=== PATIENT | female | born 1940 | race Caucasian/White ===

== ENCOUNTER 2025-05-27 21:21 | Inpatient (IN) | payer MEDICARE, SELFPAY ==
[2025-05-27 21:24] VITALS: BP 151/69; PULSE 84; RESP 16; TEMP 36.9; O2SAT 97; BMI 29.0
--- NOTE | 2025-05-27 21:51 | CT_ITS ---
PROCEDURE: SPINE LUMBAR WITHOUT CONTRAST 05/27/2025 REASON FOR EXAM: FALL, LOW BACK PAIN TECHNIQUE: Procedure Code: CTSPL Modality: CT Procedure: SPINE LUMBAR WITHOUT CONTRAST Coronal and Sagittal reconstruction series were provided. One or more dose reduction techniques were used (e.g., Automated exposure control, adjustment of the mA and/or kV according to patient size, use of iterative reconstruction technique COMPARISON: None. RADIATION DOSE SUMMARY: CTDlvol: 26.13 mGy DLP: 772.37 mGycm FINDINGS: Vertebrae: Preserved in height and signal. Osteopenia which limits the evaluation. Alignment: Retrolisthesis L2 on L3 by 3 mm. L1-2: Disc bulge. Mild inferior bilateral foramina stenosis. Mild canal stenosis. L2-3: Disc space narrowing. Facet joints arthropathy. Severe bilateral foramina stenosis. Severe canal stenosis. L3-4: Disc bulge. Facet joint arthropathy. Mild inferior bilateral foramina stenosis. Moderate canal stenosis. L4-5: Disc bulge. Facet joint arthropathy. Moderate bilateral foramina stenosis. Severe canal stenosis. L5-S1: Disc bulge. Facet joints arthropathy. Mild bilateral foramina stenosis. No canal stenosis. Sacrum: No acute bony abnormalities. CT/Spine Lumbar without Contrast IMPRESSION: Multilevel degenerate changes of the lumbar spine predominantly for severe muna l stenosis at L4-L5 and L2-L3. Please see disc levels for further details. No acute injury to the lumbar spine. Reading Location: [id number]
[2025-05-27] MEDS: 0.9% Normal Saline (1000mL) 1,000 ML 1000 ML IV (22:06)
[2025-05-27 22:19] LABS: Hematocrit 38.5 % (37-47); Hemoglobin 13.0 g/dL (12.0-15.0); Immature Granulocytes Count 0.050 X10^3/uL (0.0-0.0); Mean Corp Hgb Conc 33.8 g/dL (32-36); Mean Corpuscular Volume 89.1 fL (81-99); Mean Platelet Vol. 10.5 fl (6.2-12.0); NRBC Flagged by Analyzer 0 % (0-5); POSITIVE DIFFERENTIAL YES; Platelet Count 153 K/mm3 (150-450); RBC Distribution Width CV 12.9 % (11.6-14.6); RBC Distribution Width SD 42.5 fl (35.1-43.9); Red Blood Count 4.32 M/mm3 (4.2-5.4); White Blood Count 10.9 K/mm3 (4.4-11.0)
[2025-05-27 22:27] LABS: Differential Indicated SCAN CRITERIA MET
[2025-05-27 22:57] LABS: Anion Gap 15 (5-15); BUN 28 mg/dL (4-19); BUN/Creat Ratio 37.2 RATIO (10-20); Calcium,Total 9.4 mg/dL (7.6-11.0); Carbon Dioxide 22.4 mmol/L (21.0-32.0); Chloride 98 mmol/L (98-108); Estimated Creatinine Clearance 52.31 ml/min (50-250); Glucose 103 mg/dL (70-99); Potassium 3.4 mmol/L (3.3-5.1)
[2025-05-27 23:17] VITALS: BP 134/62; PULSE 80; RESP 18; O2SAT 95
[2025-05-27 23:32] LABS: Differential Comment SCANNED
[2025-05-27 23:50] LABS: Color, Urine Yellow (Yellow); Glucose, Dipstick Normal (Normal); Ketone-Dipstick 50 mg/dl (Negative); Leukocyte Esterase-Dipstick 500 /ul (Negative); Nitrite-Dipstick Negative (Negative); Occult Blood-Urine 25 /ul (Negative); Protein-Dipstick 30 mg/dl (Negative); Specific Gravity, Urine 1.020 (1.002-1.030)
[2025-05-27 23:54] LABS: Urine Bilirubin Dipstick 1 mg/dL (Negative)
--- NOTE | 2025-05-28 00:28 | EDS_ITS ---
HPI History of Present Illness Chief Complaint: Fall Narrative Narrative: This is an 84-year-old female who presents to the emergency department with intractable low back pain and weakness. The patient states on Friday she had a fall at home onto her left side. This was 3 days ago. She was seen by [facility] emergency department in [place] and had imaging of the back and left wrist. This showed no acute fractures. She was placed in a wrist splint. Patient states that earlier today she went to physical therapy for her low back pain and did get some improvement. However when she went home she had recurrence of the low back pain and was unable to stand or ambulate from a chair. She states she feels very dehydrated she was unable to stand or ambulate. She has no family in the area currently as they are out of town for the until next Friday, in 4 days. She ultimately had to call EMS to transfer her here to the ED. 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 Stroke Allergy/AdvReac Type Severity Reaction Status Date / Time Sulfa (Sulfonamide Allergy Mild Other Verified 05/27/25 21:27 Antibiotics) Family History no significant family his Surgical History Hx of cholecystectomy Hx of hysterectomy Social History Smoking Status: Former smoker ROS ROS ED Constitutional Constitutional ED: Denies chills or fever(s) Eyes Eyes: Denies blurry vision ENT ENT ED: Denies sore throat Cardiovascular Cardiovascular: Denies chest pain or palpitations Respiratory/Chest Respiratory/Chest: Denies cough or dyspnea Gastrointestinal Gastrointestinal: Denies abdominal pain, nausea or vomiting Genitourinary Genitourinary ED: Denies dysuria Musculoskeletal Musculoskeletal: Reports arthralgias and back pain; Denies myalgias Integumentary Reports Abrasions Neurologic Neurologic: Denies headache(s) Hematologic/Lymphatic Hematologic/Lymphatic: Denies easy bleeding EXAM Physical Exam Const Vital Signs: 05/27/25 21:24 05/27/25 21:24 05/27/25 21:31 Temperature 98.4 F Temperature Source Oral Pulse Rate 84 Respiratory Rate 16 Respiratory Effort Normal Normal Respiratory Depth Normal Respiratory Pattern Normal Normal Blood Pressure 151/69 H Blood Pressure Mean 96 Pulse Ox 97 Oxygen Delivery Method Room Air Room Air 05/27/25 23:17 Temperature Temperature Source Pulse Rate 80 Respiratory Rate 18 Respiratory Effort Respiratory Depth Respiratory Pattern Blood Pressure 134/62 H Blood Pressure Mean 86 Pulse Ox 95 Oxygen Delivery Method Room Air Positive well nourished, well developed and oriented x3 General Appearance ED: active, cooperative and well developed Orientation / Consciousness: awake and oriented to person Exam Limitations: no limitations HEENT Reports normocephalic, head/scalp atraumatic, moist mucous membranes, nasal mucous membranes and turbinates normal and oropharynx normal HEENT Narrative: Bruising over the nasal bridge normocephalic, normal to inspection and atraumatic Face and Sinus: normal facial exam Nose: external nose normal and nares normal Mouth ED: Yes oral and palatal mucosa normal, Yes lips normal and Yes tongue normal Mouth: oral and palatal mucosa normal, lips normal and tongue normal Throat: posterior oropharynx normal Eyes PERRL, EOMs intact bilaterally and conjunctivae normal General Eye ED: Yes normal appearance of both eyes Visual Acuity: acuity normal Eyelid: eyelids normal Conjunctiva: conjunctiva normal Sclera: sclera normal Cornea: cornea normal Pupil: PERRL and accommodation reflex normal EOM: EOM abnormal Neck full ROM Lymph Lymphatic: no lymphadenopathy noted Chest Wall inspection of chest normal Chest: abnormal inspection of the chest Resp normal respiratory effort and normal air movement Effort and Inspection: able to speak in complete sentences and symmetric chest movement Auscultation: clear to auscultation bilaterally Cardio regular rate and regular rhythm Rate: regular rate Peripheral Pulses: pulses 2+ throughout GI normal to inspection, nondistended, normoactive bowel sounds Rectal Exam: deferred Back/Spine normal ROM Back/Spine Narrative: Tenderness to palpation over the mid and paraspinal lumbosacral region of the left side of the back Cervical Spine: cervical ROM normal Extremity normal to inspection, full ROM and normal capillary refill Extremity Narrative: Tenderness and swelling to the left wrist with the splint in place Neuro oriented x3, CN's II-XII intact bilaterally, moves all extremities and no focal motor deficits Sensorium / Orientation: awake and alert Motor Exam: strength 5/5 throughout Psych mental status grossly normal Appearance: grossly normal and appropriate Speech: normal speech Skin no rashes or lesions noted MDM MDM MDM Narrative Medical decision making narrative: Patient presents to the emergency department for intractable low back pain after a fall 3 days ago. She is having difficulty ambulating, even with assistance and is having generalized weakness from this. Patient was given IV fluids, morphine and Zofran in the emergency department. She did get some pain relief from this. I did do a CT of the lumbar spine which shows no occult or compression fractures. The patient does have multilevel degenerative disc disease of the lumbar spine predominantly with severe canal stenosis at L4-L5 as well as L2 and L3. There is no acute injury to the lumbar spine. I suspect that patient likely has urinary tract infection as well she has some blood and leukocytes in the urine. Awaiting final microscopic evaluation of the UA. I will start the patient on IV Rocephin. She did appear to be mildly dehydrated she did have some ketones in the urine. With the patient's ambulatory dysfunction, intractable pain, likely UTI and difficulty completing her ADLs at home, I will admit the patient to the hospitalist for continued management and possible physical therapy evaluation to is for her deficits and therapy needs at this time. Patient is comfortable with this plan if she does not feel safe going home at this point. I spoke with Dr. Booth for admission. Impressions: Intractable low back pain, generalized weakness and ambulatory dysfunction, dehydration, UTI Lab Data Labs: Laboratory Results - last 24 hr 05/27/25 05/27/25 22:07 23:38 WBC 10.9 RBC 4.32 Hgb 13.0 Hct 38.5 MCV 89.1 MCH 30.1 MCHC 33.8 RDW Std Deviation 42.5 RDW Coeff of Ethan 12.9 Plt Count 153 MPV 10.5 Immature Gran % (Auto) 0.500 Neut % (Auto) 71.6 H Lymph % (Auto) 7.8 L [place] % (Auto) 19.7 H Eos % (Auto) 0.2 Baso % (Auto) 0.2 Absolute Neuts (auto) 7.8 H Absolute Lymphs (auto) 0.85 Nucleated RBC % 0 Differential Comment SCANNED Sodium 135 Potassium 3.4 Chloride 98 Carbon Dioxide 22.4 Anion Gap 15 BUN 28 H Creatinine 0.74 Estim Creat Clear Calc 52.31 Est GFR (MDRD) Non-Af 81 BUN/Creatinine Ratio 37.2 H Glucose 103 H Calcium 9.4 Urine Color Yellow Urine Clarity Sl. Cloudy Urine pH 5.0 Ur Specific Maybell 1.020 Urine Protein 30 H Urine Glucose (UA) Normal Urine Ketones 50 H Urine Occult Blood 25 H Urine Nitrite Negative Urine Bilirubin 1 H Urine Urobilinogen 1 H Ur Leukocyte Esterase 500 H Radiography Diagnostic Testing: Clinical Impression(s) from Imaging Studies Lumbar Spine CT 05/27/25 21:51 IMPRESSION: Multilevel degenerate changes of the lumbar spine predominantly for severe canal stenosis at L4-L5 and L2-L3. Please see disc levels for further details. No acute injury to the lumbar spine. Reading Location: [facility] Discharge Plan Triage Chief Complaint: Fall Other Complaint: Weakness ED Provider: Palma Mayberry Dx/Rx/DC Orders Primary Care Provider: Herbie Marquez Referrals: Herbie Marquez MD [Primary Care Provider, Medical] Print Language: Serbian
[2025-05-28 00:40] VITALS: BP 144/68; PULSE 82; PULSE 83; RESP 14; RESP 16; TEMP 36.9; O2SAT 97
[2025-05-28 00:40] LABS: Mucous, Urine 2+ /hpf (<or=2+); Squamous Epithelial Cells - UA 5-10 SEEN /hpf (5-10)
--- OUTSIDE RECORDS SUMMARY | 2025-05-28 01:46 | XMS RPT_ITS | CCD ---
Author Organization [facility] Care Team Providers Care Mac Artist Name Role Phone Jose Armando Marquez Primary Care Provider [phone] JOSE ARMANDO MARQUEZ Primary Care Unavailable LINA CHAVEZ Attending Unavailable Jose Armando Marquez MD Primary Care Provider JOSE ARMANDO MARQUEZ Primary Care Unavailable BHANU MAYS Referring Unava otmmyable KAREN RINALDI Attending Unavailable JOSE ARMANDO MARQUEZ Primary Care Unavailable JESSA SMITH Attending Unavailable JOSE ARMANDO MARQUEZ Primary Care Unavailable BHANU MAYS Attending Unava ilable JOSE ARMANDO MARQUEZ Primary Care Unavailable NAIMA STILL Attending Unavailable JESSA SMITH Attending Unavailable JOSE ARMANDO MARQUEZ Primary Care Unavailable JOSE ARMANDO MARQUEZ Primary Care Unavailable KAREN RINALDI Attending Unavailable JOSE ARMANDO MARQUEZ Primary Care Unavailable JOSE ARMANDO MARQUEZ Primary Care Unavailable KAREN RINALDI Attending Unavailable Jose Armando Marquez MD Primary Care Provider Jose Armando Marquez MD Primary Care Provider JOSE ARMANDO MARQUEZ Primary Care Unavailable MARTY BAH Attending Unavailable JOSE ARMANDO MARQUEZ Referring Unavailable JOSE ARMANDO MARQUEZ Primary Care Unavailable JOSE ARMANDO MARQUEZ Primary Care Unavailable DAKSHA ELLIS Attending Unavailable SELF Referring Unavailable JOSE ARMANDO MARQUEZ Primary Care Unavailable DAKSHA ELLIS Attending Unavailable SELF Referring Unavailable JOSE ARMANDO MARQUEZ Primary Care Unavailable DAKSHA ELLIS Referring Unavailable JOSE ARMANDO MARQUEZ Primary Care Unavailable JOSE ARMANDO MARQUEZ Referring Unavailable JOSE ARMANDO MARQUEZ Primary Care Unavailable JOSE ARMANDO MARQUEZ Primary Care Unavailable JOSE ARMANDO MARQUEZ Primary Care Unavailable JOSE ARMANDO MARQUEZ Primary Care Unavailable JOSE ARMANDO MARQUEZ Attending Unavailable JOSE ARMANDO MARQUEZ Primary Care Unavailable JOSE ARMANDO MARQUEZ Attending Unavailable JOSE ARMANDO MARQUEZ Referring Unavailable JOSE ARMANDO MARQUEZ Primary Care Unavailable JOSE ARMANDO MARQUEZ Referring Unavailable JOSE ARMANDO MARQUEZ Primary Care Unavailable JOSE ARMANDO MARQUEZ Referring Unavailable JOSE ARMANDO MARQUEZ Primary Care Unavailable JOSE ARMANDO MARQUEZ Primary Care Unavailable JOSE ARMANDO MARQUEZ Primary Care Unavailable JOSE ARMANDO MARQUEZ Primary Care Unavailable JOSE ARMANDO MARQUEZ Referring Unavailable JOSE ARMANDO MARQUEZ Primary Care Unavailable JOSE ARMANDO MARQUEZ Attending Unavailable JOSE ARMANDO MARQUEZ Primary Care Unavailable JOSE ARMANDO MARQUEZ Primary Care Unavailable JOSE ARMANDO MARQUEZ Referring Unavailable JOSE ARMANDO MARQUEZ Primary Care Unavailable JOSE ARMANDO MARQUEZ Primary Care Unavailable JOSE ARMANDO MARQUEZ Referring Unavailable JOSE ARMANDO MARQUEZ Primary Care Unavailable Allergies Allergy Classification Reported Allergen(s) Allergy Type Date of Onset Reaction(s) Facility Cephalosporins (antibiotic) (1 source) Cephalexin Drug Allergy 12-12-19 24 Rash [facility] Corticosteroids (3 sources) predniSONE Drug Allergy 12-04-19 16 Itching [facility] Doxycycline (3 sources) Doxycycline Drug Allergy 08-27-19 23 Rash [facility] Lincosamides (antibiotic) (3 sources) Clindamycin Drug Allergy 12-04-19 16 Itching [facility] Loratadine (3 sources) Loratadine Drug Allergy 10-05-19 22 Swelling [facility] Work Phone: Macrolides (antibiotic) (3 sources) Clarithromycin Drug Allergy 05-17-20 21 Rash [facility] Proton Pump Inhibitors (3 sources) Omeprazole Drug Allergy 02-17-20 20 Hives [facility] Quinolones (antibiotic) (3 sources) Ciprofloxacin Drug Allergy 12-04-19 16 Itching [facility] Sulfamethoxazole / Trimethoprim (3 sources) Sulfamethoxazole / Trimethoprim Drug Allergy 12-04-19 16 Itching [facility] Sulfonamides (antibiotic) (3 sources) Sulfonamides (Antibiotic) Drug Allergy 09-15-19 18 [facility] (20 sources) Ciprofloxacin; Translations: [CIPROFLOXACIN] Drug Allergy 12-04-19 16 Itching [place], [place] (20 sources) Clindamycin; Translations: [CLINDAMYCIN] Drug Allergy 12-04-19 16 Itching [place], [place] (20 sources) predniSONE; Translations: [PREDNISONE] Drug Allergy 12-04-19 16 Itching [place] (20 sources) Sulfamethoxazole / Trimethoprim; Translations: [SULFAMETHOXAZOLE-T RIMETHOPRIM] Drug Allergy 12-04-19 16 Itching [place], [place] (5 sources) Sulfonamides (Antibiotic) Propensity to adverse reactions to drug 09-15-19 18 [facility] [place] [place] ([facility] Omeprazole; Translations: [OMEPRAZOLE] Drug Allergy 02-17-20 [facility] (20 sources) Loratadine; Translations: [LORATADINE] Drug Allergy 10-05-19 22 [facility] Work Phone: (20 sources) Doxycycline; Translations: [DOXYCYCLINE] Drug Allergy 08-27-19 23 [facility] (8 sources) Amoxicillin; Translations: [AMOXICILLIN] Drug Allergy 10-18-19 [facility] (20 sources) Clarithromycin; Translations: [CLARITHROMYCIN] Drug Allergy 05-17-20 [facility] (20 sources) Sulfonamides (Antibiotic); Translations: [SULFA (SULFONAMIDE ANTIBIOTICS)] Drug Intolerance 09-15-[facility] Fragrances; Translations: [FRAGRANCES] Allergy to substance 02-01-20 [facility] (20 sources) Cephalexin; Translations: [CEPHALEXIN] Drug Allergy 12-12-19 [facility] (1 source) Clarithromycin Allergy to substance 05-17-20 [facility] (1 source) levoFLOXacin Drug Allergy 05-17-20 [facility] (1 source) Loratadine Allergy to substance 10-05-19 [facility] (1 source) Prednisone Allergy to substance 12-04-19 16 Itching [facility] Medications Current Medications Medication Drug Class(es) Dates Sig (Normalized) Sig (Original) Acetaminophen (20 sources) acetaminophen (T YLENOL EXTRA STRENGTH ORAL) Take by mouth. Active acetaminophen (T YLENOL EXTRA STRENGTH ORAL) Take by mouth. 0 Active Acetaminophen (T YLENOL) 325 MG CAPS Take by mouth 0 Active Comment on above: Take by mouth. acetaminophen 325 mg / HYDROcodone bitartrate 5 mg oral tablet (9 sources) Opioid Agonist Start: 02-26-20 End: 11-07-19 22 take 1 tablet by mouth every twelve hours as needed HYDROcodone-acetamin ophen (NORCO) 5-325 mg per tablet Indications: Tenosynovitis of wrist Take 1 tablet by mouth every 12 hours as needed (for severe opain). 4 tablet 0 02/25/2021 11/06/2021 Discontinued (Course of therapy completed) Comment on above: Take 1 tablet by scott th every 12 hours as needed (for severe opain). amLODIPine 10 mg oral tablet (20 sources) Dihydropyridine Calcium Channel Marcellus Start: 07-28-19 End: 10-20-19 25 amLODIPine (NORVASC) 10 mg tablet TAKE ONE TABLET EVERY DAY 90 tablet 3 10/19/2024 Active Start: 10-11-2021 End: 10-28-2022 take 1 tablet by mouth once daily amLODIPine (Norvasc) 10 MG tablet Take 10 mg by mouth daily. 0 07/23/2022 Active Start: 05-17-2021 End: 11-06-2021 amLODIPine (NORVASC) 5 mg ta blet TAKE ONE TABLET EVERY DAY 90 tablet 3 05/17/2021 11/06/2021 Discontinued (Course of therapy completed) Start: 08-20-2017 amLODIPine (NO RVASC) 5 mg tablet TAKE ONE TABLET EVERY DAY 90 tablet 3 08/16/2019 Active Comment on above: TAKE ONE TABLET EVER Y DAY Take 1 tablet by scott th once daily. TAKE ONE TABLET BY M OUTH ONCE DAILY amoxicillin 250 mg oral capsule (10 sources) Penicillin-class Antibacterial Start: 4 End: 4 take 1 capsule by mouth twice daily amoxicillin (AMOXIL) 250 mg capsule Take 1 capsule by mouth two times a day for 10 days. 20 capsule 04/07/2024 04/17/2024 Active Start: 03-18-2024 End: 03-28-2024 take 1 capsule by mouth twice daily amoxicillin (AMOXIL) 250 mg capsule Take 1 capsule by mouth two times a day for 10 days. 20 capsule 03/18/2024 03/28/2024 Active Start: 09-19-2023 End: 09-26-2023 take 1 tablet by mouth twice daily amoxicillin (AMOXIL) 875 mg tablet Indications: Acute non-recurrent pansinusitis , Left ear pain Take 1 tablet by mouth two times a day for 7 days. 14 tablet 0 09/19/2023 09/26/2023 Active Start: 02-19-2023 End: 03-10-2023 Amoxicillin 500 mg tablet On e half tablet tid 15 tablet 0 02/19/2023 03/10/2023 Discontinued Start: 01-14-2023 End: 01-14-2023 amoxicillin 250 mg oral liqu id (AMOXIL) Start: 06-28-2020 End: 07-08-2020 take 1 tablet by mouth twice daily Amoxicillin 500 mg tablet Take 1 tablet by mouth twice daily for 10 days. 20 tablet 0 06/28/2020 07/08/2020 Active Start: 04-07-2020 End: 04-17-2020 take 1 tablet by mouth twice daily Amoxicillin 500 mg tablet Take 1 tablet by mouth twice daily for 10 days. 20 tablet 0 04/07/2020 04/17/2020 Active Comment on above: Take 1 tablet by scott [facility] twice daily for 10 days. One half tablet tid Take 1 tablet by scott th two times a day for 7 days. apixaban 5 mg oral tablet (20 sources) Factor Xa Inhibitor Start: 08-15-2021 End: 08-09-2024 take 1 tablet by mouth every twelve hours ELIQUIS 5 mg tab(s) TAKE ONE TABLET BY MOUTH TWICE DAILY 60 tablet 11 08/09/2024 Active Start: 04-07-2020 End: 06-12-2020 ELIQUIS 5 mg tab(s) TAKE ONE TABLET TWICE DAILY 60 tablet 2 06/12/2020 Active Start: 01-06-2020 take 1 tablet by scott th twice daily apixaban (ELIQUIS) 5 mg tab(s) Take 1 tablet by mouth twice daily. 60 tablet 2 01/06/2020 Active Start: 11-26-2018 take 2 tablets by mo [facility] twice daily, then take 1 tablet by mouth twice daily apixaban (ELIQUIS STARTER PACK) 5 MG TABS tablet Take 10 mg (2 tablets) orally twice daily for 7 days, then take 5 mg (1 tablet) orally twice daily thereafter. 74 tablet 0 11/26/2018 Active Comment on above: Take 1 tablet by scott twice daily. TAKE ONE TABLET BY M OUTH TWICE DAILY TAKE ONE TABLET TWIC E DAILY azelastine hydrochloride 0.137 mg/actuat metered dose nasal spray (11 sources) Histamine-1 Receptor Antagonist Start: 10-23-19 take 1 spray(s) nasal route twice daily azelastine 0.1% nasal spray Use 1 spray in each nostril two times a day. 30 mL 2 10/22/2024 Active azithromycin 250 mg oral tablet (8 sources) Macrolide Antimicrobial Start: 10-05-19 End: 11-07-19 take 2 tablets by mouth once daily, then take 1 tablet by mouth once daily azithromycin (ZITHROMAX Z-DARRYL) 250 mg tablet Indications: Chronic pansinusitis Two (2) tablets by mouth the first day and then one (1) tablet by mouth daily for 4 days. 6 tablet 0 10/04/2021 11/06/2021 Discontinued (Course of therapy completed) Comment on above: Two (2) tablets by m outh the first day and then one (1) tablet by mouth daily for 4 days. benzonatate 100 mg oral capsule (2 sources) Non-narcotic Antitussive Start: 11-03-19 End: 12-03-19 take 1 capsule by mouth every eight hours as needed benzonatate (TESSALON PERLES) 100 mg capsule Take 1 capsule by mouth three times daily as needed for cough. 30 capsule 1 11/02/2021 11/06/2021 Discontinued (Course of therapy completed) Comment on above: Take 1 capsule by mo [facility] three times daily as needed for cough. bisacodyl 10 mg rectal suppository (7 sources) Stimulant Laxative Start: 10-05-19 End: 11-04-19 bisacodyl (DULCOLAX) 10 mg supp Indications: Constipation, unspecified constipation type 1 Suppository by RECTAL route once daily as needed for constipation. 30 Suppository 0 10/04/2021 11/03/2021 Active Comment on above: 1 Suppository by REC GASTON route once daily as needed for constipation. cephalexin 500 mg oral capsule (5 sources) Cephalosporin Antibacterial Start: 11-27-19 End: 12-02-19 take 1 capsule by mouth twice daily cephALEXin (KEFLEX) 500 mg capsule Take 1 capsule by mouth two times a day for 5 days. 10 capsule 0 11/27/2023 12/02/2023 Active Start: 08-19-2023 End: 08-24-2023 take 1 capsule by mouth twice daily cephALEXin (KEFLEX) 500 mg capsule Take 1 capsule by mouth two times a day for 5 days. 10 capsule 0 08/19/2023 08/24/2023 Active Start: 11-19-2021 End: 11-26-2021 take 1 capsule by mouth twice daily cephALEXin (KEFLEX) 500 mg capsule Take 1 capsule by mouth twice daily for 7 days. 14 capsule 0 11/19/2021 11/26/2021 Comment on above: Take 1 capsule by mo uth twice daily for 7 days. Take 1 capsule by mo uth two times a day for 5 days. cholecalciferol 0.025 mg ora l capsule (6 sources) Vitamin D cholecalciferol (Vitamin D-3) 25 MCG (1000 UT) capsule Take 2,000 Units by mouth. 0 Active Cholecalciferol (VITAMIN D3) 1000 units CAPS Take 2,000 Units by mouth 0 Active CHOLECALCIFEROL, VITAMIN D3, ORAL (20 sources) take 2000 [IU] by mouth once daily CHOLECALCIFEROL, VITAMIN D3, ORAL Take 2,000 Units by mouth once daily. Active take 2000 [IU] by mouth once neris ly CHOLECALCIFEROL, VITAMIN D3, ORAL Take 2,000 Units by mouth once daily. 0 Active Comment on above: Take 2,000 Units by mouth once daily. doxycycline monohydrate 100 mg oral capsule (7 sources) Tetracycline-cla ss Drug Start: 08-23-2022 End: 08-30-2022 take 1 capsule by mouth twice daily doxycycline monohydrate (MONODOX) 100 mg capsule Take 1 capsule by mouth twice daily for 7 days. 14 capsule 0 08/23/2022 08/30/2022 Active Start: 10-29-2021 End: 2021 take 1 capsule by mouth twice daily doxycycline monohydrate (MONODOX) 100 mg capsule Take 1 capsule by mouth twice daily for 7 days. 14 capsule 0 10/29/2021 2021 Active Comment on above: Take 1 capsule by mo uth twice daily for 7 days. famotidine 40 mg oral tablet (20 sources) Histamine-2 Receptor Antagonist Start: 10-13-2023 End: 10-05-2024 take 1 tablet by mouth once daily famotidine (PEPCID) 40 mg tablet TAKE ONE TABLET BY MOUTH EVERY DAY 90 tablet 3 10/05/2024 Active Start: 01-22-2023 End: 09-19-2023 take 1 tablet by mouth once daily famotidine (PEPCID) 40 mg tablet Take 1 tablet by mouth once daily. 90 tablet 3 01/22/2023 09/19/2023 Discontinued Start: 08-09-2021 End: 08-14-2022 take 1 tablet by mouth once daily famotidine (Pepcid) 20 MG tablet Take 20 mg by mouth daily. 0 08/14/2022 Active Start: 02-16-2020 End: 08-14-2020 take 1 tablet by mouth once daily famotidine (PEPCID) 20 mg tablet Take 1 tablet by mouth once daily. 30 tablet 5 02/16/2020 08/14/2020 Active Comment on above: Take 1 tablet by scott th once daily. TAKE ONE TABLET BY M OUTH ONCE DAILY TAKE ONE TABLET EVER Y DAY fluticasone propionate 0.05 mg/actuat metered dose nasal spray (20 sources) Corticosteroid Start: End: take 2 spray(s) nasal route twice daily fluticasone (FLONASE) 50 mcg/actuation nasal spray Use 2 Sprays in each nostril twice daily. 16 g 3 11/10/2024 Active Start: 08-21-2022 fluticasone (F lonase) 50 MCG/ACT nasal spray 2 sprays in the morning and 2 sprays in the evening. 0 08/21/2022 Active Start: 06-04-2021 End: 02-14-2023 take 2 spray(s) nasal route twice daily fluticasone (FLONASE) 50 mcg/actuation nasal spray Use 2 Sprays in each nostril twice daily. 16 mL 3 08/21/2022 02/14/2023 Discontinued Start: 06-08-2019 End: 03-17-2020 take 2 spray(s) nasal route twice daily fluticasone (FLONASE) 50 mcg/actuation nasal spray Use 2 Sprays in each nostril twice daily. 16 g 3 03/17/2020 Active Start: 08-26-2017 take 2 spray(s) nasa l route once daily fluticasone (FLONASE) 50 MCG/ACT nasal spray USE two SPRAYS in each nostril EVERY DAY 0 08/26/2017 Active Comment on above: Use 2 Sprays in each nostril twice daily. folic acid 1 mg oral tablet (20 sources) Start: 05-26-2023 End: 02-23-2024 folic acid 1 mg tablet take one tablet every day 90 tablet 3 02/23/2024 Active Start: 02-19-2022 folic acid (Fo lvite) 1 MG tablet Every 24 hours. 0 02/19/2022 Active Start: 02-26-2021 End: 02-19-2022 folic acid 1 mg tablet TAKE ONE TABLET EVERY DAY 90 tablet 3 02/19/2022 Active Start: 03-05-2019 End: 03-01-2020 folic acid 1 mg tablet TAKE ONE TABLET EVERY DAY 90 tablet 3 06/04/2019 03/01/2020 Discontinued Comment on above: TAKE ONE TABLET EVER Y DAY TAKE ONE TABLET BY M OUTH ONCE DAILY glycerin 2000 mg rectal suppository (20 sources) Non-Standardized Chemical Allergen Start: 2 glycerin ADULT suppository 1 Suppository by RECTAL route as needed. 30 Suppository 2 02/19/2022 Active Comment on above: 1 Suppository by REC GASTON route as needed. 12 hr guaiFENesin 600 mg extended release oral tablet (20 sources) Start: 5 End: 5 take 1 tablet by mouth twice daily guaiFENesin (MUCINEX) 600 mg 12 hr tablet Take 1 tablet by mouth two times a day. 40 tablet 1 10/22/2024 Active Start: 06-01-2019 End: 02-17-2024 take 1 tablet by mouth twice daily guaiFENesin (MUCINEX) 600 mg 12 hr tablet Take 1 tablet by mouth twice daily. 40 tablet 2 06/01/2019 02/17/2024 Discontinued (Course of therapy completed) Comment on above: [facility] hydroCHLOROthiazide 12.5 mg oral capsule (9 sources) Thiazide Diuretic Start : 10-04 End: 11-06 take 1 capsule by mouth once daily hydroCHLOROthiazide (Microzide) 12.5 MG capsule Take 12.5 mg by mouth daily. 0 10/04/2021 Active Comment on above: Take 1 capsule by [facility] once daily. hydroxychloroquine sulfate 200 mg oral tablet (20 sources) Antimalarial, Antirheumatic Agent Start : 05-13 take 1 tablet by mouth once daily hydroxychloroquine (PLAQUENIL) 200 mg tablet Indications: Sjogren's disease (HCC) Take 1 tablet by mouth once daily. 30 tablet 5 05/13/2016 Active hydroxychloroqui ne (Plaquenil) 200 MG tablet Every 24 hours. 0 Active Comment on above: Take 1 tablet [facility] once daily. levothyroxine sodium 0.05 mg oral tablet (20 sources) l-Thyroxine Start: 07-11-2021 End: 11-03-2024 levothyroxine (SYNTHROID) 50 mcg tablet TAKE ONE TABLET EVERY DAY 90 tablet 3 11/03/2024 Active Start: 08-16-2019 End: 06-14-2020 levothyroxine (SYNTHROID) 50 mcg tablet TAKE ONE TABLET EVERY DAY 90 tablet 3 06/14/2020 Active Comment on above: TAKE ONE TABLET EVER Y DAY Take 1 tablet [facility] once daily. lidocaine 0.04 mg/mg medicated patch (2 sources) Antiarrhythmic, Amide Local Anesthetic Start: 023 End: 023 apply 1 dose transdermal route once daily, then apply 1 dose transdermal route every twelve hours lidocaine (SALONPAS) 4 % patch Apply 1 Patch as directed once daily for 5 days. Remove patch after 12 hours 5 Patch 0 12/25/2022 12/30/2022 Active Comment on above: Apply 1 Patch as dir ected once daily for 5 days. Remove patch after 12 hours nitrofurantoin, macrocrystals 25 mg / nitrofurantoin, monohydrate 75 mg oral capsule (12 sources) Nitrofuran Antibacterial Start: End: take 1 capsule by mouth twice daily nitrofurantoin monohydrate and macrocrystal (MACROBID) 100 mg capsule Take 1 capsule by mouth two times a day for 7 days. 14 capsule 03/03/2025 03/10/2025 Active Start: 08-23-2024 End: 08-30-2024 take 1 capsule by mouth twice daily nitrofurantoin monohydrate and macrocrystal (MACROBID) 100 mg capsule Take 1 capsule by mouth two times a day for 7 days. 14 capsule 08/23/2024 08/30/2024 Start: 02-17-2024 End: 02-24-2024 take 1 capsule by mouth twice daily nitrofurantoin monohydrate and macrocrystal (MACROBID) 100 mg capsule Take 1 capsule by mouth two times a day for 7 days. 14 capsule 02/17/2024 02/24/2024 Active Start: 12-05-2022 End: 12-12-2022 take 1 capsule by mouth twice daily nitrofurantoin monohydrate and macrocrystal (MACROBID) 100 mg capsule Take 1 capsule by mouth twice daily for 7 days. 14 capsule 0 12/05/2022 12/12/2022 Active Start: 07-17-2022 End: 07-24-2022 take 1 capsule by mouth twice daily nitrofurantoin monohydrate and macrocrystal (MACROBID) 100 mg capsule Take 1 capsule by mouth twice daily for 7 days. 14 capsule 0 07/17/2022 07/24/2022 Active Start: 05-30-2022 End: 06-06-2022 take 1 capsule by mouth twice daily nitrofurantoin monohydrate and macrocrystal (MACROBID) 100 mg capsule Take 1 capsule by mouth twice daily for 7 days. 14 capsule 0 05/30/2022 06/06/2022 Active Comment on above: Take 1 capsule by [facility] twice daily for 7 days. raNITIdine 150 mg oral tablet (5 sources) Histamine-2 Receptor Antagonist take 1 tablet by mouth twice daily ranitidine (RANITIDINE 150 MAX STRENGTH) 150 MG tablet Take 150 mg by mouth 2 times daily 0 Active terconazole 8 mg/ml vaginal cream (20 sources) Azole Antifungal Start: terconazole vaginal cream (TERAZOL) 0.8 % vaginal cream Use 1 Applicator vaginally daily at bedtime. 20 g 1 08/27/2024 Active Start: 12-09-2023 End: 08-17-2024 terconazole vaginal cream (T ERAZOL) 0.8 % vaginal cream Use 1 Applicator vaginally daily at bedtime. 20 g 12/09/2023 08/17/2024 Discontinued (Course of therapy completed) Start: 04-30-2021 End: 11-06-2021 terconazole vaginal cream (T ERAZOL) 0.8 % vaginal cream Use 1 Applicator vaginally daily at bedtime. 20 g 1 04/30/2021 11/06/2021 Discontinued (Course of therapy completed) Comment on above: Use 1 Applicator vag inally daily at bedtime. triamcinolone acetonide 1 mg/ml topical cream (20 sources) Corticosteroid Start: 04-29-2023 End: 07-28-2024 triamcinolone acetonide (KENALOG) 0.1 % cream Apply to affected areas twice a day for two weeks with flares 80 g 2 07/28/2024 Active Comment on above: Apply to affected ar eas twice a day for two weeks with flares vitamin b12 1 mg/ml injectable solution (20 sources) Vitamin B12 Start: 06-10-2024 End: 05-12-2025 cyanocobalamin 1,000 mcg injection Start: 06-10-2024 End: 05-12-2025 1,000 mcg, INTRAMUSCULAR, EV KATHIA 4 WEEKS, 12 doses, First dose on [facility] 06/10/24 at 0700, Last dose on [facility] 04/14/25 at 0700 Start: 06-11-2023 End: 05-12-2024 1,000 mcg, INTRAMUSCULAR, EV KATHIA 4 WEEKS, 12 doses, First dose on Fri06/11/23 at 1030, Last dose on Fri04/14/24 at 1030 Start: 06-11-2023 End: 05-12-2024 cyanocobalamin 1,000 mcg inj ection Start: 05-09-2022 End: 04-10-2023 cyanocobalamin 1,000 mcg inj ection Start: 04-26-2021 End: 03-28-2022 cyanocobalamin 1,000 mcg inj ection Start: 04-20-2020 End: 03-22-2021 cyanocobalamin 1,000 mcg inj ection Start: 04-14-2019 End: 04-10-2023 cyanocobalamin (Vitamin B-12 ) 1000 MCG/ML injection Inject 1,000 mcg into the shoulder, thigh, or buttocks every 28 (twenty-eight) days. 0 04/14/2019 04/10/2023 Active Start: 04-14-2019 End: 03-15-2020 cyanocobalamin 1,000 mcg inj ection Completed/Discontinued Medications Medication Drug Class(es) Dates Sig (Normalized) Sig (Original) amoxicillin 500 mg / clavulanate 125 mg oral tablet (5 sources) Penicillin-class Antibacterial Start: 06-28-2024 End: 07-05-2024 take 1 tablet by mouth every twelve hours amoxicillin-clav ulanate potassium (AUGMENTIN) 500-125 mg per tablet Indications: Bronchitis Take 1 tablet by mouth every 12 hours for 7 days. 14 tablet 06/28/2024 07/05/2024 Start: 10-01-2021 End: 10-11-2021 take 1 tablet by mouth every twelve hours amoxicillin-clavulanic acid (AUGMENTIN) 875-125 mg per tablet Take 1 tablet by mouth every 12 hours for 10 days. 20 tablet 0 10/01/2021 10/04/2021 Discontinued (Side Effects) Comment on above: [facility] 12 hours for 10 days. betamethasone 3 mg/ml / betamethasone acetate 3 mg/ml injectable suspension (2 sources) Corticosteroid Start: 06-28-2024 End: 06-28-2024 betamethasone acetate-betamethasone sodium phosphate 6 mg injection (CELESTONE) Start: 06-28-2024 End: 06-28-2024 inject 1 dose by intramuscular injection once 6 mg, INTRAMUSCULAR, ONCE, 1 dose, On 06/28/24 at 1200, Protect From Light. ferrous sulfate 325 mg oral tablet (20 sources) Start: 12-18-2020 End: 02-15-2025 take 1 tablet by mouth once daily in the morning FEROSUL 325 mg (65 mg iron) tablet Take 1 tablet by mouth every morning. 90 tablet 3 01/03/2025 02/15/2025 Discontinued (Course of therapy completed) Start: 05-16-2017 ferrous sulfat e (FEROSUL) 325 (65 Fe) MG tablet TAKE ONE TABLET EVERY MORNING 0 05/16/2017 Active Comment on above: TAKE ONE TABLET EVER Y MORNING [facility] hydrocortisone 25 mg/ml topical cream (20 sources) Corticosteroid Start: 04-29-2023 End: 10-21-2023 hydrocortisone 2.5 % cream Apply twice daily to affected areas on face for 2 weeks 80 g 3 04/29/2023 10/21/2023 Discontinued (Course of therapy completed) Start: 11-26-2022 End: 10-21-2023 hydrocortisone (ANUSOL-HC) 2 .5 % rectal cream by RECTAL route twice daily. 28 g 1 11/26/2022 10/21/2023 Discontinued (Course of therapy completed) Comment on above: by RECTAL route twic e daily. Apply twice daily to affected areas on face for 2 weeks Ibuprofen (20 sources) Nonsteroidal Anti-inflammatory Drug ibuprofen (ADVIL LIQUI-GEL ORAL) Take by mouth. 0 Active Comment on above: Take by mouth. NITROFURANTOIN MONOHYD/M-CRYST ORAL (14 sources) End: 08-19-2023 NITROFURANTOIN MONOHYD/M-CRYST ORAL Take by mouth. 0 08/19/2023 Discontinued (Course of therapy completed) NITROFURANTOIN M ONOHYD/M-CRYST ORAL Take by mouth. 0 Active Comment on above: Take by mouth. omeprazole 20 mg delayed release oral capsule (3 sources) Proton Pump Inhibitor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 acute distress, well-hydrated, well nourished. Head: Normocephalic, no masses, lesions, tenderness or abnormalities Eyes: Anicteric sclera. Pupils are equally round and reactive to light. Extraocular movements are intact. Ears: External ears normal, canals clear, TM's normal Nose/Sinuses: Nares (more content not included)... Normal [facility] ALT [Catalytic activity/Vol] on 02-08-2025 ALT With P-5'-P [Catalytic activity/Vol] 13 U/L Normal 7-38 [facility] Comment on above: Order Comment: Specerica osborn Type: BLOOD SPECIMENOrdering Facility: [facility] Address: [address] [place] [address] Performed By: #### 2 4321-2, 1742-6, 84533-4, 3016-3 ####[facility] LABORATORYCLIA [id number] [place] [address] [place] Basic metabolic 2000 panelon 02-08-2025 Anion gap [Moles/Vol] 10 mmol/L Normal 8-15 [facility] Comment on above: Order Comment: Erick osborn Type: BLOOD SPECIMENOrdering Facility: [facility] Address: [address] [place] [address] Performed By: #### 2 4321-2, 1742-6, 58982-7, 3016-3 ####[facility] LABORATORYCLIA [id number] [place] [address] [place] Calcium [Mass/Vol] 9.5 mg/dL Normal 8.5-10.2 [facility] Comment on above: Order Comment: Yanelyi irena Type: BLOOD SPECIMENOrdering Facility: [facility] Address: [address] [place] [address] Performed By: #### 2 4321-2, 1742-6, 84817-3, 3016-3 ####[facility] LABORATORYCLIA [id number] [place] [address] [place] Chloride [Moles/Vol] 104 mmol/L Normal 98-107 [facility] Comment on above: Order Comment: Speci men Type: BLOOD SPECIMENOrdering Facility: [facility] Address: [address] [place] [address] Performed By: #### 2 4321-2, 1742-6, 34247-1, 3016-3 ####[facility] LABORATORYCLIA [id number] [place] [id number] [place] STATES OF [facility] CO2 [Moles/Vol] 25 mmol/L Normal 22-30 [facility] Comment on above: Order Comment: Speci men Type: BLOOD SPECIMENOrdering Facility: [facility] Address: [address] [place] [address] Performed By: #### 2 4321-2, 1742-6, 10685-2, 3016-3 ####[facility] [id number] [address] STATES OF [facility] Creatinine [Mass/Vol] 0.70 mg/dL Normal 0.58-0.96 [facility] Comment on above: Order Comment: Speci men Type: BLOOD SPECIMENOrdering Facility: [facility] Address: [address] [place] [address] Performed By: #### 2 4321-2, 1742-6, 18839-5, 3016-3 ####[facility]PITALCLIA [id number] [place] [address] [place] eGFRcr SerPlBld CKD-EPI 2020 86 mL/min/1.73m??? Normal >=60 [facility] Comment on above: Order Comment: Speci men Type: BLOOD SPECIMENOrdering Facility: [facility] Address: [address] [place] [address] Result Comment: Brooklynn mated Glomerular Filtration Rate (eGFR) is calculated using the 2020 CKD-EPI creatinine equation. This equation utilizes serum creatinine, sex, and age as parameters. The creatinine assay has traceable calibration to isotope dilution-mass spectrometry. Refer to KDIGO guidelines for clinical interpretation. In patients with unstable renal function, e.g. those with acute kidney injury, the eGFR may not accurately reflect actual GFR. Performed By: #### 2 4321-2, 1742-6, 57855-1, 3015-3 ####[facility] LABORATORYCLIA [id number] [place] [address] [place] Glucose [Mass/Vol] 81 mg/dL Normal 74-99 [facility] Comment on above: Order Comment: Speci men Type: BLOOD SPECIMENOrdering Facility: [facility] Address: [address] [place] [address] Result Comment: The [place] Diabetes Association (ADA) provides guidance for cutoff values for fasting glucose and random glucose. The ADA defines fasting as no caloric intake for at least 8 hours. Fasting plasma glucose results between 100 to 125 mg/dL indicate increased risk for diabetes (prediabetes). Fasting plasma glucose results greater than or equal to 126 mg/dL meet the criteria for diagnosis of diabetes. In the absence of unequivocal hyperglycemia, results should be confirmed by repeat testing. In a patient with classic symptoms of hyperglycemia or hyperglycemic crisis, random plasma glucose results greater than or equal to 200 mg/dL meet the criteria for diagnosis of diabetes. Reference: Standards of Medical Care in Diabetes 2016, [place] [employer] Association. Diabetes Care. 2016.39(Suppl 1). Performed By: #### 2 4321-2, 1742-6, 72099-2, 3 ####[facility] LABORATORYCLIA [id number] [place] [id number] [place] Potassium [Moles/Vol] 3.6 mmol/L Low 3.7-5.1 [facility] Comment on above: Order Comment: Erick osborn Type: BLOOD SPECIMENOrdering Facility: [facility] Address: [address] [place] [address] Performed By: #### 2 4321-2, 174-6, 42540-8, 3015-3 ####[facility] LABORATORYCLIA [id number] [place] [address] [place] Sodium [Moles/Vol] 139 mmol/L Normal 136-144 [facility] Comment on above: Order Comment: Speci men Type: BLOOD SPECIMENOrdering Facility: [facility] Address: [address] [place] [address] Performed By: #### 2 4321-2, 1742-6, 32906-0, 3016-3 ####[facility] LABORATORYCLIA [id number] [address] STATES OF [facility] Urea nitrogen [Mass/Vol] 18 mg/dL Normal 7-21 [facility] Comment on above: Order Comment: Speci men Type: BLOOD SPECIMENOrdering Facility: [facility] Address: [address] [place] [address] Performed By: #### 2 4321-2, 1742-6, 01711-5, 3016-3 ####[facility] LABORATORYCLIA [id number] [address] STATES OF [facility] CBC W Auto Differential pane l (Bld)on 02-08-2025 Basophils (Bld) [#/Vol] 0.03 10*3/uL Normal <0.11 [facility] Comment on above: Order Comment: Speci men Type: BLOOD SPECIMENOrdering Facility: [facility] Address: [address] [place] [address] Performed By: #### 5 7021-8 ####[facility] LABORATORYCLIA [id number] [address] [place] Basophils/100 WBC (Bld) 0.5 % Normal [facility] Comment on above: Order Comment: Speci men Type: BLOOD SPECIMENOrdering Facility: [facility] Address: [address] [place] [address] Performed By: #### 5 7021-8 ####[facility] LABORATORYCLIA [id number] [address] Differential cell count method Nom (Bld) Auto Normal [facility] Comment on above: Order Comment: Speci men Type: BLOOD SPECIMENOrdering Facility: [facility] Address: [address] [place] [address] Performed By: #### 5 7021-8 ####[facility]ORATORYCLIA [id number] [address] [place] Eosinophils (Bld) [#/Vol] 0.08 10*3/uL Normal <0.46 [facility] Comment on above: Order Comment: Speci men Type: BLOOD SPECIMENOrdering Facility: [facility] Address: [address] [place] [address] Performed By: #### 5 7021-8 ####[facility] LABORATORYCLIA [id number] [address] [place] Eosinophils/100 WBC (Bld) 1.5 % Normal [facility] Comment on above: Order Comment: Speci men Type: BLOOD SPECIMENOrdering Facility: [facility] Address: [address] [place] [address] Performed By: #### 5 7021-8 ####[facility] LABORATORYCLIA [id number] [address] Erythrocyte distribution width (RBC) [Ratio] 13.2 % Normal 11.5-15.0 [facility] Comment on above: Order Comment: Speci men Type: BLOOD SPECIMENOrdering Facility: [facility] Address: [address] [place] [address] Performed By: #### 5 7021-8 ####[facility] LABORATORYCLIA [id number] [address] [place] Hematocrit (Bld) [Volume fraction] 44.1 % Normal 36.0-46.0 [facility] Comment on above: Order Comment: Speci men Type: BLOOD SPECIMENOrdering Facility: [facility] Address: [address] [place] [address] Performed By: #### 5 7021-8 ####[facility] LABORATORYCLIA [id number] [address] [place] Hemoglobin (Bld) [Mass/Vol] 13.9 g/dL Normal 11.5-15.5 [facility] Comment on above: Order Comment: Speci men Type: BLOOD SPECIMENOrdering Facility: [facility] Address: [address] [place] [address] Performed By: #### 5 7021-8 ####[facility]ORATORYCLIA [id number] [address] [place] Immature granulocytes (Bld) [#/Vol] 10*3/uL Normal <0.10 [facility] Comment on above: Order Comment: Speci men Type: BLOOD SPECIMENOrdering Facility: [facility] Address: [address] [place] [address] Performed By: #### 5 7021-8 ####[facility] LABORATORYCLIA [id number] [address] Immature granulocytes/100 WBC (Bld) 0.4 % Normal [facility] Comment on above: Order Comment: Speci men Type: BLOOD SPECIMENOrdering Facility: [facility] Address: [address] [place] [address] Performed By: #### 5 7021-8 ####[facility] LABORATORYCLIA [id number] [address] [facility] Lymphocytes (Bld) [#/Vol] 1.36 10*3/uL Normal 1.00-4.00 [facility] Comment on above: Order Comment: Speci men Type: BLOOD SPECIMENOrdering Facility: [facility] Address: [address] [place] [address] Performed By: #### 5 7021-8 ####[facility] LABORATORYCLIA [id number] [address] Lymphocytes/100 WBC (Bld) 24.9 % Normal [facility] Comment on above: Order Comment: Speci men Type: BLOOD SPECIMENOrdering Facility: [facility] Address: [address] [place] [address] Performed By: #### 5 7021-8 ####[facility]ORATORYCLIA [id number] [place] [address] [place] MCH (RBC) [Entitic mass] 29.3 pg Normal 26.0-34.0 [facility] Comment on above: Order Comment: Speci men Type: BLOOD SPECIMENOrdering Facility: [facility] Address: [address] [place] [address] Performed By: #### 5 7021-8 ####[facility] LABORATORYCLIA [id number] [address] MCHC (RBC) [Mass/Vol] 31.5 g/dL Normal 30.5-36.0 [facility] Comment on above: Order Comment: Speci men Type: BLOOD SPECIMENOrdering Facility: [facility] Address: [address] [place] [address] Performed By: #### 5 7021-8 ####[facility] LABORATORYCLIA [id number] [address] [facility] MCV (RBC) [Entitic vol] 93.0 fL Normal 80.0-100.0 [facility] Comment on above: Order Comment: Speci men Type: BLOOD SPECIMENOrdering Facility: [facility] Address: [address] [place] [address] Performed By: #### 5 7021-8 ####[facility] LABORATORYCLIA [id number] [address] [place] Monocytes (Bld) [#/Vol] 0.86 10*3/uL Normal <0.87 [facility] Comment on above: Order Comment: Speci men Type: BLOOD SPECIMENOrdering Facility: [facility] Address: [address] [place] [address] Performed By: #### 5 7021-8 ####[facility] LABORATORYCLIA [id number] [address] Monocytes/100 WBC (Bld) 15.8 % Normal [facility] Comment on above: Order Comment: Speci men Type: BLOOD SPECIMENOrdering Facility: [facility] Address: [address] [place] [address] Performed By: #### 5 7021-8 ####[facility]ORATORYCLIA [id number] [address] [place] Neutrophils (Bld) [#/Vol] 3.11 10*3/uL Normal 1.45-7.50 [facility] Comment on above: Order Comment: Speci men Type: BLOOD SPECIMENOrdering Facility: [facility] Address: [address] [place] [address] Performed By: #### 5 7021-8 ####[facility] LABORATORYCLIA [id number] [address] [facility] Neutrophils/100 WBC (Bld) 56.9 % Normal [facility] Comment on above: Order Comment: Speci men Type: BLOOD SPECIMENOrdering Facility: [facility] Address: [address] [place] [address] Performed By: #### 5 7021-8 ####[facility] LABORATORYCLIA [id number] [address] [place] Nucleated RBC (Bld) [#/Vol] 10*3/uL Normal <0.01 [facility] Comment on above: Order Comment: Speci men Type: BLOOD SPECIMENOrdering Facility: [facility] Address: [address] [place] [address] Performed By: #### 5 7021-8 ####[facility] LABORATORYCLIA [id number] [address] [place] Nucleated RBC/100 WBC (Bld) [Ratio] 0.0 /100 WBC Normal [facility] Comment on above: Order Comment: Speci men Type: BLOOD SPECIMENOrdering Facility: [facility] Address: [address] [place] [address] Performed By: #### 5 7021-8 ####[facility] LABORATORYCLIA [id number] [address] [place] Platelet mean volume (Bld) [Entitic vol] 12.2 fL Normal 9.0-12.7 [facility] Comment on above: Order Comment: Speci men Type: BLOOD SPECIMENOrdering Facility: [facility] Address: [address] [place] [address] Performed By: #### 5 7021-8 ####[facility] LABORATORYCLIA [id number] [place] [address] [place] Platelets (Bld) [#/Vol] 161 10*3/uL Normal 150-400 [facility] Comment on above: Order Comment: Speci men Type: BLOOD SPECIMENOrdering Facility: [facility] Address: [address] [place] [address] Performed By: #### 5 7021-8 ####[facility] LABORATORYCLIA [id number] [place] [id number] [place] RBC (Bld) [#/Vol] 4.74 10*6/uL Normal 3.90-5.20 [facility] Comment on above: Order Comment: Speci men Type: BLOOD SPECIMENOrdering Facility: [facility] Address: [address] [place] [address] Performed By: #### 5 7021-8 ####[facility] LABORATORYCLIA [id number] [place] [address] [place] WBC (Bld) [#/Vol] 5.46 10*3/uL Normal 3.70-11.00 [facility] Comment on above: Order Comment: Speci men Type: BLOOD SPECIMENOrdering Facility: [facility] Address: [address] [place] [address] Performed By: #### 5 7021-8 ####[facility] LABORATORYCLIA [id number] [place] [id number] [place] Lipid 1996 panelon 5 Cholesterol [Mass/Vol] 182 mg/dL Normal <200 [facility] Comment on above: Order Comment: Speci men Type: BLOOD SPECIMENOrdering Facility: [facility] Address: [address] [place] [address] Result Comment: <200 mg/dL, Desirable 200-239 mg/dL, Borderline high >239 mg/dL, High Performed By: #### 2 4321-2, 1742-6, 12499-5, 3016-3 ####[facility] LABORATORYCLIA [id number] [place] [address] [place] Cholesterol in HDL [Mass/Vol] 53 mg/dL Normal >39 [facility] Comment on above: Order Comment: Speci men Type: BLOOD SPECIMENOrdering Facility: [facility] Address: [address] [place] [address] Result Comment: 40-5 9 mg/dL, Acceptable >59 mg/dL, High: Negative risk factor for coronary heart disease <40 mg/dL, Low: Positive risk factor for coronary heart disease Performed By: #### 2 4321-2, 1742-6, 07749-7, 6-3 ####[facility] LABORATORYCLIA [id number] [place] [address] [facility] Cholesterol in LDL [Mass/Vol] 115 mg/dL High <100 [facility] Comment on above: Order Comment: Yanelyi men Type: BLOOD SPECIMENOrdering Facility: [facility] Address: [address] [place] [address] Result Comment: <100 mg/dL, Optimal 100-129 mg/dL, Near optimal/above optimal 130-159 mg/dL, Borderline high 160-189 mg/dL, High >189 mg/dL, Very high Secondary prevention optimal LDL Cholesterol levels are recommended to be <70 mg/dL LDL cholesterol is calculated using the Serrano-NIH equation. Performed By: #### 2 4321-2, 174-6, 45053-0, 3015-3 ####[facility] LABORATORYCLIA [id number] [address] OF [facility] Cholesterol in LDL/Cholesterol in HDL [Mass ratio] 2.17 {ratio} Normal <2.54 [facility] Comment on above: Order Comment: Speci men Type: BLOOD SPECIMENOrdering Facility: [facility] Address: [address] [place] [address] Result Comment: Lynnette veras: 1. National Cholesterol Education Program ATP III Guideline At-A-Glance Quick Desk Reference: National Heart, Lung, and Blood Vestal. National Institutes of Health. 2001: NIH Publication No. 01-3305. 2. An International Atherosclerosis Society position paper: global recommendations for the management of dyslipidemia: executive summary, Atherosclerosis. 2014: 232(2):410-413. Performed By: #### 2 4321-2, 1742-6, 93957-7, 6-3 ####[facility] LABORATORYCLIA [id number] [place], [place] [id number] [place] [address] OF [facility] Cholesterol in VLDL [Mass/Vol] 12 mg/dL Normal <30 [facility] Comment on above: Order Comment: Speci men Type: BLOOD SPECIMENOrdering Facility: [facility] Address: [address] [place] [address] Performed By: #### 2 4321-2, 1741-6, 82827-7, 3015-3 ####[facility] LABORATORYCLIA [id number] [place], [place] [id number] [place] [address] OF [facility] Cholesterol non HDL [Mass/Vol] 129 mg/dL Normal <130 [facility] Comment on above: Order Comment: Speci men Type: BLOOD SPECIMENOrdering Facility: [facility] Address: [address] [place] [address] Result Comment: <130 mg/dL, Optimal 130-159 mg/dL, Near optimal/above optimal 160-189 mg/dL, Borderline high 190-219 mg/dL, High >219 mg/dL, Very high Secondary prevention optimal non HDL Cholesterol levels are recommended to be <100 mg/dL Performed By: #### 2 4321-2, 1741-6, 44720-6, 3015-3 ####[facility] LABORATORYCLIA [id number] [place], [place] [id number] [place] [address] Cholesterol.total/Ch olesterol in HDL [Mass ratio] 3.43 {ratio} Normal <5.10 [facility] Comment on above: Order Comment: Speci men Type: BLOOD SPECIMENOrdering Facility: [facility] Address: [address] [place] [address] Performed By: #### 2 4321-2, 1741-6, 42430-6, 3015-3 ####[facility]ORATORYCLIA [id number] [place] [address] [place] FASTING TIME 12 hrs Normal [facility] Comment on above: Order Comment: Speci men Type: BLOOD SPECIMENOrdering Facility: [facility] Address: [address] [place] [address] Performed By: #### 2 4321-2, 1742-6, 86515-9, 3016-3 ####[facility] LABORATORYCLIA [id number] [place], [place] [id number] [place] [address] STATES OF [facility] Triglyceride [Mass/Vol] 73 mg/dL Normal <150 [facility] Comment on above: Order Comment: Speci men Type: BLOOD SPECIMENOrdering Facility: [facility] Address: [address] [place] [address] Result Comment: <150 mg/dL, Normal 150-199 mg/dL, Borderline high 200-499 mg/dL, High >499 mg/dL, Very high Performed By: #### 2 4321-2, 1742-6, 37437-5, 6-3 ####[facility] LABORATORYCLIA [id number] [place] [address] [place] TSH SerPl-aCncon 02-08-2025 TSH Qn 2.900 m[IU]/L Normal 0.270-4.200 [facility] Comment on above: Order Comment: Speci men Type: BLOOD SPECIMENOrdering Facility: [facility] Address: [address] [place] [address] Performed By: #### 2 4321-2, 1742-6, 17882-1, 6-3 ####[facility] LABORATORYCLIA [id number] [place] [address] [place] Urinalysis complete panel (U )on 02-08-2025 Bacteria LM.HPF (Urine sed) [#/Area] Many Abnormal None Seen [facility] Comment on above: Order Comment: Speci men Type: URINE SPECIMENOrdering Facility: [facility] Address: [address] [place] [address] Performed By: #### 2 4356-8 ####[facility] LABORATORYCLIA [id number] [place] [address] [place] Bilirubin Ql (U) Negative Normal Negative [facility] Comment on above: Order Comment: Speci men Type: URINE SPECIMENOrdering Facility: [facility] Address: [address] [place] [address] Performed By: #### 2 4356-8 ####[facility] LABORATORYCLIA [id number] [address] OF [place] Clarity (Unsp spec) Clear Normal Clear [facility] Comment on above: Order Comment: Speci men Type: URINE SPECIMENOrdering Facility: [facility] Address: [address] [place] [address] Performed By: #### 2 4356-8 ####[facility] LABORATORYCLIA [id number] [address] STATES OF [place] Color (U) Yellow Normal yellow [facility] Comment on above: Order Comment: Speci men Type: URINE SPECIMENOrdering Facility: [facility] Address: [address] [place] [address] Performed By: #### 2 4356-8 ####[facility] LABORATORYCLIA [id number] [address] STATES OF [place] Epithelial cells LM.HPF (Urine sed) [#/Area] Few Normal [facility] Comment on above: Order Comment: Speci men Type: URINE SPECIMENOrdering Facility: [facility] Address: [address] [place] [address] Result Comment: Few Performed By: #### 2 4356-8 ####[facility] LABORATORYCLIA [id number] [address] STATES OF [place] Glucose Test strip (U) [Mass/Vol] Negative Normal Trace, Negative [facility] Comment on above: Order Comment: Speci men Type: URINE SPECIMENOrdering Facility: [facility] Address: [address] [place] [address] Performed By: #### 2 4356-8 ####[facility] LABORATORYCLIA [id number] [address] STATES OF [place] Hemoglobin Ql (U) Negative Normal Negative, Trace [facility] Comment on above: Order Comment: Speci men Type: URINE SPECIMENOrdering Facility: [facility] Address: [address] [place] [address] Performed By: #### 2 4356-8 ####[facility] LABORATORYCLIA [id number] [place] [address] [place] Hyaline casts (Urine sed) [#/Area] 1-3 /LPF Abnormal 0 /LPF [facility] Comment on above: Order Comment: Speci men Type: URINE SPECIMENOrdering Facility: [facility] Address: [address] [place] [address] Performed By: #### 2 4356-8 ####[facility] LABORATORYCLIA [id number] [place] [address] [place] Ketones Ql (U) Negative Normal Negative, Trace [facility] Comment on above: Order Comment: Speci men Type: URINE SPECIMENOrdering Facility: [facility] Address: [address] [place] [address] Performed By: #### 2 4356-8 ####[facility] LABORATORYCLIA [id number] [address] STATES OF [place] Leukocyte esterase Test strip Ql (U) 500 Jayleen/uL Abnormal Negative, 25 Jayleen/uL [facility] Comment on above: Order Comment: Speci men Type: URINE SPECIMENOrdering Facility: [facility] Address: [address] [place] [address] Performed By: #### 2 4356-8 ####[facility] LABORATORYCLIA [id number] [address] STATES OF [place] Nitrite Ql (U) Negative Normal Negative [facility] Comment on above: Order Comment: Speci men Type: URINE SPECIMENOrdering Facility: [facility] Address: [address] [place] [address] Performed By: #### 2 4356-8 ####[facility] LABORATORYCLIA [id number] [address] [place] pH (U) 6.0 [pH] Normal 5.0-8.0 [facility] Comment on above: Order Comment: Speci men Type: URINE SPECIMENOrdering Facility: [facility] Address: [address] [place] [address] Performed By: #### 2 4356-8 ####[facility] LABORATORYCLIA [id number] [address] Protein (U) [Mass/Vol] Trace Normal Trace, Negative [facility] Comment on above: Order Comment: Speci men Type: URINE SPECIMENOrdering Facility: [facility] Address: [address] [place] [address] Performed By: #### 2 4356-8 ####[facility] LABORATORYCLIA [id number] [address] RBC LM.HPF (Urine sed) [#/Area] 3-5 /HPF Abnormal 0-3 /HPF [facility] Comment on above: Order Comment: Speci men Type: URINE SPECIMENOrdering Facility: [facility] Address: [address] [place] [address] Performed By: #### 2 4356-8 ####[facility] LABORATORYCLIA [id number] [address] Specific gravity (U) [Rel density] 1.023 Normal 1.005-1.030 [facility] Comment on above: Order Comment: Speci men Type: URINE SPECIMENOrdering Facility: [facility] Address: [address] [place] [address] Performed By: #### 2 4356-8 ####[facility] LABORATORYCLIA [id number] [address] Urobilinogen Ql (U) Normal Normal Normal [facility] Comment on above: Order Comment: Speci men Type: URINE SPECIMENOrdering Facility: [facility] Address: [address] [place] [address] Performed By: #### 2 4356-8 ####[facility] LABORATORYCLIA [id number] [address] [place] WBC LM.HPF (Urine sed) [#/Area] /[HPF] Abnormal 0-5 /HPF [facility] Comment on above: Order Comment: Speci men Type: URINE SPECIMENOrdering Facility: [facility] Address: [facility] [place] [id number] Performed By: #### 2 4356-8 ####[facility] LABORATORYCLIA [id number] [place] [address] [place] CNNURSEon 02-01-2025 CNNURSE Nurse Visit (AGSAM) NIRMALA BENNETT ([id number]) 1940 F Date Time Provider Department 02/01/25 11:00 AM NURSE [facility] During your visit today, we recorded the following information about you: Gustabo Yap MA 02/01/2025 11:15 AM Signed Patient has been identified by name and date of : Yes Nirmala is here for an injection of Vitamin B12 Dose: 1000 mcg Route: Intramuscular Given without incident. Site: left deltoid Community Resource Officer: [employer], [employer]. Lot #: [id number] [facility] #: [id number] Expiration Date: 07/26 Dr. marquez present in clinic at time of injection. The date due for the next injection is . Gustabo Yap MA Allergies As of Date: 02/01/2025 Noted Allergy Reaction CLARITIN (LORATADINE) 10/04/2021 7 - Swelling Comments: Patient tolerated fexofenadine challenge 12/17/2022. DOXYCYCLINE 08/27/2022 2 - Rash FRAGRANCES 01/31/2023 2 - Rash Comments: Positive patch test KEFLEX (CEPHALEXIN) 12/12/2023 2 - Rash PRILOSEC (OMEPRAZOLE) 02/17/2020 4 - Hives BACTRIM (SULFAMETHOXAZOLE-TRIME TH*12/04/2015 9 - Itching CIPROFLOXACIN 12/04/2015 9 - Itching CLARITHROMYCIN 05/17/2021 2 - Rash Comments: Other reaction(s): Other (See Comments), swells Swelling CLINDAMYCIN 12/04/2015 9 - Itching PREDNISONE 12/04/2015 9 - Itching SULFA (SULFONAMIDE ANTIBIOTICS) 09/14/2017 9 - Itching Date Reviewed: 11/29/2024 Reviewed by: Jose Armando Marquez MD - Fully Assessed Reason for Visit: B12 Injection [982] Primary Visit Diagnosis:B12 deficiency [E53.8] Prescriptions as of 02/01/2025 - FEROSUL 325 mg (65 mg iron) tablet Take 1 tablet by mouth every morning. - predniSONE (DELTASONE) 20 mg tablet Take 1 tablet by mouth once daily. - fluticasone (FLONASE) 50 mcg/actuation nasal spray Use 2 Sprays in each nostril twice daily. - levothyroxine (SYNTHROID) 50 mcg tablet TAKE ONE TABLET EVERY DAY - guaiFENesin (MUCINEX) 600 mg 12 hr tablet Take 1 tablet by mouth two times a day. - azelastine 0.1% nasal spray Use 1 spray in each nostril two times a day. - amLODIPine (NORVASC) 10 mg tablet TAKE ONE TABLET EVERY DAY - famotidine (PEPCID) 40 mg tablet TAKE ONE TABLET BY MOUTH EVERY DAY - terconazole vaginal cream (TERAZOL) 0.8 % vaginal cream Use 1 Applicator vaginally daily at bedtime. - ELIQUIS 5 mg tab(s) TAKE ONE TABLET BY MOUTH TWICE DAILY - triamcinolone acetonide (KENALOG) 0.1 %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 Respiration Blood pressure 98.4 degrees 79/minute 16/minute 151/74 Weight 77.1 kg Karen Rinaldi MD 11/14/2022 12:47 PM Signed [facility] ALLERGY AND IMMUNOLOGY CONSULT Patient Name: Nirmala Bennett PRIMARY CARE PHYSICIAN: Jose Armando Marquez MD REASON FOR CONSULT: Drug allergy REQUESTING PHYSICIAN: Bhanu Mays MD dermatology My final recommendations will be communicated to the requesting health care provider by way of the shared medical record for internal providers or letter via the [employer] for external providers. CHIEF COMPLAINT: Adverse reaction to medications HISTORY OF PRESENT ILLNESS: Nirmala Bennett is a 82 year old female with a history of sulfa allergy, contact dermatitis, allergic rhinitis, who presents with concern for drug allergy: History of adverse drug reaction: Nirmala Bennett reports history of adverse reaction to amoxicillin, claritin, doxycycline, prilosec, bactrim, cipro clinda, and prednisone Whenever the patient takes antibiotics, she has a generalized skin reaction. She also experiences swelling of the face whenever she uses an antihistamine. Amoxicillin: pruritus in arm and face, doesn't remember last use Claritin: pruritus and bottom lip swelling, did not try other antihistamines, has had reactions with benadryl before too Doxycyline: blisters throughout all limbs and trunk, bright red skin peeling at the feet Bactrim: pruritus and bottom lip swelling, Cipro: pruritus and bottom lip swelling, Clinda: pruritus and bottom lip swelling, Prednisone: Unclear but remember she had pruritus, did not try other steroids She cannot recall the exact dates of most of her exposures, as they are historical. Further details re: doxycycline: Age at time of reaction: 81yo, 07/2021 Description of reaction: feeling spacey Blistering/sloughing: Yes, blisters throughout the all limbs and trunk, bright red skin peeling at the feet Treatment required: No Emergency treatment: No Hx of allergic rhinitis, No history of asthma, atopic dermatitis. No antihistamine use as far as she can remember. She denies being told she has chronic urticaria. Amoxcillin [amoxicillin] Not Specified Allergy Rash Claritin [loratadine] Not Specified Side Effect/intolerance Swelling Doxycycline Not Specified Side Effect/intolerance Rash Prilosec [omeprazole] Not Specified Allergy Hives Bactrim [sulfamethoxazole-trime thoprim] Low Allergy Itching Ciprofloxacin Low Allergy Itching Clindamycin Low Allergy Itching Prednisone Seeing derm for dermatitis, ?contact allergy to formaldehyde. Undergoing patch testing. Exposed at work. Environmental history: Pets: none Mite Proof Covers: Yes Bedrm Carpet [id number]: Yes A/C: Central Humidifier: No Hobbies: n/a Work: chemicals from clothes or pursuing : No Hx of rhinitis: Yes Hx of asthma: No Hx of eczema: No Hx of drug allergy: Yes Hx of food allergies: No Hx of systemic rxn to stinging insects: No Hx of recurrent infections: No PAST MEDICAL HISTORY Diagnosis Date Allergic rhinitis CVA (cerebral vascular accident) ([facility]) Right 1996 DVT (deep venous thrombosis) ([facility]) 3 clots in left leg; was on coumadin for years Hypertension Hypothyroidism Lupus ([facility]) Rheumatoid arthritis(714.0) Sjogren's disease (HCC) TIA (transient ischemic attack) Vitamin D deficiency ACTIVE PROBLEM LIST Chronic Urticaria Allergic Rhinitis Adverse Reaction to Sulfa Antibiotic Hypertension Hypothyroidism Cva (Cerebral Vascular Accident) (Hcc) Sjogren's Disease (Hcc) Chronic Pansinusitis Breast Cancer Screening Acute Deep Vein Thrombosis (Dvt) of Proximal Vein of Left Lower Extremity (Hcc) Acute Gastritis Without Hemorrhage Localized Edema Pre-Op Evaluation PAST SURGICAL HISTORY Procedure Laterality Date CATARACT EXTRACTION HX Right 12/02/2016 COLECTOMY TOTAL, POUCH PAST SURGICAL HISTORY OF Cosmetic surgery RHINOPLASTY TOE SURGERY HX Right 08/16/15 3,4, and 5 Hammertoe correction glb TONSILLECTOMY HX TOTAL ABDOMINAL HYSTERECT W/WO RMVL TUBE OVARY FAMILY HISTORY Problem Relation Age of Onset Ischemic Heart Disease Father Hypertension Father Hypertension Mother Cancer Mother Social History Tobacco Use Smoking status: Former Types: Cigarettes Quit date: 06/11/2002 Years since quittin.4 Smokeless tobacco: Never Vaping Use Vaping Use: Never used Substance Use Topics Alcohol use: Yes Alcohol/week: 5.0 standard drinks Types: 2 Glasses of Wine (5oz) per week Drug use: No ALLERGIES: (more content not included)... Normal [facility] CNOVon 11-11-2022 CNOV Office Visit (DERMMN ) NIRMALA BENNETT ([id number]) 1940 F Date Time Provider Department 11/11/22 2:00 PM JESSA SMITH DERMARABELLA During your visit today, we recorded the following information about you: Jessa Smith MD 11/19/2022 9:16 PM Addendum Department of Dermatology Contact Dermatitis and Patch Testing 11/11/[address] Mays for an opinion regarding patch testing. My final recommendations will be communicated back to the requesting physician by way of shared medical record or letter via [place] mail The patient consented top participate in this shared medical appointment. Assessment/Plan Problem List Items Addressed This Visit None Visit Diagnoses Contact dermatitis, unspecified contact dermatitis type, unspecified trigger - Primary Discussion: For the past 5 years, the patient has been experiencing a rash on her arms and hands. Patient works in the [employer] department at [employer] and is exposed to formaldehyde in the clothes and packaging. She has only experienced a rash to her arms and hands. Whenever the patient takes antibiotics, she has a generalized skin reaction. She also experiences swelling of the face whenever she uses an antihistamine. Plan: Patch testing with SST (Standard Series Tray), Fabric Finish Tray, and Textile Tray Patient Instructions Patient Instructions We are looking forward to assisting you with patch testing. During your visit, we discussed many important aspects of the patch testing. The potential benefits of patch testing, including the identification of possible contributing factors to the your dermatologic complaints. This may help us to provide you with information about how to avoid certain causes of your skin condition and recommend safe products for you. The potential moderate, but rare, risks of testing, which include: severe inflammation at the patch test sites pigmentary changes at the patch test sites (most often temporary) the possibility that a strong test reaction could flare your underlying skin condition a very rare, strong reaction will make it difficult or impossible to accurately interpret your response (occasionally, further testing may be required in these situations at a later date) the extremely rare possibility (estimated at 1 in 5,000) that testing may actually sensitize you (induce an allergy) to a substance to which you are tested. the extremely rare risk of anaphylaxis (a severe immediate allergic reaction -- we minimize your risk of this complication by limiting the patch testing only to certain types of rashes and by a careful history prior to testing) We spoke about the possibility that testing may be negative (no positive reactions) or non-relevant (the reactions that occur are not related to your underlying skin problem). We discussed that this may still be very valuable information to the provider who referred you to us for testing. You should avoid oral (by mouth) or injectable steroids and other immune suppressants until the final reading is completed, unless previously discussed with the patch test team. Topical steroids can continue to be used on other parts of the body, but the back or other areas discussed at the time of the visit should be avoided. Antihistamines by mouth may be continued, as they are acceptable for use during patch testing. You must avoid all sources of ultraviolet exposure to the back (or other test sites) starting today and lasting until at least 14 days after the patch testing is complete. (Shirt/blouse must cover the back when outdoors and testing must be scheduled to avoid conflicts with any vacations where sun exposure is expected.) Additionally, it is our belief that long-term ultraviolet exposure that causes a deep/persistent saenz, whether artificial or natural, significantly increases the risks of falsely negative results. Depending upon your insurance, [facility] may submit a prior authorization request on your behalf to your insurance company. You may also choose to contact your insurance company to understand any deductibles or [id number] expenses that may apply to your particular situation. In general, once the patch testing process is complete, you will follow-up with your referring provider for ongoing care. Information about your patch testing results will be forwarded to the individual who referred you to us. As a teaching hospital, you will be cared for by a team which includes nurses, dermatology residents, other [id number], and other healthcare trainees. Please refer to the separate handout provided by our patch testing staff for additional information about the process. For questions or concerns regarding your patch testing, call [phone] (the direct line to our patch testing office) OR You may als (more content not included)... Normal [facility] CNOVon 10-17-2022 CNOV Office Visit (DERMMN ) NIRMALA BENNETT ([id number]) 1940 F Date Time Provider Department 10/17/22 1:40 PM BHANU MAYS DERMMN During your visit today, we recorded the following information about you: Bhanu Mays MD 11/11/2022 2:18 PM Signed NEW PATIENT CHIEF COMPLAINT: Rash HISTORY OF PRESENT ILLNESS: Nirmala Bennett is a 81 year old female here for evaluation of rash. Consulted by Jose Armando Marquez MD Pt states she has an allergic reaction when she takes any antibiotic. Generalized itching, redness, splotchy. Patient states she gets spacey. No elevations or bumps on the skin when she is getting these reactions. Most recently took doxycycline 100mg capsules for a sinus infection in July. Interested in patch testing, patient states she works at [employer] and is contact with multiple fabrics, wonders if the reaction could be related to that. Patient diagnosed with lupus 40+ years ago, patient states got a second opinion and was diagnosed with Sjogrens instead of lupus and is still currently taking Plaquenil 200mg daily. Patient states she has never had any rashes related to lupus, but also has never had a biopsy to confirm Sjogrens, denies dry mouth, dry eyes, etc. 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 Past Medical History PAST MEDICAL HISTORY Diagnosis Date Allergic rhinitis CVA (cerebral vascular accident) ([facility]) Right 1996 DVT (deep venous thrombosis) ([facility]) 3 clots in left leg; was on coumadin for years Hypertension Hypothyroidism Lupus ([facility]) Rheumatoid arthritis(714.0) Sjogren's disease ([facility]) TIA (transient ischemic attack) Vitamin D deficiency REVIEW OF SYSTEMS: Skin as per HPI Medications Current Outpatient Medications Medication Sig ELIQUIS 5 mg tab(s) TAKE ONE TABLET TWICE DAILY fluticasone (FLONASE) 50 mcg/actuation nasal spray Use 2 Sprays in each nostril twice daily. famotidine (PEPCID) 20 mg tablet TAKE ONE TABLET EVERY DAY levothyroxine (SYNTHROID) 50 mcg tablet TAKE ONE TABLET EVERY DAY folic acid 1 mg tablet TAKE ONE TABLET EVERY DAY glycerin ADULT suppository 1 Suppository by RECTAL route as needed. FEROSUL 325 mg (65 mg iron) tablet TAKE ONE TABLET EVERY MORNING amLODIPine (NORVASC) 10 mg tablet Take 1 tablet by mouth once daily. guaiFENesin (MUCINEX) 600 mg 12 hr tablet Take 1 tablet by mouth twice daily. ibuprofen (ADVIL LIQUI-GEL ORAL) Take by mouth. hydroxychloroquine (PLAQUENIL) 200 mg tablet Take 1 tablet by mouth once daily. CHOLECALCIFEROL, VITAMIN D3, ORAL Take 2,000 Units by mouth once daily. Current Facility-Administered Medications Medication Dose Route Frequency cyanocobalamin 1,000 mcg injection 1,000 mcg INTRAMUSCULAR q 4 WEEKS PHYSICAL EXAM: General: awake, alert, no acute distress Neuropsych: appropriate mood and affect Skin: Skin exam was performed today including the following: head and face. Pertinent findings include: -Pt has no rash available for exam today ASSESSMENT AND PLAN: Rash and nonspecific skin eruption -patient states she gets a rash when she takes antibiotics; nothing on exam today -also states she gets a rash with formaldehyde exposure --will refer to patch testing -discussed importance of avoidance of antibiotics to which you had a past reaction to and those of similar class/related medications -will also refer to allergy/immunology for further antibiotic evaluation/assessment and inquire if there is any testing that can be done to determine what antibiotics can be used for future. -If you get a rash in the future let us know so we can try to determine what type of medication reaction it is. -warning signs to watch out for - watch for blistering/peeling of skin, pain and sores in mouth/eyes/genital areas, painful skin, facial swelling, lymph node swelling, fevers, generalized rash, lip/tongue swelling, difficulty swallowing/breathing- instructed to go to ED if these occur -will forward to PCP upon completion of note Return to Dermatology clinic PRN or sooner, if something concerning arises. Sanaz Delaney MD, MS Department of Dermatology, PGY2 Attestation: I agree with the Chief Complaint, ROS, and Past Histories indepe (more content not included)... Normal [facility] Office Visiton 08-25-2022 Follow-up visit [id number] Gildardo Bennett 1940 F Date Provider Department Center 08/25/2022 [id number] CHAVEZ [facility] None Family History Problem Relation Age of Onset Cancer Mother Coronary artery disease Father Family Status - Relation Status Age at Mother Father Maternal Grandfather Maternal Grandmother Paternal Grandmother Paternal Grandfather Level of Service:80166 NM OFFICE/OUTPATIENT [facility] 30-44 MINUTES Reason for Visit and Comments: Allergic Reaction [109559] - Patient states she is having an allergic reaction to Doxycyline, states she started medication on Friday for sinus infection. Red spots all over body and upper lip swelling. [facility] Progress Noteon 08-25-2022 Progress Note Urgent Care [facility] Patient: Nirmala Bennett : 1940 Date of Evaluation: 08/25/2022 Urgent Care Provider: Lina Chavez APRN - [place] Chief Complaint Chief Complaint Patient presents with Allergic Reaction Patient states she is having an allergic reaction to Doxycyline, states she started medication on Friday for sinus infection. Red spots all over body and upper lip swelling. CURYUNG Nirmala Bennett is a 81 y.o. female who presents to the urgent care with c/o rash all over her body, especially the right lower extremity, along with slight upper lip swelling x2 days after starting doxycycline on Friday. This is a new problem. Pertinent positive include allergic reaction, rash Pertinent negatives include fever chills nausea vomiting or diarrhea. Patient also denies any change in lotions soaps detergents or medications. PMH: Allergic rhinitis, DVTs, hypertension Allergies: Cipro, clarithromycin, clindamycin, levofloxacin, loratadine, omeprazole, prednisone, sulfa ROS: Review of Systems Constitutional: Negative for chills and fever. HENT: Negative for congestion, ear pain and sore throat. Eyes: Negative for pain, discharge and redness. Respiratory: Negative for cough, chest tightness and shortness of breath. Cardiovascular: Negative for chest pain and palpitations. Gastrointestinal: Negative for abdominal pain, constipation, diarrhea, nausea and vomiting. Endocrine: Negative for cold intolerance and heat intolerance. Genitourinary: Negative for dysuria, flank pain, frequency and urgency. Musculoskeletal: Negative for arthralgias, back pain and myalgias. Skin: Positive for rash. Negative for wound. Allergic/Immunologic: Negative for environmental allergies and food allergies. Neurological: Negative for dizziness and headaches. Hematological: Negative for adenopathy. Psychiatric/Behavioral: Negative for agitation, behavioral problems and confusion. Past History Past Medical History: Diagnosis Date Allergic rhinitis Cerebral artery occlusion with cerebral infarction (CMS/HCC) DVT, lower extremity (CMS/HCC) Hypertension Hypothyroidism Lupus (CMS/HCC) Sjogren's disease (CMS/HCC) Stroke (cerebrum) (CMS/HCC) Past Surgical History: Procedure Laterality Date COLON SURGERY megacolon TOE SURGERY Left 09/2002 TOTAL ABDOMINAL HYSTERECTOMY Social History Socioeconomic History Marital status: Single Tobacco Use Smoking status: Former Types: Cigarettes Start date: 02/15/1999 Smokeless tobacco: Never Substance and Sexual Activity Alcohol use: Yes Alcohol/week: 2.0 standard drinks Drug use: Never Medications/Allergies Previous Medications AMLODIPINE (NORVASC) 10 MG TABLET Take 10 mg by mouth daily. CHOLECALCIFEROL (VITAMIN D-3) 25 MCG (1000 UT) CAPSULE Take 2,000 Units by mouth. CYANOCOBALAMIN (VITAMIN B-12) 1000 MCG/ML INJECTION Inject 1,000 mcg into the shoulder, thigh, or buttocks every 28 (twenty-eight) days. DOXYCYCLINE (MONODOX) 100 MG CAPSULE TAKE ONE CAPSULE TWICE DAILY FOR 7 DAYS ELIQUIS 5 MG TABLET Take 5 mg by mouth 2 times daily. FAMOTIDINE (PEPCID) 20 MG TABLET Take 20 mg by mouth daily. FEROSUL 325 (65 FE) MG TABLET Take 1 tablet by mouth every morning. FLUTICASONE (FLONASE) 50 MCG/ACT NASAL SPRAY 2 sprays in the morning and 2 sprays in the evening. FOLIC ACID (FOLVITE) 1 MG TABLET Every 24 hours. HYDROCHLOROTHIAZIDE (MICROZIDE) 12.5 MG CAPSULE Take 12.5 mg by mouth daily. HYDROXYCHLOROQUINE (PLAQUENIL) 200 MG TABLET Every 24 hours. LEVOTHYROXINE (SYNTHROID, LEVOXYL) 50 MCG TABLET Take 1 tablet by mouth daily. Allergies Allergen Reactions Ciprofloxacin Itching Clarithromycin Other reaction(s): Other (See Comments), swells Swelling Clindamycin Itching Levofloxacin Swelling Other reaction(s): swells Loratadine Swelling Omeprazole Hives Other reaction(s): Other (See Comments), rash Prednisone Itching Sulfa Antibiotics Itching Sulfamethoxazole-Trimet hoprim Itching Other reaction(s): swells Physical Exam Vitals: 08/25/22 1141 BP: (!) 142/76 Pulse: 73 Resp: 18 Temp: 36 ?C (96.8 ?F) SpO2: 99% Physical Exam Vitals and nursing note reviewed. Constitutional: Appearance: Normal appearance. HENT: Head: Normocephalic. Right Ear: Tympanic membrane and external ear normal. There is no impacted cerumen. Left Ear: Tympanic membrane and external ear normal. There is no impacted cerumen. Nose: Nose normal. No congestion or rhinorrhea. Mouth/Throat: Mouth: Mucous membranes are moist. Pharynx: No oropharyngeal exudate or posterior oropharyngeal erythema. Eyes: General: Right eye: No discharge. Left eye: No discharge. Pupils: Pupils are equal, round, and reactive to light. Cardiovascular: Rate and Rhythm: Normal rate and regular rhythm. Pulses: Normal pulses. Heart sounds: Normal heart sounds. Pulmonary: Effort: Pulmonary effort is normal. [place] (more content not included)... Normal [facility] Carotid Duplex Ultrasound Completeon 11-09-2019 Carotid Duplex Ultrasound Complete Patient Name: NIRMALA BENNETT Ultrasound Exam Date/Time 11/09/2019 11:05:09 EDT Exam Carotid Duplex Ultrasound Complete Ordering Physician MD MARQUEZ STEVEN M. Accession Number [id number] CPT4 Codes 33630 () Reason For Exam VISUAL CHANGES Report BILATERAL CAROTID ULTRASOUND: EXAM DATE AND TIME: 11/09/2019 11:05 AM EDT INDICATION: 79 years Female with visual changes COMPARISON: None TECHNIQUE: Color-flow and spectral Doppler sonography of the extracranial arterial circulation was performed. FINDINGS: RIGHT: Plaque: Mild atherosclerotic plaque Distal CCA peak systolic: 71 cm/sec Distal CCA end diastolic: 14 cm/sec ECA systolic: 85 cm/sec ICA peak systolic: 78 cm/sec ICA end diastolic: 25 cm/sec ICA/CCA ratio: 1.1 Estimated ICA stenosis: less than 50% Vertebral: Antegrade with a velocity of 52 cm/sec. LEFT: Plaque: Mild atherosclerotic plaque Distal CCA peak systolic: 62 cm/sec Distal CCA end diastolic: 12 cm/sec ECA systolic: 66 cm/sec ICA peak systolic: 86 cm/sec ICA end diastolic: 26 cm/sec ICA/CCA ratio: 1.4 Estimated ICA stenosis: less than 50% Vertebral: Antegrade with a velocity of 47 cm/sec. IMPRESSION: No hemodynamically significant internal carotid stenosis (less than 50% stenosis) on the left and right. Reference: Measurement of carotid stenosis is a ratio based on conventional angiographic data from the NASCET trials with the smallest caliber of the internal carotid as the numerator and normal post-stenotic internal carotid caliber as denominator. The velocity criteria are extrapolated from diameter data as defined by the Society of Radiologists in Ultrasound Consensus Conference Radiology 2003; 229;340-346. <50%: ICA PS <125 cm/sec, ICA ED <40 cm/sec, ICA/CCA ratio <2.0 50-69%: ICA PS 125-230 cm/sec , ICA ED 40-100 cm/sec, ICA/CCA ratio 2-4 >70%: ICA PS >230 cm/sec, ICA ED >100 cm/sec, ICA/CCA ratio >4 Report Dictated on Final Dictating Physician: MD PARIKH NICHOLAS Signed Date and Time: 11/09/2019 2:07 pm Signed by: MD PARIKH NICHOLAS Transcribed Date and Time: 11/09/2019 2:08 Normal [facility] VL DUP CAROTID BILATERALon 0 11-09-2019 Patient Name: NIRMALA BENNETT ---Ultrasound--- Exam Date/Time 11/09/2019 11:05:09 EDT Exam VL Carotid Duplex Ultrasound Complete Ordering Physician MD MARQUEZ STEVEN M. Accession Number [id number] CPT4 Codes 81650 () Reason For Exam VISUAL CHANGES Report BILATERAL CAROTID ULTRASOUND: EXAM DATE AND TIME: 11/09/2019 11:05 AM EDT INDICATION: 79 years Female with visual changes COMPARISON: None TECHNIQUE: Color-flow and spectral Doppler sonography of the extracranial arterial circulation was performed. FINDINGS: RIGHT: Plaque: Mild atherosclerotic plaque Distal CCA peak systolic: 71 cm/sec Distal CCA end diastolic: 14 cm/sec ECA systolic: 85 cm/sec ICA peak systolic: 78 cm/sec ICA end diastolic: 25 cm/sec ICA/CCA ratio: 1.1 Estimated ICA stenosis: less than 50% Vertebral: Antegrade with a velocity of 52 cm/sec. LEFT: Plaque: Mild atherosclerotic plaque Distal CCA peak systolic: 62 cm/sec Distal CCA end diastolic: 12 cm/sec ECA systolic: 66 cm/sec ICA peak systolic: 86 cm/sec ICA end diastolic: 26 cm/sec ICA/CCA ratio: 1.4 Estimated ICA stenosis: less than 50% Vertebral: Antegrade with a velocity of 47 cm/sec. IMPRESSION: No hemodynamically significant internal carotid stenosis (less than 50% stenosis) on the left and right. Reference: Measurement of carotid stenosis is a ratio based on conventional angiographic data from the NASCET trials with the smallest caliber of the internal carotid as the numerator and normal post-stenotic internal carotid caliber as denominator. The velocity criteria are extrapolated from diameter data as defined by the Society of Radiologists in Ultrasound Consensus Conference Radiology 2003; 229;340-346. <50%: ICA PS <125 cm/sec, ICA ED <40 cm/sec, ICA/CCA ratio <2.0 50-69%: ICA PS 125-230 cm/sec , ICA ED 40-100 cm/sec, ICA/CCA ratio 2-4 >70%: ICA PS >230 cm/sec, ICA ED >100 cm/sec, ICA/CCA ratio >4 Report Dictated on --- Final --- Dictating Physician: MD PARIKH NICHOLAS Signed Date and Time: 11/09/2019 2:07 pm Signed by: MD PARIKH NICHOLAS Transcribed Date and Time: 11/09/2019 2:08 [place], [place], [facility] Incoming Cardiology Results From [facility] - 11/09/2019 2:08 PM EDT Patient Name: NIRMALA BENNETT ---Ultrasound--- Exam Date/Time 11/09/2019 11:05:09 EDT Exam VL Carotid Duplex Ultrasound Complete Ordering Physician MD MARQUEZ STEVEN M. Accession Number [id number] CPT4 Codes 23890 () Reason For Exam VISUAL CHANGES Report BILATERAL CAROTID ULTRASOUND: EXAM DATE AND TIME: 11/09/2019 11:05 AM EDT INDICATION: 79 years Female with visual changes COMPARISON: None TECHNIQUE: Color-flow and spectral Doppler sonography of the extracranial arterial circulation was performed. FINDINGS: RIGHT: Plaque: Mild atherosclerotic plaque Distal CCA peak systolic: 71 cm/sec Distal CCA end diastolic: 14 cm/sec ECA systolic: 85 cm/sec ICA peak systolic: 78 cm/sec ICA end diastolic: 25 cm/sec ICA/CCA ratio: 1.1 Estimated ICA stenosis: less than 50% Vertebral: Antegrade with a velocity of 52 cm/sec. LEFT: Plaque: Mild atherosclerotic plaque Distal CCA peak systolic: 62 cm/sec Distal CCA end diastolic: 12 cm/sec ECA systolic: 66 cm/sec ICA peak systolic: 86 cm/sec ICA end diastolic: 26 cm/sec ICA/CCA ratio: 1.4 Estimated ICA stenosis: less than 50% Vertebral: Antegrade with a velocity of 47 cm/sec. IMPRESSION: No hemodynamically significant internal carotid stenosis (less than 50% stenosis) on the left and right. Reference: Measurement of carotid stenosis is a ratio based on conventional angiographic data from the NASCET trials with the smallest caliber of the internal carotid as the numerator and normal post-stenotic internal carotid caliber as denominator. The velocity criteria are extrapolated from diameter data as defined by the Society of Radiologists in Ultrasound Consensus Conference Radiology 2003; 229;340-346. <50%: ICA PS <125 cm/sec, ICA ED <40 cm/sec, ICA/CCA ratio <2.0 50-69%: ICA PS 125-230 cm/sec , ICA ED 40-100 cm/sec, ICA/CCA ratio 2-4 >70%: ICA PS >230 cm/sec, ICA ED >100 cm/sec, ICA/CCA ratio >4 Report Dictated on --- Final --- Dictating Physician: MD PARIKH NICHOLAS Signed Date and Time: 11/09/2019 2:07 pm Signed by: MD PARIKH NICHOLAS Transcribed Date and Time: 11/09/2019 2:08 [facility] [place], [place] RESPIDon 07-25-2019 Adenovirus Not Detected Normal Not Detected [facility] ([place]) Comment on above: Order Comment: Order added by [email or web address] Performed By: #### C BC, ADMONTY, MAURICE #### [place] [address] #### MG, FLORA, CMP, GFR #### [address] [address] Bordetella Parapertussis Not Detected Normal Not Detected [facility] ([place]) Comment on above: Order Comment: Order added by [email or web address] Performed By: #### C BC, ADIFF, ANEU #### [address] [address] #### MG, TROP, CMP, GFR #### [address] [address] Bordetella Pertussis Not Detected Normal Not Detected [facility] ([place]) Comment on above: Order Comment: Order added by [email or web address] Performed By: #### C BC, ADIFF, ANEU #### [address] [address] #### MG, TROP, CMP, GFR #### [place] [id number] Chlamydophila pneumoniae Not Detected Normal Not Detected [facility] ([place]) Comment on above: Order Comment: Order added by [email or web address] Performed By: #### C BC, ADIFF, ANEU #### [address] [address] #### MG, TROP, CMP, GFR #### [address] [address] Coronavirus 229E Not Detected Normal Not Detected [facility] ([place]) Comment on above: Order Comment: Order added by [email or web address] Performed By: #### C BC, ADIFF, ANEU #### [address] [address] #### MG, TROP, CMP, GFR #### [place] [id number] Coronavirus HKU1 Not Detected Normal Not Detected [facility] ([place]) Comment on above: Order Comment: Order added by [email or web address] Performed By: #### C BC, ADIFF, ANEU #### [address] [address] #### MG, TROP, CMP, GFR #### [place] [address] Coronavirus NL63 Not Detected Normal Not Detected [facility] ([place]) Comment on above: Order Comment: Order added by [email or web address] Performed By: #### C BC, ADIFF, ANEU #### [address] [address] #### MG, TROP, CMP, GFR #### [place] [address] Coronavirus OC43 Not Detected Normal Not Detected [facility] ([place]) Comment on above: Order Comment: Order added by [email or web address] Performed By: #### C BC, ADIFF, ANEU #### [place] [address] #### MG, TROP, CMP, GFR #### [place] [address] Human Metapneumovirus Not Detected Normal Not Detected [facility] ([place]) Comment on above: Order Comment: Order added by [email or web address] Performed By: #### C BC, ADIFF, ANEU #### [address] [address] #### MG, TROP, CMP, GFR #### [place] [address] Influenza A Not Detected Normal Not Detected [facility] ([place]) Comment on above: Order Comment: Order added by [email or web address] Performed By: #### C BC, ADIFF, ANEU #### [place] [address] #### MG, TROP, CMP, GFR #### [place] [id number] Influenza B Not Detected Normal Not Detected [facility] ([place]) Comment on above: Order Comment: Order added by [email or web address] Performed By: #### C BC, ADIFF, ANEU #### [address] [address] #### MG, TROP, CMP, GFR #### [address] [address] Mycoplasma pneumoniae Not Detected Normal Not Detected [facility] ([place]) Comment on above: Order Comment: Order added by [email or web address] Performed By: #### C BC, ADIFF, ANEU #### [address] [address] #### MG, TROP, CMP, GFR #### [address] [address] Parainfluenza 1 Not Detected Normal Not Detected [facility] ([place]) Comment on above: Order Comment: Order added by [email or web address] Performed By: #### C BC, ADIFF, ANEU #### [place] [address] #### MG, TROP, CMP, GFR #### [place] [address] Parainfluenza 2 Not Detected Normal Not Detected [facility] ([place]) Comment on above: Order Comment: Order added by [email or web address] Performed By: #### C BC, ADIFF, ANEU #### [address] [address] #### MG, TROP, CMP, GFR #### [place] [address] Parainfluenza 3 Not Detected Normal Not Detected [facility] ([place]) Comment on above: Order Comment: Order added by [email or web address] Performed By: #### C BC, ADIFF, ANEU #### [address] [address] #### MG, TROP, CMP, GFR #### [place] [id number] Parainfluenza 4 Not Detected Normal Not Detected [facility] ([place]) Comment on above: Order Comment: Order added by [email or web address] Performed By: #### C BC, ADIFF, ANEU #### [place] [address] #### MG, TROP, CMP, GFR #### [address] [address] Respiratory Syncytial Virus Not Detected Normal Not Detected [facility] ([place]) Comment on above: Order Comment: Order added by [email or web address] Performed By: #### C BC, ADIFF, ANEU #### [place] [address] #### MG, TROP, CMP, GFR #### [place] [address] Rhinovirus/Enterovir us Not Detected Normal Not Detected [facility] ([place]) Comment on above: Order Comment: Order added by [email or web address] Performed By: #### C BC, ADIFF, ANEU #### [place] [address] #### MG, TROP, CMP, GFR #### [place] [address] .Auto Diffon 07-24-2019 Ammonia (P) [Mass/Vol] 1.10 10 3/mcL High 0.15-1.00 [facility] ([place]) Comment on above: Performed By: #### C BC, ADIFF, ANEU #### [place] [address] #### MG, TROP, CMP, GFR #### [place] [address] Basophils (Bld) [#/Vol] 0.00 10 3/mcL Normal 0.00-0.19 [facility] ([place]) Comment on above: Performed By: #### C BC, ADIFF, ANEU #### [place] [address] #### MG, TROP, CMP, GFR #### [place] [address] Basophils/100 WBC (Bld) 0.5 % Normal 0.0-2.5 [facility] ([place]) Comment on above: Performed By: #### C BC, ADIFF, ANEU #### [address] [address] #### MG, TROP, CMP, GFR #### [address] [address] Eosinophils (Bld) [#/Vol] 0.00 10 3/mcL Normal 0.00-0.40 [facility] ([place]) Comment on above: Performed By: #### C BC, ADIFF, ANEU #### [address] [address] #### MG, TROP, CMP, GFR #### [address] [address] Eosinophils/100 WBC (Bld) 0.6 % Normal 0.0-7.0 [facility] ([place]) Comment on above: Performed By: #### C BC, ADIFF, ANEU #### [address] [address] #### MG, TROP, CMP, GFR #### [address] [address] Lymphocytes (Bld) [#/Vol] 1.00 10 3/mcL Normal 0.77-3.85 [facility] ([place]) Comment on above: Performed By: #### C JACKIE ADIFF, ANEU #### [place] [address] #### MG, TROP, CMP, GFR #### [address] [address] Lymphocytes/100 WBC (Bld) 11.6 % Normal 10.0-50.0 [facility] ([place]) Comment on above: Performed By: #### C BC, ADIFF, ANEU #### [address] [address] #### MG, TROP, CMP, GFR #### [address] [address] Monocytes/100 WBC (Bld) 12.6 % Normal 1.7-13.0 [facility] ([place] Comment on above: Performed By: #### C BC, ADIFF, ANEU #### [address] [address] #### MG, TROP, CMP, GFR #### [address] [address] Neutrophils/100 WBC (Bld) 74.7 % Normal 37.0-80.0 [facility] ([place] Comment on above: Performed By: #### C BC, ADIFF, ANEU #### [address] [address] #### MG, TROP, CMP, GFR #### [address] [address] .GFRon 07-24-2019 GFR 111 ml/min/1.73sqm Normal [facility] ([place]) Comment on above: Result Comment: GFR Population mean for , Non- Americans Ages 20-29 = 116 mL/min/1.73 sq.m. Ages 30-39 = 107 mL/min/1.73 sq.m. Ages 40-49 = 99 mL/min/1.73 sq.m. Ages 50-59 = 93 mL/min/1.73 sq.m. Ages 60-69 = 85 mL/min/1.73 sq.m. Ages 70+ = 75 mL/min/1.73 sq.m. Chronic Kidney Disease: Less than 60 mL/min/1.73 square meters End Stage Renal Disease: Less than 15 mL/min/1.73 square meters Performed By: #### C BC, ADIFF, ANEU #### [address] [address] #### MG, TROP, CMP, GFR #### [address] [address] GFR Non- 92 ml/min/1.73sqm Normal [facility] ([place]) Comment on above: Result Comment: GFR Population mean for , Non- Americans Ages 20-29 = 116 mL/min/1.73 sq.m. Ages 30-39 = 107 mL/min/1.73 sq.m. Ages 40-49 = 99 mL/min/1.73 sq.m. Ages 50-59 = 93 mL/min/1.73 sq.m. Ages 60-69 = 85 mL/min/1.73 sq.m. Ages 70+ = 75 mL/min/1.73 sq.m. Chronic Kidney Disease: Less than 60 mL/min/1.73 square meters End Stage Renal Disease: Less than 15 mL/min/1.73 square meters Performed By: #### C BCNAIFIFF, ANEU #### [place] [address] #### MG, TROP, CMP, GFR #### [address] [address] .NEUABSon 07-24-2019 Neutrophils (Bld) [#/Vol] 6.40 10 3/mcL High 2.85-6.16 [facility] ([place] Comment on above: Performed By: #### C ELLEN MEJIA, ANEU #### [place] [address] #### MG, TROP, CMP, GFR #### [address] [address] .Urinalysis Microscopic (AO) on 07-24-2019 RBC (U) [#/Vol] 0-5 None Seen [facility] ([place]) Comment on above: Performed By: #### U A, UAMICAO #### [address] [address] UA Bacteria Trace [facility] [place] Comment on above: Performed By: #### U A, UAMICAO #### [facility] [address] [place] [address] UA Squam Epithelial 0-5 None Seen [facility] ([place]) Comment on above: Performed By: #### U A, UAMICAO #### [facility] [address] [place] [address] UA WBC None Seen Normal None Seen [facility] ([place] Comment on above: Performed By: #### U A, UAMICAO #### [address] [address] CBCon 07-24-2019 Erythrocyte distribution width (RBC) [Ratio] 13.9 % Normal 11.5-14.5 [facility] ([place] Comment on above: Performed By: #### C BC, ADIFF, ANEU #### [address] [address] #### MG, TROP, CMP, GFR #### [place] [address] Hematocrit (Bld) [Volume fraction] 43.5 % Normal 37.0-47.0 [facility] ([place]) Comment on above: Performed By: #### C BC, ADIFF, ANEU #### [place] [address] #### MG, TROP, CMP, GFR #### [place] [address] Hemoglobin (Bld) [Mass/Vol] 14.4 G/dL Normal 12.0-16.0 [facility] ([place]) Comment on above: Performed By: #### C BC, ADIFF, ANEU #### [place] [address] #### MG, TROP, CMP, GFR #### [place] [address] MCH (RBC) [Entitic mass] 29.9 pg Normal 27.0-31.2 [facility] ([place] Comment on above: Performed By: #### C BC, ADIFF, ANEU #### [place] [address] #### MG, TROP, CMP, GFR #### [place] [address] MCHC (RBC) [Mass/Vol] 33.2 G/dL Normal 33.0-37.0 [facility] ([place] Comment on above: Performed By: #### C BC, ADIFF, ANEU #### [place] [address] #### MG, TROP, CMP, GFR #### [address] [address] MCV (RBC) [Entitic vol] 90.2 fL Normal 80.0-94.0 [facility] ([place] Comment on above: Performed By: #### C BC, ADIFF, ANEU #### [address] [address] #### MG, TROP, CMP, GFR #### [address] [address] Platelet mean volume (Bld) [Entitic vol] 8.6 fL Normal 7.4-10.4 [facility] ([place]) Comment on above: Performed By: #### C BC, ADIFF, ANEU #### [address] [address] #### MG, TROP, CMP, GFR #### [address] [address] Platelets (Bld) [#/Vol] 164 10 3/mcL Normal 130-400 [facility] ([place]) Comment on above: Performed By: #### C BC, ADIFF, ANEU #### [address] [address] #### MG, TROP, CMP, GFR #### [address] [address] RBC (Bld) [#/Vol] 4.82 10 6/mcL Normal 4.20-5.40 [facility] ([place]) Comment on above: Performed By: #### C BC, ADIFF, ANEU #### [place] [address] #### MG, TROP, CMP, GFR #### [address] [address] WBC (Bld) [#/Vol] 8.50 10 3/mcL Normal 4.60-10.80 [facility] ([place]) Comment on above: Performed By: #### C BC, ADIFF, ANEU #### [place] [address] #### MG, TROP, CMP, GFR #### [address] [address] CMPon 07-24-2019 Albumin [Mass/Vol] 3.9 G/dL Normal 3.4-4.8 [facility] ([place]) Comment on above: Performed By: #### C BC, ADIFF, ANEU #### [address] [address] #### MG, TROP, CMP, GFR #### [place] [address] Albumin/Globulin [Mass ratio] 1.1 {ratio} Normal 1.1-2.5 [facility] ([place] Comment on above: Performed By: #### C BC, ADIFF, ANEU #### [place] [address] #### MG, TROP, CMP, GFR #### [place] [address] ALP [Catalytic activity/Vol] 107 U/L Normal 40-135 [facility] ([place] Comment on above: Performed By: #### C BC, ADIFF, ANEU #### [address] [address] #### MG, TROP, CMP, GFR #### [place] [address] ALT [Catalytic activity/Vol] 26 U/L Normal 10-35 [facility] ([place] Comment on above: Performed By: #### C BC, ADIFF, ANEU #### [place] [address] #### MG, TROP, CMP, GFR #### [address] [address] AST [Catalytic activity/Vol] 27 U/L Normal 10-40 [facility] ([place] Comment on above: Performed By: #### C BC, ADIFF, ANEU #### [address] [address] #### MG, TROP, CMP, GFR #### [place] [phone] Bili Total 0.3 mg/dL Normal 0.2-1.0 [facility] ([place] Comment on above: Performed By: #### C BC, ADIFF, ANEU #### [address] [address] #### MG, TROP, CMP, GFR #### [address] [address] Calcium [Mass/Vol] 9.2 mg/dL Normal 8.4-10.2 [facility] ([place]) Comment on above: Performed By: #### C BC, ADIFF, ANEU #### [place] [address] #### MG, TROP, CMP, GFR #### [address] [address] Chloride [Moles/Vol] 102 mmol/L Normal 98-107 [facility] ([place]) Comment on above: Performed By: #### C BC, ADIFF, ANEU #### [place] [address] #### MG, TROP, CMP, GFR #### [address] [address] CO2 [Moles/Vol] 28 mmol/L Normal 23-31 [facility] ([place]) Comment on above: Performed By: #### C BC, ADIFF, ANEU #### [place] [address] #### MG, TROP, CMP, GFR #### [address] [address] Creatinine [Mass/Vol] 0.63 mg/dL Normal 0.55-1.02 [facility] ([place] Comment on above: Performed By: #### C BC, ADIFF, ANEU #### [place] [address] #### MG, TROP, CMP, GFR #### [address] [address] Electrolyte Balance 9.0 mEq/L Normal [facility] ([place]) Comment on above: Performed By: #### C BC, ADIFF, ANEU #### [address] [address] #### MG, TROP, CMP, GFR #### [address] [address] Globulin (S) [Mass/Vol] 3.4 G/dL Normal [facility] ([place]) Comment on above: Performed By: #### C BC, ADIFF, ANEU #### [address] [address] #### MG, TROP, CMP, GFR #### [address] [address] Glucose [Mass/Vol] 108 mg/dL Normal 83-110 [facility] ([place]) Comment on above: Performed By: #### C BC, ADIFF, ANEU #### [place] [address] #### MG, TROP, CMP, GFR #### [address] [address] Potassium [Moles/Vol] 3.6 mmol/L Normal 3.5-5.1 [facility] ([place] Comment on above: Performed By: #### C BC, ADIFF, ANEU #### [address] [address] #### MG, TROP, CMP, GFR #### [address] [address] Protein [Mass/Vol] 7.3 G/dL Normal 6.4-8.2 [facility] ([place]) Comment on above: Performed By: #### C BC, ADIFF, ANEU #### [address] [address] #### MG, TROP, CMP, GFR #### [address] [address] Sodium [Moles/Vol] 139 mmol/L Normal 136-145 [facility] ([place]) Comment on above: Performed By: #### C BC, ADIFF, ANEU #### [address] [address] #### MG, TROP, CMP, GFR #### [address] [address] Urea nitrogen [Mass/Vol] 15 mg/dL Normal 7-18 [facility] ([place] Comment on above: Performed By: #### C BC, ADIFF, ANEU #### [address] [address] #### MG, TROP, CMP, GFR #### [address] [address] Urea nitrogen/Creatinine [Mass ratio] 24 ratio Normal 7-27 [facility] ([place]) Comment on above: Performed By: #### C BC, ADIFF, ANEU #### [address] [address] #### MG, TROP, CMP, GFR #### [address] [address] MGon 07-24-2019 Magnesium [Mass/Vol] 1.7 mg/dL Low 1.8-2.4 [facility] ([place]) Comment on above: Performed By: #### C BC, ADIFF, ANEU #### [address] [address] #### MG, TROP, CMP, GFR #### [address] [address] RFLUon 07-24-2019 RFLU . MICRO - Microbiology PROCEDURE: Rapid Flu A+B Screen w Confirm if Ind [*1] SOURCE: Nasopharyngeal BODY SITE: Nasopharynx COLLECTED DATE/TIME: 07/24/2019 13:38 EST RECEIVED DATE/TIME: 07/24/2019 13:45 EST START DATE/TIME: 07/24/2019 13:45 EST FREE TEXT SOURCE: FINAL REPORTS Final Report [] Verified Date/Time/Personnel: 07/24/2019 14:10 EST Specimen is negative for the presence of influenza A antigen. . Specimen is negative for the presence of influenza B antigen. . Inadequate specimen collection, improper sample handling and/or low levels of viral shedding may yield a false-negative result. . The optimal specimen type for the Rapid Flu test is a nasopharyngeal wash/aspirate or nasopharyngeal swab. All negative rapid tests for Flu A and Flu B will be confirmed with a Respiratory Id Panel by PCR. . Assay method employs immunofluorescence technology. Performing Locations *1: This test was performed at: [address], [id number] [place] [address] ([place]) Comment on above: Performed By: #### R FLU #### [place] [address] TROPon 07-24-2019 Troponin I.cardiac [Mass/Vol] ng/mL Normal 0.000-0.040 [facility] ([place]) Comment on above: Result Comment: Trop onin I reference range: 0.00-0.040 ng/mL Negative and non-diagnostic. >0.040 ng/mL Consistent with cardiac damage, increased clinical risk and possibility of myocardial infarction. Serial measurements, a rise & fall in test results, clinical history, appropriate symptoms and/or ECG changes may help assess possibility of AR. *Other non-acute coronary syndrome conditions such as CHF, myocarditis, pulmonary emboli, sepsis and cardiac surgery could result in myocardial damage and increased troponin levels. Performed By: #### C BC, ADIFF, ANEU #### [place] [address] #### MG, TROP, CMP, GFR #### [place] [address] UAon 07-24-2019 Color (U) Yellow Normal [facility] ([place]) Comment on above: Performed By: #### U A, UAMICAO #### [place] [phone] Glucose (U) [Mass/Vol] Negative Normal Negative [facility] ([place]) Comment on above: Performed By: #### U A, UAMICAO #### [address] [address] Ketones Ql (U) Negative Normal Negative [facility] ([place]) Comment on above: Performed By: #### U A, UAMICAO #### [place] [phone] UA Appear Clear Normal Clear [facility] ([place]) Comment on above: Performed By: #### U A, UAMICAO #### [place] [address] UA Blood Trace Negative [facility] ([place] Comment on above: Performed By: #### U A, UAMICAO #### [place] [address] UA Leuk Est Negative Normal Negative [facility] [place] Comment on above: Performed By: #### U A, UAMICAO #### [place] [address] UA Nitrite Negative Normal Negative [facility] ([place] Comment on above: Performed By: #### U A, UAMICAO #### [place] [address] UA pH 6.5 Normal 5.0 - 8.0 [facility] ([place] Comment on above: Performed By: #### U A, UAMICAO #### [place] [address] UA Protein 30 mg/dL Normal Negative [facility] ([place] Comment on above: Performed By: #### U A, UAMICAO #### [place] [address] UA Spec Grav 1.025 Normal 1.015-1.025 [facility] ([place]) Comment on above: Performed By: #### U A, UAMICAO #### [place] [address] UA Specimen Type Clean Catch Normal [facility] ([place]) Comment on above: Performed By: #### U A, UAMICAO #### [place] [address] UA Urobilinogen 0.2 E.U./dL Normal 0.2-1.0 [facility] ([place] Comment on above: Performed By: #### U A, UAMICAO #### [place] [address] Urobilinogen Qn (U) Negative Normal Negative [facility] ([place]) Comment on above: Performed By: #### U TREY Hoffman #### [place] [address] XR CHEST 2 VIEWSon 0 XR CHEST 2 VIEWS ORIGINAL XR CHEST 2 VIEWS CLINICAL STATEMENT: SOB/Cough/Fever. Patient reports cough and recent flu exposure. COMPARISON: None. FINDINGS: The cardiomediastinal contours are normal. The aorta is tortuous. There is a subtle opacity projecting over the posterior costophrenic angle on lateral views. No pleural effusion, or pneumothorax is identified.No visualized fractures. Widening of the ribs on the LEFT is related to patient positioning. There are prominent degenerative changes of the thoracic spine. Mild wedge deformity in the midthoracic spine is technically age indeterminate. IMPRESSION: Subtle opacity projecting over the spine in the costophrenic angle may represent atelectasis or pneumonia. Short-term follow-up recommended. Mild wedge deformity in the midthoracic spine is likely chronic but cannot be accurately aged the absence of prior imaging. I have personally reviewed the images of this examination and agree with the resident's findings and interpretation. Interpreted By: Genaro Al MD Preliminary Report By: Alfred Erwin DO Electronically Signed By: Genaro Al MD Dictated Date: 07/24/2019 3:44:41 PM Prelim Date: 07/24/2019 3:49:09 PM Sign Date: 07/24/2019 4:51:24 PM Ordering Provider:Santos Caballero [facility] ([place]) HEATH ANDI DIGITAL SCREEN GLYNN JUSPrabha 04-07-2019 Patient Name: NIRMALA BENNETT ---Mammography--- Exam Date/Time 04/07/2019 10:57:08 EDT Exam MG Breast Tomosynthesis BI Scr Ordering Physician MD ALMA, JOSE ARMANDO Hernandez. Accession Number [id number] CPT4 Codes 76931 (MG Breast Tomosynthesis Scr Bl), 05719 (MG MAMMO 2D SCREENING) Reason For Exam screen Report PATIENT HISTORY: Patient is postmenopausal and is nulliparous. Family history of unknown cancer at age 76 in mother, breast cancer in maternal cousin. Took hormonal contraceptives beginning at age 23. Took estrogen beginning at age 31. Patient has never smoked. Patient's BMI is 26.8. TIME SINCE LAST MAMMOGRAM: Last mammogram was performed 4 years and 4 months ago. REASON FOR EXAM: screening, asymptomatic. PROCEDURE: MG BREAST TOMOSYNTHESIS BL SCR: APRIL 07, 2019 - 2D/3D Procedure 3D Bilateral CC and MLO view(s) were taken. 2D Bilateral CC and MLO view(s) were taken. Prior study comparison: December 07, 2014, bilateral MG breast tomosynthesis bl scr performed at [facility]. May 15, 2010, bilateral mammogram performed at [facility]. TISSUE DENSITY: There are scattered fibroglandular densities. . FINDINGS: No suspicious masses, architectural distortions or suspiciously clustered microcalcifications are identified. There is no evidence of skin thickening or nipple retraction. There are no significant changes when compared with prior studies. Markings on images: BB's = Nipples; skin lesions Open [place] = Palpable Line = Scar 2D digital mammography and tomosynthesis imaging were performed and reviewed with CAD. ASSESSMENT: Category 1 Negative No mammographic evidence of malignancy. RECOMMENDATION: Routine screening mammogram of both breasts in 1 year. . Report Dictated on Cancer Risk Assessment: This risk assessment is based on patient provided information collected in a risk survey taken at the time of this examination. Lifetime breast cancer risk: 2.4% - If greater than or equal to 20%, consider annual mammogram and annual screening Breast MRI or follow up in high risk clinic. Is the patient at elevated risk based on the HBOC criteria? No (Hereditary Breast and Ovarian Cancer) - If yes, consider genetic counseling and testing with high risk follow up. HNPCC mutation risk (Rasmussen Syndrome): 1% - if greater than or equal to 5%, consider genetic counseling, testing and screening colonoscopy. --- Final --- Signed Date and Time: 04/07/2019 12:49 pm Signed by: MD LINETTE, [facility] [place], [facility], [facility] Incoming Radiology Results From [facility] - 04/07/2019 1:13 PM EDT Patient Name: NIRMALA BENNETT ---Mammography--- Exam Date/Time 04/07/2019 10:57:08 EDT Exam MG Breast Tomosynthesis BI Scr Ordering Physician MD ALMA, JOSE ARMANDO Villareal Accession Number [id number] CPT4 Codes 39898 (MG Breast Tomosynthesis Scr Bl), 25737 (MG MAMMO 2D SCREENING) Reason For Exam screen Report PATIENT HISTORY: Patient is postmenopausal and is nulliparous. Family history of unknown cancer at age 76 in mother, breast cancer in maternal cousin. Took hormonal contraceptives beginning at age 23. Took estrogen beginning at age 31. Patient has never smoked. Patient's BMI is 26.8. TIME SINCE LAST MAMMOGRAM: Last mammogram was performed 4 years and 4 months ago. REASON FOR EXAM: screening, asymptomatic. PROCEDURE: MG BREAST TOMOSYNTHESIS BL SCR: APRIL 07, 2019 - 2D/3D Procedure 3D Bilateral CC and MLO view(s) were taken. 2D Bilateral CC and MLO view(s) were taken. Prior study comparison: December 07, 2014, bilateral MG breast tomosynthesis bl scr performed at [facility]. May 15, 2010, bilateral mammogram performed at [facility]. TISSUE DENSITY: There are scattered fibroglandular densities. . FINDINGS: No suspicious masses, architectural distortions or suspiciously clustered microcalcifications are identified. There is no evidence of skin thickening or nipple retraction. There are no significant changes when compared with prior studies. Markings on images: BB's = Nipples; skin lesions Open [place] = Palpable Line = Scar 2D digital mammography and tomosynthesis imaging were performed and reviewed with CAD. ASSESSMENT: Category 1 Negative No mammographic evidence of malignancy. RECOMMENDATION: Routine screening mammogram of both breasts in 1 year. . Report Dictated on Cancer Risk Assessment: This risk assessment is based on patient provided information collected in a risk survey taken at the time of this examination. Lifetime breast cancer risk: 2.4% - If greater than or equal to 20%, consider annual mammogram and annual screening Breast MRI or follow up in high risk clinic. Is the patient at elevated risk based on the HBOC criteria? No (Hereditary Breast and Ovarian Cancer) - If yes, consider genetic counseling and testing with high risk follow up. HNPCC mutation risk (Rasmussen Syndrome): 1% - if greater than or equal to 5%, consider genetic counseling, testing and screening colonoscopy. --- Final --- Signed Date and Time: 04/07/2019 12:49 pm Signed by: MD LINETTE, [place], [place] MG Breast Tomosynthesis Scr Blon 04-07-2019 MG Breast Tomosynthesis Scr Bl Patient Name: NIRMALA BENNETT Mammography Exam Date/Time 04/07/2019 10:57:08 EDT Exam MG Breast Tomosynthesis BI Scr Ordering Physician MD ALMA, JOSE ARMANDO Hernandez. Accession Number [id number] CPT4 Codes 76984 (MG Breast Tomosynthesis Scr Bl), 57285 (MG MAMMO 2D SCREENING) Reason For Exam screen Report PATIENT HISTORY: Patient is postmenopausal and is nulliparous. Family history of unknown cancer at age 76 in mother, breast cancer in maternal cousin. Took hormonal contraceptives beginning at age 23. Took estrogen beginning at age 31. Patient has never smoked. Patient's BMI is 26.8. TIME SINCE LAST MAMMOGRAM: Last mammogram was performed 4 years and 4 months ago. REASON FOR EXAM: screening, asymptomatic. PROCEDURE: MG BREAST TOMOSYNTHESIS BL SCR: APRIL 07, 2019 - 2D/3D Procedure 3D Bilateral CC and MLO view(s) were taken. 2D Bilateral CC and MLO view(s) were taken. Prior study comparison: December 07, 2014, bilateral MG breast tomosynthesis bl scr performed at [facility]. May 15, 2010, bilateral mammogram performed at [facility]. TISSUE DENSITY: There are scattered fibroglandular densities. . FINDINGS: No suspicious masses, architectural distortions or suspiciously clustered microcalcifications are identified. There is no evidence of skin thickening or nipple retraction. There are no significant changes when compared with prior studies. Markings on images: BB's = Nipples; skin lesions Open agua caliente = Palpable Line = Scar 2D digital mammography and tomosynthesis imaging were performed and reviewed with CAD. ASSESSMENT: Category 1 Negative No mammographic evidence of malignancy. RECOMMENDATION: Routine screening mammogram of both breasts in 1 year. . Report Dictated on Cancer Risk Assessment: This risk assessment is based on patient provided information collected in a risk survey taken at the time of this examination. Lifetime breast cancer risk: 2.4% - If greater than or equal to 20%, consider annual mammogram and annual screening Breast MRI or follow up in high risk clinic. Is the patient at elevated risk based on the HBOC criteria? No (Hereditary Breast and Ovarian Cancer) - If yes, consider genetic counseling and testing with high risk follow up. HNPCC mutation risk (Rasmussen Syndrome): 1% - if greater than or equal to 5%, consider genetic counseling, testing and screening colonoscopy. Final Signed Date and Time: 04/07/2019 12:49 pm Signed by: MD LINETTE, ROMINA Hoffman Normal [facility] BECKIE Panelon 03-03-2019 MARRIAGE AND FAMILY COUNSELOR (U1) Ab 1 AU/mL Normal 0-40 [facility] Comment on above: Result Comment: INTE RPRETIVE INFORMATION: Jin/MARRIAGE AND FAMILY COUNSELOR (BECKIE) Antibody, IgG 29 AU/mL or Less ............. Negative 30 - 40 AU/mL ................ Equivocal 41 AU/mL or Greater .......... Positive Jin/MARRIAGE AND FAMILY COUNSELOR antibodies are frequently seen in patients with mixed connective tissue disease (MCTD) and are also associated with other systemic autoimmune rheumatic diseases (SARDs) such as systemic lupus erythematosus (SLE), systemic sclerosis, and myositis. Antibodies targeting the Jin/MARRIAGE AND FAMILY COUNSELOR antigenic complex also recognize Jin antigens, therefore, the Jin antibody response must be considered when interpreting these results. Performed by [facility], [address] [place] [address] [id number] [email or web address], Dominic Mason MD - Lab. Director Performed By: #### BIB CAMPBELL #### [facility] [employer] [address] [address] #### DEMI #### The performing lab is in the report. Jin Ab 0 AU/mL Normal 0-40 [facility] Comment on above: Result Comment: INTE RPRETIVE INFORMATION: Jin (BECKIE) Antibody, IgG 29 AU/mL or Less ............. Negative 30 - 40 AU/mL ................ Equivocal 41 AU/mL or Greater .......... Positive Jin antibody is highly specific (greater than 90 percent) for systemic lupus erythematosus (SLE) but only occurs in 30-35 percent of SLE cases. The presence of antibodies to Jin has variable associations with SLE clinical manifestations. Performed By: #### D SUSU, BIB #### [address] [address] [place] [address] #### ENASO #### The performing lab is in the report. SSA Ab 10 AU/mL Normal 0-40 [facility] Comment on above: Result Comment: INTE RPRETIVE INFORMATION: SSA-52 (Ro52) (BECKIE) Antibody, IgG 29 AU/mL or Less ............. Negative 30 - 40 AU/mL ................ Equivocal 41 AU/mL or Greater .......... Positive SSA-52 (Ro52) and/or SSA-60 (Ro60) antibodies are associated with a diagnosis of Sjogren syndrome, systemic lupus erythematosus (SLE), and systemic sclerosis. SSA-52 antibody overlaps significantly with the major SSc-related antibodies. SSA-52 (Ro52) antibody occurs frequently in patients with inflammatory myopathies, often in the presence of interstitial lung disease. Performed By: #### D SUSU, BIB #### [address] [address] [place] [address] #### ENASO #### The performing lab is in the report. SSA-60 Ab, IgG 54 AU/mL High 0-40 [facility] Comment on above: Result Comment: REFE RENCE INTERVAL: SSA-60 (Ro60) (BECKIE) Antibody, IgG 29 AU/mL or Less ............. Negative 30 - 40 AU/mL ................ Equivocal 41 AU/mL or Greater .......... Positive Performed By: #### D SUSU, BIB #### [address] [address] [place] [address] #### ENASO #### The performing lab is in the report. SSB Ab 16 AU/mL Normal 0-40 [facility] Comment on above: Result Comment: INTE RPRETIVE INFORMATION: SSB (La) (BECKIE) Ab, IgG 29 AU/mL or Less ............. Negative 30 - 40 AU/mL ................ Equivocal 41 AU/mL or Greater .......... Positive SSB (La) antibody is seen in 50-60% of Sjogren syndrome cases and is specific if it is the only BECKIE antibody present. 15-25% of patients with systemic lupus erythematosus (SLE) and 5-10% of patients with progressive systemic sclerosis (PSS) also have this antibody. Performed By: #### Annabel CRISTOBAL BIB #### [address] [address] [address] #### ENASO #### The performing lab is in the report. Anti-DNA Antibodyon 02-27-20 Anti-DNA Antibody < 1 : 10 Normal <1:10 [facility] Comment on above: Performed By: #### Annabel CRISTOBAL BIB #### [address] [address] [place] [address] #### ENASO #### The performing lab is in the report. Anti-Nuclear Antibodyon 01-30 BIB Pattern Speckled Normal [facility] Comment on above: Performed By: #### Annabel NA BIB #### [address] [address] [place] [address] #### ENASO #### The performing lab is in the report. BIB Titer 1 : 80 Abnormal <1:40 [facility] Comment on above: Performed By: #### Annabel NA BIB #### [address] [address] [place] [address] #### ENASO #### The performing lab is in the report. Hemogram/Diffon 12-19-2018 Abs. Baso 0.03 thou/cmm Normal 0.00-0.08 [facility] Comment on above: Performed By: #### N CBCD #### [facility] [address] [place], [place] [address] Abs. Gratiot 1.11 thou/cmm High 0.19-0.80 [facility] Comment on above: Performed By: #### N CBCD #### [facility] [address] [place], [place] [address] Abs. Neut (ANC) 6.37 thou/cmm Normal 1.35-7.21 [facility] Comment on above: Performed By: #### N CBCD #### [place] [address] Basophils/100 WBC (Bld) 0.3 % Normal [facility] Comment on above: Performed By: #### N CBCD #### [place] [address] Eosinophils (Bld) [#/Vol] 0.14 thou/cmm Normal 0.00-0.36 [facility] Comment on above: Performed By: #### N CBCD #### [place] [address] Eosinophils/100 WBC (Bld) 1.6 % Normal [facility] Comment on above: Performed By: #### N CBCD #### [place] [address] Erythrocyte distribution width (RBC) [Ratio] 13.0 % Normal 11.8-14.5 [facility] Comment on above: Performed By: #### N CBCD #### [place] [address] Hematocrit (Bld) [Volume fraction] 36.6 % Normal 34.7-43.3 [facility] Comment on above: Performed By: #### N CBCD #### [address] [address] Hemoglobin (Bld) [Mass/Vol] 12.1 g/dL Normal 11.7-14.7 [facility] Comment on above: Performed By: #### N CBCD #### [address] [place], [place] [address] Lymphocytes (Bld) [#/Vol] 1.27 thou/cmm Normal 0.68-2.93 [facility] Comment on above: Performed By: #### N CBCD #### [facility] [address] [place] [address] Lymphocytes/100 WBC (Bld) 14.3 % Normal [facility] Comment on above: Performed By: #### N CBCD #### [facility] [address] [place] [address] MCH (RBC) [Entitic mass] 29.4 pg Normal 27.4-32.8 [facility] Comment on above: Performed By: #### N CBCD #### [facility] [address] [place] [address] MCHC (RBC) [Mass/Vol] 33.1 % Normal 31.9-35.6 [facility] Comment on above: Performed By: #### N CBCD #### [facility] [address] [place] [address] MCV (RBC) [Entitic vol] 88.8 fL Normal 82.1-97.4 [facility] Comment on above: Performed By: #### N CBCD #### [place] [address] Monocytes/100 WBC (Bld) 12.5 % Normal [facility] Comment on above: Performed By: #### N CBCD #### [facility] [address] [place] [address] Platelet mean volume (Bld) [Entitic vol] 9.9 fL Normal 8.8-12.1 [facility] Comment on above: Performed By: #### N CBCD #### [facility] [address] [place] [address] Platelets (Bld) [#/Vol] 205 thou/cmm Normal 150-370 [facility] Comment on above: Performed By: #### N CBCD #### [place] [address] RBC (Bld) [#/Vol] 4.12 mil/cmm Normal 3.79-4.93 [facility] Comment on above: Performed By: #### N CBCD #### [facility] [address] [place], [place] [address] Seg Neutrophil 71.3 % Normal [facility] Comment on above: Performed By: #### N CBCD #### [facility] [address] [place], [place] [address] WBC (Bld) [#/Vol] 8.9 thou/cmm Normal 4.4-9.7 [facility] Comment on above: Performed By: #### N CBCD #### [facility] [address] [place], [place] [address] Protimeon 12-19-2018 INR Coag (PPP) [Relative time] 1.00 {INR} Normal 0.90-1.30 [facility] Comment on above: Result Comment: Dinorah min K Antagonist (VKA) Therapeutic Range: INR 2 to 3 (Target INR of 2.5) Note: For patients treated with VKA drugs, such as warfarin, the [place] [employer] 2012 Guideline recommends a therapeutic INR range of 2 to 3 (target INR of 2.5). This recommendation includes high-risk patients with antiphospholipid syndrome with previous arterial or venous thromboembolism, current-generation mechanical or bioprosthetic aortic heart valve replacement. VKA Therapeutic Range for some Mechanical Valve Replacement: INR 2.5 to 3.5 (Target INR of 3) Note: Patients with mechanical aortic valve replacement and additional risk factors for thromboembolic events (atrial fibrillation, previous thromboembolism, LV dysfunction, hypercoagulable conditions) or an older generation mechanical AVR (i.e., ball in-Cage) or any mechanical MVR should have a INR therapeutic range of 2.5 to 3.5 target INR of 3). Samuel GH, et al. Chest 2012; 141:7S-47S Dory RA et al. JAC 2017; 70: 252-289 Performed By: #### M PT #### [facility] [address] [place], [place] [address] PT Coag (PPP) [Time] 10.4 s Normal 9.7-13.0 [facility] Comment on above: Performed By: #### M PT #### [facility] [address] [place] [address] VL Venous Duplex US Lower Ex t Lefton 12-04-2018 VL Venous Duplex US Lower Ext Left Patient Name: NIRMALA BENNETT Ultrasound Exam Date/Time 12/04/2018 08:14:59 EDT Exam VL Venous Duplex US Lower Ext Left Ordering Physician [id number] -BELLA CAZARES Accession Number [id number] CPT4 Codes 46797 () Reason For Exam Acute deep vein thrombosis (DVT) of proximal vein of left lower extremity Report [facility] ------ --- Left Lower Extremity Venous Duplex Report Patient Name: Nirmala Bennett : 1940 Study Date: 12/04/2018 Mari (78yrs) Age: 78 Account: [id number] Gender: F Loc: BP: Ordering: Bella Cazares Technologist: Ordering Physician: Bella Cazares Wood Handler: Meg Viveros Celia Interpreting Physician: Juani Quiñonez ------ --- Location: [address] ------ --- INDICATIONS: Acute deep vein thrombosis (DVT) of proximal vein of left lower extremity ------ --- CONCLUSIONS 1. Positive for acute DVT 2. Positive for age indeterminate below knee DVT 3. Positive for chronic DVT 4. 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 Chronic in common femoral, femoral, gastrocnemius; acute in popliteal; age indeterminate in soleal ------ --- STUDY DATA: Left lower extremity venous duplex evaluation. Birthdate: Patient birthdate: 1940. Age: Patient is 78 yr old. Sex: Gender: female. Ethnicity: Ethnicity: white. Doppler flow study including spectral analysis, color and ferreira scale imaging. Patient status: Outpatient. Procedure: A vascular evaluation was performed. The images were obtained using a [employer] E9 vascular ultrasound machine. ------ --- VENOUS FLOW AND IMAGING: + +--------- ---+ + +---- ------ --+ !Location !Overall !Thrombosis !Flow properties !Comments ! + +--------- ---+ + +---- ------ --+ !Left common !Patent !Chronic !Normal phasicity; !Follow up ! !femoral ! ! !spontaneous; !from ! ! ! ! !partially !11/26/2017. ! ! ! ! !compressible ! ! + +--------- ---+ + +---- ------ --+ !Left !Patent !Chronic !Partially ! --! !saphenofemor! ! !compressible ! ! !al junction ! ! ! ! ! + +--------- ---+ + +---- ------ --+ !Left !Patent ! !Nor mal phasicity; ! --! !profunda ! ! !spontaneous ! ! !femoral ! ! ! ! ! + +--------- ---+ + +---- ------ --+ !L femoral !Partially !Chronic !Noncompressible !Bifid system! !proximal !occluded ! ! !one of two ! ! ! ! ! !occluded ! + +--------- ---+ + +---- ------ --+ !L femoral !Patent !Chronic !Spontaneous; ! --! !mid ! ! !partially ! ! ! ! ! !compressible ! ! + +--------- ---+ + +---- ------ --+ !L femoral !Patent !Chronic !Noncompressible ! --! !distal ! ! ! ! ! + +--------- ---+ + +---- ------ --+ !Left ! !Acute over chronic!Partially ! --! !popliteal ! ! !compressible ! ! + +--------- ---+ + +---- ------ --+ !Left !Patent !Chronic !Partially ! --! !gastrocnemiu! ! !compressible ! ! !s ! ! ! ! ! + +--------- ---+ + +---- ------ --+ !Left !Patent ! !Com pressible ! --! !posterior ! ! ! ! ! !tibial ! ! ! ! ! + +--------- ---+ + +---- ------ --+ !Left !Patent ! !Com pressible ! --! !peroneal ! ! ! ! ! + +--------- ---+ + +---- ------ --+ !Left soleal ! ![place] !Noncompressible ! --! + +--------- ---+ + +---- ------ --+ !Left greater!Patent ! !Com pressible ! --! !saphenous ! ! ! ! ! + +--------- ---+ + +---- ------ --+ !Left lesser !Patent !Chronic !Partially ! --! !saphenous ! ! !compressible ! ! + +--------- ---+ + +---- ------ --+ !Right common!Patent ! !Nor mal phasicity; ! --! !femoral ! ! !spontaneous; ! ! ! ! ! !normal ! ! ! ! ! !augmentation; ! ! ! ! ! !compressible ! ! + +--------- ---+ + +---- ------ --+ Electronically signed by: Juani Quiñonez [id number] Final Dictated: 12/04/2018 12:11 pm Dictating Physician: JUANI QUIÑONEZ Signed Date and Time: 12/04/2018 12:10 pm Signed by: JUANI QUIÑONEZ [facility] Basic Metabolic Panelon 05-3 Anion gap [Moles/Vol] 15 [employer] [facility] Comment on above: Performed By: #### H JAG, BMP3 #### [facility] [address], [place] Calcium [Mass/Vol] 9.8 mg/dL Normal 8.4-10.4 [facility] Comment on above: Performed By: #### H KENG, BMP3 #### [facility] [address], [place] CO2 [Moles/Vol] 26 mmol/L Normal 22-30 [facility] Comment on above: Performed By: #### H JAG BMP3 #### [facility] [address], [place] Creatinine [Mass/Vol] 0.72 mg/dL Normal 0.52-1.25 [facility] Comment on above: Performed By: #### H JAG, BMP3 #### [facility] [address], [place] GFR/1.73 sq M predicted among blacks MDRD (S/P/Bld) [Vol rate/Area] mL/min/{1.73_m2} Normal >60 [facility] Comment on above: Performed By: #### H JAG BMP3 #### [facility] [address], [place] GFR/1.73 sq M predicted among non-blacks MDRD (S/P/Bld) [Vol rate/Area] mL/min/{1.73_m2} Normal >60 [facility] Comment on above: Result Comment: Sour ce- MDRD equation with creatinine calibration to IDMS(NKDEP) eGFR not recommended for drug dose adjustment Performed By: #### H JAG, BMP3 #### [facility] [address], [place] Glucose [Mass/Vol] 92 mg/dL Normal 70-100 [facility] Comment on above: Performed By: #### H JAG, BMP3 #### [facility] [address], [place] Urea nitrogen [Mass/Vol] 19 mg/dL Normal 7-20 [facility] Comment on above: Performed By: #### H EMOG, BMP3 #### [facility] [address], [place] Chloride [Moles/Vol] 102 mmol/L Normal 98-107 [facility] Comment on above: Performed By: #### H EMOG, BMP3 #### [facility] [address], [place] Potassium [Moles/Vol] 3.8 mmol/L Normal 3.5-5.1 [facility] Comment on above: Performed By: #### H EMOG, BMP3 #### [facility] [address], [place] Sodium [Moles/Vol] 143 mmol/L Normal 135-145 [facility] Comment on above: Performed By: #### H EMOG, BMP3 #### [address] [address] [address], [place] Hemogramon 11-26-2018 Erythrocyte distribution width (RBC) [Ratio] 13.5 % Normal 11.5-14.5 [facility] Comment on above: Performed By: #### H EMOPiotr, BMP3 #### [facility] [address], [place] Hematocrit (Bld) [Volume fraction] 40.4 % Normal 35.0-47.0 [facility] Comment on above: Performed By: #### H EMOG, BMP3 #### [facility] [address], [place] Hemoglobin (Bld) [Mass/Vol] 13.7 g/dL Normal 11.7-16.0 [facility] Comment on above: Performed By: #### H EMOG, BMP3 #### [facility] [address], [place] MCH (RBC) [Entitic mass] 29.8 pg Normal 26.0-34.0 [facility] Comment on above: Performed By: #### H EMOG, BMP3 #### [facility] [address], [place] MCHC (RBC) [Mass/Vol] 33.9 % Normal 32.0-36.0 [facility] Comment on above: Performed By: #### H JAG BMP3 #### [facility] [address], [place] MCV (RBC) [Entitic vol] 87.9 fL Normal 79.0-98.0 [facility] Comment on above: Performed By: #### H JAG BMP3 #### [facility] [address], [place] Platelet mean volume (Bld) [Entitic vol] 8.8 fL Normal 7.4-10.4 [facility] Comment on above: Performed By: #### H JAG BMP3 #### [place] [address] [address] [place], [place] Platelets (Bld) [#/Vol] 198 10*3/uL Normal 140-440 [facility] Comment on above: Performed By: #### H JAG BMP3 #### [place] [address] [address] [place], [place] RBC (Bld) [#/Vol] 4.59 10*6/uL Normal 3.80-5.20 [facility] Comment on above: Performed By: #### H JAG BMP3 #### [place] [address] [address] [place], [place] WBC (Bld) [#/Vol] 6.0 10*3/uL Normal 3.6-10.7 [facility] Comment on above: Performed By: #### H JAG BMP3 #### [address] [place] [address] [address] [place], [place] VL Venous Duplex US Lower Ex t Lefton 11-26-2018 VL Venous Duplex US Lower Ext Left Patient Name: NIRMALA BENNETT Ultrasound Exam Date/Time 11/26/2018 15:18:31 EDT Exam VL Venous Duplex US Lower Ext Left Ordering Physician IVANA DE LEÓN JAMES A Accession Number [id number] CPT4 Codes 67929 () Reason For Exam pain and swelling left leg Report [facility] ------ --- Left Lower Extremity Venous Duplex Report Patient Name: Nirmala Bennett : 1940 Study Date: 11/26/2018 M (78yrs) Age: 78 Account: [id number] Gender: F Loc: BP: Ordering: Bhupinder De León Technologist: Ordering Physician: Bhupinder De León Wood Handler: Ferdinand Morgan RVT, [facility] Interpreting Physician: Juani Quiñonez ------ --- Location: [place] [address] [address] [place] ------ --- INDICATIONS: Swelling of limb. ------ --- CRITICAL FINDINGS instructed to take patient to ER. Technical findings were reported to Rossy by jaylen , on 11/26/2018 , at 03:25 PM. Correct read-back was verified. ------ --- CONCLUSIONS 1. Positive for acute DVT 2. Positive for age indeterminate DVT 3. Positive for chronic DVT ------ --- IMPRESSIONS: - Findings show deep vein thrombosis of the left leg in the veins noted below: acute in popliteal, gastrocnemius, posterior tibial, peroneal, soleal veins; age indeterminate in femoral; chronic in common femoral, popliteal - These findings are negative for superficial vein thrombosis in the left lower extremity. ------ --- STUDY DATA: Left lower extremity venous duplex evaluation. Birthdate: Patient birthdate: 1940. Age: Patient is 78 yr old. Sex: Gender: female. Ethnicity: Ethnicity: white. Doppler flow study including spectral analysis, color and ferreira scale imaging. Patient status: Outpatient. Procedure: A vascular evaluation was performed. The images were obtained using a [employer] E9 vascular ultrasound machine. ------ --- VENOUS FLOW AND IMAGING: + +--------- ---+ + +---- ------ --+ !Location !Overall !Thrombosis !Flow properties !Comments ! + +--------- ---+ + +---- ------ --+ !Left common !Mural !Chronic !Normal phasicity; ! --! !femoral ! ! !spontaneous; ! ! ! ! ! !normal ! ! ! ! ! !augmentation; ! ! ! ! ! !compressible ! ! + +--------- ---+ + +---- ------ --+ !Left !Patent ! !Com pressible ! --! !saphenofemor! ! ! ! ! !al junction ! ! ! ! ! + +--------- ---+ + +---- ------ --+ !Left !Patent ! !Nor mal phasicity; ! --! !profunda ! ! !spontaneous; ! ! !femoral ! ! !normal ! ! ! ! ! !augmentation ! ! + +--------- ---+ + +---- ------ --+ !L femoral !Partially !Indeterminate !Partially !bifed system! !proximal !occluded ! !compressible !one of two ! ! ! ! ! !occluded. ! + +--------- ---+ + +---- ------ --+ !L femoral !Partially !Indeterminate !Normal phasicity; !bifed. ! !mid !occluded ! !spontaneous; ! ! ! ! ! !normal ! ! ! ! ! !augmentation; ! ! ! ! ! !partially ! ! ! ! ! !compressible ! ! + +--------- ---+ + +---- ------ --+ !L femoral !Partially !Indeterminate !Partially !bifed. ! !distal !occluded ! !compressible ! ! + +--------- ---+ + +---- ------ --+ !Left !Partially !Acute over chronic!Normal phasicity; ! --! !popliteal !occluded ! !spontaneous; ! ! ! ! ! !normal ! ! ! ! ! !augmentation; ! ! ! ! ! !partially ! ! ! ! ! !compressible ! ! + +--------- ---+ + +---- ------ --+ !Left !Totally !Acute !Noncompressible ! --! !gastrocnemiu!occluded ! ! ! ! !s ! ! ! ! ! + +--------- ---+ + +---- ------ --+ !Left !Totally !Acute !Noncompressible ! --! !posterior !occluded ! ! ! ! !tibial ! ! ! ! ! + +--------- ---+ + +---- ------ --+ !Left !Totally !Acute !Noncompressible ! --! !peroneal !occluded ! ! ! ! + +--------- ---+ + +---- ------ --+ !Left soleal !Totally !Acute !Noncompressible ! --! ! !occluded ! ! ! ! + +--------- ---+ + +---- ------ --+ !Left greater!Patent ! !Com pressible ! --! !saphenous ! ! ! ! ! + +--------- ---+ + +---- ------ --+ !Left lesser !Patent ! !Com pressible ! --! !saphenous ! ! ! ! ! + +--------- ---+ + +---- ------ --+ !Right common!Patent ! !Nor mal phasicity; ! --! !femoral ! ! !spontaneous; ! ! ! ! ! !normal ! ! ! ! ! !augmentation; ! ! ! ! ! !compressible ! ! + +--------- ---+ + +---- ------ --+ Electronically signed by: Juani Quiñonez [id number] Final Dictated: 11/26/2018 4:18 pm Dictating Physician: JUANI QUIÑONEZ Signed Date and Time: 11/26/2018 4:18 pm Signed by: JUANI QUIÑONEZ [facility] Vital Signs Date Time Vital Sign Value Performing Clinician Faci lity 02-15-2025 10:51-0400 Body height 160 cm Jose Armando Marquez MD Work Phone: [facility] 02-15-2025 10:51-0400 Body mass index (BMI) [Ratio] 28.27 kg/m2 Jose Armando Marquez MD Work Phone: [facility] 02-15-2025 10:51-0400 Body weight 72.39 kg Jose Armando Marquez MD Work Phone: [facility] 02-15-2025 10:51-0400 Diastolic blood pressure 71 mm[Hg] Jose Armando Marquez MD Work Phone: [facility] 02-15-2025 10:51-0400 Heart rate 75 /min Jose Armando Marquez MD Work Phone: [facility] 02-15-2025 10:51-0400 Respiratory rate 12 /min Jose Armando Marquez MD Work Phone: [facility] 02-15-2025 10:51-0400 SaO2% (BldA) [Mass fraction] 97 % Jose Armando Marquez MD Work Phone: [facility] 02-15-2025 10:51-0400 Systolic blood pressure 125 mm[Hg] Jose Armando Marquez MD Work Phone: [facility] 11-29-2024 13:32-0400 Body height 160 cm Jose Armando Marquez MD Work Phone: [facility] 11-29-2024 13:32-0400 Body mass index (BMI) [Ratio] 29.8 kg/m2 Jose Armando Marquez MD Work Phone: [facility] 11-29-2024 13:32-0400 Body weight 76.3 kg Jose Armando Marquez MD Work Phone: [facility] 11-29-2024 13:32-0400 Diastolic blood pressure 71 mm[Hg] Jose Armando Marquez MD Work Phone: [facility] 11-29-2024 13:32-0400 Heart rate 73 /min Jose Armando Marquez MD Work Phone: [facility] 11-29-2024 13:32-0400 Respiratory rate 12 /min Jose Armando Marquez MD Work Phone: [facility] 11-29-2024 13:32-0400 SaO2% (BldA) [Mass fraction] 96 % Jose Armando Marquez MD Work Phone: [facility] 11-29-2024 13:32-0400 Systolic blood pressure 148 mm[Hg] JoseA rmando Marquez MD Work Phone: [facility] 08-17-2024 10:47-0500 Body height 160 cm Jose Armando Marquez MD Work Phone: [facility] 08-17-2024 10:47-0500 Body mass index (BMI) [Ratio] 29.9 kg/m2 Jose Armando Marquez MD Work Phone: [facility] 08-17-2024 10:47-0500 Body weight 76.57 kg Jose Armando Marquez MD Work Phone: [facility] 08-17-2024 10:47-0500 Diastolic blood pressure 81 mm[Hg] Jose Armando Marquez MD Work Phone: [facility] 08-17-2024 10:47-0500 Heart rate 80 /min Jose Armando Marquez MD Work Phone: [facility] 08-17-2024 10:47-0500 Respiratory rate 12 /min Jose Armando Marquez MD Work Phone: [facility] 08-17-2024 10:47-0500 SaO2% (BldA) [Mass fraction] 96 % Jose Armando Marquez MD Work Phone: [facility] 08-17-2024 10:47-0500 Systolic blood pressure 144 mm[Hg] Jose Armando Marquez MD Work Phone: [facility] 07-05-2024 13:13-0500 Body height 160 cm Daksha Rudert PA-C Work Phone: [facility] 07-05-2024 13:13-0500 Body mass index (BMI) [Ratio] 29.05 kg/m2 Daksha Rudert PA-C Work Phone: [facility] 07-05-2024 13:13-0500 Body weight 74.39 kg Daksha Rudert PA-C Work Phone: [facility] 07-05-2024 13:13-0500 Diastolic blood pressure 66 mm[Hg] Daksha Rudert PA-C Work Phone: [facility] 07-05-2024 13:13-0500 Heart rate 69 /min Daksha Rudert PA-C Work Phone: [facility] 07-05-2024 13:13-0500 Respiratory rate 12 /min Daksha Rudert PA-C Work Phone: [facility] 07-05-2024 13:13-0500 SaO2% (BldA) [Mass fraction] 96 % Daksha Rudert PA-C Work Phone: [facility] 07-05-2024 13:13-0500 Systolic blood pressure 115 mm[Hg] Daksha Rudert PA-C Work Phone: [facility] 06-28-2024 11:06-0500 Body height 160 cm Daksha Rudert PA-C Work Phone: [facility] 06-28-2024 11:06-0500 Body mass index (BMI) [Ratio] 29.19 kg/m2 Daksha Rudert PA-C Work Phone: [facility] 06-28-2024 11:06-0500 Body weight 74.75 kg Daksha Rudert PA-C Work Phone: [facility] 06-28-2024 11:06-0500 Diastolic blood pressure 64 mm[Hg] Daksha Rudert PA-C Work Phone: [facility] 06-28-2024 11:06-0500 Heart rate 77 /min Daksha Rudert PA-C Work Phone: [facility] 06-28-2024 11:06-0500 Respiratory rate 12 /min Daksha Rudert PA-C Work Phone: [facility] 06-28-2024 11:06-0500 SaO2% (BldA) [Mass fraction] 97 % Daksha Rudert PA-C Work Phone: [facility] 06-28-2024 11:06-0500 Systolic blood pressure 122 mm[Hg] Daksha Rudert PA-C Work Phone: [facility] 02-17-2024 10:43-0400 Body height 160 cm Jose Armando Marquez MD Work Phone: [facility] 02-17-2024 10:43-0400 Body mass index (BMI) [Ratio] 30.08 kg/m2 Jose Armando Marquez MD Work Phone: [facility] 02-17-2024 10:43-0400 Body weight 77.02 kg Jose Armando Marquez MD Work Phone: [facility] 02-17-2024 10:43-0400 Diastolic blood pressure 71 mm[Hg] Jose Armando Marquez MD Work Phone: [facility] 02-17-2024 10:43-0400 Heart rate 60 /min Jose Armando Marquez MD Work Phone: [facility] 02-17-2024 10:43-0400 Respiratory rate 12 /min Jose Armando Marquez MD Work Phone: [facility] 02-17-2024 10:43-0400 SaO2% (BldA) [Mass fraction] 98 % Jose Armando Marquez MD Work Phone: [facility] 02-17-2024 10:43-0400 Systolic blood pressure 136 mm[Hg] Jose Armando Marquez MD Work Phone: [facility] 10-28-2023 11:00-0400 Body height 160 cm Crystal Lin PA-C Work Phone: [facility] 10-28-2023 11:00-0400 Body mass index (BMI) [Ratio] 30.47 kg/m2 Crystal Lin PA-C Work Phone: [facility] 10-28-2023 11:00-0400 Body weight 78.02 kg Crystal Lin PA-C Work Phone: [facility] 10-28-2023 11:00-0400 Diastolic blood pressure 82 mm[Hg] Crystal Lin PA-C Work Phone: [facility] 10-28-2023 11:00-0400 Heart rate 65 /min Crystal Lin PA-C Work Phone: [facility] 10-28-2023 11:00-0400 Systolic blood pressure 171 mm[Hg] Crystal Lin PA-C Work Phone: [facility] 10-21-2023 13:41-0400 Body height 160 cm Jose Armando Marquez MD Work Phone: [facility] 10-21-2023 13:41-0400 Body mass index (BMI) [Ratio] 30.54 kg/m2 Jose Armando Marquez MD Work Phone: [facility] 10-21-2023 13:41-0400 Body weight 78.2 kg Jose Armando Marquez MD Work Phone: [facility] 10-21-2023 13:41-0400 Diastolic blood pressure 74 mm[Hg] Jose Armando Marquez MD Work Phone: [facility] 10-21-2023 13:41-0400 Heart rate 72 /min Jose Armando Marquez MD Work Phone: [facility] 10-21-2023 13:41-0400 Respiratory rate 12 /min Jose Armando Marquez MD Work Phone: [facility] 10-21-2023 13:41-0400 SaO2% (BldA) [Mass fraction] 94 % Jose Armando Marquez MD Work Phone: [facility] 10-21-2023 13:41-0400 Systolic blood pressure 136 mm[Hg] Jose Armando Marquez MD Work Phone: [facility] 09-19-2023 14:29-0400 Body height 160 cm Bella Foradis CAREER PROFESSIONAL.UN[employer]ORMER Work Phone: [facility] 09-19-2023 14:29-0400 Body temperature 98.1 [degF] Bella Foradis CAREER PROFESSIONAL.UNIFORMER Work Phone: [facility] 09-19-2023 14:29-0400 Body weight 77.56 kg Bella Foradis CAREER PROFESSIONAL.UNIFORMER Work Phone: [facility] 09-19-2023 14:29-0400 Diastolic blood pressure 74 mm[Hg] Bella Foradis CAREER PROFESSIONAL.UNIFORMER Work Phone: [facility] 09-19-2023 14:29-0400 Heart rate 84 /min Bella Foradis CAREER PROFESSIONAL.UNIFORMER Work Phone: [facility] 09-19-2023 14:29-0400 Respiratory rate 16 /min Bella Foradis CAREER PROFESSIONAL.UNIFORMER Work Phone: [facility] 09-19-2023 14:29-0400 SaO2% (BldA) [Mass fraction] 95 % Bella Foradis CAREER PROFESSIONAL.UNIFORMER Work Phone: [facility] 09-19-2023 14:29-0400 Systolic blood pressure 136 mm[Hg] Bella Foradis CAREER PROFESSIONAL.UNIFORMER Work Phone: [facility] 08-19-2023 11:04-0500 Body height 160 cm Jose Armando Marquez MD Work Phone: [facility] 08-19-2023 11:04-0500 Body weight 78.65 kg Jose Armando Marquez MD Work Phone: [facility] 08-19-2023 11:04-0500 Diastolic blood pressure 76 mm[Hg] Jose Armando Marquez MD Work Phone: [facility] 08-19-2023 11:04-0500 Heart rate 64 /min Jose Armando Marquez MD Work Phone: [facility] 08-19-2023 11:04-0500 Respiratory rate 12 /min Jose Armando Marquez MD Work Phone: [facility] 08-19-2023 11:04-0500 SaO2% (BldA) [Mass fraction] 97 % Jose Armando Marquez MD Work Phone: [facility] 08-19-2023 11:04-0500 Systolic blood pressure 150 mm[Hg] Jose Armando Marquez MD Work Phone: [facility] 03-10-2023 14:39-0400 Body height 160 cm Daksha Rudert PA-C Work Phone: [facility] 03-10-2023 14:39-0400 Body temperature 97.7 [degF] Daksha Rudert PA-C Work Phone: [facility] 03-10-2023 14:39-0400 Body weight 74.39 kg Daksha Rudert PA-C Work Phone: [facility] 03-10-2023 14:39-0400 Diastolic blood pressure 69 mm[Hg] Daksha Rudert PA-C Work Phone: [facility] 03-10-2023 14:39-0400 Heart rate 86 /min Daksha Rudert PA-C Work Phone: [facility] 03-10-2023 14:39-0400 Respiratory rate 16 /min Daksha Rudert PA-C Work Phone: [facility] 03-10-2023 14:39-0400 SaO2% (BldA) [Mass fraction] 98 % Daksha Rudert PA-C Work Phone: [facility] 03-10-2023 14:39-0400 Systolic blood pressure 124 mm[Hg] Daksha Ellis PA-C Work Phone: [facility] 01-14-2023 14:23-0400 Body height 160 cm Karen Rinaldi MD Work Phone: [facility] 01-14-2023 14:23-0400 Body temperature 97.3 [degF] Karen Rinaldi MD Work Phone: [facility] 01-14-2023 14:23-0400 Body weight 76.2 kg Karen Rinaldi MD Work Phone: [facility] 01-14-2023 14:23-0400 Diastolic blood pressure 69 mm[Hg] Karen Rinaldi MD Work Phone: [facility] 01-14-2023 14:23-0400 Heart rate 78 /min Karen Rinaldi MD Work Phone: [facility] 01-14-2023 14:23-0400 Respiratory rate 16 /min Karen Rinaldi MD Work Phone: [facility] 01-14-2023 14:23-0400 SaO2% (BldA) [Mass fraction] 96 % Karen Rinaldi MD Work Phone: [facility] 01-14-2023 14:23-0400 Systolic blood pressure 143 mm[Hg] Karen Rinaldi MD Work Phone: [facility] 12-30-2022 10:42-0400 Body height 160 cm Jose Armando Marquez MD Work Phone: [facility] 12-30-2022 10:42-0400 Body weight 77.02 kg Jose Armando Marquez MD Work Phone: [facility] 12-30-2022 10:42-0400 Diastolic blood pressure 79 mm[Hg] Jose Armando Marquez MD Work Phone: [facility] 12-30-2022 10:42-0400 Heart rate 79 /min Jose Armando Marquez MD Work Phone: [facility] 12-30-2022 10:42-0400 Respiratory rate 12 /min Jose Armando Marquez MD Work Phone: [facility] 12-30-2022 10:42-0400 Systolic blood pressure 136 mm[Hg] Jose Armando Marquez MD Work Phone: [facility] 08-27-2022 14:00-0500 Body height 161.3 cm Daksha Rudert PA-C Work Phone: [facility] 08-27-2022 14:00-0500 Body weight 77.84 kg Daksha Rudert PA-C Work Phone: [facility] 08-27-2022 14:00-0500 Diastolic blood pressure 64 mm[Hg] Daksha Rudert PA-C Work Phone: [facility] 08-27-2022 14:00-0500 Heart rate 79 /min Daksha Rudert PA-C Work Phone: [facility] 08-27-2022 14:00-0500 Respiratory rate 12 /min Daksha Rudert PA-C Work Phone: [facility] 08-27-2022 14:00-0500 SaO2% (BldA) [Mass fraction] 97 % Daksha Rudert PA-C Work Phone: [facility] 08-27-2022 14:00-0500 Systolic blood pressure 118 mm[Hg] Daksha Rudert PA-C Work Phone: [facility] 08-25-2022 11:41-0500 Body mass index (BMI) [Ratio] 28.77 kg/m2 Lina Chavez APRN - UNIFORMER Work Phone: [facility] [employer] 08-25-2022 11:41-0500 Body temperature 96.8 [degF] Lina Chavez APRN - UNIFORMER Work Phone: [facility] 08-25-2022 11:41-0500 Body weight 74.84 kg Lina Chavez CAREER PROFESSIONAL - UNIFORMER Work Phone: [facility] 08-25-2022 11:41-0500 Diastolic blood pressure 76 mm[Hg] Lina Chavez CAREER PROFESSIONAL - UNIFORMER Work Phone: [facility] 08-25-2022 11:41-0500 Heart rate 73 /min Lina Chavez CAREER PROFESSIONAL - UNIFORMER Work Phone: [facility] 08-25-2022 11:41-0500 Respiratory rate 18 /min Lina Chavez CAREER PROFESSIONAL - UNIFORMER Work Phone: [facility] 08-25-2022 11:41-0500 SaO2% (BldA) [Mass fraction] 99 % Lina Chavez CAREER PROFESSIONAL - UNIFORMER Work Phone: [facility] 08-25-2022 11:41-0500 Systolic blood pressure 142 mm[Hg] Lina Chavez CAREER PROFESSIONAL - UNIFORMER Work Phone: [facility] 07-17-2022 11:34-0500 Body height 161.3 cm Jose Armando Marquez MD Work Phone: [facility] 07-17-2022 11:34-0500 Body weight 77.66 kg Jose Armando Marquez MD Work Phone: [facility] 07-17-2022 11:34-0500 Diastolic blood pressure 87 mm[Hg] Jose Armando Marquez MD Work Phone: [facility] 07-17-2022 11:34-0500 Heart rate 73 /min Jose Armando Marquez MD Work Phone: [facility] 07-17-2022 11:34-0500 Respiratory rate 12 /min Jose Armando Marquez MD Work Phone: [facility] 07-17-2022 11:34-0500 SaO2% (BldA) [Mass fraction] 97 % Jose Armando Marquez MD Work Phone: [facility] 07-17-2022 11:34-0500 Systolic blood pressure 148 mm[Hg] Jose Armando Marquez MD Work Phone: [facility] 01-09-2022 11:55-0400 Body height 161.3 cm Jose Armando Marquez MD Work Phone: [facility] 01-09-2022 11:55-0400 Body weight 78.29 kg Jose Armando Marquez MD Work Phone: [facility] 01-09-2022 11:55-0400 Diastolic blood pressure 82 mm[Hg] Jose Armando Marquez MD Work Phone: [facility] 01-09-2022 11:55-0400 Heart rate 71 /min Jose Armando Marquez MD Work Phone: [facility] 01-09-2022 11:55-0400 Respiratory rate 12 /min Jose Armando Marquez MD Work Phone: [facility] 01-09-2022 11:55-0400 SaO2% (BldA) [Mass fraction] 100 % Jose Armando Marquez MD Work Phone: [facility] 01-09-2022 11:55-0400 Systolic blood pressure 149 mm[Hg] Jose Armando Marquez MD Work Phone: [facility] 11-06-2021 08:56-0400 Body height 161.3 cm Jose Armando Marquez MD Work Phone: [facility] 11-06-2021 08:56-0400 Body temperature 97.81 [degF] Jose Armando Marquez MD Work Phone: [facility] 11-06-2021 08:56-0400 Body weight 75.66 kg Jose Armando Marquez MD Work Phone: [facility] 11-06-2021 08:56-0400 Diastolic blood pressure 80 mm[Hg] Jose Armando Marquez MD Work Phone: [facility] 11-06-2021 08:56-0400 Heart rate 72 /min Jose Armando Marquez MD Work Phone: [facility] 11-06-2021 08:56-0400 Respiratory rate 12 /min Jose Armando Marquez MD Work Phone: [facility] 11-06-2021 08:56-0400 SaO2% (BldA) [Mass fraction] 98 % Jose Armando Marquez MD Work Phone: [facility] 11-06-2021 08:56-0400 Systolic blood pressure 157 mm[Hg] Jose Armando Marquez MD Work Phone: [facility] 10-11-2021 10:42-0400 Diastolic blood pressure 90 mm[Hg] Nurse [employer] Work Phone: [facility] 10-11-2021 10:42-0400 Systolic blood pressure 154 mm[Hg] Nurse [employer] Work Phone: [facility] 10-04-2021 08:01-0400 Body height 161.3 cm Shoshana Jara MD Work Phone: [facility] 10-04-2021 08:01-0400 Body weight 77.2 kg Shoshana Jara MD Work Phone: [facility] 10-04-2021 08:01-0400 Diastolic blood pressure 92 mm[Hg] Shoshana Jara MD Work Phone: [facility] 10-04-2021 08:01-0400 Heart rate 75 /min Shoshana Jara MD Work Phone: [facility] 10-04-2021 08:01-0400 SaO2% (BldA) [Mass fraction] 97 % Shoshana Jara MD Work Phone: [facility] 10-04-2021 08:01-0400 Systolic blood pressure 172 mm[Hg] Shoshana Jara MD Work Phone: [facility] 05-31-2020 13:22-0500 Body Temperature 97.5 [degF] Jose Armando Alma [facility] 05-31-2020 13:22-0500 Body weight 71.76 kg Jose Armando Robynyohannesalberto [facility] 05-31-2020 13:22-0500 BP Diastolic 86 mm[Hg] Jose Armando Alma [facility] 05-31-2020 13:22-0500 BP Systolic 130 mm[Hg] Jose Armando Marquez [facility] 05-31-2020 13:22-0500 Height 160 cm Jose Armando Alma [facility] 05-31-2020 13:22-0500 Pulse (Heart Rate) 71 /min Jose Armando Marquez [facility] 05-31-2020 13:22-0500 Pulse Oximetry 98 % Jose Armando Marquez [facility] 05-31-2020 13:22-0500 Respiratory Rate 12 /min Jose Armando Marquez [facility] 02-17-2020 10:49-0400 Body Temperature 98.01 [degF] Jose Armando Marquez [facility] 02-17-2020 10:49-0400 Body weight 76.11 kg Jose Armando Marquez [facility] 02-17-2020 10:49-0400 BP Diastolic 84 mm[Hg] Jose Armando Marquez [facility] 02-17-2020 10:49-0400 BP Systolic 130 mm[Hg] Jose Armando Marquez [facility] 02-17-2020 10:49-0400 Height 152.4 cm Jose Armando Marquez [facility] 02-17-2020 10:49-0400 Pulse (Heart Rate) 80 /min [facility] 02-17-2020 10:49-0400 Pulse Oximetry 97 % Jose Armando Marquez [facility] 02-17-2020 10:49-0400 Respiratory Rate 16 /min [facility] En[facility] Encounter Date Encounter Type Care Provider Facility Start: 05-11-2025 End: 05-11-2025 ambulatory JOSE ARMANDO MARQUEZ Facility:[facility] Start: 05-04-2025 End: 05-04-2025 ambulatory MARTY BAH Facility:[facility] Start: 04-11-2025 End: 04-11-2025 ambulatory JOSE ARMANDO MARQUEZ Facility:[facility] Start: 03-17-2025 End: 03-17-2025 ambulatory JOSE ARMANDO MARQUEZ Facility:[facility] Start: 03-03-2025 End: 03-03-2025 Follow-up encounter Jose Armando Marquez MD Work Phone: [facility] Start: 03-02-2025 End: 03-02-2025 ambulatory JOSE ARMANDO MARQUEZ Facility:[facility] Start: 03-02-2025 End: 03-02-2025 Nursing evaluation of patient and report Nurse Intm Ag [employer] Work Phone: [facility] Comment on above: B12 deficiency (Prim colleen Dx) Start: 02-15-2025 End: 02-15-2025 Patient encounter procedure Jose Armando Marquez MD Work Phone: [facility] Comment on above: Acute cystitis witho ut hematuria (Primary Dx); Borderline hypercholesterolemia; Primary hypertension; Other iron deficiency anemia Start: 02-15-2025 End: 02-15-2025 ambulatory JOSE ARMANDO RUSH ALMA Facility:[facility] Start: 02-08-2025 End: 02-08-2025 ambulatory JOSE ARMANDO RUSH DorisYORDY Facility:[facility] Start: 02-01-2025 End: 02-01-2025 ambulatory JOSE ARMANDO RUSH ROBYNBRET Facility:[facility] Start: 01-26-2025 End: 01-27-2025 Telephone encounter Jose Armando Marquez MD Work Phone: [facility] Comment on above: Patient Question Start: 01-03-2025 End: 01-03-2025 Refill Jose Armando Marquez MD Work Phone: [facility] Comment on above: Refill Request Start: 12-29-2024 End: 12-29-2024 Nursing evaluation of patient and report Nurse Intm Ag [employer] Work Phone: [facility] Comment on above: B12 deficiency (Prim colleen Dx) Start: 12-29-2024 End: 12-29-2024 ambulatory JOSE ARMANDO MARQUEZ Facility:[facility] Start: 12-02-2024 End: 12-02-2024 Telephone encounter Jose Armando Marquez MD Work Phone: [facility] Comment on above: Patient Question (Pr ednisone, can she decrease amount or stop taking?) Start: 11-29-2024 End: 11-29-2024 Patient encounter procedure Jose Armando Marquez MD Work Phone: [facility] Comment on above: Subacute cough (Prim colleen Dx) Start: 11-29-2024 End: 11-29-2024 ambulatory JOSE ARMANDO MARQUEZ Facility:[facility] Start: 11-24-2024 End: 11-24-2024 Nursing evaluation of patient and report Nurse Intm Ag [employer] Work Phone: [facility] Comment on above: B12 deficiency (Prim colleen Dx) Start: 11-24-2024 End: 11-25-2024 ambulatory JOSE ARMANDO MARQUEZ Facility:[facility] Start: 11-10-2024 End: 11-10-2024 Refill Jose Armando Marquez MD Work Phone: [facility] Comment on above: Refill Request Start: 11-03-2024 End: 11-03-2024 Refill Jose Armando Marquez MD Work Phone: [facility] Comment on above: Refill Request Start: 10-20-2024 End: 10-20-2024 Nursing evaluation of patient and report Nurse Intm Ag [employer] Work Phone: [facility] Comment on above: B12 deficiency (Prim colleen Dx) Start: 10-20-2024 End: 10-20-2024 ambulatory JOSE ARMANDO MARQUEZ Facility:[facility] Start: 10-19-2024 End: 10-19-2024 Refill Jose Armando Marquez MD Work Phone: [facility] Comment on above: Refill Request Start: 10-05-2024 End: 10-05-2024 Refill Jose Armando Marquez MD Work Phone: [facility] Comment on above: Refill Request Start: 09-08-2024 End: 09-08-2024 Nursing evaluation of patient and report Nurse Intm W [facility] Work Phone: [facility] Comment on above: B12 deficiency (Prim colleen Dx) Start: 09-08-2024 End: 09-08-2024 ambulatory JOSE ARMANDO MARQUEZ Facility:[facility] Start: 08-30-2024 End: 08-30-2024 Telephone encounter Jose Armando Marquez MD Work Phone: [facility] Comment on above: Viral Syndrome Start: 08-27-2024 End: 08-27-2024 Telephone encounter Jose Armando Marquez MD Work Phone: [facility] Comment on above: Patient Question Start: 08-23-2024 End: 10-14-2024 Telephone encounter Jose Armando Marquez MD Work Phone: [facility] Start: 08-20-2024 End: 08-20-2024 ambulatory JOSE ARMANDO MARQUEZ Facility:[facility] Start: 08-17-2024 End: 08-17-2024 Patient encounter procedure Jose Armando Marquez MD Work Phone: [facility] Comment on above: Acute cystitis witho ut hematuria (Primary Dx); Acute right-sided low back pain with sciatica, sciatica laterality unspecified; Preventative health care; Borderline hypercholesterolemia; Fatigue, unspecified type Start: 08-17-2024 End: 08-17-2024 Patient encounter status Jose Armando Marquez MD Work Phone: [facility] Start: 08-17-2024 End: 08-17-2024 ambulatory JOSE ARMANDO MARQUEZ Facility:[facility] Start: 08-17-2024 Encounter for genera l adult medical examination without abnormal findings JOSE ARMANDO MARQUEZ [facility] Start: 08-10-2024 End: 08-10-2024 ambulatory JOSE ARMANDO MARQUEZ Facility:[facility] Start: 08-09-2024 End: 08-09-2024 Refill Jose Armando Marquez MD Work Phone: [facility] Comment on above: Refill Request Start: 07-28-2024 End: 07-29-2024 Refill Jose Armando Marquez MD Work Phone: [facility] Comment on above: Refill Request Start: 07-28-2024 End: 07-28-2024 Refill Jose Armando Marquez MD Work Phone: [facility] Comment on above: Refill Request B12 deficiency (Prim colleen Dx) Start: 07-05-2024 End: 07-05-2024 Patient encounter procedure Daksha PRICEC Work Phone: [facility] Comment on above: Bronchitis (Primary Dx) Start: 07-05-2024 End: 07-05-2024 ambulatory DAKSHA ELLIS Facility:[facility] Start: 06-28-2024 ambulatory DAKSHA ELLIS [facility] [facility] Start: 06-28-2024 End: 06-28-2024 Subsequent hospital visit by physician Xr [facility] Comment on above: Bronchitis [J40] Start: 06-28-2024 End: 06-28-2024 Patient encounter procedure Daksha Ellis PA-C Work Phone: [facility] Comment on above: Bronchitis (Primary Dx); Chest heaviness; Shortness of breath on exertion Start: 06-28-2024 End: 06-28-2024 ambulatory DAKSHA ELLIS Facility:[facility] Start: 06-09-2024 End: 06-09-2024 Nursing evaluation of patient and report Nurse Intmari Gayle W [facility] Work Phone: [facility] Comment on above: B12 deficiency (Prim colleen Dx) Start: 06-09-2024 End: 06-09-2024 ambulatory JOSE ARMANDO MARQUEZ Facility:[facility] Start: 06-03-2024 End: 06-18-2024 Telephone encounter Jose Armando Marquez MD Work Phone: [facility] Start: 06-02-2024 End: 06-02-2024 ambulatory JOSE ARMANDO MARQUEZ Facility:[facility] Start: 06-01-2024 End: 06-01-2024 Telephone encounter Jose Armando Marquez MD Work Phone: [facility] Comment on above: Results Start: 05-12-2024 End: 05-12-2024 Nursing evaluation of patient and report Nurse Rosie Gayle W [employer] Work Phone: [facility] Comment on above: B12 deficiency (Prim colleen Dx) Start: 05-05-2024 End: 05-05-2024 Subsequent hospital visit by physician Ct [facility] Comment on above: Tinnitus, left ear [ H93.12] Start: 04-07-2024 End: 04-07-2024 Refill Jose Armando Marquez MD Work Phone: [facility] Start: 03-18-2024 End: 03-18-2024 Telephone encounter Jose Armando Marquez MD Work Phone: [facility] Comment on above: Patient Update Start: 03-18-2024 End: 03-18-2024 Nursing evaluation of patient and report Nurse Rosie Valadez [employer] Work Phone: [facility] Comment on above: B12 deficiency (Prim colleen Dx) Start: 02-23-2024 End: 02-23-2024 Refill Jose Armando Marquez MD Work Phone: [facility] Comment on above: Refill Request Start: 02-19-2024 End: 02-20-2024 Telephone encounter Jose Armando Marquez MD Work Phone: [facility] Comment on above: Patient Question Start: 02-18-2024 End: 02-18-2024 Telephone encounter Jose Armando Marquez MD Work Phone: [facility] Comment on above: Consult (ENT) Start: 02-17-2024 End: 02-17-2024 Patient encounter procedure Jose Armando Marquez MD Work Phone: [facility] Comment on above: Noise-induced hearin g loss, unspecified laterality (Primary Dx); Screening for depression; Encounter for screening examination for other mental health and behavioral disorders; Urinary tract infection without hematuria, site unspecified Start: 01-07-2024 End: 01-07-2024 Nursing evaluation of patient and report Nurse Intm Ag W [employer] Work Phone: [facility] Comment on above: B12 deficiency (Prim colleen Dx) Start: 12-12-2023 Telephone encounter Jose Armando Marquez MD Work Phone: [facility] Comment on above: Allergic Reaction Start: 12-09-2023 Telephone encounter Jose Armando Marquez MD Work Phone: [facility] Comment on above: Patient Question Start: 12-08-2023 End: 12-08-2023 Patient encounter procedure Hearing Aid Otol Ag [place] Work Phone: [facility] (ENT) Comment on above: Asymmetrical sensori neural hearing loss (Primary Dx) Start: 11-27-2023 Telephone encounter Jose Armando Marquez MD Work Phone: [facility] Comment on above: Uti - Re-occurring Start: 11-19-2023 End: 11-19-2023 Nursing evaluation of patient and report Nurse Intm Ag W [employer] Work Phone: [facility] Comment on above: B12 deficiency (Prim colleen Dx) Start: 11-18-2023 Refill Jose Armando kay MD Work Phone: [facility] Comment on above: Refill Request Start: 11-10-2023 Refill Jose Armando kay MD Work Phone: [facility] Comment on above: Refill Request Start: 10-28-2023 End: 10-28-2023 Patient encounter procedure Mandi Riley BETH Work Phone: [facility] [place] [facility], [facility] (ENT) Comment on above: Tinnitus, bilateral (Primary Dx); Sensorineural hearing loss (SNHL) of both ears Start: 10-21-2023 End: 10-21-2023 Patient encounter procedure Jose Armando Marquez MD Work Phone: [facility] Comment on above: Fatigue, unspecified type (Primary Dx); Acute deep vein thrombosis (DVT) of proximal vein of left lower extremity (HCC); Platelets decreased (HCC) Start: 10-13-2023 Refill Jose Armando kay MD Work Phone: [facility] Comment on above: Refill Request Start: 10-08-2023 Patient encounter procedure Ccf Prov ider [facility] Department Start: 10-07-2023 Telephone encounter Jose Armando Marquez MD Work Phone: [facility] Comment on above: Consult (Ent (faxed) ) Start: 10-02-2023 Telephone encounter Jose Armando Marquez MD Work Phone: [facility] Comment on above: Referral Request (EN T) Start: 09-22-2023 Telephone encounter Bella reyes APRN.[employer] Work Phone: [facility] Comment on above: Results Start: 09-19-2023 End: 09-19-2023 Subsequent hospital visit by physician [place] 1 [facility] Comment on above: History of DVT (deep vein thrombosis) [Z86.718] Start: 09-19-2023 End: 09-19-2023 Patient encounter procedure Bella Cazares APRN.[employer] Work Phone: [facility] Comment on above: History of DVT (deep vein thrombosis) (Primary Dx); Patient noncompliant with anticoagulant medication; Acute non-recurrent pansinusitis; Left ear pain Start: 09-17-2023 End: 09-17-2023 Nursing evaluation of patient and report Nurse Rosie Valadez [employer] Work Phone: [facility] Comment on above: B12 deficiency (Prim colleen Dx) Start: 09-17-2023 Telephone encounter Jose Armando Marquez MD Work Phone: [facility] Comment on above: Orders Start: 09-15-2023 Refill Jose Armando kay MD Work Phone: [facility] Comment on above: Refill Request Start: 08-20-2023 Telephone encounter Jose Armando Marquez MD Work Phone: [facility] Comment on above: Consult ( Th erapy ) Start: 08-19-2023 End: 08-19-2023 Patient encounter procedure Jose Armando Marquez MD Work Phone: [facility] Comment on above: Acute right-sided lo w back pain with sciatica, sciatica laterality unspecified (Primary Dx); Shoulder pain, unspecified chronicity, unspecified laterality; Acute cystitis without hematuria; Preventative health care; Fatigue, unspecified type; Borderline hypercholesterolemia; Primary hypertension; Acute deep vein thrombosis (DVT) of proximal vein of left lower extremity (HCC); Platelets decreased (HCC) Start: 08-19-2023 End: 08-19-2023 Patient encounter status Jose Armando Marquez MD Work Phone: [facility] Work Phone: Start: 07-31-2023 End: 07-31-2023 Nursing evaluation of patient and report Nurse Rosie Valadez [employer] Work Phone: [facility] Comment on above: B12 deficiency (Prim colleen Dx) Start: 05-27-2023 Refill Jose Armando kay MD Work Phone: [facility] Comment on above: Refill Request Start: 04-29-2023 End: 04-30-2023 ambulatory JOSE ARMANDO MARQUEZ Facility:[facility] Start: 04-29-2023 End: 04-29-2023 Patient encounter procedure Naima Still MD Work Phone: Dermatology Comment on above: Dermatitis (Primary Dx) Start: 03-10-2023 End: 03-10-2023 Patient encounter procedure Daksha Ellis PA-C Work Phone: [facility] Comment on above: Acute non-recurrent sinusitis, unspecified location (Primary Dx) Start: 02-19-2023 Telephone encounter Jose Armando Marquez MD Work Phone: [facility] Comment on above: Patient Update Start: 02-19-2023 End: 02-19-2023 Nursing evaluation of patient and report Nurse Intm Ag [employer] Work Phone: [facility] Comment on above: B12 deficiency (Prim colleen Dx) Start: 02-14-2023 Refill Bella puente CAREER PROFESSIONAL.[employer] Work Phone: [facility] Comment on above: Refill Request Start: 01-31-2023 End: 02-01-2023 ambulatory JESSA SMITH Facility:[facility] Start: 01-31-2023 End: 01-31-2023 Patient encounter procedure Jessa Smith MD Work Phone: Dermatology Comment on above: 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) Start: 01-27-2023 End: 01-28-2023 ambulatory JOSE ARMANDO MARQUEZ Facility:[facility] Start: 01-27-2023 End: 01-27-2023 Patient encounter procedure Nurse Patch Test Work Phone: Dermatology Comment on above: Contact dermatitis a nd other eczema, due to unspecified cause (Primary Dx) Start: 01-22-2023 Telephone encounter Jose Armando Marquez MD Work Phone: [facility] Comment on above: Consult (Physical Th erapy) Start: 01-14-2023 End: 01-14-2023 ambulatory KAREN RINALDI Facility:[facility] Start: 01-14-2023 End: 01-14-2023 Patient encounter procedure Karen Rinaldi MD Work Phone: Allergy Comment on above: Adverse effect of pe nicillin, subsequent encounter (Primary Dx) Start: 12-30-2022 End: 12-30-2022 Patient encounter procedure Jose Armando Marquez MD Work Phone: [facility] Comment on above: Hypokalemia (Primary Dx); Acute deep vein thrombosis (DVT) of proximal vein of left lower extremity (HCC); Platelets decreased (HCC) Start: 12-27-2022 Patient Outreach Gustabo Yap MA [facility] Comment on above: Transition Of Care ( [facility] 12/25/22-12/26/22 Fecal Impaction) Start: 12-17-2022 End: 12-17-2022 ambulatory JOSE ARMANDO MARQUEZ Facility:[facility] Start: 12-05-2022 Telephone encounter Jose Armando Marquez MD Work Phone: [facility] Comment on above: Patient Update Consult (General James melissa ) Start: 11-26-2022 Telephone encounter Jose Armando Marquez MD Work Phone: [facility] Comment on above: Patient Question Start: 11-12-2022 End: 11-13-2022 ambulatory JOSE ARMANDO MARQUEZ Facility:[facility] Start: 11-11-2022 End: 11-12-2022 ambulatory JOSE ARMANDO MARQUEZ Facility:[facility] Start: 10-28-2022 Refill Jose Armando kay MD Work Phone: [facility] Comment on above: Refill Request Start: 10-17-2022 End: 10-17-2022 ambulatory JOSE ARMANDO MARQUEZ Facility:[facility] Start: 10-17-2022 End: 10-17-2022 Patient encounter procedure Bhanu Mays MD Work Phone: Dermatology Comment on above: Rash and nonspecific skin eruption (Primary Dx) Start: 09-11-2022 End: 09-11-2022 Nursing evaluation of patient and report Nurse Rosie Pete Work Phone: [facility] Comment on above: B12 deficiency (Prim colleen Dx) Start: 08-28-2022 Refill Jose Armando kay MD Work Phone: [facility] Comment on above: Refill Request Start: 08-27-2022 End: 08-27-2022 Patient encounter procedure Daksha Ellis PA-C Work Phone: [facility] Comment on above: Drug-induced skin ra sh (Primary Dx); Itching; Angioedema, subsequent encounter Start: 08-27-2022 Telephone encounter Jose Armando Marquez MD Work Phone: [facility] Comment on above: Appointment (Allergi c Reaction) Start: 08-25-2022 End: 08-25-2022 ambulatory [facility] Start: 08-25-2022 End: 08-25-2022 Office outpatient new 30 minutes Lina Luna CNP Work Phone: [facility] Comment on above: Allergic reaction, i nitial encounter (Primary Dx); Rash Start: 08-23-2022 Telephone encounter Jose Armando Marquez MD Work Phone: [facility] Comment on above: Patient Update Start: 08-21-2022 Refill Jose Armando kay MD Work Phone: [facility] Comment on above: Refill Request Start: 08-14-2022 Refill Jose Armando kay MD Work Phone: [facility] Comment on above: Refill Request Start: 08-08-2022 Telephone encounter Jose Armando Marquez MD Work Phone: [facility] Comment on above: Orders Start: 08-06-2022 Telephone encounter Jose Armando Marquez MD Work Phone: [facility] Comment on above: Orders Start: 07-30-2022 Telephone encounter Jose Armando Marquez MD Work Phone: [facility] Comment on above: Patient Update (Naus ea, vomiting, diarrhea ) Start: 07-17-2022 End: 07-17-2022 Patient encounter procedure Jose Armando Marquez MD Work Phone: [facility] Comment on above: Preventative health care (Primary Dx); Fatigue, unspecified type; Hypothyroidism, unspecified type; Borderline hypercholesterolemia; Primary hypertension; Acute cystitis without hematuria; Sjoegren syndrome (HCC) Start: 07-17-2022 End: 07-17-2022 Patient encounter status Jose Armando Marquez MD Work Phone: [facility] Start: 07-03-2022 End: 07-03-2022 Nursing evaluation of patient and report Nurse Intm Ag W [employer] Work Phone: [facility] Comment on above: B12 deficiency (Prim colleen Dx) Start: 05-30-2022 Telephone encounter Jose Armando Marquez MD Work Phone: [facility] Comment on above: UTI Start: 05-22-2022 Telephone encounter Jose Armando Marquez MD Work Phone: [facility] Comment on above: Orders (PT for back ) Start: 05-15-2022 Telephone encounter Jose Armando Marquez MD Work Phone: [facility] Comment on above: Consult (Physical Th erapy) Start: 05-15-2022 End: 05-15-2022 Nursing evaluation of patient and report Nurse Intm Ag W [employer] Work Phone: [facility] Comment on above: Need for influenza v accination (Primary Dx) Start: 05-10-2022 Telephone encounter Jose Armando Marquez MD Work Phone: [facility] Comment on above: Orders (Physical The rapy) Start: 05-08-2022 End: 05-08-2022 Nursing evaluation of patient and report Nurse Intm Ag W [employer] Work Phone: [facility] Comment on above: B12 deficiency (Prim colleen Dx) Start: 04-17-2022 Refill Jose Armando kay MD Work Phone: [facility] Comment on above: Refill Request Start: 03-29-2022 Refill Jose Armando kay MD Work Phone: [facility] Comment on above: Refill Request Start: 02-27-2022 End: 02-27-2022 Nursing evaluation of patient and report Nurse Intm Ag W [employer] Work Phone: [facility] Comment on above: B12 deficiency (Prim colleen Dx) Start: 02-19-2022 Refill Jose Armando kay MD Work Phone: [facility] Comment on above: Refill Request Start: 02-19-2022 Telephone encounter Jose Armando Marquez MD Work Phone: [facility] Comment on above: Constipation Start: 01-09-2022 End: 01-09-2022 Patient encounter procedure Jose Armando Marquez MD Work Phone: [facility] Comment on above: Hypercholesterolemia (Primary Dx); Primary hypertension Start: 01-04-2022 Refill Jose Armando kay MD Work Phone: [facility] Comment on above: Refill Request Start: 12-19-2021 End: 12-19-2021 Nursing evaluation of patient and report Nurse Intm Ag [employer] Work Phone: [facility] Comment on above: B12 deficiency (Prim colleen Dx) Start: 11-22-2021 Telephone encounter Jose Armando Marquez MD Work Phone: [facility] Comment on above: Patient Update Start: 11-19-2021 Telephone encounter Jose Armando Marquez MD Work Phone: [facility] Comment on above: Results Start: 11-06-2021 Telephone encounter Jose Armando Marquez MD Work Phone: [facility] Comment on above: Referral Information (DERMATOLOGY) Start: 11-06-2021 End: 11-06-2021 Patient encounter procedure Jose Armando Marquez MD Work Phone: [facility] Comment on above: Allergic reaction, s ubsequent encounter (Primary Dx); Pre-op evaluation Start: 11-06-2021 End: 11-06-2021 Preprocedural examination done Jose Armando Marquez MD Work Phone: [facility] Start: 11-01-2021 Telephone encounter Jose Armando Marquez MD Work Phone: [facility] Comment on above: Allergic Reaction Start: 10-29-2021 Telephone encounter Jose Armando Marquez MD Work Phone: [facility] Comment on above: Covid Follow Up Start: 10-24-2021 End: 10-24-2021 Nursing evaluation of patient and report Nurse Intm Ag W [employer] Work Phone: [facility] Comment on above: B12 deficiency (Prim colleen Dx) Start: 10-17-2021 Refill Jose Armando kay MD Work Phone: [facility] Comment on above: Refill Request Start: 10-11-2021 Telephone encounter Jose Armando Marquez MD Work Phone: [facility] Comment on above: Hypertension Monitor ing (Nurse Visit Blood Pressure Check) Start: 10-11-2021 End: 10-11-2021 Nursing evaluation of patient and report Nurse Intm Ag W [employer] Work Phone: [facility] Comment on above: Primary hypertension (Primary Dx) Start: 10-04-2021 End: 10-04-2021 Patient encounter procedure Shoshana Jara MD Work Phone: [facility] Comment on above: Bilateral leg edema (Primary Dx); Primary hypertension; Chronic pansinusitis; Chest tightness; Acute deep vein thrombosis (DVT) of proximal vein of left lower extremity (HCC); Constipation, unspecified constipation type Start: 10-01-2021 Telephone encounter Jose Armando Marquez MD Work Phone: [facility] Comment on above: Patient Question Start: 08-02-2020 End: 08-02-2020 Nursing evaluation of patient and report Nurse Intm [employer] Work Phone: [facility] Comment on above: Vitamin B 12 deficie ncy (Primary Dx) Start: 06-28-2020 End: 06-28-2020 Nursing evaluation of patient and report Nurse Intm [employer] Work Phone: [facility] Comment on above: Vitamin B 12 deficie ncy (Primary Dx) Start: 06-28-2020 End: 06-28-2020 Telephone encounter Jose Armando Marquez Work Phone: [facility] Comment on above: Medication Request Start: 06-14-2020 End: 06-14-2020 Refill Jose Armando Marquez Work Phone: [facility] Comment on above: Refill Request Start: 06-12-2020 End: 06-12-2020 Refill Jose Armando Marquez Work Phone: [facility] Comment on above: Refill Request Start: 05-31-2020 End: 05-31-2020 Patient encounter procedure Jose Armando Marquez Work Phone: [facility] Comment on above: Essential hypertensi on (Primary Dx); Acquired hypothyroidism; Borderline hypercholesterolemia; Fatigue, unspecified type Start: 05-24-2020 End: 05-24-2020 Subsequent hospital visit by physician Jose Armando Marquez [facility] Phone[facility] Start: 05-23-2020 End: 05-23-2020 Nursing evaluation of patient and report Nurse Intm Ag [employer] Work Phone: [facility] Comment on above: Vitamin B 12 deficie ncy (Primary Dx) Refill Request Start: 04-26-2020 End: 04-26-2020 Subsequent hospital visit by physician Jose Armando Marquez Work [facility] Start: 04-20-2020 End: 04-20-2020 Nursing evaluation of patient and report Nurse Intm Ag W [employer] Work Phone: [facility] Comment on above: Need for vaccination (Primary Dx); B12 deficiency Start: 04-07-2020 End: 04-07-2020 Telephone encounter Jose Armando Marquez Work Phone: [facility] Comment on above: Medication Request Start: 03-29-2020 End: 03-29-2020 Subsequent hospital visit by physician Jose Armando Marquez [facility] Start: 03-17-2020 End: 03-17-2020 Refill Jose Armando Marquez Work Phone: [facility] Comment on above: Refill Request Start: 03-01-2020 End: 03-01-2020 Refill Jose Armando Marquez Work Phone: [facility] Comment on above: Refill Request Start: 02-29-2020 End: 02-29-2020 Telephone encounter Jose Armando Marquez Work Phone: [facility] Comment on above: Medication Request Start: 02-17-2020 End: 02-17-2020 Patient encounter procedure Jose Armando Marquez Work Phone: [facility] Comment on above: Localized edema Start: 02-16-2020 End: 02-16-2020 Telephone encounter Jose Armando Marquez Work Phone: [facility] Comment on above: Medication Problem Start: 02-11-2020 End: 02-11-2020 Documentation procedure External Provider [facility] Start: 02-11-2020 Patient encounter procedure External Provider External-NonC Start: 11-09-2019 End: 11-09-2019 Subsequent hospital visit by physician Jose Armando Marquez Work Phone: [facility] Comment on above: Arrived Start: 04-07-2019 End: 04-07-2019 Subsequent hospital visit by physician Jose Armando Marquez Work Phone: [facility] Comment on above: Arrived Procedures Date Procedure Procedure Detail Performing Clinician Start: 06-28-2024 Radiologic exam ches t 2 views Daksha Ellis PA-C Work Phone: Start: 02-17-2024 Adult depression scr eening assessment Jose Armando Marquez MD Work Phone: Start: 10-28-2023 HEARING TEST/AUDIOGRAM Mandi Lin PA-C Work Phone: Start: 09-19-2023 Dup-scan xtr veins unilateral/limited study Bella Cazares APRN.[employer] Work Phone: Start: 05-15-2022 INFLUENZA SEASONAL QUADRIVALENT HIGH DOSE AGE 65+ Jose Armando Marquez MD Work Phone: Start: 07-11-2021 Adult depression scr eening assessment Jose Armando Marquez MD Work Phone: Start: 04-20-2020 INFLUENZA SEASONAL QUADRIVALENT HIGH DOSE AGE 65+ Jose Armando Marquez Work Phone: Start: 11-09-2019 Duplex scan extracra nial art compl bi study Jose Armando Marquez Work Phone: Start: 04-07-2019 Screening digital br east tomosynthesis bi Jose Armando Marquez Work Phone: Start: 01-09-2010 Thyrotropin [Units/v olume] in Serum or Plasma Lina Chavez APRN - [employer] Work Phone: Plan of Treatment Date Care Activity Detail Author Start: 03-25-2028 DTaP/Tdap/Td vaccine (2 - Td) DTaP/Tdap/Td vaccine (2 - Td) [facility] [place] Start: 03-25-2028 DTaP/Tdap/Td Vaccines (2 - Td or Tdap) DTaP/Tdap/Td Vaccines (2 - Td or Tdap) [facility] Start: 03-25-2028 Urine microalbumin profile [facility] Start: 02-09-2028 Diabetes Screening Diabetes Screening [facility] Start: 02-08-2027 Diabetes Screening Diabetes Screening [facility] Start: 08-13-2026 Diabetes Screening Diabetes Screening [facility] Start: 01-16-2026 DIABETES SCREEN DIABETES SCREEN [facility] Start: 01-16-2026 Diabetes Screening Diabetes Screening [facility] Start: 12-30-2025 DIABETES SCREEN DIABETES SCREEN [facility] Start: 12-26-2025 DIABETES SCREEN DIABETES SCREEN [facility] Start: 08-18-2025 End: 11-17-2025 Alanine aminotransferase [Enzymatic activity/volume] in Serum or Plasma ALANINE AMINOTRANSFERASE / SGPT Lab Routine Borderline hypercholesterolemia Expected: 08/18/2025, Expires: 11/17/2025 [facility] Comment on above: Expected: 08/18/2025, Expires: Start: 08-18-2025 End: 11-17-2025 CBC W Auto Differential panel - Blood COMPLETE BLOOD COUNT AND DIFFERENTIAL Lab Routine Other iron deficiency anemia Expected: 08/18/2025, Expires: 11/17/2025 [facility] Comment on above: Expected: 08/18/2025, Expires: Start: 08-18-2025 End: 11-17-2025 Lipid 1996 panel - Serum or Plasma LIPID PANEL, FASTING Lab Routine Borderline hypercholesterolemia Expected: 08/18/2025, Expires: 11/17/2025 [facility] Comment on above: Expected: 08/18/2025, Expires: Start: 08-17-2025 Covid-19 Vaccine () Covid-19 Vaccine () [facility] Comment on above: Postponed from 02/29/2024 (Declined at t his time) Start: 08-16-2025 End: 08-16-2025 Patient encounter procedure 08/16/2025 3:40 PM EST Office Visit [facility] [address] [place] [address] Jose Armando Marquez MD [address] [address] 6 month follow up [facility] Comment on above: 6 month follow up Start: 07-15-2025 DIABETES SCREEN DIABETES SCREEN [facility] Start: 03-17-2025 End: 06-16-2025 Urinalysis complete panel - Urine URINALYSIS (WITH MICROSCOPIC) WITH CULTURE IF INDICATED Lab Routine Acute cystitis without hematuria Expected: 03/17/2025, Expires: 06/16/2025 [facility] Work Phone: Comment on above: Expected: 03/17/2025, Expires: Start: 02-28-2025 Influenza vaccination [facility] Start: 02-16-2025 Anxiety Screening Anxiety Screening [facility] Start: 02-16-2025 Depression Screening Depression Screening [facility] Start: 02-15-2025 End: 05-17-2025 Basic metabolic 2000 panel - Serum or Plasma BASIC METABOLIC PANEL Lab Routine Primary hypertension Expected: 02/15/2025, Expires: 05/17/2025 [facility] Comment on above: Expected: 02/15/2025, Expires: 5 Start: 02-15-2025 End: 05-17-2025 Urinalysis complete panel - Urine URINALYSIS (WITH MICROSCOPIC) WITH CULTURE IF INDICATED Lab Routine Acute cystitis without hematuria Expected: 02/15/2025, Expires: 05/17/2025 [facility] Work Phone: Comment on above: Expected: 02/15/2025, Expires: 5 Start: 02-15-2025 End: 02-15-2025 Patient encounter procedure 02/15/2025 11:00 AM EDT Office Visit [facility] [address] [place] [address] Jose Armando Marquez MD [address] [address] 6 month follow up [facility] Comment on above: 6 month follow up Start: 02-14-2025 End: 05-16-2025 Alanine aminotransferase [Enzymatic activity/volume] in Serum or Plasma ALANINE AMINOTRANSFERASE / SGPT Lab Routine Preventative health care Borderline hypercholesterolemia Expected: 02/14/2025, Expires: 05/16/2025 [facility] Comment on above: Expected: 02/14/2025, Expires: Start: 02-14-2025 End: 05-16-2025 Basic metabolic 2000 panel - Serum or Plasma BASIC METABOLIC PANEL Lab Routine Preventative health care Fatigue, unspecified type Expected: 02/14/2025, Expires: 05/16/2025 [facility] Comment on above: Expected: 02/14/2025, Expires: Start: 02-14-2025 End: 05-16-2025 CBC W Auto Differential panel - Blood COMPLETE BLOOD COUNT AND DIFFERENTIAL Lab Routine Preventative health care Fatigue, unspecified type Expected: 02/14/2025, Expires: 05/16/2025 [facility] Comment on above: Expected: 02/14/2025, Expires: Start: 02-14-2025 End: 05-16-2025 Lipid 1996 panel - Serum or Plasma LIPID PANEL BASIC Lab Routine Preventative health care Borderline hypercholesterolemia Expected: 02/14/2025, Expires: 05/16/2025 [facility] Comment on above: Expected: 02/14/2025, Expires: Start: 02-14-2025 End: 05-16-2025 Thyrotropin [Units/volume] in Serum or Plasma THYROID STIMULATING HORMONE Lab Routine Preventative health care Fatigue, unspecified type Expected: 02/14/2025, Expires: 05/16/2025 [facility] Comment on above: Expected: 02/14/2025, Expires: Start: 02-14-2025 End: 05-16-2025 Urinalysis complete panel - Urine URINALYSIS, WITH MICROSCOPIC Lab Routine Preventative health care Fatigue, unspecified type Expected: 02/14/2025, Expires: 05/16/2025 [facility] Comment on above: Expected: 02/14/2025, Expires: Start: 02-01-2025 End: 02-01-2025 Nursing evaluation of patient and report 02/01/2025 11:00 AM EDT Nurse Visit [address] [address] B-12 [facility] Comment on above: B-12 Start: 01-03-2025 DIABETES SCREEN DIABETES SCREEN [facility] Start: 12-27-2024 Influenza vaccination Influenza Vaccine (#1) [facility] Comment on above: Postponed from 02/29/2024 (Declined at t his time) Start: 10-21-2024 LIPID SCREEN LIPID SCREEN [facility] Start: 10-20-2024 Annual PCP Team Chronic Disease Visit Annual PCP Team Chronic Disease Visit [facility] Start: 09-18-2024 Annual PCP Team Chronic Disease Visit Annual PCP Team Chronic Disease Visit [facility] Start: 09-01-2024 End: 09-01-2024 Nursing evaluation of patient and report 09/01/2024 1:40 PM EST Nurse Visit [address] [address] B- [facility] Comment on above: Start: 08-19-2024 Annual PCP Team Chronic Disease Visit Annual PCP Team Chronic Disease Visit [facility] Start: 08-17-2024 End: 11-16-2024 Urinalysis complete panel - Urine URINALYSIS, WITH MICROSCOPIC Lab Routine Acute cystitis without hematuria Expected: 08/17/2024, Expires: 11/16/2024 [facility] Work Phone: Comment on above: Expected: 08/17/2024, Expires: Start: 08-17-2024 End: 08-17-2024 Patient encounter procedure 08/17/2024 11:00 AM EST Office Visit [address] [place] [address] Jose Armando Marquez MD [address] [address] 6 Month Follow-up [facility] Comment on above: 6 Month Follow-up Start: 07-04-2024 End: 10-03-2024 CBC W Auto Differential panel - Blood COMPLETE BLOOD COUNT AND DIFFERENTIAL Lab Routine Other iron deficiency anemia Expected: 07/04/2024, Expires: 10/03/2024 [facility] Work Phone: Comment on above: Expected: 07/04/2024, Expires: Start: 06-30-2024 Advance Directive Discussion Advance Directive Discussion [facility] Start: 06-30-2024 Medicare Advantage Annual Wellness Visit Medicare Advantage Annual Wellness Visit [facility] Start: 06-01-2024 End: 08-31-2024 CBC W Auto Differential panel - Blood COMPLETE BLOOD COUNT AND DIFFERENTIAL Lab Routine Other iron deficiency anemia Expected: 06/01/2024, Expires: 08/31/2024 [facility] Work Phone: Comment on above: Expected: 06/01/2024, Expires: Start: 06-01-2024 End: 08-31-2024 Cobalamin (Vitamin B12) [Mass/volume] in Serum or Plasma VITAMIN B12 Lab Routine Other iron deficiency anemia Expected: 06/01/2024, Expires: 08/31/2024 [facility] Comment on above: Expected: 06/01/2024, Expires: Start: 06-01-2024 End: 08-31-2024 Ferritin [Mass/volume] in Serum or Plasma FERRITIN Lab Routine Other iron deficiency anemia Expected: 06/01/2024, Expires: 08/31/2024 [facility] Comment on above: Expected: 06/01/2024, Expires: Start: 06-01-2024 End: 08-31-2024 Iron and Iron binding capacity panel - Serum or Plasma IRON AND TIBC Lab Routine Other iron deficiency anemia Expected: 06/01/2024, Expires: 08/31/2024 [facility] Comment on above: Expected: 06/01/2024, Expires: Start: 04-28-2024 End: 04-28-2024 Patient encounter procedure 04/28/2024 1:00 PM EDT Office Visit [facility] (ENT) [address] [place] [id number] Mandi Lin PA-C [address] [place] [address] 6 mn f/u for ears/ audio 1st [facility] (ENT) Comment on above: 6 mn f/u for ears/ audio 1st Start: 03-10-2024 Annual PCP Team Chronic Disease Visit Annual PCP Team Chronic Disease Visit [facility] Start: 03-10-2024 BP Controlled (<130/80) BP Controlled (<130/80) [facility] in[facility] Start: 03-02-2024 End: 06-01-2024 Urinalysis complete panel - Urine URINALYSIS WITH MICROSCOPIC, REFLEX CULTURE Lab Routine Urinary tract infection without hematuria, site unspecified Expected: 03/02/2024, Expires: 06/01/2024 [facility] Work Phone: Comment on above: Expected: 03/02/2024, Expires: Start: 02-29-2024 Covid-19 Vaccine ( season) Covid-19 Vaccine ( season) [facility] Start: 02-29-2024 Covid-19 Vaccine ( season) Covid-19 Vaccine ( season) [facility] Start: 02-29-2024 Influenza vaccination [facility] Start: 02-26-2024 DIABETES SCREEN DIABETES SCREEN [facility] Start: 02-17-2024 End: 05-18-2024 Alanine aminotransferase [Enzymatic activity/volume] in Serum or Plasma ALT/SGPT Lab Routine Preventative health care Borderline hypercholesterolemia Expected: 02/17/2024, Expires: 05/18/2024 [facility] Work Phone: Comment on above: Expected: 02/17/2024, Expires: Start: 02-17-2024 End: 05-18-2024 Basic metabolic 2000 panel - Serum or Plasma BASIC METABOLIC PNL Lab Routine Preventative health care Primary hypertension Expected: 02/17/2024, Expires: 05/18/2024 [facility] Work Phone: Comment on above: Expected: 02/17/2024, Expires: Start: 02-17-2024 End: 05-18-2024 CBC W Auto Differential panel - Blood CBC + DIFF Lab Routine Preventative health care Fatigue, unspecified type Expected: 02/17/2024, Expires: 05/18/2024 [facility] Work Phone: Comment on above: Expected: 02/17/2024, Expires: Start: 02-17-2024 End: 05-18-2024 Lipid 1996 panel - Serum or Plasma LIPID PANEL BASIC Lab Routine Preventative health care Borderline hypercholesterolemia Expected: 02/17/2024, Expires: 05/18/2024 [facility] Work Phone: Comment on above: Expected: 02/17/2024, Expires: Start: 02-17-2024 End: 05-18-2024 Thyrotropin [Units/volume] in Serum or Plasma TSH BLD Lab Routine Preventative health care Fatigue, unspecified type Expected: 02/17/2024, Expires: 05/18/2024 [facility] Work Phone: Comment on above: Expected: 02/17/2024, Expires: Start: 02-17-2024 End: 05-18-2024 Urinalysis complete panel - Urine URINALYSIS, WITH MICROSCOPIC Lab Routine Acute cystitis without hematuria Preventative health care Expected: 02/17/2024, Expires: 05/18/2024 [facility] Work Phone: Comment on above: Expected: 02/17/2024, Expires: Start: 02-17-2024 End: 02-17-2024 Patient encounter procedure 02/17/2024 11:00 AM EDT Office Visit [address] [address] [place] [address] [place] [id number] 6 Month Follow Up [facility] Comment on above: 6 Month Follow Up Start: 01-23-2024 ANNUAL PCP TEAM CHRONIC DISEASE VISIT ANNUAL PCP TEAM CHRONIC DISEASE VISIT [facility] Start: 12-31-2023 ANNUAL PCP TEAM CHRONIC DISEASE VISIT ANNUAL PCP TEAM CHRONIC DISEASE VISIT [facility] Start: 12-08-2023 End: 12-08-2023 Patient encounter procedure 12/08/2023 3:00 PM EDT Office Visit [facility] (ENT) [address] [place] [id number] hearing aid eval [facility] (ENT) Comment on above: hearing aid eval Start: 11-19-2023 End: 11-19-2023 Nursing evaluation of patient and report 11/19/2023 10:20 AM EDT Nurse Visit [address] [address] Smo B-12 [facility] Comment on above: Smo B-12 Start: 10-28-2023 End: 10-28-2023 Patient encounter procedure 10/28/2023 10:30 AM EDT Office Visit [facility] (ENT) [address] [place] [phone] Mandi Lin PA-C [address] [place] [address] Ear pain/ringing/hearing loss in left ear [facility] (ENT) Comment on above: Ear pain/ringing/hearing loss in left ea r Start: 10-21-2023 End: 01-20-2024 CBC W Auto Differential panel - Blood COMPLETE BLOOD COUNT AND DIFFERENTIAL Lab Routine Fatigue, unspecified type Expected: 10/21/2023, Expires: 01/20/2024 [facility] Comment on above: Expected: 10/21/2023, Expires: Start: 10-21-2023 End: 01-20-2024 Thyrotropin [Units/volume] in Serum or Plasma THYROID STIMULATING HORMONE Lab Routine Fatigue, unspecified type Expected: 10/21/2023, Expires: 01/20/2024 [facility] Comment on above: Expected: 10/21/2023, Expires: Start: 10-21-2023 End: 01-20-2024 Urinalysis complete panel - Urine URINALYSIS WITH MICROSCOPIC, REFLEX CULTURE Lab Routine Fatigue, unspecified type Expected: 10/21/2023, Expires: 01/20/2024 [facility] Work Phone: Comment on above: Expected: 10/21/2023, Expires: Start: 08-27-2023 ANNUAL PCP TEAM CHRONIC DISEASE VISIT ANNUAL PCP TEAM CHRONIC DISEASE VISIT [facility] Start: 08-27-2023 BP CONTROLLED (<130/80) BP CONTROLLED (<130/80) [facility] Start: 07-17-2023 ANNUAL PCP TEAM CHRONIC DISEASE VISIT ANNUAL PCP TEAM CHRONIC DISEASE VISIT [facility] Start: 06-30-2023 Advance Directive Discussion Advance Directive Discussion [facility] Start: 06-30-2023 Behavioral Health Screening Behavioral Health Screening [facility] Start: 06-30-2023 Depression Assessment Depression Assessment [facility] Start: 02-28-2023 Covid-19 Vaccine () Covid-19 Vaccine () [facility] Start: 02-28-2023 Covid-19 Vaccine () Covid-19 Vaccine () [facility] Start: 02-28-2023 Influenza vaccination [facility] Start: 01-14-2023 End: 03-16-2023 Alanine aminotransferase [Enzymatic activity/volume] in Serum or Plasma ALT/SGPT Lab Routine Preventative health care Borderline hypercholesterolemia Expected: 01/14/2023, Expires: 03/16/2023 [facility] Work Phone: Comment on above: Expected: 01/14/2023, Expires: Start: 01-14-2023 End: 03-16-2023 Basic metabolic 2000 panel - Serum or Plasma BASIC METABOLIC PNL Lab Routine Preventative health care Primary hypertension Expected: 01/14/2023, Expires: 03/16/2023 [facility] Work Phone: Comment on above: Expected: 01/14/2023, Expires: 3 Start: 01-14-2023 End: 03-16-2023 CBC W Auto Differential panel - Blood CBC + DIFF Lab Routine Preventative health care Fatigue, unspecified type Expected: 01/14/2023, Expires: 03/16/2023 [facility] Work Phone: Comment on above: Expected: 01/14/2023, Expires: Start: 01-14-2023 End: 03-16-2023 Lipid 1996 panel - Serum or Plasma LIPID PANEL BASIC Lab Routine Borderline hypercholesterolemia Expected: 01/14/2023, Expires: 03/16/2023 [facility] Work Phone: Comment on above: Expected: 01/14/2023, Expires: 3 Start: 01-14-2023 End: 03-16-2023 Thyrotropin [Units/volume] in Serum or Plasma TSH BLD Lab Routine Preventative health care Hypothyroidism, unspecified type Expected: 01/14/2023, Expires: 03/16/2023 [facility] Work Phone: Comment on above: Expected: 01/14/2023, Expires: 3 Start: 01-14-2023 End: 03-16-2023 Urinalysis complete panel - Urine URINALYSIS, WITH MICROSCOPIC Lab Routine Preventative health care Fatigue, unspecified type Expected: 01/14/2023, Expires: 03/16/2023 [facility] Work Phone: Comment on above: Expected: 01/14/2023, Expires: 3 Start: 01-09-2023 ANNUAL PCP TEAM CHRONIC DISEASE VISIT ANNUAL PCP TEAM CHRONIC DISEASE VISIT [facility] Start: 11-06-2022 ANNUAL PCP TEAM CHRONIC DISEASE VISIT ANNUAL PCP TEAM CHRONIC DISEASE VISIT [facility] Start: 10-04-2022 ANNUAL PCP TEAM CHRONIC DISEASE VISIT ANNUAL PCP TEAM CHRONIC DISEASE VISIT [facility] Start: 08-08-2022 End: 10-08-2022 Bacteria identified in Urine by Culture [facility] Work Phone: Comment on above: Expected: 08/08/2022, Expires: 3 Start: 08-08-2022 End: 10-08-2022 Urinalysis complete panel - Urine [facility] Work Phone: Comment on above: Expected: 08/08/2022, Expires: 3 Start: 08-06-2022 End: 10-06-2022 Bacteria identified in Urine by Culture URINE CULTURE Microbiology Routine Urinary tract infection without hematuria, site unspecified Expected: 08/06/2022, Expires: 10/06/2022 [facility] Work Phone: Comment on above: Expected: 08/06/2022, Expires: 3 Start: 07-31-2022 End: 09-30-2022 Urinalysis complete panel - Urine URINALYSIS WITH MICROSCOPIC, REFLEX CULTURE Lab Routine Acute cystitis without hematuria Expected: 07/31/2022, Expires: 09/30/2022 [facility] Work Phone: Comment on above: Expected: 07/31/2022, Expires: 3 Start: 07-12-2022 End: 09-11-2022 Alanine aminotransferase [Enzymatic activity/volume] in Serum or Plasma ALT/SGPT Lab Routine Hypercholesterolemia Expected: 07/12/2022, Expires: 09/11/2022 [facility] Work Phone: Comment on above: Expected: 07/12/2022, Expires: 3 Start: 07-12-2022 End: 09-11-2022 Basic metabolic 2000 panel - Serum or Plasma BASIC METABOLIC PNL Lab Routine Primary hypertension Expected: 07/12/2022, Expires: 09/11/2022 [facility] Work Phone: Comment on above: Expected: 07/12/2022, Expires: 3 Start: 07-12-2022 End: 09-11-2022 Lipid 1996 panel - Serum or Plasma LIPID PANEL BASIC Lab Routine Hypercholesterolemia Expected: 07/12/2022, Expires: 09/11/2022 [facility] Work Phone: Comment on above: Expected: 07/12/2022, Expires: 3 Start: 07-11-2022 Adult depression screening assessment DEPRESSION SCREENING [facility] Start: 07-11-2022 ANNUAL PCP TEAM CHRONIC DISEASE VISIT ANNUAL PCP TEAM CHRONIC DISEASE VISIT [facility] Start: 07-11-2022 BP CONTROLLED (<130/80) BP CONTROLLED (<130/80) [facility] Start: 06-30-2022 ADVANCE DIRECTIVE DISCUSSION ADVANCE DIRECTIVE DISCUSSION [facility] Start: 06-30-2022 DEPRESSION ASSESSMENT DEPRESSION ASSESSMENT [facility] Start: 04-07-2022 DIABETES SCREEN DIABETES SCREEN [facility] Start: 02-28-2022 Influenza vaccination INFLUENZA (#1) [facility] Start: 10-16-2021 COVID-19 VACCINE (4 - Booster) COVID-19 VACCINE (4 - Booster) [facility] Start: 10-10-2021 COVID-19 VACCINE (4 - Booster) COVID-19 VACCINE (4 - Booster) [facility] Start: 09-12-2021 COVID-19 Vaccine (5 - Booster for Moderna series) COVID-19 Vaccine (5 - Booster for Moderna series) [facility] Start: 09-12-2021 COVID-19 VACCINE (6 - Booster for Moderna series) COVID-19 VACCINE (6 - Booster for Moderna series) [facility] Start: 09-12-2021 COVID-19 VACCINE (6 - Moderna series) COVID-19 VACCINE (6 - Moderna series) [facility] Start: 06-30-2021 ADVANCE DIRECTIVE DISCUSSION ADVANCE DIRECTIVE DISCUSSION [facility] Start: 06-30-2021 DEPRESSION ASSESSMENT DEPRESSION ASSESSMENT [facility] Start: 05-31-2021 ANNUAL PCP TEAM CHRONIC DISEASE VISIT ANNUAL PCP TEAM CHRONIC DISEASE VISIT [facility] Start: 02-16-2021 ANNUAL PCP TEAM CHRONIC DISEASE VISIT ANNUAL PCP TEAM CHRONIC DISEASE VISIT [facility] Start: 12-08-2020 ANNUAL PCP TEAM CHRONIC DISEASE VISIT ANNUAL PCP TEAM CHRONIC DISEASE VISIT [facility] Start: 12-08-2020 BP CONTROLLED (<130/80) BP CONTROLLED (<130/80) [facility] in Start: 08-04-2020 Pneumococcal Vaccine: 50+ (2 of 2 - PCV) Pneumococcal Vaccine: 50+ (2 of 2 - PCV) [facility] Start: 08-04-2020 Pneumococcal Vaccine: 65+ (2 - PCV) Pneumococcal Vaccine: 65+ (2 - PCV) [facility] Start: 08-04-2020 Pneumococcal Vaccine: 65+ (2 of 2 - PCV) Pneumococcal Vaccine: 65+ (2 of 2 - PCV) [facility] Start: 08-04-2020 Pneumococcal Vaccine: 65+ Years (2 - PCV) Pneumococcal Vaccine: 65+ Years (2 - PCV) [facility] Start: 08-04-2020 PNEUMOCOCCAL: 65+ (2 - PCV) PNEUMOCOCCAL: 65+ (2 - PCV) [facility] Start: 08-04-2020 PNEUMOCOCCAL: 65+ (3 - PCV) PNEUMOCOCCAL: 65+ (3 - PCV) [facility] Start: 07-12-2020 End: 07-12-2020 Office Visit 07/12/2020 Office Visit [facility] Start: 07-07-2020 BP CONTROLLED (<130/80) BP CONTROLLED (<130/80) [facility] in Start: 02-29-2020 Influenza vaccination [facility] Start: 05-10-2019 End: 05-10-2019 Office Visit 05/10/2019 Office Visit Internal Medicine Tyler Grimes MD [address] [place] [address] [address] [place] [address] [phone] [facility] Start: 02-28-2019 Influenza vaccination Flu vaccine (#1) [facility] [place] Start: 12-20-2018 Annual Wellness Visit (AWV) Annual Wellness Visit (AWV) [place], [place] Start: 10-01-2018 Pneumococcal 65+ years Vaccine (2 of 2 - PCV13) Pneumococcal 65+ years Vaccine (2 of 2 - PCV13) [place] Start: 10-01-2018 PNEUMOCOCCAL: 65+ (2 - PCV) PNEUMOCOCCAL: 65+ (2 - PCV) [facility] Start: 2017 RSV Vaccine (1 - 1-dose 75+ series) RSV Vaccine (1 - 1-dose 75+ series) [facility] Start: 01-09-2011 Thyroid stimulating hormone measurement TSH Level [facility] Start: 11-06-2007 ADVANCE DIRECTIVE DISCUSSION ADVANCE DIRECTIVE DISCUSSION [facility] Start: 11-06-2007 DEXA (modify frequency per FRAX score) DEXA (modify frequency per FRAX score) [place], [place] Start: 2002 RSV Vaccine (1 - 1-dose 60+ series) RSV Vaccine (1 - 1-dose 60+ series) [facility] Start: 1997 Screening for osteoporosis DEXA (modify frequency per FRAX score) [place], [place] Start: 1992 COLORECTAL CANCER SCREENING,SEE MODIFIER COLORECTAL CANCER SCREENING,SEE MODIFIER [facility] Start: 1992 Screening for malignant neoplasm of colon [facility] Start: 1992 Tuberculosis screening COLORECTAL CANCER SCREENING,SEE MODIFIER [facility] Start: 1960 Diabetes mellitus screening Diabetes Screening [facility] Start: 1960 HEPATITIS C SCREENING HEPATITIS C SCREENING [facility] Start: 1960 Hepatitis C screening Hepatitis C Screening [facility] Start: 1948 PNEUMOCOCCAL: 65+ (1 - PCV) PNEUMOCOCCAL: 65+ (1 - PCV) [facility] Start: 1942 Hepatitis B Vaccines (1 of 3 - 3-dose series) Hepatitis B Vaccines (1 of 3 - 3-dose series) [facility] Start: 1942 Lipid panel Lipid Panel [facility] Start: 1942 Statin Therapy Statin Therapy [place], [place] Start: 1942 TSH Qn TSH testing [place], [place] Start: 1942 TSH testing TSH testing [place], [place] End: 05-31-2021 ALT [Catalytic activity/Vol] ALT/SGPT Lab Routine Borderline hypercholesterolemia 1 Occurrences starting 05/31/2020 until 05/31/2021 [facility] Comment on above: 1 Occurrences starting 05/31/2020 until 05/31/2021 End: 05-31-2021 Basic metabolic 2000 panel BASIC METABOLIC PNL Lab Routine Essential hypertension 1 Occurrences starting 05/31/2020 until 05/31/2021 [facility] Comment on above: 1 Occurrences starting 05/31/2020 until 05/31/2021 End: 05-31-2021 CBC W Auto Differential panel - Blood CBC + DIFF Lab Routine Fatigue, unspecified type 1 Occurrences starting 05/31/2020 until 05/31/2021 [facility] Comment on above: 1 Occurrences starting 05/31/2020 until 05/31/2021 ECG B/O W INTERP (ME D OFFICE) ECG B/O W INTERP (MED OFFICE) ECG Routine Chest tightness Ordered: 10/04/2021 [facility] Work Phone: Comment on above: Ordered: 10/04/2021 Ingestion challenge test initial 120 minutes INGESTION CHALLENGE TEST Procedures Routine Adverse effect of penicillin, subsequent encounter Ordered: 01/14/2023 [facility] Work Phone: Comment on above: Ordered: 01/14/2023 End: 05-31-2021 LIPID PANEL BASIC LIPID PANEL BASIC Lab Routine Borderline hypercholesterolemia 1 Occurrences starting 05/31/2020 until 05/31/2021 [facility] Comment on above: 1 Occurrences starting 05/31/2020 until 05/31/2021 End: 05-31-2021 TSH Qn TSH BLD Lab Routine Acquired hypothyroidism 1 Occurrences starting 05/31/2020 until 05/31/2021 [facility] Comment on above: 1 Occurrences starting 05/31/2020 until 05/31/2021 [facility] c Immunizations Immunization Date Immunization Notes Care Provider C[facility] 05-15-2022 influenza, high-dose , quadrivalent vaccine (FLUZONE HIGH DOSE QUADRIVALENT) Jose Armando Marquez MD Work Phone: [facility] 05-15-2022 influenza virus vacc ine, unspecified formulation Daksha Ellis PA-C Work Phone: [facility] 07-18-2021 COVID-19 vaccine, ag e 12+ yr (PFIZER-BIONTSimphatic - [facility]) Jose Armando Marquez MD Work Phone: [facility] 04-30-2021 influenza, high dose seasonal, preservative-free Jose Armando Marquez MD Work Phone: [facility] 04-25-2021 influenza, high-dose , quadrivalent vaccine (FLUZONE HIGH DOSE QUADRIVALENT) Jose Armando Marquez MD Work Phone: [facility] 04-11-2021 COVID-19 original vaccine, full dose, monovalent (MODERNA) Jose Armando Marquez MD Work Phone: [facility] 08-23-2020 COVID-19 original vaccine, full dose, monovalent (MODERNA) Bella Cazares APRN.CNP Work Phone: [facility] 08-22-2020 COVID-19 vaccine, fu ll dose (MODERNA) Jose Armando Marquez MD Work Phone: [facility] 07-13-2020 COVID-19 original vaccine, full dose, monovalent (MODERNA) Jose Armando Marquez MD Work Phone: [facility] 04-26-2020 influenza, high dose seasonal, preservative-free Jose Armando Marquez MD Work Phone: [facility] 04-20-2020 influenza, high-dose , quadrivalent vaccine (FLUZONE HIGH DOSE QUADRIVALENT) [facility] 08-11-2019 influenza, high dose seasonal, preservative-free Jose Armando Marquez MD Work Phone: [facility] 08-04-2019 pneumococcal polysaccharide vaccine, 23 valent Jose Armando Marquez MD Work Phone: [facility] 04-14-2019 influenza, high dose seasonal, preservative-free Jose Armando Marquez [facility] 04-28-2018 influenza, high dose seasonal, preservative-free Jose Armando Marquez [facility] 03-25-2018 tetanus toxoid, redu ever diphtheria toxoid, and acellular pertussis vaccine, adsorbed Jose Armandodamion Marquez [facility] 03-12-2018 influenza, high dose seasonal, preservative-free Jose Armando Marquez MD Work Phone: [facility] 02-03-2018 zoster vaccine recombinant [facility] 11-28-2017 zoster vaccine recombinant [facility] 10-01-2017 pneumococcal polysaccharide vaccine, 23 valent Jose Armandodamion Marquez [facility] 07-10-2016 influenza, high dose seasonal, preservative-free [facility] 05-13-2013 Influenza Vaccine, unspecified formulation [facility] [place] 05-13-2013 influenza virus vacc ine, unspecified formulation [facility] 05-13-2013 influenza, seasonal, injectable External Provider [facility] Payers Date Payer Category Payer Medicare [employer] [facility] xxxxxxxxxxx 2017-Present [phone] [address] [place] [address] xxxxxxxxxxx [id number] 2011 Medicare [id number] 2011 Medicare [id number] 2011 Medicare (Managed Care) [place] [id number] 2011 Medicare [id number] Social History Date Type Detail Facility Start: 04-28-2019 End: 06-28-2024 Tobacco smoking status NHIS Former smoker [facility] Start: 04-28-2019 End: 02-15-2025 Alcohol intake Current drinker of alcohol (finding) [place], [place] Start: 11-26-2018 End: 02-15-2019 History SDOH Alcohol Frequency 1 [place], [place] Start: 02-15-2019 History SDOH Alcohol Binge 4 [place], [place] Start: 1940 Sex Assigned At Not on file [place], [place] Start: 02-15-1999 End: 06-11-2002 History of tobacco use Current smoker [facility] Start: 12-09-2019 End: 06-28-2024 Tobacco use and exposure Never used [facility] Start: 12-09-2019 End: 06-05-2020 Alcohol intake [facility] Work Phone: Start: 09-01-2021 End: 08-25-2022 Exposure to SARS-CoV-2 (event) Not sure [facility] Start: 02-15-2019 End: 06-05-2020 Alcohol intake Yes [facility] Work Phone: Start: 02-15-1999 End: 06-11-2002 History of tobacco use Cigarette Smoker [facility] Start: 05-31-2012 Adult Depression Screening Assessment 0 [facility] Work Phone: Start: 09-19-2023 Alcohol Comment Social wine [facility] Clinical Notes 04-05-2022 to 05-11-2025 Telephone Encounter - Jose Armando Marquez MD - 03/03/2025 1:59 PM EDTTelephone Encounter - Jose Armando Marquez MD - 03/03/2025 1:59 PM EDTOJose Armando son MD - 02/15/2025 11:18 AM EDT Note Date & Type Note Facility 05-11-2025 Note HNO ID: [id number] Author: YAMILA CALDERON MA Service: ? Author Type: Senior Quality Assurance Engineer Type: Progress Notes Filed: 05/11/2025 13:18 Note Text: Patient has been identified by name and date of : Yes Nirmala is here for an injection of Vitamin B12 Dose: 1 ml Route: Intramuscular Given without incident. Site: left deltoid Community Resource Officer: [employer] Lot #: [id number] [facility] #: [id number] Expiration Date: 11/27/2026 Bella Cazares APRN, CNP present in clinic at time of injection. The date due for the next injection is . Yamila Calderon MA [facility] 03-03-2025 Telephone encounter Note Left phone message, has UTI. Sensitivities pending. Called in macrobid. Repeat UA in 2 weeks. [facility] 03-03-2025 Miscellaneous Notes Left phone message, has UTI. Sensitivities pending. Called in macrobid. Repeat UA in 2 weeks. documented in this encounter [facility] 02-15-2025 Note HNO ID: [id number] Author: JOSE ARMANDO MARQUEZ MD Service: ? Author Type: Physician Type: Progress Notes Filed: 02/15/2025 11:21 Note Text: HPI: Nirmala Bennett is a 84 year old female who presents with complaint of F/U 6 Month (Review labs ). Pt doing well. No complaints. On diet with good weight loss. PT center has helped back. Reviewed labs, no urinary complaints, suspect contamination. Will repeat with culture. Stop iron. Check again in 6 months. REVIEW OF SYSTEMS PAIN ASSESSMENT: Negative for pain, history of chronic pain, or current treatment for a chronic pain condition. GENERAL: No weight loss, malaise or fevers HEENT: Negative for frequent or significant headaches, No changes in hearing or vision, no nose bleeds or other nasal problems NECK: Negative for lumps, goiter, pain and significant neck swelling RESPIRATORY: Negative for cough, hemoptysis, wheezing or shortness of breath CARDIOVASCULAR: Negative for chest pain, leg swelling or palpitations GI: No nausea, vomiting, or diarrhea : No history of dysuria, frequency or incontinence ROUTE SPECIALIST: Negative for abnormal vaginal bleeding, abnormal vaginal discharge MUSCULOSKELETAL: Negative for joint pain or swelling, back pain or muscle pain SKIN: Negative for lesions, rash, and itching PSYCH: Negative for sleep disturbance, mood disorder and recent psychosocial stressors HEMATOLOGY/LYMPHOLOGY: Negative for prolonged bleeding, bruising easily or swollen nodes ENDOCRINE: Negative for cold or heat intolerance, polyuria, polydipsia and goiter NEURO: No history of headaches, syncope, paralysis, seizures or tremors ALLERGIES Allergen Reactions Claritin [Loratadin* Swelling Patient tolerated fexofenadine challenge 12/17/2022. Doxycycline Rash Fragrances Rash Positive patch test Keflex [Cephalexin] Rash Prilosec [Omeprazol* Hives Bactrim [Sulfametho* Itching Ciprofloxacin Itching Clarithromycin Rash Other reaction(s): Other (See Comments), swells Swelling Clindamycin Itching Prednisone Itching Sulfa (Sulfonamide * Itching Current Outpatient Medications Medication Sig fluticasone (FLONASE) 50 mcg/actuation nasal spray Use 2 Sprays in each nostril twice daily. levothyroxine (SYNTHROID) 50 mcg tablet TAKE ONE TABLET EVERY DAY guaiFENesin (MUCINEX) 600 mg 12 hr tablet Take 1 tablet by mouth two times a day. azelastine 0.1% nasal spray Use 1 spray in each nostril two times a day. amLODIPine (NORVASC) 10 mg tablet TAKE ONE TABLET EVERY DAY famotidine (PEPCID) 40 mg tablet TAKE ONE TABLET BY MOUTH EVERY DAY terconazole vaginal cream (TERAZOL) 0.8 % vaginal cream Use 1 Applicator vaginally daily at bedtime. ELIQUIS 5 mg tab(s) TAKE ONE TABLET BY MOUTH TWICE DAILY triamcinolone acetonide (KENALOG) 0.1 % cream Apply to affected areas twice a day for two weeks with flares folic acid 1 mg tablet take one tablet every day acetaminophen (TYLENOL EXTRA STRENGTH ORAL) Take by mouth. glycerin ADULT suppository 1 Suppository by RECTAL route as needed. hydroxychloroquine (PLAQUENIL) 200 mg tablet Take 1 tablet by mouth once daily. CHOLECALCIFEROL, VITAMIN D3, ORAL Take 2,000 Units by mouth once daily. Current Facility-Administered Medications Medication Dose Route Frequency cyanocobalamin 1,000 mcg injection 1,000 mcg INTRAMUSCULAR q 4 WEEKS PAST MEDICAL HISTORY Diagnosis Date Allergic rhinitis CVA (cerebral vascular accident) ([facility]) Right 1996 DVT (deep venous thrombosis) ([facility]) 3 clots in left leg; was on coumadin for years Hypertension Hypothyroidism Lupus Rheumatoid arthritis(714.0) Sjogren's disease ([facility]) TIA (transient ischemic attack) Vitamin D deficiency PAST SURGICAL HISTORY Procedure Laterality Date CATARACT EXTRACTION HX Right 12/02/2016 COLECTOMY TOTAL, POUCH PAST SURGICAL HISTORY OF Cosmetic surgery RHINOPLASTY TOE SURGERY HX Right 08/16/15 3,4, and 5 Hammertoe correction glb TONSILLECTOMY HX TOTAL ABDOMINAL HYSTERECT W/WO RMVL TUBE OVARY FAMILY HISTORY Problem Relation Age of Onset Hypertension Mother Cancer Mother Ischemic Heart Disease Father Hypertension Father SOCIAL HISTORY[1] PHYSICAL EXAMINATION: BP 125/71 Pulse 75 Resp 12 Ht 5' 3 (1.60m) Wt 159 lb 9.6 oz (72.4kg) SpO2 97% BMI 28.28 kg/(m2). General appearance: Well appearing, alert, in no acute distress, well-hydrated, well nourished. Head: Normocephalic, no masses, lesions, tenderness or abnormalities Eyes: Anicteric sclera. Pupils are equally round and reactive to light. Extraocular movements are intact. Ears: External ears normal, canals clear, TM's normal Nose/Sinuses: Nares normal, septum midline, mucosa normal, no drainage or sinus tenderness Oropharynx: Lips, mucosa, and tongue normal, teeth and gums normal, oropharynx normal Neck: Supple, no adenopathy; thyroid symmetric, normal size, no bruits Lungs: Lungs clear to auscultation. No wheezing, rhonchi, rales H (more content not included)... [facility] 02-15-2025 History of Present illness Narrative HPI: Nirmala Bennett is a 84 year old female who presents with complaint of F/U 6 Month (Review labs ). Pt doing well. No complaints. On diet with good weight loss. PT center has helped back. Reviewed labs, no urinary complaints, suspect contamination. Will repeat with culture. Stop iron. Check again in 6 months. REVIEW OF SYSTEMS PAIN ASSESSMENT: Negative for pain, history of chronic pain, or current treatment for a chronic pain condition. GENERAL: No weight loss, malaise or fevers HEENT: Negative for frequent or significant headaches, No changes in hearing or vision, no nose bleeds or other nasal problems NECK: Negative for lumps, goiter, pain and significant neck swelling RESPIRATORY: Negative for cough, hemoptysis, wheezing or shortness of breath CARDIOVASCULAR: Negative for chest pain, leg swelling or palpitations GI: No nausea, vomiting, or diarrhea : No history of dysuria, frequency or incontinence ROUTE SPECIALIST: Negative for abnormal vaginal bleeding, abnormal vaginal discharge MUSCULOSKELETAL: Negative for joint pain or swelling, back pain or muscle pain SKIN: Negative for lesions, rash, and itching PSYCH: Negative for sleep disturbance, mood disorder and recent psychosocial stressors HEMATOLOGY/LYMPHOLOGY: Negative for prolonged bleeding, bruising easily or swollen nodes ENDOCRINE: Negative for cold or heat intolerance, polyuria, polydipsia and goiter NEURO: No history of headaches, syncope, paralysis, seizures or tremors ALLERGIES Allergen Reactions Claritin [Loratadin* Swelling Patient tolerated fexofenadine challenge 12/17/2022. Doxycycline Rash Fragrances Rash Positive patch test Keflex [Cephalexin] Rash Prilosec [Omeprazol* Hives Bactrim [Sulfametho* Itching Ciprofloxacin Itching Clarithromycin Rash Other reaction(s): Other (See Comments), swells Swelling Clindamycin Itching Prednisone Itching Sulfa (Sulfonamide * Itching Current Outpatient Medications Medication Sig fluticasone (FLONASE) 50 mcg/actuation nasal spray Use 2 Sprays in each nostril twice daily. levothyroxine (SYNTHROID) 50 mcg tablet TAKE ONE TABLET EVERY DAY guaiFENesin (MUCINEX) 600 mg 12 hr tablet Take 1 tablet by mouth two times a day. azelastine 0.1% nasal spray Use 1 spray in each nostril two times a day. amLODIPine (NORVASC) 10 mg tablet TAKE ONE TABLET EVERY DAY famotidine (PEPCID) 40 mg tablet TAKE ONE TABLET BY MOUTH EVERY DAY terconazole vaginal cream (TERAZOL) 0.8 % vaginal cream Use 1 Applicator vaginally daily at bedtime. ELIQUIS 5 mg tab(s) TAKE ONE TABLET BY MOUTH TWICE DAILY triamcinolone acetonide (KENALOG) 0.1 % cream Apply to affected areas twice a day for two weeks with flares folic acid 1 mg tablet take one tablet every day acetaminophen (TYLENOL EXTRA STRENGTH ORAL) Take by mouth. glycerin ADULT suppository 1 Suppository by RECTAL route as needed. hydroxychloroquine (PLAQUENIL) 200 mg tablet Take 1 tablet by mouth once daily. CHOLECALCIFEROL, VITAMIN D3, ORAL Take 2,000 Units by mouth once daily. 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; was on coumadin for years Hypertension Hypothyroidism Lupus Rheumatoid arthritis(714.0) Sjogren's disease ([facility]) TIA (transient ischemic attack) Vitamin D deficiency PAST SURGICAL HISTORY Procedure Laterality Date CATARACT EXTRACTION HX Right 12/02/2016 COLECTOMY TOTAL, POUCH PAST SURGICAL HISTORY OF Cosmetic surgery RHINOPLASTY TOE SURGERY HX Right 08/16/15 3,4, and 5 Hammertoe correction glb TONSILLECTOMY HX TOTAL ABDOMINAL HYSTERECT W/WO RMVL TUBE OVARY FAMILY HISTORY Problem Relation Age of Onset Hypertension Mother Cancer Mother Ischemic Heart Disease Father Hypertension Father SOCIAL HISTORY[1] PHYSICAL EXAMINATION: BP 125/71 Pulse 75 Resp 12 Ht 5' 3 (1.60m) Wt 159 lb 9.6 oz (72.4kg) SpO2 97% BMI 28.28 kg/(m^2). General appearance: Well appearing, alert, in no acute distress, well-hydrated, well nourished. Head: Normocephalic, no masses, lesions, tenderness or abnormalities Eyes: Anicteric sclera. Pupils are equally round and reactive to light. Extraocular movements are intact. Ears: External ears normal, canals clear, TM's normal Nose/Sinuses: Nares normal, septum midline, mucosa normal, no drainage or sinus tenderness Oropharynx: Lips, mucosa, and tongue normal, teeth and gums normal, oropharynx normal Neck: Supple, no adenopathy; thyroid symmetric, normal size, no bruits Lungs: Lungs clear to auscultation. No wheezing, rhonchi, rales Heart: RRR without murmur, gallop, or rubs. No ectopy Abdomen: Normal abdominal exam, Abdomen soft, non-tender. Bowel sounds normal. No masses, organomegaly Extremities: No deformities, edema, skin discoloration, clubbing or cyanosis. Good capillary refill. Skin: Skin color, texture, turgor normal, no suspicious rashes or lesions Back: Normal exam Neuro: Gait normal. Reflexes normal and symmetric. Sensation grossly intact. ASSESSMENT/PLAN: 1. Acute cystitis without hematuria - ICD9: 595.0, ICD10: N30.00 (primary diagnosis) - URINALYSIS (WITH MICROSCOPIC) WITH CULTURE IF INDICATED 2. Borderline hypercholesterolemia - ICD9: 272.0, ICD10: E78.00 - ALANINE AMINOTRANSFERASE / SGPT - LIPID PANEL, FASTING 3. Primary hypertension - ICD9: 401.9, ICD10: I10 - Controlled - Recommend home blood pressure monitoring, to bring results to next visit - Encouraged sodium restriction, DASH or Mediterranean diet - Recommend regular aerobic exercise - BASIC METABOLIC PANEL 4. Other iron deficiency anemia - ICD9: 280.8, ICD10: D50.8 - COMPLETE BLOOD COUNT AND DIFFERENTIAL Jose Armando Marquez MD [1] Social History Tobacco Use Smoking status: Former Current packs/day: 0.00 Types: Cigarettes Quit date: 06/11/2002 Years since quittin.6 Smokeless tobacco: Never Vaping Use Vaping status: Never Used Substance Use Topics Alcohol use: Yes Alcohol/week: 2.0 standard drinks of alcohol Types: 2 Glasses of Wine (5oz) per week Comment: Social wine Drug use: No documented in this encounter [facility] 02-01-2025 Note HNO ID: [id number] Author: GUSTABO YAP MA Service: ? Author Type: Senior Quality Assurance Engineer Type: Progress Notes Filed: 02/01/2025 11:15 Note Text: Patient has been identified by name and date of : Yes Nirmala is here for an injection of Vitamin B12 Dose: 1000 mcg Route: Intramuscular Given without incident. Site: left deltoid Community Resource Officer: [employer]. Lot #: [id number] [facility] #: [id number] Expiration Date: 07/26 Dr. marquez present in clinic at time of injection. The date due for the next injection is . Gustabo Yap MA [facility] 01-27-2025 Telephone encounter Note Discussed with pt [facility] 01-27-2025 Miscellaneous Notes Discussed with pt Is ok. Pt with an upset stomach wanting to know if it is safe to take [place] documented in this encounter [facility] 01-26-2025 Telephone encounter Note Is ok. [facility] 01-26-2025 Telephone encounter Note Pt with an upset stomach wanting to know if it is safe to take [place] [facility] 01-03-2025 Telephone encounter Note Last ov 11/29/2024 [facility] 01-03-2025 Miscellaneous Notes Last ov 11/29/2024 documented in this encounter [facility] 12-29-2024 Note HNO ID: [id number] Author: TAN HAIR LPN Service: ? Author Type: LICENSED NURSE Type: Progress Notes Filed: 12/29/2024 11:12 Note Text: Patient has been identified by name and date of : Yes Nirmala is here for an injection of Vitamin B12 Dose: 1 Route: Intramuscular Given without incident. Site: left deltoid Community Resource Officer: [employer]. Lot #: [id number] [facility] #: [id number] Expiration Date: 07/29/26 Meggan Hector HARRISON present in clinic at time of injection. The date due for the next injection is 30 days . Tan Hair LPN [facility] 12-29-2024 History of Present illness Narrative Patient has been identified by name and date of : Yes Nirmala is here for an injection of Vitamin B12 Dose: 1 Route: Intramuscular Given without incident. Site: left deltoid Community Resource Officer: [employer]. Lot #: [id number] [facility] #: [id number] Expiration Date: 07/29/26 Meggan Hector HARRISON present in clinic at time of injection. The date due for the next injection is 30 days . Tan Hair LPN documented in this encounter [facility] 12-02-2024 Telephone encounter Note Spoke with pt. Okay to stop Prednisone. Pt. In agreement and thankful for the call. Laura Malone LPN [facility] 12-02-2024 Miscellaneous Notes Spoke with pt. Okay to stop Prednisone. Pt. In agreement and thankful for the call. Laura Malone LPN Ok to stop Received an inbound call from pt. Stating that she is to return to work 12/04/24. States she started Prednisone on 11/29/24 and it makes things seem Surreal. Pt asking if she can cut pill in half or stop taking all together. Pt. States she is feeling better. Please advise. Laura Malone LPN documented in this encounter [facility] 12-02-2024 Telephone encounter Note Ok to stop [facility] 12-02-2024 Telephone encounter Note Received an inbound call from pt. Stating that she is to return to work 12/04/24. States she started Prednisone on 11/29/24 and it makes things seem Surreal. Pt asking if she can cut pill in half or stop taking all together. Pt. States she is feeling better. Please advise. Laura Malone LPN [facility] 11-29-2024 Note HNO ID: [id number] Author: JOSE ARMANDO MARQUEZ MD Service: ? Author Type: Physician Type: Progress Notes Filed: 11/29/2024 13:58 Note Text: HPI: Nirmala Bennett is a 84 year old female who presents with complaint of Multiple Concerns (Left leg swelling, dormant dvt/Pressure in chest, comes and goes/Both upper arms ache/Sinus pressure, drainage, no sense of taste ). Pt with some intermittent swelling of left leg. No pain. Ok today. Suspect secondary to chronic clot. Is on eliquis. Elevation/support stockings. Also some post nasal drainage. Prednisone/astelin. Keep regular appointment. REVIEW OF SYSTEMS PAIN ASSESSMENT: Negative for pain, history of chronic pain, or current treatment for a chronic pain condition. GENERAL: No weight loss, malaise or fevers HEENT: Negative for frequent or significant headaches, No changes in hearing or vision, no nose bleeds or other nasal problems NECK: Negative for lumps, goiter, pain and significant neck swelling RESPIRATORY: Negative for cough, hemoptysis, wheezing or shortness of breath CARDIOVASCULAR: Negative for chest pain, leg swelling or palpitations GI: No nausea, vomiting, or diarrhea : No history of dysuria, frequency or incontinence ROUTE SPECIALIST: Negative for abnormal vaginal bleeding, abnormal vaginal discharge MUSCULOSKELETAL: Negative for joint pain or swelling, back pain or muscle pain SKIN: Negative for lesions, rash, and itching PSYCH: Negative for sleep disturbance, mood disorder and recent psychosocial stressors HEMATOLOGY/LYMPHOLOGY: Negative for prolonged bleeding, bruising easily or swollen nodes ENDOCRINE: Negative for cold or heat intolerance, polyuria, polydipsia and goiter NEURO: No history of headaches, syncope, paralysis, seizures or tremors ALLERGIES Allergen Reactions Claritin [Loratadin* Swelling Patient tolerated fexofenadine challenge 12/17/2022. Doxycycline Rash Fragrances Rash Positive patch test Keflex [Cephalexin] Rash Prilosec [Omeprazol* Hives Bactrim [Sulfametho* Itching Ciprofloxacin Itching Clarithromycin Rash Other reaction(s): Other (See Comments), swells Swelling Clindamycin Itching Prednisone Itching Sulfa (Sulfonamide * Itching Current Outpatient Medications Medication Sig fluticasone (FLONASE) 50 mcg/actuation nasal spray Use 2 Sprays in each nostril twice daily. levothyroxine (SYNTHROID) 50 mcg tablet TAKE ONE TABLET EVERY DAY guaiFENesin (MUCINEX) 600 mg 12 hr tablet Take 1 tablet by mouth two times a day. azelastine 0.1% nasal spray Use 1 spray in each nostril two times a day. amLODIPine (NORVASC) 10 mg tablet TAKE ONE TABLET EVERY DAY famotidine (PEPCID) 40 mg tablet TAKE ONE TABLET BY MOUTH EVERY DAY terconazole vaginal cream (TERAZOL) 0.8 % vaginal cream Use 1 Applicator vaginally daily at bedtime. ELIQUIS 5 mg tab(s) TAKE ONE TABLET BY MOUTH TWICE DAILY triamcinolone acetonide (KENALOG) 0.1 % cream Apply to affected areas twice a day for two weeks with flares folic acid 1 mg tablet take one tablet every day ferrous sulfate (FEROSUL) 325 mg (65 mg iron) tablet Take 1 tablet by mouth every morning. acetaminophen (TYLENOL EXTRA STRENGTH ORAL) Take by mouth. glycerin ADULT suppository 1 Suppository by RECTAL route as needed. hydroxychloroquine (PLAQUENIL) 200 mg tablet Take 1 tablet by mouth once daily. CHOLECALCIFEROL, VITAMIN D3, ORAL Take 2,000 Units by mouth once daily. predniSONE (DELTASONE) 20 mg tablet Take 1 tablet by mouth once daily. Current Facility-Administered Medications Medication Dose Route Frequency cyanocobalamin 1,000 mcg injection 1,000 mcg INTRAMUSCULAR q 4 WEEKS PAST MEDICAL HISTORY Diagnosis Date Allergic rhinitis CVA (cerebral vascular accident) ([facility]) Right 1996 DVT (deep venous thrombosis) ([facility]) 3 clots in left leg; was on coumadin for years Hypertension Hypothyroidism Lupus Rheumatoid arthritis(714.0) Sjogren's disease ([facility]) TIA (transient ischemic attack) Vitamin D deficiency PAST SURGICAL HISTORY Procedure Laterality Date CATARACT EXTRACTION HX Right 12/02/2016 COLECTOMY TOTAL, POUCH PAST SURGICAL HISTORY OF Cosmetic surgery RHINOPLASTY TOE SURGERY HX Right 08/16/15 3,4, and 5 Hammertoe correction glb TONSILLECTOMY HX TOTAL ABDOMINAL HYSTERECT W/WO RMVL TUBE OVARY FAMILY HISTORY Problem Relation Age of Onset Hypertension Mother Cancer Mother Ischemic Heart Disease Father Hypertension Father Social History Tobacco Use Smoking status: Former Current packs/day: 0.00 Types: Cigarettes Quit date: 06/11/2002 Years since quittin.4 Smokeless tobacco: Never Vaping Use Vaping status: Never Used Substance Use Topics Alcohol use: Yes Alcohol/week: 2.0 standard drinks of alcohol Types: 2 Glasses of Wine (5oz) per week Comment: Social wine Drug use: No PHYSICAL EXAMINATION: BP 148/71 Pulse 73 Resp 12 Ht 5' 3 (1.60m) Wt 168 lb 3.2 oz (76.3kg) SpO2 96% BMI (more content not included)... [facility] 11-29-2024 History of Present illness Narrative HPI: Nirmala Bennett is a 84 year old female who presents with complaint of Multiple Concerns (Left leg swelling, dormant dvt/Pressure in chest, comes and goes/Both upper arms ache/Sinus pressure, drainage, no sense of taste ). Pt with some intermittent swelling of left leg. No pain. Ok today. Suspect secondary to chronic clot. Is on eliquis. Elevation/support stockings. Also some post nasal drainage. Prednisone/astelin. Keep regular appointment. REVIEW OF SYSTEMS PAIN ASSESSMENT: Negative for pain, history of chronic pain, or current treatment for a chronic pain condition. GENERAL: No weight loss, malaise or fevers HEENT: Negative for frequent or significant headaches, No changes in hearing or vision, no nose bleeds or other nasal problems NECK: Negative for lumps, goiter, pain and significant neck swelling RESPIRATORY: Negative for cough, hemoptysis, wheezing or shortness of breath CARDIOVASCULAR: Negative for chest pain, leg swelling or palpitations GI: No nausea, vomiting, or diarrhea : No history of dysuria, frequency or incontinence ROUTE SPECIALIST: Negative for abnormal vaginal bleeding, abnormal vaginal discharge MUSCULOSKELETAL: Negative for joint pain or swelling, back pain or muscle pain SKIN: Negative for lesions, rash, and itching PSYCH: Negative for sleep disturbance, mood disorder and recent psychosocial stressors HEMATOLOGY/LYMPHOLOGY: Negative for prolonged bleeding, bruising easily or swollen nodes ENDOCRINE: Negative for cold or heat intolerance, polyuria, polydipsia and goiter NEURO: No history of headaches, syncope, paralysis, seizures or tremors ALLERGIES Allergen Reactions Claritin [Loratadin* Swelling Patient tolerated fexofenadine challenge 12/17/2022. Doxycycline Rash Fragrances Rash Positive patch test Keflex [Cephalexin] Rash Prilosec [Omeprazol* Hives Bactrim [Sulfametho* Itching Ciprofloxacin Itching Clarithromycin Rash Other reaction(s): Other (See Comments), swells Swelling Clindamycin Itching Prednisone Itching Sulfa (Sulfonamide * Itching Current Outpatient Medications Medication Sig fluticasone (FLONASE) 50 mcg/actuation nasal spray Use 2 Sprays in each nostril twice daily. levothyroxine (SYNTHROID) 50 mcg tablet TAKE ONE TABLET EVERY DAY guaiFENesin (MUCINEX) 600 mg 12 hr tablet Take 1 tablet by mouth two times a day. azelastine 0.1% nasal spray Use 1 spray in each nostril two times a day. amLODIPine (NORVASC) 10 mg tablet TAKE ONE TABLET EVERY DAY famotidine (PEPCID) 40 mg tablet TAKE ONE TABLET BY MOUTH EVERY DAY terconazole vaginal cream (TERAZOL) 0.8 % vaginal cream Use 1 Applicator vaginally daily at bedtime. ELIQUIS 5 mg tab(s) TAKE ONE TABLET BY MOUTH TWICE DAILY triamcinolone acetonide (KENALOG) 0.1 % cream Apply to affected areas twice a day for two weeks with flares folic acid 1 mg tablet take one tablet every day ferrous sulfate (FEROSUL) 325 mg (65 mg iron) tablet Take 1 tablet by mouth every morning. acetaminophen (TYLENOL EXTRA STRENGTH ORAL) Take by mouth. glycerin ADULT suppository 1 Suppository by RECTAL route as needed. hydroxychloroquine (PLAQUENIL) 200 mg tablet Take 1 tablet by mouth once daily. CHOLECALCIFEROL, VITAMIN D3, ORAL Take 2,000 Units by mouth once daily. predniSONE (DELTASONE) 20 mg tablet Take 1 tablet by mouth once daily. Current Facility-Administered Medications Medication Dose Route Frequency cyanocobalamin 1,000 mcg injection 1,000 mcg INTRAMUSCULAR q 4 WEEKS PAST MEDICAL HISTORY Diagnosis Date Allergic rhinitis CVA (cerebral vascular accident) ([facility]) Right 1996 DVT (deep venous thrombosis) ([facility]) 3 clots in left leg; was on coumadin for years Hypertension Hypothyroidism Lupus Rheumatoid arthritis(714.0) Sjogren's disease ([facility]) TIA (transient ischemic attack) Vitamin D deficiency PAST SURGICAL HISTORY Procedure Laterality Date CATARACT EXTRACTION HX Right 12/02/2016 COLECTOMY TOTAL, POUCH PAST SURGICAL HISTORY OF Cosmetic surgery RHINOPLASTY TOE SURGERY HX Right 08/16/15 3,4, and 5 Hammertoe correction glb TONSILLECTOMY HX TOTAL ABDOMINAL HYSTERECT W/WO RMVL TUBE OVARY FAMILY HISTORY Problem Relation Age of Onset Hypertension Mother Cancer Mother Ischemic Heart Disease Father Hypertension Father Social History Tobacco Use Smoking status: Former Current packs/day: 0.00 Types: Cigarettes Quit date: 06/11/2002 Years since quittin.4 Smokeless tobacco: Never Vaping Use Vaping status: Never Used Substance Use Topics Alcohol use: Yes Alcohol/week: 2.0 standard drinks of alcohol Types: 2 Glasses of Wine (5oz) per week Comment: Social wine Drug use: No PHYSICAL EXAMINATION: BP 148/71 Pulse 73 Resp 12 Ht 5' 3 (1.60m) Wt 168 lb 3.2 oz (76.3kg) SpO2 96% BMI 29.80 kg/(m^2). General appearance: Well appearing, alert, in no acute distress, well-hydrated, well nourished. Head: Normocephalic, no masses, lesions, tenderness or abnormalities Eyes: Anicteric sclera. Pupils are equally round and reactive to light. Extraocular movements are intact. Ears: External ears normal, canals clear, TM's normal Nose/Sinuses: Nares normal, septum midline, mucosa normal, no drainage or sinus tenderness Oropharynx: Lips, mucosa, and tongue normal, teeth and gums normal, oropharynx normal Neck: Supple, no adenopathy; thyroid symmetric, normal size, no bruits Lungs: Lungs clear to auscultation. No wheezing, rhonchi, rales Heart: RRR without murmur, gallop, or rubs. No ectopy Abdomen: Normal abdominal exam, Abdomen soft, non-tender. Bowel sounds normal. No masses, organomegaly Extremities: No deformities, edema, skin discoloration, clubbing or cyanosis. Good capillary refill. Skin: Skin color, texture, turgor normal, no suspicious rashes or lesions Back: Normal exam Neuro: Gait normal. Reflexes normal and symmetric. Sensation grossly intact. ASSESSMENT/PLAN: 1. Subacute cough - ICD9: 786.2, ICD10: R05.2 Jose Armando Marquez MD documented in this encounter [facility] 11-24-2024 Note HNO ID: [id number] Author: LAURA MALONE LPN Service: ? Author Type: LICENSED NURSE Type: Progress Notes Filed: 11/24/2024 12:08 Note Text: The patient is here for an injection of Cyanocoblamin (B12). Dose: 1 ml (1000 mcg) Route: IM Site: left deltoid Community Resource Officer: [employer] Lot #: [id number] Expiration Date: 03/2026 Laura Malone LPN [facility] 11-24-2024 History of Present illness Narrative The patient is here for an injection of Cyanocoblamin (B12). Dose: 1 ml (1000 mcg) Route: IM Site: left deltoid Community Resource Officer: [employer] Lot #: [id number] Expiration Date: 03/2026 Laura Malone LPN documented in this encounter [facility] 11-10-2024 Telephone encounter Note Last ov 08/17/2024 [facility] 11-10-2024 Miscellaneous Notes Last ov 08/17/2024 documented in this encounter [facility] 11-03-2024 Telephone encounter Note Last ov 08/17/2024 [facility] 11-03-2024 Miscellaneous Notes Last ov 08/17/2024 documented in this encounter [facility] 10-20-2024 Note HNO ID: [id number] Author: GUSTABO YAP MA Service: ? Author Type: Senior Quality Assurance Engineer Type: Progress Notes Filed: 10/20/2024 13:22 Note Text: Patient has been identified by name and date of : Yes Nirmala is here for an injection of Vitamin B12 Dose: 1000 mcg Route: Intramuscular Given without incident. Site: left deltoid Community Resource Officer: [employer] Lot #: [id number] [facility] #: [phone] Expiration Date: 04/24 Dr. marquez present in clinic at time of injection. The date due for the next injection is 1 month . Gustabo Yap MA [facility] 10-20-2024 History of Present illness Narrative Patient has been identified by name and date of : Yes Nirmala is here for an injection of Vitamin B12 Dose: 1000 mcg Route: Intramuscular Given without incident. Site: left deltoid Community Resource Officer: [employer]. Lot #: [id number] [facility] #: [phone] Expiration Date: 04/24 Dr. marquez present in clinic at time of injection. The date due for the next injection is 1 month . Gustabo Yap MA documented in this encounter [facility] 10-05-2024 Telephone encounter Note Last ov 08/17/2024 [facility] 10-05-2024 Miscellaneous Notes Last ov 08/17/2024 documented in this encounter [facility] 09-08-2024 Note HNO ID: [id number] Author: GUSTABO YAP MA Service: ? Author Type: Senior Quality Assurance Engineer Type: Progress Notes Filed: 09/08/2024 13:05 Note Text: Patient has been identified by name and date of : Yes Nirmala is here for an injection of Vitamin B12 Dose: 1000 mcg Route: Intramuscular Given without incident. Site: left deltoid Community Resource Officer: [employer] Lot #: [id number] [facility] #: [phone] Expiration Date: 07/25 Dr. marquez present in clinic at time of injection. The date due for the next injection is 1 month. Gustabo Yap MA [facility] 09-08-2024 History of Present illness Narrative Patient has been identified by name and date of : Yes Nirmala is here for an injection of Vitamin B12 Dose: 1000 mcg Route: Intramuscular Given without incident. Site: left deltoid Community Resource Officer: [employer] Lot #: [id number] [facility] #: [id number] Expiration Date: 07/25 Dr. marquez present in clinic at time of injection. The date due for the next injection is 1 month. Gustabo Yap MA documented in this encounter [facility] 08-30-2024 Telephone encounter Note Trial mucinex/prednisone. [facility] 08-30-2024 Miscellaneous Notes Trial mucinex/prednisone. Pt started feeling sick yesterday at work Progressed overnight to cough, congestion, drainage, body aches, lost voice. Asking for treatment documented in this encounter [facility] 08-30-2024 Telephone encounter Note Pt started feeling sick yesterday at work Progressed overnight to cough, congestion, drainage, body aches, lost voice. Asking for treatment [facility] 08-27-2024 Telephone encounter Note Left message for pt [facility] 08-27-2024 Miscellaneous Notes Left message for pt Called in terazol Pt with suspected yeast infection from antibiotic use Itching and burning Asking for relief documented in this encounter [facility] 08-27-2024 Telephone encounter Note Called in terazol [facility] 08-27-2024 Telephone encounter Note Pt with suspected yeast infection from antibiotic use Itching and burning Asking for relief [facility] 08-23-2024 Telephone encounter Note Left phone message, possible UTI. Called in macrobid. [facility] 08-23-2024 Miscellaneous Notes Left phone message, possible UTI. Called in macrobid. documented in this encounter [facility] 08-17-2024 Note HNO ID: [id number] Author: JOSE ARMANDO MARQUEZ MD Service: ? Author Type: Physician Type: Progress Notes Filed: 08/17/2024 11:28 Note Text: HPI: Nirmala Bennett is a 83 year old female who presents with complaint of F/U 6 Month (Review labs). Pt doing well. Requests PT for lower back. Will check UA as is having some symptoms. Otherwise check again in 6 months. Is still working 40 hours at [employer] REVIEW OF SYSTEMS PAIN ASSESSMENT: Negative for pain, history of chronic pain, or current treatment for a chronic pain condition. GENERAL: No weight loss, malaise or fevers HEENT: Negative for frequent or significant headaches, No changes in hearing or vision, no nose bleeds or other nasal problems NECK: Negative for lumps, goiter, pain and significant neck swelling RESPIRATORY: Negative for cough, hemoptysis, wheezing or shortness of breath CARDIOVASCULAR: Negative for chest pain, leg swelling or palpitations GI: No nausea, vomiting, or diarrhea : No history of dysuria, frequency or incontinence ROUTE SPECIALIST: Negative for abnormal vaginal bleeding, abnormal vaginal discharge MUSCULOSKELETAL: see hpi SKIN: Negative for lesions, rash, and itching PSYCH: Negative for sleep disturbance, mood disorder and recent psychosocial stressors HEMATOLOGY/LYMPHOLOGY: Negative for prolonged bleeding, bruising easily or swollen nodes ENDOCRINE: Negative for cold or heat intolerance, polyuria, polydipsia and goiter NEURO: No history of headaches, syncope, paralysis, seizures or tremors ALLERGIES Allergen Reactions Claritin [Loratadin* Swelling Patient tolerated fexofenadine challenge 12/17/2022. Doxycycline Rash Fragrances Rash Positive patch test Keflex [Cephalexin] Rash Prilosec [Omeprazol* Hives Bactrim [Sulfametho* Itching Ciprofloxacin Itching Clarithromycin Rash Other reaction(s): Other (See Comments), swells Swelling Clindamycin Itching Prednisone Itching Sulfa (Sulfonamide * Itching Current Outpatient Medications Medication Sig ELIQUIS 5 mg tab(s) TAKE ONE TABLET BY MOUTH TWICE DAILY fluticasone (FLONASE) 50 mcg/actuation nasal spray Use 2 Sprays in each nostril twice daily. triamcinolone acetonide (KENALOG) 0.1 % cream Apply to affected areas twice a day for two weeks with flares folic acid 1 mg tablet take one tablet every day levothyroxine (SYNTHROID) 50 mcg tablet take one tablet every day ferrous sulfate (FEROSUL) 325 mg (65 mg iron) tablet Take 1 tablet by mouth every morning. famotidine (PEPCID) 40 mg tablet Take 1 tablet by mouth once daily. amLODIPine (NORVASC) 10 mg tablet take one tablet every day acetaminophen (TYLENOL EXTRA STRENGTH ORAL) Take by mouth. glycerin ADULT suppository 1 Suppository by RECTAL route as needed. hydroxychloroquine (PLAQUENIL) 200 mg tablet Take 1 tablet by mouth once daily. CHOLECALCIFEROL, VITAMIN D3, ORAL Take 2,000 Units by mouth once daily. 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; was on coumadin for years Hypertension Hypothyroidism Lupus Rheumatoid arthritis(714.0) Sjogren's disease ([facility]) TIA (transient ischemic attack) Vitamin D deficiency PAST SURGICAL HISTORY Procedure Laterality Date CATARACT EXTRACTION HX Right 12/02/2016 COLECTOMY TOTAL, POUCH PAST SURGICAL HISTORY OF Cosmetic surgery RHINOPLASTY TOE SURGERY HX Right 08/16/15 3,4, and 5 Hammertoe correction glb TONSILLECTOMY HX TOTAL ABDOMINAL HYSTERECT W/WO RMVL TUBE OVARY FAMILY HISTORY Problem Relation Age of Onset Hypertension Mother Cancer Mother Ischemic Heart Disease Father Hypertension Father Social History Tobacco Use Smoking status: Former Current packs/day: 0.00 Types: Cigarettes Quit date: 06/11/2002 Years since quittin.2 Smokeless tobacco: Never Vaping Use Vaping status: Never Used Substance Use Topics Alcohol use: Yes Alcohol/week: 2.0 standard drinks of alcohol Types: 2 Glasses of Wine (5oz) per week Comment: Social wine Drug use: No PHYSICAL EXAMINATION: BP 144/81 Pulse 80 Resp 12 Ht 5' 3 (1.60m) Wt 168 lb 12.8 oz (76.6kg) SpO2 96% BMI 29.91 kg/(m2). General appearance: Well appearing, alert, in no acute distress, well-hydrated, well nourished. Head: Normocephalic, no masses, lesions, tenderness or abnormalities Eyes: Anicteric sclera. Pupils are equally round and reactive to light. Extraocular movements are intact. Ears: External ears normal, canals clear, TM's normal Nose/Sinuses: Nares normal, septum midline, mucosa normal, no drainage or sinus tenderness Oropharynx: Lips, mucosa, and tongue normal, teeth and gums normal, oropharynx normal Neck: Supple, no adenopathy; thyroid symmetric, (more content not included)... [facility] 08-17-2024 History of Present illness Narrative HPI: Nirmala Bennett is a 83 year old female who presents with complaint of F/U 6 Month (Review labs). Pt doing well. Requests PT for lower back. Will check UA as is having some symptoms. Otherwise check again in 6 months. Is still working 40 hours at [employer]. REVIEW OF SYSTEMS PAIN ASSESSMENT: Negative for pain, history of chronic pain, or current treatment for a chronic pain condition. GENERAL: No weight loss, malaise or fevers HEENT: Negative for frequent or significant headaches, No changes in hearing or vision, no nose bleeds or other nasal problems NECK: Negative for lumps, goiter, pain and significant neck swelling RESPIRATORY: Negative for cough, hemoptysis, wheezing or shortness of breath CARDIOVASCULAR: Negative for chest pain, leg swelling or palpitations GI: No nausea, vomiting, or diarrhea : No history of dysuria, frequency or incontinence ROUTE SPECIALIST: Negative for abnormal vaginal bleeding, abnormal vaginal discharge MUSCULOSKELETAL: see hpi SKIN: Negative for lesions, rash, and itching PSYCH: Negative for sleep disturbance, mood disorder and recent psychosocial stressors HEMATOLOGY/LYMPHOLOGY: Negative for prolonged bleeding, bruising easily or swollen nodes ENDOCRINE: Negative for cold or heat intolerance, polyuria, polydipsia and goiter NEURO: No history of headaches, syncope, paralysis, seizures or tremors ALLERGIES Allergen Reactions Claritin [Loratadin* Swelling Patient tolerated fexofenadine challenge 12/17/2022. Doxycycline Rash Fragrances Rash Positive patch test Keflex [Cephalexin] Rash Prilosec [Omeprazol* Hives Bactrim [Sulfametho* Itching Ciprofloxacin Itching Clarithromycin Rash Other reaction(s): Other (See Comments), swells Swelling Clindamycin Itching Prednisone Itching Sulfa (Sulfonamide * Itching Current Outpatient Medications Medication Sig ELIQUIS 5 mg tab(s) TAKE ONE TABLET BY MOUTH TWICE DAILY fluticasone (FLONASE) 50 mcg/actuation nasal spray Use 2 Sprays in each nostril twice daily. triamcinolone acetonide (KENALOG) 0.1 % cream Apply to affected areas twice a day for two weeks with flares folic acid 1 mg tablet take one tablet every day levothyroxine (SYNTHROID) 50 mcg tablet take one tablet every day ferrous sulfate (FEROSUL) 325 mg (65 mg iron) tablet Take 1 tablet by mouth every morning. famotidine (PEPCID) 40 mg tablet Take 1 tablet by mouth once daily. amLODIPine (NORVASC) 10 mg tablet take one tablet every day acetaminophen (TYLENOL EXTRA STRENGTH ORAL) Take by mouth. glycerin ADULT suppository 1 Suppository by RECTAL route as needed. hydroxychloroquine (PLAQUENIL) 200 mg tablet Take 1 tablet by mouth once daily. CHOLECALCIFEROL, VITAMIN D3, ORAL Take 2,000 Units by mouth once daily. Current Facility-Administered Medications Medication Dose Route Frequency cyanocobalamin 1,000 mcg injection 1,000 mcg INTRAMUSCULAR q 4 WEEKS PAST MEDICAL HISTORY Diagnosis Date Allergic rhinitis CVA (cerebral vascular accident) ([facility]) Right 1996 DVT (deep venous thrombosis) ([facility]) 3 clots in left leg; was on coumadin for years Hypertension Hypothyroidism Lupus Rheumatoid arthritis(714.0) Sjogren's disease ([facility]) TIA (transient ischemic attack) Vitamin D deficiency PAST SURGICAL HISTORY Procedure Laterality Date CATARACT EXTRACTION HX Right 12/02/2016 COLECTOMY TOTAL, POUCH PAST SURGICAL HISTORY OF Cosmetic surgery RHINOPLASTY TOE SURGERY HX Right 08/16/15 3,4, and 5 Hammertoe correction glb TONSILLECTOMY HX TOTAL ABDOMINAL HYSTERECT W/WO RMVL TUBE OVARY FAMILY HISTORY Problem Relation Age of Onset Hypertension Mother Cancer Mother Ischemic Heart Disease Father Hypertension Father Social History Tobacco Use Smoking status: Former Current packs/day: 0.00 Types: Cigarettes Quit date: 06/11/2002 Years since quittin.2 Smokeless tobacco: Never Vaping Use Vaping status: Never Used Substance Use Topics Alcohol use: Yes Alcohol/week: 2.0 standard drinks of alcohol Types: 2 Glasses of Wine (5oz) per week Comment: Social wine Drug use: No PHYSICAL EXAMINATION: BP 144/81 Pulse 80 Resp 12 Ht 5' 3 (1.60m) Wt 168 lb 12.8 oz (76.6kg) SpO2 96% BMI 29.91 kg/(m^2). General appearance: Well appearing, alert, in no acute distress, well-hydrated, well nourished. Head: Normocephalic, no masses, lesions, tenderness or abnormalities Eyes: Anicteric sclera. Pupils are equally round and reactive to light. Extraocular movements are intact. Ears: External ears normal, canals clear, TM's normal Nose/Sinuses: Nares normal, septum midline, mucosa normal, no drainage or sinus tenderness Oropharynx: Lips, mucosa, and tongue normal, teeth and gums normal, oropharynx normal Neck: Supple, no adenopathy; thyroid symmetric, normal size, no bruits Lungs: Lungs clear to auscultation. No wheezing, rhonchi, rales Heart: RRR without murmur, gallop, or rubs. No ectopy Abdomen: Normal abdominal exam, Abdomen soft, non-tender. Bowel sounds normal. No masses, organomegaly Extremities: No deformities, edema, skin discoloration, clubbing or cyanosis. Good capillary refill. Skin: Skin color, texture, turgor normal, no suspicious rashes or lesions Back: Normal exam Neuro: Gait normal. Reflexes normal and symmetric. Sensation grossly intact. ASSESSMENT/PLAN: 1. Acute cystitis without hematuria - ICD9: 595.0, ICD10: N30.00 (primary diagnosis) - URINALYSIS, WITH MICROSCOPIC 2. Acute right-sided low back pain with sciatica, sciatica laterality unspecified - ICD9: 724.2, 724.3, ICD10: M54.40 Chronic low back pain - Follow up in with me or sooner if symptoms persist or worsen - CONSULT TO PHYSICAL THERAPY 3. Preventative health care - ICD9: V70.0, ICD10: Z00.00 - Counseled on healthy diet and regular exercise - ALANINE AMINOTRANSFERASE / SGPT - BASIC METABOLIC PANEL - COMPLETE BLOOD COUNT AND DIFFERENTIAL - LIPID PANEL BASIC - THYROID STIMULATING HORMONE - URINALYSIS, WITH MICROSCOPIC 4. Borderline hypercholesterolemia - ICD9: 272.0, ICD10: E78.00 - ALANINE AMINOTRANSFERASE / SGPT - LIPID PANEL BASIC 5. Fatigue, unspecified type - ICD9: 780.79, ICD10: R53.83 - BASIC METABOLIC PANEL - COMPLETE BLOOD COUNT AND DIFFERENTIAL - THYROID STIMULATING HORMONE - URINALYSIS, WITH MICROSCOPIC Jose Armando Marquez MD documented in this encounter [facility] 08-09-2024 Telephone encounter Note Last ov 07/05/2024 [facility] 08-09-2024 Miscellaneous Notes Last ov 07/05/2024 documented in this encounter [facility] 07-29-2024 Telephone encounter Note Last ov 07/05/2024 with Daksha [facility] 07-29-2024 Miscellaneous Notes Last ov 07/05/2024 with Daksha documented in this encounter [facility] 07-28-2024 Telephone encounter Note Patient came in to the clinic requesting the following refill Refill(s) Requested: Requested Prescriptions Pending Prescriptions Disp Refills triamcinolone acetonide (KENALOG) 0.1 % cream 80 g 2 Sig: Apply to affected areas twice a day for two weeks with flares ALLERGIES Allergen Reactions Claritin [Loratadin* Swelling Patient tolerated fexofenadine challenge 12/17/2022. Doxycycline Rash Fragrances Rash Positive patch test Keflex [Cephalexin] Rash Prilosec [Omeprazol* Hives Bactrim [Sulfametho* Itching Ciprofloxacin Itching Clarithromycin Rash Other reaction(s): Other (See Comments), swells Swelling Clindamycin Itching Prednisone Itching Sulfa (Sulfonamide * Itching (home) [phone] (cell) Last Office Visit Date: 07/05/2024 Last [facility] [place] [facility] Visit: Visit date not found Future Appointment: 07/28/2024 The patients preferred pharmacy has been captured for this encounter? yes Request is for script(s) to be escript to pharmacy. Gustabo Yap MA [facility] 07-28-2024 Miscellaneous Notes Patient came in to the clinic requesting the following refill Refill(s) Requested: Requested Prescriptions Pending Prescriptions Disp Refills triamcinolone acetonide (KENALOG) 0.1 % cream 80 g 2 Sig: Apply to affected areas twice a day for two weeks with flares ALLERGIES Allergen Reactions Claritin [Loratadin* Swelling Patient tolerated fexofenadine challenge 12/17/2022. Doxycycline Rash Fragrances Rash Positive patch test Keflex [Cephalexin] Rash Prilosec [Omeprazol* Hives Bactrim [Sulfametho* Itching Ciprofloxacin Itching Clarithromycin Rash Other reaction(s): Other (See Comments), swells Swelling Clindamycin Itching Prednisone Itching Sulfa (Sulfonamide * Itching (home) [phone] (cell) Last Office Visit Date: 07/05/2024 Last [facility] [place] [facility] Visit: Visit date not found Future Appointment: 07/28/2024 The patients preferred pharmacy has been captured for this encounter? yes Request is for script(s) to be escript to pharmacy. Gustabo Yap MA documented in this encounter [facility] 07-05-2024 Note HNO ID: [id number] Author: DAKSHA ELLIS PA-C Service: ? Author Type: Physician Truck Technician Type: Progress Notes Filed: 07/26/2024 13:40 Note Text: [facility] [address] [place] [address] Date of Evaluation: 07/05/2024 Patient Name: Nirmala Bennett : 1940 Chief Complaint: No chief complaint on file. Subjective HPI Ms. Bennett is a 83 year old female who presents for follow-up on bronchitis. She was seen last week and was given steroid shot and also Augmentin. CXR was negative. Still coughing some. Mucinex made chest heavy so stopped taking it. No SOB or fever. Review of Systems Constitutional: Negative for chills, fatigue and fever. Respiratory: Positive for cough. Negative for shortness of breath and wheezing. Cardiovascular: Negative for chest pain and palpitations. Gastrointestinal: Negative for diarrhea, nausea and vomiting. Musculoskeletal: Negative for back pain and myalgias. Skin: Negative for rash. Neurological: Negative for dizziness, weakness and headaches. Psychiatric/Behavioral: Negative for sleep disturbance. PAST MEDICAL HISTORY Diagnosis Date Allergic rhinitis CVA (cerebral vascular accident) (HCC) Right 1996 DVT (deep venous thrombosis) ([facility]) 3 clots in left leg; was on coumadin for years Hypertension Hypothyroidism Lupus Rheumatoid arthritis(714.0) Sjogren's disease (HCC) TIA (transient ischemic attack) Vitamin D deficiency PAST SURGICAL HISTORY Procedure Laterality Date CATARACT EXTRACTION HX Right 12/02/2016 COLECTOMY TOTAL, POUCH PAST SURGICAL HISTORY OF Cosmetic surgery RHINOPLASTY TOE SURGERY HX Right 08/16/15 3,4, and 5 Hammertoe correction glb TONSILLECTOMY HX TOTAL ABDOMINAL HYSTERECT W/WO RMVL TUBE OVARY FAMILY HISTORY Problem Relation Age of Onset Hypertension Mother Cancer Mother Ischemic Heart Disease Father Hypertension Father Social History Tobacco Use Smoking status: Former Current packs/day: 0.00 Types: Cigarettes Quit date: 06/11/2002 Years since quittin.0 Smokeless tobacco: Never Vaping Use Vaping status: Never Used Substance Use Topics Alcohol use: Yes Alcohol/week: 2.0 standard drinks of alcohol Types: 2 Glasses of Wine (5oz) per week Comment: Social wine Drug use: No Current Outpatient Medications Medication Sig amoxicillin-clavulanate potassium (AUGMENTIN) 500-125 mg per tablet Take 1 tablet by mouth every 12 hours for 7 days. fluticasone (FLONASE) 50 mcg/actuation nasal spray Use 2 Sprays in each nostril twice daily. folic acid 1 mg tablet take one tablet every day terconazole vaginal cream (TERAZOL) 0.8 % vaginal cream Use 1 Applicator vaginally daily at bedtime. levothyroxine (SYNTHROID) 50 mcg tablet take one tablet every day ferrous sulfate (FEROSUL) 325 mg (65 mg iron) tablet Take 1 tablet by mouth every morning. famotidine (PEPCID) 40 mg tablet Take 1 tablet by mouth once daily. ELIQUIS 5 mg tab(s) take one tablet twice daily amLODIPine (NORVASC) 10 mg tablet take one tablet every day triamcinolone acetonide (KENALOG) 0.1 % cream Apply to affected areas twice a day for two weeks with flares acetaminophen (TYLENOL EXTRA STRENGTH ORAL) Take by mouth. glycerin ADULT suppository 1 Suppository by RECTAL route as needed. hydroxychloroquine (PLAQUENIL) 200 mg tablet Take 1 tablet by mouth once daily. CHOLECALCIFEROL, VITAMIN D3, ORAL Take 2,000 Units by mouth once daily. Current Facility-Administered Medications Medication Dose Route Frequency cyanocobalamin 1,000 mcg injection 1,000 mcg INTRAMUSCULAR q 4 WEEKS I have confirmed and edited as necessary the chief complaint, medications, past medical, family and social histories obtained by others. Objective There were no vitals taken for this visit. Physical Exam Vitals and nursing note reviewed. Constitutional: General: She is not in acute distress. Appearance: She is well-developed. HENT: Head: Normocephalic and atraumatic. Right Ear: Tympanic membrane and external ear normal. Left Ear: Tympanic membrane and external ear normal. Nose: Nose normal. No mucosal edema or rhinorrhea. Right Sinus: No maxillary sinus tenderness or frontal sinus tenderness. Left Sinus: No maxillary sinus tenderness or frontal sinus tenderness. Mouth/Throat: Pharynx: No oropharyngeal exudate. Eyes: Conjunctiva/sclera: Conjunctivae normal. Pupils: Pupils are equal, round, and reactive to light. Cardiovascular: Rate and Rhythm: Normal rate and regular rhythm. Heart sounds: Normal heart sounds. Pulmonary: Effort: Pulmonary effort is normal. Breath sounds: Normal breath sounds. No wheezing, rhonchi or rales. Abdominal: General: There is no distension. Palpations: Abdomen is soft. Tenderness: There is no abdominal tenderness. Musculoskeletal: Cervical back: Normal range o (more content not included)... [facility] 07-05-2024 History of Present illness Narrative Images from the original note were not included. [facility] [address] [place] [address] Date of Evaluation: 07/05/2024 Patient Name: Nirmala Bennett : 1940 Chief Complaint: No chief complaint on file. Subjective HPI Ms. Bennett is a 83 year old female who presents for follow-up on bronchitis. She was seen last week and was given steroid shot and also Augmentin. CXR was negative. Still coughing some. Mucinex made chest heavy so stopped taking it. No SOB or fever. Review of Systems Constitutional: Negative for chills, fatigue and fever. Respiratory: Positive for cough. Negative for shortness of breath and wheezing. Cardiovascular: Negative for chest pain and palpitations. Gastrointestinal: Negative for diarrhea, nausea and vomiting. Musculoskeletal: Negative for back pain and myalgias. Skin: Negative for rash. Neurological: Negative for dizziness, weakness and headaches. Psychiatric/Behavioral: Negative for sleep disturbance. PAST MEDICAL HISTORY Diagnosis Date Allergic rhinitis CVA (cerebral vascular accident) ([facility]) Right 1996 DVT (deep venous thrombosis) ([facility]) 3 clots in left leg; was on coumadin for years Hypertension Hypothyroidism Lupus Rheumatoid arthritis(714.0) Sjogren's disease ([facility]) TIA (transient ischemic attack) Vitamin D deficiency PAST SURGICAL HISTORY Procedure Laterality Date CATARACT EXTRACTION HX Right 12/02/2016 COLECTOMY TOTAL, POUCH PAST SURGICAL HISTORY OF Cosmetic surgery RHINOPLASTY TOE SURGERY HX Right 08/16/15 3,4, and 5 Hammertoe correction glb TONSILLECTOMY HX TOTAL ABDOMINAL HYSTERECT W/WO RMVL TUBE OVARY FAMILY HISTORY Problem Relation Age of Onset Hypertension Mother Cancer Mother Ischemic Heart Disease Father Hypertension Father Social History Tobacco Use Smoking status: Former Current packs/day: 0.00 Types: Cigarettes Quit date: 06/11/2002 Years since quittin.0 Smokeless tobacco: Never Vaping Use Vaping status: Never Used Substance Use Topics Alcohol use: Yes Alcohol/week: 2.0 standard drinks of alcohol Types: 2 Glasses of Wine (5oz) per week Comment: Social wine Drug use: No Current Outpatient Medications Medication Sig amoxicillin-clavulanate potassium (AUGMENTIN) 500-125 mg per tablet Take 1 tablet by mouth every 12 hours for 7 days. fluticasone (FLONASE) 50 mcg/actuation nasal spray Use 2 Sprays in each nostril twice daily. folic acid 1 mg tablet take one tablet every day terconazole vaginal cream (TERAZOL) 0.8 % vaginal cream Use 1 Applicator vaginally daily at bedtime. levothyroxine (SYNTHROID) 50 mcg tablet take one tablet every day ferrous sulfate (FEROSUL) 325 mg (65 mg iron) tablet Take 1 tablet by mouth every morning. famotidine (PEPCID) 40 mg tablet Take 1 tablet by mouth once daily. ELIQUIS 5 mg tab(s) take one tablet twice daily amLODIPine (NORVASC) 10 mg tablet take one tablet every day triamcinolone acetonide (KENALOG) 0.1 % cream Apply to affected areas twice a day for two weeks with flares acetaminophen (TYLENOL EXTRA STRENGTH ORAL) Take by mouth. glycerin ADULT suppository 1 Suppository by RECTAL route as needed. hydroxychloroquine (PLAQUENIL) 200 mg tablet Take 1 tablet by mouth once daily. CHOLECALCIFEROL, VITAMIN D3, ORAL Take 2,000 Units by mouth once daily. Current Facility-Administered Medications Medication Dose Route Frequency cyanocobalamin 1,000 mcg injection 1,000 mcg INTRAMUSCULAR q 4 WEEKS I have confirmed and edited as necessary the chief complaint, medications, past medical, family and social histories obtained by others. Objective There were no vitals taken for this visit. Physical Exam Vitals and nursing note reviewed. Constitutional: General: She is not in acute distress. Appearance: She is well-developed. HENT: Head: Normocephalic and atraumatic. Right Ear: Tympanic membrane and external ear normal. Left Ear: Tympanic membrane and external ear normal. Nose: Nose normal. No mucosal edema or rhinorrhea. Right Sinus: No maxillary sinus tenderness or frontal sinus tenderness. Left Sinus: No maxillary sinus tenderness or frontal sinus tenderness. Mouth/Throat: Pharynx: No oropharyngeal exudate. Eyes: Conjunctiva/sclera: Conjunctivae normal. Pupils: Pupils are equal, round, and reactive to light. Cardiovascular: Rate and Rhythm: Normal rate and regular rhythm. Heart sounds: Normal heart sounds. Pulmonary: Effort: Pulmonary effort is normal. Breath sounds: Normal breath sounds. No wheezing, rhonchi or rales. Abdominal: General: There is no distension. Palpations: Abdomen is soft. Tenderness: There is no abdominal tenderness. Musculoskeletal: Cervical back: Normal range of motion and neck supple. Lymphadenopathy: Cervical: No cervical adenopathy. Skin: General: Skin is warm and dry. Findings: No rash. Neurological: Mental Status: She is alert and oriented to person, place, and time. Data Reviewed: Most recent imaging ASSESSMENT/PLAN: 1. Bronchitis - ICD9: 490, ICD10: J40 Symptoms improving. Continue OTC cough medication as needed. If symptoms worsen, f/u in office. Daksha Ellis PA-C No follow-ups on file. Discussed the above with the patient using shared decision making. The patient is in agreement with the diagnostic and treatment plans. documented in this encounter [facility] 06-28-2024 History of Present illness Narrative Radiology Service Progress Note PATIENT NAME: Nirmala Bennett DATE OF SERVICE: June 28, 2024 TIME: 12:33 PM PATIENT IDENTITY VERIFICATION COMPLETED USING TWO (2) IDENTIFIERS: Name and Date of confirmed by patient verbally. FALL SCREENING: Has the patient had 2 falls in the last year or 1 fall with injury or currently using an Ambulatory Assistive Device (Walker, Cane, Wheelchair, Crutches, etc.)? No PATIENT GENDER DATA: Female. status: : No status: NO. PATIENT RELEVANT IMPLANT DATA REVIEWED: Not Applicable PATIENT PRESENTS WITH AN IMPLANTABLE OR ATTACHED HOSPITAL CORPSMAN: No RADIOLOGY DEPARTMENT: General X-ray: Exam(s) Completed: Chest X-Ray PERIPHERAL IV DATA: Not applicable SIGNED BY: RT Natanael(Kimberly) June 28, 2024 12:33 PM documented in this encounter [facility] 06-28-2024 Note HNO ID: [id number] Author: YOUSIF CONTI RT(Kimberly) Service: Radiology Author Type: Technologist Type: Progress Notes Filed: 06/28/2024 12:33 Note Text: Radiology Service Progress Note PATIENT NAME: Nirmala Bennett DATE OF SERVICE: June 28, 2024 TIME: 12:33 PM PATIENT IDENTITY VERIFICATION COMPLETED USING TWO (2) IDENTIFIERS: Name and Date of confirmed by patient verbally. FALL SCREENING: Has the patient had 2 falls in the last year or 1 fall with injury or currently using an Ambulatory Assistive Device (Walker, Cane, Wheelchair, Crutches, etc.)? No PATIENT GENDER DATA: Female. status: : No status: NO. PATIENT RELEVANT IMPLANT DATA REVIEWED: Not Applicable PATIENT PRESENTS WITH AN IMPLANTABLE OR ATTACHED HOSPITAL CORPSMAN: No RADIOLOGY DEPARTMENT: General X-ray: Exam(s) Completed: Chest X-Ray PERIPHERAL IV DATA: Not applicable SIGNED BY: Yousif Conti, RT(R) June 28, 2024 12:33 PM [facility] 06-28-2024 Note HNO ID: [id number] Author: DAKSHA ELLIS PA-C Service: ? Author Type: Physician Truck Technician Type: Progress Notes Filed: 07/26/2024 11:33 Note Text: [facility] [address] [place] [address] Date of Evaluation: 06/28/2024 Patient Name: Nirmala Bennett : 1940 Chief Complaint: Patient presents with: Cough Subjective HPI Ms. Bennett is a 83 year old female who presents for cough for the past 5-6 days. Woke up with a deep cough on [place]. Went to pharmacy and pharmacist told her to take Mucinex and Robitussin DM. Symptoms have worsened since then. No nasal congestion. Mild sore throat initially but now just raspy. Now coughing really hard and coughing up white phlegm. Has chest heaviness and SOB with exertion. No fever. Has no energy. No chest pain but heaviness. Has not had flu shot this year. No nausea/vomiting. Review of Systems Constitutional: Negative for chills, fatigue and fever. HENT: Positive for congestion. Negative for sore throat. Respiratory: Positive for cough and shortness of breath. Cardiovascular: Negative for chest pain and palpitations. Gastrointestinal: Negative for diarrhea, nausea and vomiting. Musculoskeletal: Negative for back pain and myalgias. Skin: Negative for rash. Neurological: Negative for dizziness, weakness and headaches. Psychiatric/Behavioral: Negative for sleep disturbance. PAST MEDICAL HISTORY Diagnosis Date Allergic rhinitis CVA (cerebral vascular accident) (HCC) Right 1996 DVT (deep venous thrombosis) (HCC) 3 clots in left leg; was on coumadin for years Hypertension Hypothyroidism Lupus Rheumatoid arthritis(714.0) Sjogren's disease (HCC) TIA (transient ischemic attack) Vitamin D deficiency PAST SURGICAL HISTORY Procedure Laterality Date CATARACT EXTRACTION HX Right 12/02/2016 COLECTOMY TOTAL, POUCH PAST SURGICAL HISTORY OF Cosmetic surgery RHINOPLASTY TOE SURGERY HX Right 08/16/15 3,4, and 5 Hammertoe correction glb TONSILLECTOMY HX TOTAL ABDOMINAL HYSTERECT W/WO RMVL TUBE OVARY FAMILY HISTORY Problem Relation Age of Onset Hypertension Mother Cancer Mother Ischemic Heart Disease Father Hypertension Father Social History Tobacco Use Smoking status: Former Current packs/day: 0.00 Types: Cigarettes Quit date: 06/11/2002 Years since quittin.0 Smokeless tobacco: Never Vaping Use Vaping status: Never Used Substance Use Topics Alcohol use: Yes Alcohol/week: 2.0 standard drinks of alcohol Types: 2 Glasses of Wine (5oz) per week Comment: Social wine Drug use: No Current Outpatient Medications Medication Sig fluticasone (FLONASE) 50 mcg/actuation nasal spray Use 2 Sprays in each nostril twice daily. folic acid 1 mg tablet take one tablet every day terconazole vaginal cream (TERAZOL) 0.8 % vaginal cream Use 1 Applicator vaginally daily at bedtime. levothyroxine (SYNTHROID) 50 mcg tablet take one tablet every day ferrous sulfate (FEROSUL) 325 mg (65 mg iron) tablet Take 1 tablet by mouth every morning. famotidine (PEPCID) 40 mg tablet Take 1 tablet by mouth once daily. ELIQUIS 5 mg tab(s) take one tablet twice daily amLODIPine (NORVASC) 10 mg tablet take one tablet every day triamcinolone acetonide (KENALOG) 0.1 % cream Apply to affected areas twice a day for two weeks with flares acetaminophen (TYLENOL EXTRA STRENGTH ORAL) Take by mouth. glycerin ADULT suppository 1 Suppository by RECTAL route as needed. hydroxychloroquine (PLAQUENIL) 200 mg tablet Take 1 tablet by mouth once daily. CHOLECALCIFEROL, VITAMIN D3, ORAL Take 2,000 Units by mouth once daily. Current Facility-Administered Medications Medication Dose Route Frequency cyanocobalamin 1,000 mcg injection 1,000 mcg INTRAMUSCULAR q 4 WEEKS I have confirmed and edited as necessary the chief complaint, medications, past medical, family and social histories obtained by others. Objective BP 122/64 Pulse 77 Resp 12 Ht 5' 3 (1.60m) Wt 164 lb 12.8 oz (74.8kg) SpO2 97% BMI 29.20 kg/(m2). Physical Exam Vitals and nursing note reviewed. Constitutional: General: She is not in acute distress. Appearance: She is well-developed. HENT: Head: Normocephalic and atraumatic. Right Ear: Tympanic membrane and external ear normal. Left Ear: Tympanic membrane and external ear normal. Nose: Mucosal edema and congestion present. No rhinorrhea. Right Sinus: No maxillary sinus tenderness or frontal sinus tenderness. Left Sinus: No maxillary sinus tenderness or frontal sinus tenderness. Mouth/Throat: Pharynx: No oropharyngeal exudate. Eyes: Conjunctiva/sclera: Conjunctivae normal. Pupils: Pupils are equal, round, and reactive to light. Cardiovascular: Rate and Rhythm: Normal rate and regular rhythm. Heart sounds: Normal heart sounds. Pulmonary: Effort: Pulmonary effort is (more content not included)... [facility] 06-28-2024 History of Present illness Narrative Images from the original note were not included. [facility] [address] [place] [address] Date of Evaluation: 06/28/2024 Patient Name: Nirmala Bennett : 1940 Chief Complaint: Patient presents with: Cough Subjective HPI Ms. Bennett is a 83 year old female who presents for cough for the past 5-6 days. Woke up with a deep cough on [place]. Went to pharmacy and pharmacist told her to take Mucinex and Robitussin DM. Symptoms have worsened since then. No nasal congestion. Mild sore throat initially but now just raspy. Now coughing really hard and coughing up white phlegm. Has chest heaviness and SOB with exertion. No fever. Has no energy. No chest pain but heaviness. Has not had flu shot this year. No nausea/vomiting. Review of Systems Constitutional: Negative for chills, fatigue and fever. HENT: Positive for congestion. Negative for sore throat. Respiratory: Positive for cough and shortness of breath. Cardiovascular: Negative for chest pain and palpitations. Gastrointestinal: Negative for diarrhea, nausea and vomiting. Musculoskeletal: Negative for back pain and myalgias. Skin: Negative for rash. Neurological: Negative for dizziness, weakness and headaches. Psychiatric/Behavioral: Negative for sleep disturbance. PAST MEDICAL HISTORY Diagnosis Date Allergic rhinitis CVA (cerebral vascular accident) ([facility]) Right 1996 DVT (deep venous thrombosis) ([facility]) 3 clots in left leg; was on coumadin for years Hypertension Hypothyroidism Lupus Rheumatoid arthritis(714.0) Sjogren's disease ([facility]) TIA (transient ischemic attack) Vitamin D deficiency PAST SURGICAL HISTORY Procedure Laterality Date CATARACT EXTRACTION HX Right 12/02/2016 COLECTOMY TOTAL, POUCH PAST SURGICAL HISTORY OF Cosmetic surgery RHINOPLASTY TOE SURGERY HX Right 08/16/15 3,4, and 5 Hammertoe correction glb TONSILLECTOMY HX TOTAL ABDOMINAL HYSTERECT W/WO RMVL TUBE OVARY FAMILY HISTORY Problem Relation Age of Onset Hypertension Mother Cancer Mother Ischemic Heart Disease Father Hypertension Father Social History Tobacco Use Smoking status: Former Current packs/day: 0.00 Types: Cigarettes Quit date: 06/11/2002 Years since quittin.0 Smokeless tobacco: Never Vaping Use Vaping status: Never Used Substance Use Topics Alcohol use: Yes Alcohol/week: 2.0 standard drinks of alcohol Types: 2 Glasses of Wine (5oz) per week Comment: Social wine Drug use: No Current Outpatient Medications Medication Sig fluticasone (FLONASE) 50 mcg/actuation nasal spray Use 2 Sprays in each nostril twice daily. folic acid 1 mg tablet take one tablet every day terconazole vaginal cream (TERAZOL) 0.8 % vaginal cream Use 1 Applicator vaginally daily at bedtime. levothyroxine (SYNTHROID) 50 mcg tablet take one tablet every day ferrous sulfate (FEROSUL) 325 mg (65 mg iron) tablet Take 1 tablet by mouth every morning. famotidine (PEPCID) 40 mg tablet Take 1 tablet by mouth once daily. ELIQUIS 5 mg tab(s) take one tablet twice daily amLODIPine (NORVASC) 10 mg tablet take one tablet every day triamcinolone acetonide (KENALOG) 0.1 % cream Apply to affected areas twice a day for two weeks with flares acetaminophen (TYLENOL EXTRA STRENGTH ORAL) Take by mouth. glycerin ADULT suppository 1 Suppository by RECTAL route as needed. hydroxychloroquine (PLAQUENIL) 200 mg tablet Take 1 tablet by mouth once daily. CHOLECALCIFEROL, VITAMIN D3, ORAL Take 2,000 Units by mouth once daily. Current Facility-Administered Medications Medication Dose Route Frequency cyanocobalamin 1,000 mcg injection 1,000 mcg INTRAMUSCULAR q 4 WEEKS I have confirmed and edited as necessary the chief complaint, medications, past medical, family and social histories obtained by others. Objective BP 122/64 Pulse 77 Resp 12 Ht 5' 3 (1.60m) Wt 164 lb 12.8 oz (74.8kg) SpO2 97% BMI 29.20 kg/(m^2). Physical Exam Vitals and nursing note reviewed. Constitutional: General: She is not in acute distress. Appearance: She is well-developed. HENT: Head: Normocephalic and atraumatic. Right Ear: Tympanic membrane and external ear normal. Left Ear: Tympanic membrane and external ear normal. Nose: Mucosal edema and congestion present. No rhinorrhea. Right Sinus: No maxillary sinus tenderness or frontal sinus tenderness. Left Sinus: No maxillary sinus tenderness or frontal sinus tenderness. Mouth/Throat: Pharynx: No oropharyngeal exudate. Eyes: Conjunctiva/sclera: Conjunctivae normal. Pupils: Pupils are equal, round, and reactive to light. Cardiovascular: Rate and Rhythm: Normal rate and regular rhythm. Heart sounds: Normal heart sounds. Pulmonary: Effort: Pulmonary effort is normal. Breath sounds: Wheezing present. No rhonchi or rales. Abdominal: General: There is no distension. Palpations: Abdomen is soft. Tenderness: There is no abdominal tenderness. Musculoskeletal: Cervical back: Normal range of motion and neck supple. Lymphadenopathy: Cervical: No cervical adenopathy. Skin: General: Skin is warm and dry. Findings: No rash. Neurological: Mental Status: She is alert and oriented to person, place, and time. ASSESSMENT/PLAN: 1. Bronchitis - ICD9: 490, ICD10: J40 (primary diagnosis) - XR CHEST 2V FRONTAL/LAT - BETAMETHASONE ACETATE AND SODIUM PHOS 6 MG/ML SUSPENSION FOR INJECTION - AMOXICILLIN 500 MG-POTASSIUM CLAVULANATE 125 MG TABLET 2. Chest heaviness - ICD9: 786.59, ICD10: R07.89 - XR CHEST 2V FRONTAL/LAT 3. Shortness of breath on exertion - ICD9: 786.05, ICD10: R06.02 - XR CHEST 2V FRONTAL/LAT Daksha Ellis PA-C No follow-ups on file. Patient has been identified by name and date of : Yes, Provider Daksha Ellis Date 06/28/2024 Nirmala is here for an injection of celestone Dose: 1ml Route: Intramuscular Given without incident. Site: left upper outer quadrant gluteous Community Resource Officer: [employer] Lot #: [id number] [facility] #: [id number] Expiration Date: feb [address] Daksha Ellis present in clinic at time of injection. The date due for the next injection is . Maureen Corrales MA Discussed the above with the patient using shared decision making. The patient is in agreement with the diagnostic and treatment plans. documented in this encounter [facility] 06-09-2024 Note HNO ID: [id number] Author: GUSTABO YAP MA Service: ? Author Type: Senior Quality Assurance Engineer Type: Progress Notes Filed: 06/09/2024 13:01 Note Text: Patient has been identified by name and date of : Yes Nirmala is here for an injection of Vitamin B12 Dose: 1000 mcg Route: Intramuscular Given without incident. Site: left deltoid Community Resource Officer: [employer] Lot #: [id number] [facility] #: [id number] Expiration Date: 10/23 Dr. marquez present in clinic at time of injection. The date due for the next injection is . Gustabo Yap MA [facility] 06-09-2024 History of Present illness Narrative Patient has been identified by name and date of : Yes Nirmala is here for an injection of Vitamin B12 Dose: 1000 mcg Route: Intramuscular Given without incident. Site: left deltoid Community Resource Officer: [employer] Lot #: [id number] [facility] #: [id number] Expiration Date: 10/23 Dr. marquez present in clinic at time of injection. The date due for the next injection is . Gustabo Yap MA documented in this encounter [facility] 06-03-2024 Telephone encounter Note Left phone message. Count was better at 11.4. continue pepcid and iron. Call if any bleeding. Will repeat count in 1 month. [facility] 06-03-2024 Miscellaneous Notes Left phone message. Count was better at 11.4. continue pepcid and iron. Call if any bleeding. Will repeat count in 1 month. documented in this encounter [facility] 06-01-2024 Telephone encounter Note Left message for pt [facility] 06-01-2024 Miscellaneous Notes Left message for pt Come in for repeat this week along with iron studies. Pt called about the labs from [facility] Her hemoglobin went from 13.2 to 10.7 They are advising her to contact you about the cause of this. Pt states that she is not bleeding Labs scanned in today documented in this encounter [facility] 06-01-2024 Telephone encounter Note Come in for repeat this week along with iron studies. [facility] 06-01-2024 Telephone encounter Note Pt called about the labs from [facility] Her hemoglobin went from 13.2 to 10.7 They are advising her to contact you about the cause of this. Pt states that she is not bleeding Labs scanned in today [facility] 05-05-2024 History of Present illness Narrative Radiology Service Progress Note PATIENT NAME: Nirmala Bennett DATE OF SERVICE: May 05, 2024 TIME: 5:59 PM PATIENT IDENTITY VERIFICATION COMPLETED USING TWO (2) IDENTIFIERS: Name and Date of confirmed by patient verbally. FALL SCREENING: Has the patient had 2 falls in the last year or 1 fall with injury or currently using an Ambulatory Assistive Device (Walker, Cane, Wheelchair, Crutches, etc.)? No PATIENT GENDER DATA: Female. status: : No status: NO. PATIENT RELEVANT IMPLANT DATA REVIEWED: Not Applicable PATIENT PRESENTS WITH AN IMPLANTABLE OR ATTACHED HOSPITAL CORPSMAN: No RADIOLOGY DEPARTMENT: CT; Exam(s) Completed: Temporal Bones PERIPHERAL IV DATA: Not applicable SIGNED BY: RT Avelino(Kimberly) May 05, 2024 5:59 PM documented in this encounter [facility] 04-07-2024 Telephone encounter Note Pt left a message citing another sinus issue and repeating that the dentist wants her on an antibiotic. Asking if you want to repeat the amoxil? [facility] 04-07-2024 Miscellaneous Notes Pt left a message citing another sinus issue and repeating that the dentist wants her on an antibiotic. Asking if you want to repeat the amoxil? documented in this encounter [facility] 03-18-2024 Telephone encounter Note Ok, called in. [facility] 03-18-2024 Miscellaneous Notes Ok, called in. Pt has a possible dental infection, is having a root canal done next Friday., Dentist wanted to put her on an antibiotic but didn't due to her multiple allergies. Is asking that you prescribe amoxil 250 mg bid The can tolerate it documented in this encounter [facility] 03-18-2024 Telephone encounter Note Pt has a possible dental infection, is having a root canal done next Friday., Dentist wanted to put her on an antibiotic but didn't due to her multiple allergies. Is asking that you prescribe amoxil 250 mg bid The can tolerate it [facility] 02-23-2024 Telephone encounter Note Last ov 02/17/2024 [facility] 02-23-2024 Miscellaneous Notes Last ov 02/17/2024 documented in this encounter [facility] 02-20-2024 Telephone encounter Note Pt was able to take the medication last evening without any issue She is still having some chest Pressure She intends to complete the course of antibiotics [facility] 02-20-2024 Miscellaneous Notes Pt was able to take the medication last evening without any issue She is still having some chest Pressure She intends to complete the course of antibiotics Discussed with pt, she agrees and will call tomorrow with an update Doubt macrobid, would try again with food. Call if continues. Pt having issues with the Macrobid. Is being sent home from work, took the Macrobid at 7 am and started to feel sick around 2 pm. Feeling like she will pass out, pale, Sat down, ate something and is starting to feel better. Do you think this is from the medication? documented in this encounter [facility] 02-19-2024 Telephone encounter Note Discussed with pt, she agrees and will call tomorrow with an update [facility] 02-19-2024 Telephone encounter Note Doubt macrobid, would try again with food. Call if continues. [facility] 02-19-2024 Telephone encounter Note Pt having issues with the Macrobid. Is being sent home from work, took the Macrobid at 7 am and started to feel sick around 2 pm. Feeling like she will pass out, pale, Sat down, ate something and is starting to feel better. Do you think this is from the medication? [facility] 02-18-2024 Telephone encounter Note ENT Referral (and other pertinent documentation) faxed to Dr. Baez office (Faxed # [phone]. ) on February 18, 2024 Alee Calderon CMA [facility] 02-18-2024 Miscellaneous Notes ENT Referral (and other pertinent documentation) faxed to Dr. Baez office (Faxed # [phone]. # [phone]) on February 18, 2024 Alee Calderon CHORAL DIRECTOR documented in this encounter [facility] 02-17-2024 History of Present illness Narrative HPI: Nirmala Bennett is a 83 year old female who presents with complaint of F/U 6 Month (Review Labs, some sinus congestion). Pt doing ok. Needs ENT opinion on hearing loss. Still working. Reviewed labs which were good but looks like working on UTI. Macrobid given. Repeat urine in 2 weeks. Follow up in 6 months. REVIEW OF SYSTEMS PAIN ASSESSMENT: Negative for pain, history of chronic pain, or current treatment for a chronic pain condition. GENERAL: No weight loss, malaise or fevers HEENT: Negative for frequent or significant headaches, No changes in hearing or vision, no nose bleeds or other nasal problems NECK: Negative for lumps, goiter, pain and significant neck swelling RESPIRATORY: Negative for cough, hemoptysis, wheezing or shortness of breath CARDIOVASCULAR: Negative for chest pain, leg swelling or palpitations GI: No nausea, vomiting, or diarrhea : No history of dysuria, frequency or incontinence ROUTE SPECIALIST: Negative for abnormal vaginal bleeding, abnormal vaginal discharge MUSCULOSKELETAL: Negative for joint pain or swelling, back pain or muscle pain SKIN: Negative for lesions, rash, and itching PSYCH: Negative for sleep disturbance, mood disorder and recent psychosocial stressors HEMATOLOGY/LYMPHOLOGY: Negative for prolonged bleeding, bruising easily or swollen nodes ENDOCRINE: Negative for cold or heat intolerance, polyuria, polydipsia and goiter NEURO: No history of headaches, syncope, paralysis, seizures or tremors ALLERGIES Allergen Reactions Claritin [Loratadin* Swelling Patient tolerated fexofenadine challenge 12/17/2022. Doxycycline Rash Fragrances Rash Positive patch test Keflex [Cephalexin] Rash Prilosec [Omeprazol* Hives Bactrim [Sulfametho* Itching Ciprofloxacin Itching Clarithromycin Rash Other reaction(s): Other (See Comments), swells Swelling Clindamycin Itching Prednisone Itching Sulfa (Sulfonamide * Itching Current Outpatient Medications Medication Sig terconazole vaginal cream (TERAZOL) 0.8 % vaginal cream Use 1 Applicator vaginally daily at bedtime. fluticasone (FLONASE) 50 mcg/actuation nasal spray Use 2 Sprays in each nostril twice daily. levothyroxine (SYNTHROID) 50 mcg tablet take one tablet every day ferrous sulfate (FEROSUL) 325 mg (65 mg iron) tablet Take 1 tablet by mouth every morning. famotidine (PEPCID) 40 mg tablet Take 1 tablet by mouth once daily. ELIQUIS 5 mg tab(s) take one tablet twice daily amLODIPine (NORVASC) 10 mg tablet take one tablet every day folic acid 1 mg tablet take one tablet every day triamcinolone acetonide (KENALOG) 0.1 % cream Apply to affected areas twice a day for two weeks with flares acetaminophen (TYLENOL EXTRA STRENGTH ORAL) Take by mouth. glycerin ADULT suppository 1 Suppository by RECTAL route as needed. hydroxychloroquine (PLAQUENIL) 200 mg tablet Take 1 tablet by mouth once daily. CHOLECALCIFEROL, VITAMIN D3, ORAL Take 2,000 Units by mouth once daily. nitrofurantoin monohydrate and macrocrystal (MACROBID) 100 mg capsule Take 1 capsule by mouth two times a day for 7 days. Current Facility-Administered Medications Medication Dose Route Frequency cyanocobalamin 1,000 mcg injection 1,000 mcg INTRAMUSCULAR q 4 WEEKS PAST MEDICAL HISTORY No date: Allergic rhinitis No date: CVA (cerebral vascular accident) ([facility]) Comment: Right 1996 No date: DVT (deep venous thrombosis) ([facility]) Comment: 3 clots in left leg; was on coumadin for years No date: Hypertension No date: Hypothyroidism No date: Lupus ([facility]) No date: Rheumatoid arthritis(714.0) No date: Sjogren's disease ([facility]) No date: TIA (transient ischemic attack) No date: Vitamin D deficiency PAST SURGICAL HISTORY 12/02/2016: CATARACT EXTRACTION HX; Right No date: COLECTOMY TOTAL, POUCH No date: PAST SURGICAL HISTORY OF Comment: Cosmetic surgery No date: RHINOPLASTY 08/16/15: TOE SURGERY HX; Right Comment: 3,4, and 5 Hammertoe correction glb No date: TONSILLECTOMY HX No date: TOTAL ABDOMINAL HYSTERECT W/WO RMVL TUBE OVARY FAMILY HISTORY Problem Relation Age of Onset Hypertension Mother Cancer Mother Ischemic Heart Disease Father Hypertension Father Social History Tobacco Use Smoking status: Former Current packs/day: 0.00 Types: Cigarettes Quit date: 06/11/2002 Years since quittin.7 Smokeless tobacco: Never Vaping Use Vaping status: Never Used Substance Use Topics Alcohol use: Yes Alcohol/week: 2.0 standard drinks of alcohol Types: 2 Glasses of Wine (5oz) per week Comment: Social wine Drug use: No PHYSICAL EXAMINATION: BP 136/71 Pulse 60 Resp 12 Ht 5' 3 (1.60m) Wt 169 lb 12.8 oz (77.0kg) SpO2 98% BMI 30.09 kg/(m^2). General appearance: Well appearing, alert, in no acute distress, well-hydrated, well nourished. Head: Normocephalic, no masses, lesions, tenderness or abnormalities Eyes: Anicteric sclera. Pupils are equally round and reactive to light. Extraocular movements are intact. Ears: External ears normal, canals clear, TM's normal Nose/Sinuses: Nares normal, septum midline, mucosa normal, no drainage or sinus tenderness Oropharynx: Lips, mucosa, and tongue normal, teeth and gums normal, oropharynx normal Neck: Supple, no adenopathy; thyroid symmetric, normal size, no bruits Lungs: Lungs clear to auscultation. No wheezing, rhonchi, rales Heart: RRR without murmur, gallop, or rubs. No ectopy Abdomen: Normal abdominal exam, Abdomen soft, non-tender. Bowel sounds normal. No masses, organomegaly Extremities: No deformities, edema, skin discoloration, clubbing or cyanosis. Good capillary refill. Skin: Skin color, texture, turgor normal, no suspicious rashes or lesions Back: Normal exam Neuro: Gait normal. Reflexes normal and symmetric. Sensation grossly intact. ASSESSMENT/PLAN: 1. Noise-induced hearing loss, unspecified laterality - ICD9: 388.12, ICD10: H83.3X9 (primary diagnosis) - CONSULT TO ENT 2. Screening for depression - ICD9: V79.0, ICD10: Z13.31 - DEPRESSION SCREENING 3. Encounter for screening examination for other mental health and behavioral disorders - ICD9: V79.8, ICD10: Z13.39 - ANXIETY SCREENING 4. Urinary tract infection without hematuria, site unspecified - ICD9: 599.0, ICD10: N39.0 acute - Patient education for prevention given - URINALYSIS WITH MICROSCOPIC, REFLEX CULTURE Jose Armando Marquez MD documented in this encounter [facility] 02-17-2024 Nurse Note Patient has been identified by name and date of : Yes Nirmala is here for an injection of Vitamin B12 Dose: 1000 mcg Route: Intramuscular Given without incident. Site: left deltoid Community Resource Officer: [employer]. Lot #: [id number] [place] #: [id number] Expiration Date: 05/24 Dr. marquez present in clinic at time of injection. The date due for the next injection is . Gustabo Yap MA [facility] 02-17-2024 Nurse Note Patient has been identified by name and date of : Yes Nirmala is here for an injection of Vitamin B12 Dose: 1000 mcg Route: Intramuscular Given without incident. Site: left deltoid Community Resource Officer: [employer]. Lot #: [id number] [place] #: [id number] Expiration Date: 05/24 Dr. marquez present in clinic at time of injection. The date due for the next injection is . Gustabo Yap MA documented in this encounter [facility] 01-07-2024 Nurse Note Patient has been identified by name and date of : Yes Nirmala is here for an injection of Vitamin B12 Dose: 1000mcg Route: Intramuscular Given without incident. Site: left deltoid Community Resource Officer: [employer]. Lot #: [id number] [place] #: [id number] Expiration Date: 05/24 Dr. cazares present in clinic at time of injection. The date due for the next injection is . Gustabo Yap MA [facility] 01-07-2024 Nurse Note Patient has been identified by name and date of : Yes Nirmala is here for an injection of Vitamin B12 Dose: 1000mcg Route: Intramuscular Given without incident. Site: left deltoid Community Resource Officer: [employer]. Lot #: [id number] [facility] #: [id number] Expiration Date: 05/24 Dr. cazares present in clinic at time of injection. The date due for the next injection is . Gustabo Yap MA documented in this encounter [facility] 12-15-2023 Telephone encounter Note Ok. [facility] 12-15-2023 Miscellaneous Notes Ok. Pt had an allergic reaction to the keflex Rash on torso, ears, face. Advised to /c the keflex Added to allergy list documented in this encounter [facility] 12-12-2023 Telephone encounter Note Pt had an allergic reaction to the keflex Rash on torso, ears, face. Advised to /c the keflex Added to allergy list [facility] 12-09-2023 Telephone encounter Note Discussed with pt [facility] 12-09-2023 Miscellaneous Notes Discussed with pt Called in terazol cream. Not necessary to call [facility]. Pt has yeast infection from the antibiotics Also wanting to know if she should let Mandi Sanchez know about the Uti? documented in this encounter [facility] 12-09-2023 Telephone encounter Note Called in terazol cream. Not necessary to call [facility]. [facility] 12-09-2023 Telephone encounter Note Pt has yeast infection from the antibiotics Also wanting to know if she should let Mandi Sanchez know about the Uti? 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 Pt is concerned that she has another uti Requesting an order for urinalysis documented in this encounter [facility] 11-27-2023 Telephone encounter Note Ordered UA, also antibiotic in case symptoms become worse before we get results. [facility] 11-27-2023 Telephone encounter Note Pt is concerned that she has another uti Requesting an order for urinalysis [facility] 11-18-2023 Telephone encounter Note Last OV 10/21/23 [facility] 11-18-2023 Miscellaneous Notes Last OV 10/21/23 documented in this encounter [facility] 11-10-2023 Telephone encounter Note Last ov 10/21/2023 [facility] 11-10-2023 Miscellaneous Notes Last ov 10/21/2023 documented in this encounter [facility] 10-28-2023 Instructions Mandi Lin PA-C - 10/28/2023 11:31 AM EDT -repeat hearing test in six months to monitor asymmetry in hearing -Call insurance company to determine hearing aid benefits and network Hearing Aids Why can I hear people but not understand them? A common type of hearing loss is one in which people have normal or nearly normal hearing in the low- and mid-pitched sounds, but have hearing loss in the high-pitched sounds. Some examples of low-pitched sounds in speech are vowel sounds like o, ooh, ah, a, e, etc. Some examples of high-pitched sounds in speech are s, f, th, etc. These high-pitched consonant sounds carry the meaning of words so they help us understand speech, but tend to be very soft in volume. The low-pitched vowel sounds carry the volume of speech, but do not have much meaning. Therefore, vowel sounds help us hear speech, but do not help us understand what is said. In normal conversation, speech might sound loud enough but not clear enough if a hearing loss is present. This problem is worse in background noise, since background noise interferes with and covers up speech. This problem is often associated with sensorineural hearing loss, which results from damage in the inner ear and/or in the auditory nerve endings. Auditory nerve endings are nerves in the ear that send sound patterns to the part of the brain that interprets it. What can I expect from hearing aids? Unlike eyeglasses, hearing aids cannot provide complete correction for the impairment. No hearing aid will restore your hearing to normal or provide a perfect substitute for normal hearing. The benefits derived from wearing hearing aids, even the most technologically advanced, will vary from person to person. The greatest benefit will be experienced with consistent use of hearing aids. What hearing aids can do: Hearing aids make sounds louder (amplify sounds) so that you can hear them. The goal is to make soft sounds audible, the sound of normal conversation comfortable, and loud sounds loud, but not too loud. Hearing aids improve a person's ability to understand speech (such as conversations) by amplifying the sounds (such as high-pitched consonants) not audible to the individual. The extent a hearing aid can improve speech understanding will depend on the degree of the person's hearing loss and how much noise is present in the listening situations. Some hearing aids can amplify high-pitched consonant sounds more than low-pitched vowel sounds to help you hear better in noisy situations. Some advanced hearing aid systems use multiple microphone technology to further enhance communication in noisy environments. What hearing aids cannot do: Hearing aids cannot change how your ears and auditory system function. Hearing aids will not restore your hearing to normal. Hearing aids cannot completely eliminate troublesome background noise Hearing aids cannot stop the progression of hearing loss. Hearing aids cannot separate the sounds you want to hear from those you do not want to hear. That's the role of the brain. documented in this encounter [facility] 10-28-2023 History of Present illness Narrative Images from the original note were not included. HPI: Nirmala Bennett is a 82 year old female. Patient presents with: Ringing In Ear(s): Left ear. Ear Pain: On/off left ear pain Hearing Loss: Decreased in left ear. Patient reports hearing loss and ringing in her left ear primarily worsening over a few years. Patient reports she had mild discomfort in her left ear yesterday, radiating into her upper neck. Has not had this pain before and it has resolved. Reports a history of recurrent sinus infections. Was seen previously by Dr. Rodgers last visit 2019 for nosebleeds per EMR. Denies any other prior ear issues, prior wax issues. Denies any dizziness. Denies any facial numbness, associated headaches, jaw complaints or hx of TMJ. Denies fam hx of ear disorders. Does see chiropractor for chronic mild neck stiffness. Reports no nosebleeds recently. I reviewed the allergies, medications, problem list, PMH/PSH, FmHx and SocHx as documented per EMR: PAST MEDICAL HISTORY Diagnosis Date Allergic rhinitis CVA (cerebral vascular accident) ([facility]) Right 1996 DVT (deep venous thrombosis) ([facility]) 3 clots in left leg; was on coumadin for years Hypertension Hypothyroidism Lupus ([facility]) Rheumatoid arthritis(714.0) Sjogren's disease ([facility]) TIA (transient ischemic attack) Vitamin D deficiency Physical Exam BP 171/82 Pulse 65 Ht 160 cm (5' 3) Wt 78 kg (172 lb) BMI 30.47 kg/m General: Appears to be in no acute distress, normal affect Head/Face: Facial muscles appear to be functioning normally. Temporomandibular joints move freely, without popping or clicking, are nontender. Neck: There are no palpable salivary gland masses, no thryoid mass or thyromegaly, no neck masses or lymphadenopathy. Eyes: Extraocular movements appear intact. Ears: Right Ear: External ear is without lesions. EAC is without inflammatory changes, free of debris. Visualized TM is not inflamed and with normal landmarks, not retracted or bulging. TM is mobile on pneumatic otoscopy. Left Ear: External ear is without lesions. EAC is without inflammatory changes, free of debris. Visualized TM is not inflamed and with normal landmarks, not retracted or bulging. TM is mobile on pneumatic otoscopy. Nose: External nose is without lesions or deformity. Nasal mucosa has mild bilateral crusting, mildly enlarged turbinates. without obvious lesions or masses on nasal speculum exam. The septum is nonobstructive. Oral Cavity/Oropharynx: The lips are without lesions. The tongue and floor of the mouth are without lesions. The soft palate and posterior pharynx are without lesions. Gingival mucosa is without lesions. Tonsils are not enlarged and without lesions. Data Reviewed PCP referral note Assessment & Plan I counseled the patient about the differential diagnosis, natural course, treatment options and answered their questions for Diagnoses and all orders for this visit: Tinnitus, bilateral Sensorineural hearing loss (SNHL) of both ears -Physical exam is unremarkable. Audiogram notable for bilateral downsloping to severe bilateral SNHL with asymmetry left worse vs right. Word recognition scores 64, 36%. Tympanometry unremarkable. Chart review shows prior audiogram 04/04/15, with bilateral downsloping SNHL into moderately severe on right, severe on left with left worse vs right. Patient not had prior head imaging in the past, she is advised that this is recommended. Patient adamantly declines having an MRI, states she would need to be put under general anesthesia. I did consult the case with Dr. Rodgers he advised given case details, patient age, it is reasonable to monitor hearing and defer imaging. Patient otherwise advised they would benefit from hearing aids; advised to contact insurance carrier to determine benefits/network, then to schedule with audiology for hearing aid fitting. Followup Return in about 6 months (around 04/28/2024) for repeat hearing, with [facility] for hearing aid evaluation. Mandi Lin PA-C Time: 30 minutes: Time includes preparation, obtaining/reviewing history, exam, interpreting results, ordering, counseling/education, referring/communicating and documentation. -Created using voice recognition software, some errors may have occurred. Corrections may be performed at a later date documented in this encounter [facility] 10-21-2023 History of Present illness Narrative HPI: Nirmala Bennett is a 82 year old female who presents with complaint of Follow Up. Pt with fatigue more than usual. Still working, stress level ok. Feels may be thyroid. Will check. Otherwise regular appointment. REVIEW OF SYSTEMS PAIN ASSESSMENT: Negative for pain, history of chronic pain, or current treatment for a chronic pain condition. GENERAL: No weight loss, malaise or fevers HEENT: Negative for frequent or significant headaches, No changes in hearing or vision, no nose bleeds or other nasal problems NECK: Negative for lumps, goiter, pain and significant neck swelling RESPIRATORY: Negative for cough, hemoptysis, wheezing or shortness of breath CARDIOVASCULAR: Negative for chest pain, leg swelling or palpitations GI: No nausea, vomiting, or diarrhea : No history of dysuria, frequency or incontinence ROUTE SPECIALIST: Negative for abnormal vaginal bleeding, abnormal vaginal discharge MUSCULOSKELETAL: Negative for joint pain or swelling, back pain or muscle pain SKIN: Negative for lesions, rash, and itching PSYCH: Negative for sleep disturbance, mood disorder and recent psychosocial stressors HEMATOLOGY/LYMPHOLOGY: Negative for prolonged bleeding, bruising easily or swollen nodes ENDOCRINE: Negative for cold or heat intolerance, polyuria, polydipsia and goiter NEURO: No history of headaches, syncope, paralysis, seizures or tremors ALLERGIES Allergen Reactions Claritin [Loratadin* Swelling Patient tolerated fexofenadine challenge 12/17/2022. Doxycycline Rash Fragrances Rash Positive patch test Prilosec [Omeprazol* Hives Bactrim [Sulfametho* Itching Ciprofloxacin Itching Clarithromycin Rash Other reaction(s): Other (See Comments), swells Swelling Clindamycin Itching Prednisone Itching Sulfa (Sulfonamide * Itching Current Outpatient Medications Medication Sig ferrous sulfate (FEROSUL) 325 mg (65 mg iron) tablet Take 1 tablet by mouth every morning. famotidine (PEPCID) 40 mg tablet Take 1 tablet by mouth once daily. ELIQUIS 5 mg tab(s) take one tablet twice daily amLODIPine (NORVASC) 10 mg tablet take one tablet every day fluticasone (FLONASE) 50 mcg/actuation nasal spray Use 2 Sprays in each nostril twice daily. folic acid 1 mg tablet take one tablet every day triamcinolone acetonide (KENALOG) 0.1 % cream Apply to affected areas twice a day for two weeks with flares acetaminophen (TYLENOL EXTRA STRENGTH ORAL) Take by mouth. levothyroxine (SYNTHROID) 50 mcg tablet TAKE ONE TABLET EVERY DAY glycerin ADULT suppository 1 Suppository by RECTAL route as needed. guaiFENesin (MUCINEX) 600 mg 12 hr tablet Take 1 tablet by mouth twice daily. hydroxychloroquine (PLAQUENIL) 200 mg tablet Take 1 tablet by mouth once daily. CHOLECALCIFEROL, VITAMIN D3, ORAL Take 2,000 Units by mouth once daily. Current Facility-Administered Medications Medication Dose Route Frequency cyanocobalamin 1,000 mcg injection 1,000 mcg INTRAMUSCULAR q 4 WEEKS PAST MEDICAL HISTORY Diagnosis Date Allergic rhinitis CVA (cerebral vascular accident) ([facility]) Right 1996 DVT (deep venous thrombosis) ([facility]) 3 clots in left leg; was on coumadin for years Hypertension Hypothyroidism Lupus (HCC) Rheumatoid arthritis(714.0) Sjogren's disease (HCC) TIA (transient ischemic attack) Vitamin D deficiency PAST SURGICAL HISTORY Procedure Laterality Date CATARACT EXTRACTION HX Right 12/02/2016 COLECTOMY TOTAL, POUCH PAST SURGICAL HISTORY OF Cosmetic surgery RHINOPLASTY TOE SURGERY HX Right 08/16/15 3,4, and 5 Hammertoe correction glb TONSILLECTOMY HX TOTAL ABDOMINAL HYSTERECT W/WO RMVL TUBE OVARY FAMILY HISTORY Problem Relation Age of Onset Hypertension Mother Cancer Mother Ischemic Heart Disease Father Hypertension Father Social History Tobacco Use Smoking status: Former Types: Cigarettes Quit date: 06/11/2002 Years since quittin.3 Smokeless tobacco: Never Vaping Use Vaping Use: Never used Substance Use Topics Alcohol use: Yes Alcohol/week: 2.0 standard drinks of alcohol Types: 2 Glasses of Wine (5oz) per week Comment: Social wine Drug use: No PHYSICAL EXAMINATION: BP 136/74 Pulse 72 Resp 12 Ht 5' 3 (1.60m) Wt 172 lb 6.4 oz (78.2kg) SpO2 94% BMI 30.55 kg/(m^2). General appearance: Well appearing, alert, in no acute distress, well-hydrated, well nourished. Head: Normocephalic, no masses, lesions, tenderness or abnormalities Eyes: Anicteric sclera. Pupils are equally round and reactive to light. Extraocular movements are intact. Ears: External ears normal, canals clear, TM's normal Nose/Sinuses: Nares normal, septum midline, mucosa normal, no drainage or sinus tenderness Oropharynx: Lips, mucosa, and tongue normal, teeth and gums normal, oropharynx normal Neck: Supple, no adenopathy; thyroid symmetric, normal size, no bruits Lungs: Lungs clear to auscultation. No wheezing, rhonchi, rales Heart: RRR without murmur, gallop, or rubs. No ectopy Abdomen: Normal abdominal exam, Abdomen soft, non-tender. Bowel sounds normal. No masses, organomegaly Extremities: No deformities, edema, skin discoloration, clubbing or cyanosis. Good capillary refill. Skin: Skin color, texture, turgor normal, no suspicious rashes or lesions Back: Normal exam Neuro: Gait normal. Reflexes normal and symmetric. Sensation grossly intact. ASSESSMENT/PLAN: 1. Fatigue, unspecified type - ICD9: 780.79, ICD10: R53.83 - URINALYSIS WITH MICROSCOPIC, REFLEX CULTURE - THYROID STIMULATING HORMONE - COMPLETE BLOOD COUNT AND DIFFERENTIAL Jose Armando Marquez MD documented in this encounter [facility] 10-13-2023 Miscellaneous Notes Patient called requesting the following refill Refill(s) Requested: Requested Prescriptions Pending Prescriptions Disp Refills ferrous sulfate (FEROSUL) 325 mg (65 mg iron) tablet 90 tablet 3 Sig: Take 1 tablet by mouth every morning. famotidine (PEPCID) 40 mg tablet 90 tablet 3 Sig: Take 1 tablet by mouth once daily. ALLERGIES Allergen Reactions Claritin [Loratadin* Swelling Patient tolerated fexofenadine challenge 12/17/2022. Doxycycline Rash Fragrances Rash Positive patch test Prilosec [Omeprazol* Hives Bactrim [Sulfametho* Itching Ciprofloxacin Itching Clarithromycin Rash Other reaction(s): Other (See Comments), swells Swelling Clindamycin Itching Prednisone Itching Sulfa (Sulfonamide * Itching (home) [phone] (cell) Last Office Visit Date: 09/19/2023 Last [facility] Visit: Visit date not found Future Appointment: 10/21/2023 The patients preferred pharmacy has been captured for this encounter? yes Request is for script(s) to be escript to pharmacy. Gustabo Yap MA documented in this encounter [facility] 10-07-2023 Miscellaneous Notes Referral to ENT to dr. Baez faxed to [phone], in scanned documents documented in this encounter [facility] 10-03-2023 Miscellaneous Notes Discussed with pt Thought he was retired. Will consult Dr. Baez. Pt is wanting to see an ENT and ours is scheduling into March. Pt is asking if you have ever heard of a Dr. Cortes? Someone recommended him documented in this encounter [facility] 09-23-2023 Miscellaneous Notes PT NOTIFIED, STATES SHE WILL PROBABLY STAY HOME REST OF WEEK WILL LET US KNOW IF SHE NEEDS ANYTHING Ok to cut dose in half. MESSAGE GIVEN TO PT, STATES WHEN ON AMOXICILLIN STATES GETS A HEAVINESS ON HER CHEST, ASKING IF SHE CAN CUT IT IN HALF OR DOWN TO ONCE A DAY SHE DOES NOT FUNCTION VERY WELL ASKING FOR DR. MARQUEZ RECOMMENDATIONS STATES HE KNOW SHE CAN'T TAKE MEDICATIONS WELL. STATES HAD ALL KINDS OF HEART TESTS DONE AND HER HEART IS FINE. STATES SHE IS PROBABLY GOING TO TAKE THE REST OF THIS WEEK OFF WORK STATES HAS PTO TIME SO SHE WILL BE PAID BUT SHE CAN NOT FUNCTION TO WORK WHILE ON A STRONG DOSE OF AMOXICILLIN PLEASE ADVISE IMPRESSION IMPRESSION: Positive proximal DVT and superficial thrombus in the left lower extremity. These areas of thrombus were reported to be present also on a prior outside hospital report from 12/17/2018, images not available for direct comparison. Based on today's appearance and the prior report, this may all represent chronic thrombus. Negative study for calf DVT in the left lower extremity. PLEASE NOTIFY HER CLOT STILL THERE UNCHANGED MUST CONTINUE HER Bella TIPTON APRN.[facility] documented in this encounter [facility] 09-19-2023 History of Present illness Narrative Radiology Service Progress Note PATIENT NAME: Nirmala Bennett DATE OF SERVICE: September 19, 2023 TIME: 5:32 PM PATIENT IDENTITY VERIFICATION COMPLETED USING TWO (2) IDENTIFIERS: Name and Date of confirmed by patient verbally. FALL SCREENING: Has the patient had 2 falls in the last year or 1 fall with injury or currently using an Ambulatory Assistive Device (Walker, Cane, Wheelchair, Crutches, etc.)? No PATIENT GENDER DATA: Female. status: : No status: N/A PATIENT RELEVANT IMPLANT DATA REVIEWED: Not Applicable PATIENT PRESENTS WITH AN IMPLANTABLE OR ATTACHED HOSPITAL CORPSMAN: No RADIOLOGY DEPARTMENT: Ultrasound PERIPHERAL IV DATA: Not applicable SIGNED BY: RT Alessandro(R) September 19, 2023 5:32 PM documented in this encounter [facility] 09-19-2023 Instructions Bella Cazares APRN.[facility] - 09/19/2023 2:45 PM EDT ASSESSMENT/PLAN: 1. History of DVT (deep vein thrombosis) - ICD9: V12.51, ICD10: Z86.718 (primary diagnosis) - US DVT LOWER LEFT 2. Patient noncompliant with anticoagulant medication - ICD9: V15.81, ICD10: Z91.148 - US DVT LOWER LEFT 3. Acute non-recurrent pansinusitis - ICD9: 461.8, ICD10: J01.40 What is sinusitis? -- Sinusitis is a condition that can cause a stuffy nose, pain in the face, and yellow or green discharge (mucus) from the nose. The sinuses are hollow areas in the bones of the face (figure 1). They have a thin lining that normally makes a small amount of mucus. When this lining gets infected, it swells and makes extra mucus. This causes symptoms. Sinusitis can occur when a person gets sick with a cold. The germs causing the cold can also infect the sinuses. Many times, a person feels like his or her cold is getting better. But then he or she gets sinusitis and begins to feel sick again. What are the symptoms of sinusitis? -- Common symptoms of sinusitis include: ?Stuffy or blocked nose ?Thick yellow or green discharge from the nose ?Pain in the teeth ?Pain or pressure in the face - This often feels worse when a person bends forward. People with sinusitis can also have other symptoms that include: ?Fever ?Cough ?Trouble smelling ?Ear pressure or fullness ?Headache ?Bad breath ?Feeling tired Most of the time, symptoms start to improve in 7 to 10 days. Should I see a doctor or nurse? -- See your doctor or nurse if your symptoms last more than 10 days, or if your symptoms get better at first but then get worse. Sometimes, sinusitis can lead to serious problems. See your doctor or nurse right away (do not wait 10 days) if you have: ?Fever higher than 102 F (38.9 C) ?Sudden and severe pain in the face and head ?Trouble seeing or seeing double ?Trouble thinking clearly ?Swelling or redness around one or both eyes ?A stiff neck Is there anything I can do on my own to feel better? -- Yes. To reduce your symptoms, you can: ?Take an kkyw-xdg-wawryei pain reliever to reduce the pain ?Rinse your nose and sinuses with salt water a few times a day - Ask your doctor or nurse about the best way to do this. Antihistamines do not improve symptoms of sinusitis. Common antihistamines include diphenhydramine (sample brand name: Benadryl), chlorpheniramine (sample brand name: Chlor-Trimeton), loratadine (sample brand name: Claritin), and cetirizine (sample brand name: Zyrtec). They can treat allergies, but not sinus infections, and could increase your discomfort by drying the lining of your nose and sinuses, or making you tired. Your doctor might also prescribe a steroid nose spray to reduce the swelling in your nose. (Steroid nose sprays do not contain the same steroids that athletes take to build muscle.) How is sinusitis treated? -- Most of the time, sinusitis does not need to be treated with antibiotic medicines. This is because most sinusitis is caused by viruses - not bacteria - and antibiotics do not kill viruses. Many people get over sinus infections without antibiotics. Some people with sinusitis do need treatment with antibiotics. If your symptoms have not improved after 10 days, ask your doctor if you should take antibiotics. Your doctor might recommend that you wait 1 more week to see if your symptoms improve. But if you have symptoms such as a fever or a lot of pain, he or she might prescribe antibiotics. It is important to follow your doctor's instructions about taking your antibiotics. What if my symptoms do not get better? -- If your symptoms do not get better, talk with your doctor or nurse. He or she might order tests to figure out why you still have symptoms. These can include: ?CT scan or other imaging tests - Imaging tests create pictures of the inside of the body. ?A test to look inside the sinuses - For this test, a doctor puts a thin tube with a camera on the end into the nose and up into the sinuses. Some people get a lot of sinus infections or have symptoms that last at least 3 months. These people can have a different type of sinusitis called chronic sinusitis. Chronic sinusitis can be caused by different things. For example, some people have growths in their nose or sinuses that are called polyps. Other people have allergies that cause their symptoms. Chronic sinusitis can be treated in different ways. If you have chronic sinusitis, talk with your doctor about which treatments are right for you. - AMOXICILLIN 875 MG TABLET 4. Left ear pain - ICD9: 388.70, ICD10: H92.02 - AMOXICILLIN 875 MG TABLET Bella Cazares APRN.[employer] documented in this encounter [facility] 09-19-2023 History of Present illness Narrative Nirmala Bennett is a 82 year old female who presents for Same Day Appointment (Discuss possible sinus infection, cough,left ear pain, and headache (going on for 10 days)) Here for concerns of illness. Has not taken a home covid test. Denies sick exposures. Admits dehydrated not taking water in. She has tried for her illness - tylenol- Magdalena ear drops for tinnitus. Left ear pain History of blood clots in the past has been on eliquis. Has leg swelling and pain. She wears a compression stocking. She thinks when sick it affects her leg. She did stop the eliquis for a few days. The history is provided by the patient. No language and literature division chair was used. Illness Episode onset: 10 days. Associated symptoms include congestion, ear pain and headaches. Pertinent negatives include no fever, no eye itching, no diarrhea, no nausea, no vomiting, no ear discharge, no sore throat, no stridor, no cough, no wheezing, no eye discharge, no eye pain and no eye redness. She has been Eating and drinking normally. Last 3 Encounter BP Readings: Date: BP: 09/19/2023 136/74 08/19/2023 150/76 03/10/2023 124/69 Last 2 Encounter Wt Readings: Date: Wt: 09/19/2023 77.6 kg (171 lb) 08/19/2023 78.7 kg (173 lb 6.4 oz) BP 136/74 Pulse 84 Temp 98.1 Resp 16 Ht 5' 3 (1.60m) Wt 171 lb (77.6kg) SpO2 95% BMI 30.30 kg/(m^2). PAST MEDICAL HISTORY Diagnosis Date Allergic rhinitis CVA (cerebral vascular accident) ([facility]) Right 1996 DVT (deep venous thrombosis) ([facility]) 3 clots in left leg; was on coumadin for years Hypertension Hypothyroidism Lupus (HCC) Rheumatoid arthritis(714.0) Sjogren's disease ([facility]) TIA (transient ischemic attack) Vitamin D deficiency PAST SURGICAL HISTORY Procedure Laterality Date CATARACT EXTRACTION HX Right 12/02/2016 COLECTOMY TOTAL, POUCH PAST SURGICAL HISTORY OF Cosmetic surgery RHINOPLASTY TOE SURGERY HX Right 08/16/15 3,4, and 5 Hammertoe correction glb TONSILLECTOMY HX TOTAL ABDOMINAL HYSTERECT W/WO RMVL TUBE OVARY Social History Tobacco Use Smoking status: Former Types: Cigarettes Quit date: 06/11/2002 Years since quittin.2 Smokeless tobacco: Never Vaping Use Vaping Use: Never used Substance Use Topics Alcohol use: Yes Alcohol/week: 2.0 standard drinks of alcohol Types: 2 Glasses of Wine (5oz) per week Comment: Social wine Drug use: No Family history reviewed. ALLERGIES Allergen Reactions Claritin [Loratadin* Swelling Patient tolerated fexofenadine challenge 12/17/2022. Doxycycline Rash Fragrances Rash Positive patch test Prilosec [Omeprazol* Hives Bactrim [Sulfametho* Itching Ciprofloxacin Itching Clarithromycin Rash Other reaction(s): Other (See Comments), swells Swelling Clindamycin Itching Prednisone Itching Sulfa (Sulfonamide * Itching Current Outpatient Medications Medication Sig ELIQUIS 5 mg tab(s) take one tablet twice daily amLODIPine (NORVASC) 10 mg tablet take one tablet every day fluticasone (FLONASE) 50 mcg/actuation nasal spray Use 2 Sprays in each nostril twice daily. folic acid 1 mg tablet take one tablet every day triamcinolone acetonide (KENALOG) 0.1 % cream Apply to affected areas twice a day for two weeks with flares hydrocortisone 2.5 % cream Apply twice daily to affected areas on face for 2 weeks acetaminophen (TYLENOL EXTRA STRENGTH ORAL) Take by mouth. hydrocortisone (ANUSOL-HC) 2.5 % rectal cream by RECTAL route twice daily. levothyroxine (SYNTHROID) 50 mcg tablet TAKE ONE TABLET EVERY DAY glycerin ADULT suppository 1 Suppository by RECTAL route as needed. FEROSUL 325 mg (65 mg iron) tablet TAKE ONE TABLET EVERY MORNING guaiFENesin (MUCINEX) 600 mg 12 hr tablet Take 1 tablet by mouth twice daily. hydroxychloroquine (PLAQUENIL) 200 mg tablet Take 1 tablet by mouth once daily. CHOLECALCIFEROL, VITAMIN D3, ORAL Take 2,000 Units by mouth once daily. Current Facility-Administered Medications Medication Dose Route Frequency cyanocobalamin 1,000 mcg injection 1,000 mcg INTRAMUSCULAR q 4 WEEKS Review of Systems Constitutional: Positive for chills and diaphoresis. Negative for fever. HENT: Positive for congestion, ear pain, sinus pain and tinnitus. Negative for ear discharge and sore throat. Post nasal drip, lose of taste, and voice is raspy Eyes: Negative for pain, discharge, redness and itching. Has red eyes and uses systane Respiratory: Negative for cough, hemoptysis, sputum production, shortness of breath, wheezing and stridor. Gastrointestinal: Negative for diarrhea, nausea and vomiting. Neurological: Positive for headaches. Physical Exam Vitals reviewed. Constitutional: Appearance: Normal appearance. HENT: Head: Normocephalic and atraumatic. Right Ear: Tympanic membrane, ear canal and external ear normal. There is no impacted cerumen. Left Ear: Tympanic membrane, ear canal and external ear normal. There is no impacted cerumen. Nose: Congestion and rhinorrhea present. Mouth/Throat: Mouth: Mucous membranes are moist. Eyes: Conjunctiva/sclera: Conjunctivae normal. Pupils: Pupils are equal, round, and reactive to light. Cardiovascular: Rate and Rhythm: Normal rate and regular rhythm. Pulses: Normal pulses. Pulmonary: Effort: Pulmonary effort is normal. No respiratory distress. Breath sounds: Normal breath sounds. Abdominal: General: Bowel sounds are normal. Palpations: Abdomen is soft. Musculoskeletal: Cervical back: Normal range of motion and neck supple. Left lower leg: Edema present. Lymphadenopathy: Cervical: No cervical adenopathy. Skin: General: Skin is warm and dry. Neurological: Mental Status: She is alert and oriented to person, place, and time. Psychiatric: Mood and Affect: Mood normal. Behavior: Behavior normal. Thought Content: Thought content normal. Judgment: Judgment normal. ASSESSMENT/PLAN: 1. History of DVT (deep vein thrombosis) - ICD9: V12.51, ICD10: Z86.718 (primary diagnosis) - US DVT LOWER LEFT 2. Patient noncompliant with anticoagulant medication - ICD9: V15.81, ICD10: Z91.148 - US DVT LOWER LEFT 3. Acute non-recurrent pansinusitis - ICD9: 461.8, ICD10: J01.40 What is sinusitis? -- Sinusitis is a condition that can cause a stuffy nose, pain in the face, and yellow or green discharge (mucus) from the nose. The sinuses are hollow areas in the bones of the face (figure 1). They have a thin lining that normally makes a small amount of mucus. When this lining gets infected, it swells and makes extra mucus. This causes symptoms. Sinusitis can occur when a person gets sick with a cold. The germs causing the cold can also infect the sinuses. Many times, a person feels like his or her cold is getting better. But then he or she gets sinusitis and begins to feel sick again. What are the symptoms of sinusitis? -- Common symptoms of sinusitis include: ?Stuffy or blocked nose ?Thick yellow or green discharge from the nose ?Pain in the teeth ?Pain or pressure in the face - This often feels worse when a person bends forward. People with sinusitis can also have other symptoms that include: ?Fever ?Cough ?Trouble smelling ?Ear pressure or fullness ?Headache ?Bad breath ?Feeling tired Most of the time, symptoms start to improve in 7 to 10 days. Should I see a doctor or nurse? -- See your doctor or nurse if your symptoms last more than 10 days, or if your symptoms get better at first but then get worse. Sometimes, sinusitis can lead to serious problems. See your doctor or nurse right away (do not wait 10 days) if you have: ?Fever higher than 102 F (38.9 C) ?Sudden and severe pain in the face and head ?Trouble seeing or seeing double ?Trouble thinking clearly ?Swelling or redness around one or both eyes ?A stiff neck Is there anything I can do on my own to feel better? -- Yes. To reduce your symptoms, you can: ?Take an rbxn-mgn-idzedhm pain reliever to reduce the pain ?Rinse your nose and sinuses with salt water a few times a day - Ask your doctor or nurse about the best way to do this. Antihistamines do not improve symptoms of sinusitis. Common antihistamines include diphenhydramine (sample brand name: Benadryl), chlorpheniramine (sample brand name: Chlor-Trimeton), loratadine (sample brand name: Claritin), and cetirizine (sample brand name: Zyrtec). They can treat allergies, but not sinus infections, and could increase your discomfort by drying the lining of your nose and sinuses, or making you tired. Your doctor might also prescribe a steroid nose spray to reduce the swelling in your nose. (Steroid nose sprays do not contain the same steroids that athletes take to build muscle.) How is sinusitis treated? -- Most of the time, sinusitis does not need to be treated with antibiotic medicines. This is because most sinusitis is caused by viruses - not bacteria - and antibiotics do not kill viruses. Many people get over sinus infections without antibiotics. Some people with sinusitis do need treatment with antibiotics. If your symptoms have not improved after 10 days, ask your doctor if you should take antibiotics. Your doctor might recommend that you wait 1 more week to see if your symptoms improve. But if you have symptoms such as a fever or a lot of pain, he or she might prescribe antibiotics. It is important to follow your doctor's instructions about taking your antibiotics. What if my symptoms do not get better? -- If your symptoms do not get better, talk with your doctor or nurse. He or she might order tests to figure out why you still have symptoms. These can include: ?CT scan or other imaging tests - Imaging tests create pictures of the inside of the body. ?A test to look inside the sinuses - For this test, a doctor puts a thin tube with a camera on the end into the nose and up into the sinuses. Some people get a lot of sinus infections or have symptoms that last at least 3 months. These people can have a different type of sinusitis called chronic sinusitis. Chronic sinusitis can be caused by different things. For example, some people have growths in their nose or sinuses that are called polyps. Other people have allergies that cause their symptoms. Chronic sinusitis can be treated in different ways. If you have chronic sinusitis, talk with your doctor about which treatments are right for you. - AMOXICILLIN 875 MG TABLET 4. Left ear pain - ICD9: 388.70, ICD10: H92.02 - AMOXICILLIN 875 MG TABLET WES Howard APRN.CNP No follow-ups on file. Discussed above plan with patient. Pt agreeable with above plan. documented in this encounter [facility] 09-17-2023 Nurse Note Patient has been identified by name and date of : Yes Nirmala is here for an injection of Vitamin B12 Dose: 1 mL Route: Intramuscular Given without incident. Site: left deltoid Community Resource Officer: [employer]. Lot #: [id number] [facility] #: [id number] Expiration Date: 02/2025 Dr. Marquez present in clinic at time of injection. Doug Jo Ma documented in this encounter [facility] 09-17-2023 Miscellaneous Notes [facility] returned the patients PT Order requesting for us to include Evaluate and treat as well as the Dx, however all of the above has already been placed on the original order, will disregard. Alee Calderon CMA documented in this encounter [facility] 09-15-2023 Miscellaneous Notes Pharmacy faxed requesting the following refill Refill(s) Requested: Requested Prescriptions Pending Prescriptions Disp Refills ELIQUIS 5 mg tab(s) [Pharmacy Med Name: Eliquis 5 mg tablet] 60 tablet 11 Sig: take one tablet twice daily ALLERGIES Allergen Reactions Claritin [Loratadin* Swelling Patient tolerated fexofenadine challenge 12/17/2022. Doxycycline Rash Fragrances Rash Positive patch test Prilosec [Omeprazol* Hives Bactrim [Sulfametho* Itching Ciprofloxacin Itching Clarithromycin Rash Other reaction(s): Other (See Comments), swells Swelling Clindamycin Itching Prednisone Itching Sulfa (Sulfonamide * Itching (home) [phone] (cell) Last Office Visit Date: 08/19/2023 Last [facility] Visit: Visit date not found Future Appointment: 02/17/2024 The patients preferred pharmacy has been captured for this encounter? yes Request is for script(s) to be escript to pharmacy. Maureen Corrales MA documented in this encounter [facility] 08-20-2023 Miscellaneous Notes Physical Therapy Referral (and other pertinent documentation) faxed to [facility] (Faxed # [phone]. # [phone]) on August 20, 2023 Alee Calderon CMA documented in this encounter [facility] 08-19-2023 History of Present illness Narrative HPI: Nirmala Bennett is a 82 year old female who presents with complaint of F/U 6 Month (Review Labs). Pt with some increased back/shoulder pain, trial PT. Also feels a UTI coming on. Check UA. Trial keflex. Reviewed labs which were good. Check again in 6 months. REVIEW OF SYSTEMS PAIN ASSESSMENT: Negative for pain, history of chronic pain, or current treatment for a chronic pain condition. GENERAL: No weight loss, malaise or fevers HEENT: Negative for frequent or significant headaches, No changes in hearing or vision, no nose bleeds or other nasal problems NECK: Negative for lumps, goiter, pain and significant neck swelling RESPIRATORY: Negative for cough, hemoptysis, wheezing or shortness of breath CARDIOVASCULAR: Negative for chest pain, leg swelling or palpitations GI: No nausea, vomiting, or diarrhea : No history of dysuria, frequency or incontinence ROUTE SPECIALIST: Negative for abnormal vaginal bleeding, abnormal vaginal discharge MUSCULOSKELETAL: see hpi SKIN: Negative for lesions, rash, and itching PSYCH: Negative for sleep disturbance, mood disorder and recent psychosocial stressors HEMATOLOGY/LYMPHOLOGY: Negative for prolonged bleeding, bruising easily or swollen nodes ENDOCRINE: Negative for cold or heat intolerance, polyuria, polydipsia and goiter NEURO: No history of headaches, syncope, paralysis, seizures or tremors ALLERGIES Allergen Reactions Claritin [Loratadin* Swelling Patient tolerated fexofenadine challenge 12/17/2022. Doxycycline Rash Fragrances Rash Positive patch test Prilosec [Omeprazol* Hives Bactrim [Sulfametho* Itching Ciprofloxacin Itching Clarithromycin Rash Other reaction(s): Other (See Comments), swells Swelling Clindamycin Itching Prednisone Itching Sulfa (Sulfonamide * Itching Current Outpatient Medications Medication Sig amLODIPine (NORVASC) 10 mg tablet take one tablet every day fluticasone (FLONASE) 50 mcg/actuation nasal spray Use 2 Sprays in each nostril twice daily. folic acid 1 mg tablet take one tablet every day triamcinolone acetonide (KENALOG) 0.1 % cream Apply to affected areas twice a day for two weeks with flares hydrocortisone 2.5 % cream Apply twice daily to affected areas on face for 2 weeks acetaminophen (TYLENOL EXTRA STRENGTH ORAL) Take by mouth. famotidine (PEPCID) 40 mg tablet Take 1 tablet by mouth once daily. hydrocortisone (ANUSOL-HC) 2.5 % rectal cream by RECTAL route twice daily. levothyroxine (SYNTHROID) 50 mcg tablet TAKE ONE TABLET EVERY DAY ELIQUIS 5 mg tab(s) TAKE ONE TABLET TWICE DAILY glycerin ADULT suppository 1 Suppository by RECTAL route as needed. FEROSUL 325 mg (65 mg iron) tablet TAKE ONE TABLET EVERY MORNING guaiFENesin (MUCINEX) 600 mg 12 hr tablet Take 1 tablet by mouth twice daily. hydroxychloroquine (PLAQUENIL) 200 mg tablet Take 1 tablet by mouth once daily. CHOLECALCIFEROL, VITAMIN D3, ORAL Take 2,000 Units by mouth once daily. cephALEXin (KEFLEX) 500 mg capsule Take 1 capsule by mouth two times a day for 5 days. Current Facility-Administered Medications Medication Dose Route Frequency cyanocobalamin 1,000 mcg injection 1,000 mcg INTRAMUSCULAR q 4 WEEKS PAST MEDICAL HISTORY Diagnosis Date Allergic rhinitis CVA (cerebral vascular accident) ([facility]) Right 1996 DVT (deep venous thrombosis) ([facility]) 3 clots in left leg; was on coumadin for years Hypertension Hypothyroidism Lupus (HCC) Rheumatoid arthritis(714.0) Sjogren's disease (HCC) TIA (transient ischemic attack) Vitamin D deficiency PAST SURGICAL HISTORY Procedure Laterality Date CATARACT EXTRACTION HX Right 12/02/2016 COLECTOMY TOTAL, POUCH PAST SURGICAL HISTORY OF Cosmetic surgery RHINOPLASTY TOE SURGERY HX Right 08/16/15 3,4, and 5 Hammertoe correction glb TONSILLECTOMY HX TOTAL ABDOMINAL HYSTERECT W/WO RMVL TUBE OVARY FAMILY HISTORY Problem Relation Age of Onset Ischemic Heart Disease Father Hypertension Father Hypertension Mother Cancer Mother Social History Tobacco Use Smoking status: Former Types: Cigarettes Quit date: 06/11/2002 Years since quittin.2 Smokeless tobacco: Never Vaping Use Vaping Use: Never used Substance Use Topics Alcohol use: Yes Alcohol/week: 2.0 standard drinks of alcohol Types: 2 Glasses of Wine (5oz) per week Drug use: No PHYSICAL EXAMINATION: BP 150/76 Pulse 64 Resp 12 Ht 5' 3 (1.60m) Wt 173 lb 6.4 oz (78.7kg) SpO2 97% BMI 30.72 kg/(m^2). General appearance: Well appearing, alert, in no acute distress, well-hydrated, well nourished. Head: Normocephalic, no masses, lesions, tenderness or abnormalities Eyes: Anicteric sclera. Pupils are equally round and reactive to light. Extraocular movements are intact. Ears: External ears normal, canals clear, TM's normal Nose/Sinuses: Nares normal, septum midline, mucosa normal, no drainage or sinus tenderness Oropharynx: Lips, mucosa, and tongue normal, teeth and gums normal, oropharynx normal Neck: Supple, no adenopathy; thyroid symmetric, normal size, no bruits Lungs: few bibasilar crackles Heart: RRR without murmur, gallop, or rubs. No ectopy Abdomen: Normal abdominal exam, Abdomen soft, non-tender. Bowel sounds normal. No masses, organomegaly Extremities: No deformities, edema, skin discoloration, clubbing or cyanosis. Good capillary refill. Skin: Skin color, texture, turgor normal, no suspicious rashes or lesions Back: Normal exam Neuro: Gait normal. Reflexes normal and symmetric. Sensation grossly intact. ASSESSMENT/PLAN: 1. Acute right-sided low back pain with sciatica, sciatica laterality unspecified - ICD9: 724.2, 724.3, ICD10: M54.40 (primary diagnosis) Chronic low back pain - Follow up in with me or sooner if symptoms persist or worsen - CONSULT TO PHYSICAL THERAPY 2. Shoulder pain, unspecified chronicity, unspecified laterality - ICD9: 719.41, ICD10: M25.519 - CONSULT TO PHYSICAL THERAPY 3. Acute cystitis without hematuria - ICD9: 595.0, ICD10: N30.00 - URINALYSIS WITH MICROSCOPIC, REFLEX CULTURE - URINALYSIS, WITH MICROSCOPIC 4. Preventative health care - ICD9: V70.0, ICD10: Z00.00 - Counseled on healthy diet and regular exercise - Calcium intake with supplements or by diet of 1000 mg/day for under 50, 7185-6053 mg/day for 50+ - ALT/SGPT - BASIC METABOLIC PNL - CBC + DIFF - LIPID PANEL BASIC - TSH BLD - URINALYSIS, WITH MICROSCOPIC 5. Fatigue, unspecified type - ICD9: 780.79, ICD10: R53.83 - CBC + DIFF - TSH BLD 6. Borderline hypercholesterolemia - ICD9: 272.0, ICD10: E78.00 - ALT/SGPT - LIPID PANEL BASIC 7. Primary hypertension - ICD9: 401.9, ICD10: I10 - Controlled - Recommend home blood pressure monitoring, to bring results to next visit - Encouraged sodium restriction, DASH or Mediterranean diet - Recommend regular aerobic exercise - BASIC METABOLIC PNL Jose Armando Maruqez MD documented in this encounter [facility] 02-01-2024 Nurse Note Patient has been identified by name and date of : Yes Nirmala is here for an injection of Vitamin B12 Dose: 1000 mcg Route: Intramuscular Given without incident. Site: left deltoid Community Resource Officer: [employer]. Lot #: [id number] [facility] #: [id number] Expiration Date: 02/21 Dr. marquez present in clinic at time of injection. The date due for the next injection is 28 days. Gustabo Yap MA documented in this encounter [facility] 05-27-2023 Miscellaneous Notes Last ov 03/10/2023 with Daksha documented in this encounter [facility] 04-29-2023 Note HNO ID: [id number] Author: Ferdinand Blake MD Service: ? Author Type: Physician Type: Progress Notes Filed: 04/29/2023 3:44 PM Note Text: Chief Complaint: Patch test follow up History of Present Ilness: Nirmala Bennett is a 82 year old female Patient is here for: 1) Patch test follow up - Improved today - Works at [employer] and is around many different fabrics and has started itching on face, ears and hands. - Eyes get itchy - Co workers are experiencing the same issues - No symptoms at home - Allergic to fragrances Has since changed all hair and cosmetic products after the patch testing visit. Has improved but still has the rash. No rash today. Reports that last night she had a rash on her hands after working. Current treatment - none Past treatments - none Pertinent Past Medical History: History of skin cancer or atypical nevi No Specialty Problems Dermatology Problems Chronic urticaria Pertinent Family medical history: History of melanoma No Review of Systems: Constitutional: Denies fever, chills, night sweats, unintentional weight loss. Skin per HPI. No other new/concerning skin growth. Physical Exam: General: well appearing, of stated age, in no acute distress Neurology: alert and oriented times three Psychiatry: in a happy mood Skin: Valenzuela skin type: II Skin exam performed of face, scalp, ears, eyelids, lips, neck, bilateral hands. Skin exam normal with the exception of: - bilateral dorsal hands with thin scaly plaques - rest of exam is clear Assessment and Plan: 1. Dermatitis - discussed that we suspect irritant contact dermatitis (multiple coworkers also have experienced this - dry skin handout given - discussed prevention methods for dry skin - Start hydrocortisone 2.5% to affected areas on face up to twice daily for 2 weeks as needed for flares - Start triamcinolone 0.1% ointment to use twice daily to affected areas for 2 weeks. Avoid use on face, armpits, and groin. Return to clinic as needed or sooner if something concerning arises. The documentation for this note was completed by Rebeka Roland LPN acting as scribe for Naima Still MD. April 29, 2023 11:12 AM. Rebeka Roland LPN I agree with the Chief Complaint, ROS, and Past Histories independently gathered by the clinical technical support engineer and the remaining scribed note accurately describes my personal service to the patient. Naima Still MD April 29, 2023 I was present during the critical/shea portions of this encounter and during procedures and I agree with the evaluation, assessment, and treatment as outlined. Chart reviewed and care discussed with patient and other involved physicians. est pt h/o derm, hands and face but nothing this am discussed perhaps simply irritant phenomenon emollinets topoical steroids if/when indicated if recurrent, then perhaps patches again RV prn Ferdinand Blake MD [facility] 04-29-2023 History of Present illness Narrative Chief Complaint: Patch test follow up History of Present Ilness: Nirmala Bennett is a 82 year old female Patient is here for: 1) Patch test follow up - Improved today - Works at [employer] and is around many different fabrics and has started itching on face, ears and hands. - Eyes get itchy - Co workers are experiencing the same issues - No symptoms at home - Allergic to fragrances Has since changed all hair and cosmetic products after the patch testing visit. Has improved but still has the rash. No rash today. Reports that last night she had a rash on her hands after working. Current treatment - none Past treatments - none Pertinent Past Medical History: History of skin cancer or atypical nevi No Specialty Problems Dermatology Problems Chronic urticaria Pertinent Family medical history: History of melanoma No Review of Systems: Constitutional: Denies fever, chills, night sweats, unintentional weight loss. Skin per HPI. No other new/concerning skin growth. Physical Exam: General: well appearing, of stated age, in no acute distress Neurology: alert and oriented times three Psychiatry: in a happy mood Skin: Valenzuela skin type: II Skin exam performed of face, scalp, ears, eyelids, lips, neck, bilateral hands. Skin exam normal with the exception of: - bilateral dorsal hands with thin scaly plaques - rest of exam is clear Assessment and Plan: 1. Dermatitis - discussed that we suspect irritant contact dermatitis (multiple coworkers also have experienced this - dry skin handout given - discussed prevention methods for dry skin - Start hydrocortisone 2.5% to affected areas on face up to twice daily for 2 weeks as needed for flares - Start triamcinolone 0.1% ointment to use twice daily to affected areas for 2 weeks. Avoid use on face, armpits, and groin. Return to clinic as needed or sooner if something concerning arises. The documentation for this note was completed by Rebeka Roland LPN acting as scribe for Naima Still MD. April 29, 2023 11:12 AM. Rebeka Roland LPN I agree with the Chief Complaint, ROS, and Past Histories independently gathered by the clinical technical support engineer and the remaining scribed note accurately describes my personal service to the patient. Naima Still MD April 29, 2023 I was present during the critical/shea portions of this encounter and during procedures and I agree with the evaluation, assessment, and treatment as outlined. Chart reviewed and care discussed with patient and other involved physicians. est pt h/o derm, hands and face but nothing this am discussed perhaps simply irritant phenomenon emollinets topoical steroids if/when indicated if recurrent, then perhaps patches again RV prn Ferdinand Blake MD documented in this encounter [facility] 03-10-2023 Instructions Daksha Ellis PA-C - 03/10/2023 3:12 PM EDT Images from the original note were not included. Acute Sinusitis Each of us has four paired cavities (spaces) in our head that are connected to the nose by narrow channels. These cavities, known as sinuses, produce thin mucus that drains out of the channels of the nose. This drainage helps keep the nose clean and free of particles and bacteria. Normally, sinuses are filled with air. But when sinuses become blocked and filled with fluid, bacteria can grow and cause an infection (bacterial sinusitis). Conditions that cause sinus blockage include: the common cold allergic rhinitis (swelling of the lining of the nose due to allergies) nasal polyps (small growths in the lining of the nose), or a deviated septum (the wall between the left and right nostril is crooked). Allergies, such as hay fever, can also cause swelling and poor drainage of the sinuses. One confusing factor to consider is that many people with sinus headaches are actually suffering from migraines. In fact, in large clinical studies, up to 90% of people who reported sinus headaches were diagnosed with migraines instead. Migraines can cause headaches in combination with facial pressure over the sinuses, a runny nose, and nasal congestion. If you have symptoms that involve the sinuses, it may be difficult to tell if you have sinusitis, a cold, nasal allergy, or even a migraine. This article will describe the symptoms, diagnosis, and treatment of sinusitis, and how to tell the difference between sinusitis, cold, migraines, and nasal allergy. What is sinusitis? Sinusitis is an inflammation, or swelling, of the tissue lining the sinuses. There are two types of sinusitis: Acute bacterial sinusitis: a sudden onset of cold symptoms such as runny nose, stuffy nose, and facial pain that does not go away after 10 days, or symptoms that seem to begin improving but return worse than the initial symptoms. It responds well to antibiotics and decongestants. Chronic sinusitis: a condition defined by nasal congestion, drainage, facial pain/pressure, and decreased sense of smell for at least 12 weeks. Who gets sinusitis? Every year, approximately 1 billion Americans have at least one episode of viral sinusitis. About 37 million will develop a bacterial sinusitis. People who have the following conditions have a higher risk of sinusitis: Nasal mucus membrane swelling, as from a common cold or allergies Blockage of drainage ducts, leading to trapping of mucus Structure differences that narrow the drainage ducts Conditions that result in an increased risk of infection Polyps (growths) In children, common factors in the environment that contribute to sinusitis include allergies, illness from other children at day care or school, and smoke in the environment. In adults, the contributing factors are most frequently viral infections, allergies, and smoking. What are the signs and symptoms of acute sinusitis? The primary symptoms of acute sinusitis include: Facial pain/pressure/tenderness Nasal stuffiness Nasal discharge (thick yellow or green discharge from nose), especially if it is long-lasting Loss of smell and taste Cough/congestion Additional symptoms may include: Fever of 102 or higher Ear pain Headache Bad breath Fatigue Ache in upper jaw and teeth How is sinusitis diagnosed? To diagnose sinusitis, your doctor will discuss your symptoms and examine your nose for swelling and drainage. Your personal history is most important in diagnosing sinusitis. A physical exam of the ears, nose, and throat is performed to look for signs of obstruction (blockage) or infection. An endoscope (a small lighted/optical instrument) may be used to look inside the nose. In general, X-rays or CT scans do not play any role in the diagnosis of acute sinusitis. Some patients may have conditions that may need to be referred to a specialist, such as an ear, nose, and throat (ENT) physician. Additional diagnostic tests may be needed. Tests for these more complicated cases may include cultures, allergy testing, CT scan of the sinuses, or nasal endoscopy. Nasal endoscopy allows doctors to look directly inside the nose to see sinus drainage pathways. How is sinusitis treated? Acute sinusitis. If you have a simple sinusitis infection, your health care provider may recommend treatment with decongestants like Sudafed and opmk-nrr-poycsug medications for cold and allergy, nasal saline irrigation, and drinking fluids (as most sinusitis is viral). If symptoms do not improve after at least 10 days, if the symptoms seem to be getting worse, or if medications for cold or allergy do not improve symptoms, a bacterial infection may be causing the sinusitis. In this case, antibiotics are given for 7 days in adults and 10 days in children. Antibiotics should improve symptoms within 48 hours. Oral or topical decongestants may be prescribed to relieve symptoms. Use of prescription intranasal steroid sprays might be added to help control symptoms. However, non-prescription drops or sprays should not be used beyond 5 days -- or they may actually increase congestion. Chronic sinusitis. Treating chronic sinusitis begins with controlling the underlying condition, which is most often allergies. Standard treatments include intranasal steroid sprays, topical antihistamine sprays, or antihistamine pills, and leukotriene antagonists such as montelukast. Often you will be encouraged to rinse the nose with saline irrigations. Sometimes medications may be added to these irrigations. If sinusitis is not controlled, the next step is a CT scan of the sinuses. This allows for a direct view of the nose and surrounding sinuses. Based upon CT findings, surgery may be recommended. Will I need to make lifestyle changes? If you have indoor allergies, avoiding triggers -- such as animal dander and dust mites - is recommended in addition to medications. Smoking is never recommended, but if you do smoke, strongly consider a program to help you stop smoking, as this may be the main reason you have sinus infections. No special diet is required, but drinking extra fluids helps to thin nasal secretions. What are the symptoms of the common cold? An upper respiratory infection (the common cold) is usually caused by a virus that infects the nose and throat. Most upper respiratory infections are not bacterial and do not respond to antibiotics. A cold may cause swelling in the sinuses, preventing the outflow of mucus. Cold symptoms include nasal congestion, runny nose, post-nasal drip (kkoq-qd-jsiq release of nasal fluid into the back of the throat), headache, achiness, and fatigue. Cough and fever may also go along with these symptoms. Cold symptoms usually build, peak, and slowly disappear. No treatment is necessary for a cold, but some medications can ease symptoms. For example, decongestants may decrease drainage and open the nasal passages. Analgesics (pain relievers) may help with fever and headache. Cough medication may help, as well. Colds will typically last from a few days to about a week. What is the harm in getting an antibiotic for a common cold? Viral infections like the common cold are not cured by antibiotics. Taking an antibiotic for a viral infection unnecessarily puts you at risk for side effects related to the antibiotic. In addition, the overuse of antibiotics leads to antibiotic resistance, which may make future infections more difficult to treat. Finally, the use of inappropriate medication increases health care costs unnecessarily. What are the symptoms of nasal allergy? Symptoms of nasal allergy include: Sneezing Itchy nose Clear, watery nasal discharge Nasal blockage Feeling fatigued How is nasal allergy treated? Usually medications are prescribed to relieve symptoms. These may include antihistamines, with or without decongestants, or steroid nasal sprays. Other nasal sprays, which deliver antihistamines or cromolyn sodium, are sometimes helpful. If allergy symptoms are chronic (long-term), allergy testing and allergy shots (immunotherapy) may be helpful. How can I tell if I have a sinus infection, cold, or nasal allergy? Although the symptoms of sinusitis and nasal allergy may occur with a common cold, in general, cold-related symptoms disappear within 1 week. The point at which a normal cold ends and a sinus condition begins is not always easy to know. If you are fighting off a cold and develop symptoms of a sinus infection or nasal allergy, see your health care provider. You will be asked to describe your symptoms and medical history. How do I know if my sinus condition requires the care of an ear, nose, and throat specialist? Most routine sinus conditions are easily cared for by primary care physicians. If, however, you are bothered by ongoing abnormal symptoms, recurring infections, or have abnormal X-ray findings or complications, a referral to a specialist is appropriate. References Yasmin Calvin. et al., IDSA Clinical Practice Guideline for Acute Bacterial Rhinosinusitis in Children and Adults. Clinical Infectious Diseases; 2012;54(8):8642-1140. Imelda Parekh, Sinusitis: Allergies, antibiotics, aspirin, asthma. [facility] Journal of Medicine 2006; 73(7): 671-678 National [employer] of Allergy and Infectious [employer]. Sinusitis (Sinus Infection) Accessed 05/09/2015. [place] [employer], [employer]. Sinusitis Accessed 05/09/2015. [place] [employer]. Sinus Information Accessed 05/09/2015. Jeanne Dickerson., Prevalence of migraine in patients with a history of self-reported or physician-diagnosed sinus headache. [employer], 2004. 164(16):1769-72. Copyright 0229-3044 [facility]. All rights reserved. This information is provided by the [facility] and is not intended to replace the medical advice of your doctor or health care provider. Please consult your health care provider for advice about a specific medical condition. For additional health information, please contact the Center for Consumer Health Information at the [facility] or toll-free extension [phone]. If you prefer, you may visit [email or web address] or [email or web address]. This document was last reviewed on: 2015 index#[id number] documented in this encounter [facility] 03-10-2023 History of Present illness Narrative Images from the original note were not included. [facility] [place] [address] Date of Evaluation: 03/10/2023 Patient Name: Nirmala Bennett : 1940 Chief Complaint: Patient presents with: Established Patient: Friday she woke up and her Head was stiff, she went to her chiropractor and he worked on her neck.(Helped a little) Stiffness and pain from top of head down into neck area. Has some nasal drainage and spitting up Phlegm. States she is limited to what ABX she can get. Amox 250mg every day is all she can handle, she states per her patch allergy testing! Would like referral to ENT as well. Nursing Intake: There are no exam notes on file for this visit. Subjective HPI Ms. Bennett is a 82 year old female who presents for URI symptoms. Has had VINCENT, pressure, cough, drainage, neck pain. Loss of taste/smell. Review of Systems Constitutional: Negative for chills, fatigue and fever. HENT: Positive for congestion. Respiratory: Negative for cough and shortness of breath. Cardiovascular: Negative for chest pain and palpitations. Gastrointestinal: Negative for diarrhea, nausea and vomiting. Musculoskeletal: Positive for neck pain. Negative for back pain and myalgias. Skin: Negative for rash. Neurological: Positive for headaches. Negative for dizziness and weakness. Psychiatric/Behavioral: Negative for sleep disturbance. PAST MEDICAL HISTORY Diagnosis Date Allergic rhinitis CVA (cerebral vascular accident) (HCC) Right 1996 DVT (deep venous thrombosis) ([facility]) 3 clots in left leg; was on coumadin for years Hypertension Hypothyroidism Lupus (HCC) Rheumatoid arthritis(714.0) Sjogren's disease (HCC) TIA (transient ischemic attack) Vitamin D deficiency PAST SURGICAL HISTORY Procedure Laterality Date CATARACT EXTRACTION HX Right 12/02/2016 COLECTOMY TOTAL, POUCH PAST SURGICAL HISTORY OF Cosmetic surgery RHINOPLASTY TOE SURGERY HX Right 08/16/15 3,4, and 5 Hammertoe correction glb TONSILLECTOMY HX TOTAL ABDOMINAL HYSTERECT W/WO RMVL TUBE OVARY FAMILY HISTORY Problem Relation Age of Onset Ischemic Heart Disease Father Hypertension Father Hypertension Mother Cancer Mother Social History Tobacco Use Smoking status: Former Types: Cigarettes Quit date: 06/11/2002 Years since quittin.7 Smokeless tobacco: Never Vaping Use Vaping Use: Never used Substance Use Topics Alcohol use: Yes Alcohol/week: 5.0 standard drinks of alcohol Types: 2 Glasses of Wine (5oz) per week Drug use: No Current Outpatient Medications Medication Sig fluticasone (FLONASE) 50 mcg/actuation nasal spray Use 2 Sprays in each nostril twice daily. acetaminophen (TYLENOL EXTRA STRENGTH ORAL) Take by mouth. famotidine (PEPCID) 40 mg tablet Take 1 tablet by mouth once daily. NITROFURANTOIN MONOHYD/M-CRYST ORAL Take by mouth. hydrocortisone (ANUSOL-HC) 2.5 % rectal cream by RECTAL route twice daily. levothyroxine (SYNTHROID) 50 mcg tablet TAKE ONE TABLET EVERY DAY amLODIPine (NORVASC) 10 mg tablet TAKE ONE TABLET BY MOUTH ONCE DAILY ELIQUIS 5 mg tab(s) TAKE ONE TABLET TWICE DAILY folic acid 1 mg tablet TAKE ONE TABLET EVERY DAY glycerin ADULT suppository 1 Suppository by RECTAL route as needed. FEROSUL 325 mg (65 mg iron) tablet TAKE ONE TABLET EVERY MORNING guaiFENesin (MUCINEX) 600 mg 12 hr tablet Take 1 tablet by mouth twice daily. hydroxychloroquine (PLAQUENIL) 200 mg tablet Take 1 tablet by mouth once daily. CHOLECALCIFEROL, VITAMIN D3, ORAL Take 2,000 Units by mouth once daily. Current Facility-Administered Medications Medication Dose Route Frequency cyanocobalamin 1,000 mcg injection 1,000 mcg INTRAMUSCULAR q 4 WEEKS I have confirmed and edited as necessary the chief complaint, medications, past medical, family and social histories obtained by others. Objective BP 124/69 Pulse 86 Temp 97.7 Resp 16 Ht 5' 3 (1.60m) Wt 164 lb (74.4kg) SpO2 98% BMI 29.06 kg/(m^2). Physical Exam Vitals and nursing note reviewed. Constitutional: General: She is not in acute distress. Appearance: She is well-developed. HENT: Head: Normocephalic and atraumatic. Right Ear: Tympanic membrane and external ear normal. Left Ear: Tympanic membrane and external ear normal. Nose: Nose normal. No mucosal edema or rhinorrhea. Right Sinus: No maxillary sinus tenderness or frontal sinus tenderness. Left Sinus: No maxillary sinus tenderness or frontal sinus tenderness. Mouth/Throat: Pharynx: No oropharyngeal exudate. Eyes: Conjunctiva/sclera: Conjunctivae normal. Pupils: Pupils are equal, round, and reactive to light. Cardiovascular: Rate and Rhythm: Normal rate and regular rhythm. Heart sounds: Normal heart sounds. Pulmonary: Effort: Pulmonary effort is normal. Breath sounds: Normal breath sounds. No wheezing, rhonchi or rales. Abdominal: General: There is no distension. Palpations: Abdomen is soft. Tenderness: There is no abdominal tenderness. Musculoskeletal: Cervical back: Normal range of motion and neck supple. Lymphadenopathy: Cervical: No cervical adenopathy. Skin: General: Skin is warm and dry. Findings: No rash. Neurological: Mental Status: She is alert and oriented to person, place, and time. ASSESSMENT/PLAN: 1. Acute non-recurrent sinusitis, unspecified location - ICD9: 461.9, ICD10: J01.90 - Will begin treatment with as per antibiotic as written, see orders - Supportive care with plenty of fluids, rest, and analgesia prn. - PENICILLIN V POTASSIUM 250 MG TABLET - patient has allergies to several antibiotics Recommended taking COVID test. Daksha Ellis PA-C No follow-ups on file. Discussed the above with the patient using shared decision making. The patient is in agreement with the diagnostic and treatment plans. documented in this encounter [facility] 02-19-2023 Miscellaneous Notes Ok, called in. Pt has sinus pressure, drainage, slightly tender lymph glands. Requesting an antibiotic Per patient she can take amoxil 250 mg, nothing stronger documented in this encounter [facility] 02-19-2023 Nurse Note Patient has been identified by name and date of : Yes Nirmala is here for an injection of Vitamin B12 Dose: 1000 mcg Route: Intramuscular Given without incident. Site: left deltoid Community Resource Officer: [employer]. Lot #: [id number] [facility] #: [id number] Expiration Date: 09/21 Dr. marquez present in clinic at time of injection. The date due for the next injection is 1 mo. Gustabo Yap MA documented in this encounter [facility] 02-14-2023 Miscellaneous Notes Last ov 01/22/2023 documented in this encounter [facility] 01-31-2023 Note HNO ID: [id number] Author: Cristiano Reyes RN Service: ? Author Type: Registered Nurse Type: Progress Notes Filed: 01/31/2023 2:46 PM Note Text: For updated list, go to: [email or web address] search codes 1: [id number] search codes 2: [id number] Cristiano Reyes RN [facility] 01-31-2023 Note HNO ID: [id number] Author: Jessa Smith MD Service: ? Author Type: Physician Type: Progress Notes Filed: 01/31/2023 2:46 PM Note Text: Department of Dermatology [facility]. 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 This fragrance mix contains the following allergens: Geraniol, Cinnamaldehyde, Hydroxycitronellal, Cinnamyl alcohol, a-Amylcinnamaldehyde, Isoeugenol, Eugenol, and [place] wang absolute. Fragrances are common causes of allergic contact dermatitis. Patients can often find significantly improvement of symptoms with discontinuation of all sources of fragrance in personal care products. Avoidance information and safe-product lists can provide very helpful references for the patient. We believe this represents an allergic contact dermatitis allergen, which is of probable clinical relevance. Rationale: 1+ reaction. Ubiquitous ingredient. Identified in majority of patient's product list including many of her facial cosmetic products . We discussed the above allergens and ways to avoid them. Information regarding a safe product list (CAMP), as well as avoidance sheets were provided to the patient and discussed with the patient Additional instructions: Patient Instructions Thank you for allowing us to perform patch testing for you! It has been a pleasure to meet you. Our entire staff hopes that the information we discovered during your patch testing will help your referring physician or other health care provider to better plan any needed future treatment. We recommend that you make sure you arrange follow-up with your referring provider in the next several months to discuss your results. While you can certainly shower after today's visit, we recommend that you avoid scrubbing the ink off the back for the next several days. In the rare chance that a new reaction occurs (a late reaction), residual ink can help us identify the allergen. If you notice a new small area of rash within the patch testing sites, please take several photos of the area and contact our office for additional instructions. Our telephone number is [phone]. We identified reactions that both appear to be allergies and may be significant. What next? You are provided today with a folder that was personalized for you by our nurses and clinical staff. It will contain: A list of all of the allergens to which we tested you. On the list you will find the chemical name of the allergen, as well as test results for 48 hours (we reviewed your photographs when provided) and 96 hours (today). The following may help you understand the test results: NT = Not tested. This is generally because the allergens are unavailable from our current supplier, or we elected not to test with these specific allergens. ? = equivocal reaction. This is a borderline-positive reaction, showing just the slightest response at the area. Your cobol programmer will decide whether this is relevant for your particular situation. In some instances it may be decided that the reaction is relevant, but it may also be considered irrelevant, based on the experience and judgement of your cobol programmer. 1+, 2+, 3+ = These are increasingly strong, positive reactions. These are often relevant for a patient, but we will discuss each positive finding with you to help establish whether it is relevant. IR = Irritant reaction. With a few exceptions, these reactions are generally not relevant. Your cobol programmer will carefull consider these irritant reactions and discuss with you their relevance. Information regarding each of the positive, relevant reactions. These avoidance sheets briefly explain important information about each allergen, including the kinds of products where it is likely to be found. Information about accessing a list of safe products, personalized for you. We use a system produced by the [place] [employer]. You will be given a set of codes that can be used to access the database on an ongoing basis. A very helpful tool that you can access from the [employer] for your mobile device is the [employer]. Your list can be carried with you while shopping for products that should be safe for you to use. The icon should look like this: The use of the safe product list is extremely important for anyone dealing with an allergic contact dermatitis. While not every safe product will be on the list, those that are on the list should be safe to use. It is important that you choose only the exact product on the list. While one product from a particular company may appear on the safe product list, a similar product from that company that does not appear on the list is likely to (more content not included)... [facility] 01-31-2023 History of Present illness Narrative For updated list, go to: [email or web address] search codes 1: [id number] search codes 2: [id number] Cristiano Reyes RN Images from the original note were not included. Department of Dermatology [facility]. 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 This fragrance mix contains the following allergens: Geraniol, Cinnamaldehyde, Hydroxycitronellal, Cinnamyl alcohol, a-Amylcinnamaldehyde, Isoeugenol, Eugenol, and [place] wang absolute. Fragrances are common causes of allergic contact dermatitis. Patients can often find significantly improvement of symptoms with discontinuation of all sources of fragrance in personal care products. Avoidance information and safe-product lists can provide very helpful references for the patient. We believe this represents an allergic contact dermatitis allergen, which is of probable clinical relevance. Rationale: 1+ reaction. Ubiquitous ingredient. Identified in majority of patient's product list including many of her facial cosmetic products . We discussed the above allergens and ways to avoid them. Information regarding a safe product list (CAMP), as well as avoidance sheets were provided to the patient and discussed with the patient Additional instructions: Patient Instructions Thank you for allowing us to perform patch testing for you! It has been a pleasure to meet you. Our entire staff hopes that the information we discovered during your patch testing will help your referring physician or other health care provider to better plan any needed future treatment. We recommend that you make sure you arrange follow-up with your referring provider in the next several months to discuss your results. While you can certainly shower after today's visit, we recommend that you avoid scrubbing the ink off the back for the next several days. In the rare chance that a new reaction occurs (a late reaction), residual ink can help us identify the allergen. If you notice a new small area of rash within the patch testing sites, please take several photos of the area and contact our office for additional instructions. Our telephone number is [phone]. We identified reactions that both appear to be allergies and may be significant. What next? You are provided today with a folder that was personalized for you by our nurses and clinical staff. It will contain: A list of all of the allergens to which we tested you. On the list you will find the chemical name of the allergen, as well as test results for 48 hours (we reviewed your photographs when provided) and 96 hours (today). The following may help you understand the test results: NT = Not tested. This is generally because the allergens are unavailable from our current supplier, or we elected not to test with these specific allergens. ? = equivocal reaction. This is a borderline-positive reaction, showing just the slightest response at the area. Your cobol programmer will decide whether this is relevant for your particular situation. In some instances it may be decided that the reaction is relevant, but it may also be considered irrelevant, based on the experience and judgement of your cobol programmer. 1+, 2+, 3+ = These are increasingly strong, positive reactions. These are often relevant for a patient, but we will discuss each positive finding with you to help establish whether it is relevant. IR = Irritant reaction. With a few exceptions, these reactions are generally not relevant. Your cobol programmer will carefull consider these irritant reactions and discuss with you their relevance. Information regarding each of the positive, relevant reactions. These avoidance sheets briefly explain important information about each allergen, including the kinds of products where it is likely to be found. Information about accessing a list of safe products, personalized for you. We use a system produced by the [place] [employer]. You will be given a set of codes that can be used to access the database on an ongoing basis. A very helpful tool that you can access from the [employer] for your mobile device is the [employer]CDS CAMP [employer]. Your list can be carried with you while shopping for products that should be safe for you to use. The icon should look like this: The use of the safe product list is extremely important for anyone dealing with an allergic contact dermatitis. While not every safe product will be on the list, those that are on the list should be safe to use. It is important that you choose only the exact product on the list. While one product from a particular company may appear on the safe product list, a similar product from that company that does not appear on the list is likely to be unsafe for you. We recommend that you aggressively use only the safe product list for the next 2-3 months. Avoid contact with any products that are not on your personal safe list. If you are significantly improved by avoiding these products, then it implies that the allergens identified on the testing were relevant and important. Return in about 3 months (around 05/03/2023) for With Dr. Mays for patch test follow up. - Recommend adhering to fragrance-free regimen for 2-3 months. Discussed open use test to reintroduce products as tolerated. - Follow up with Dr. Mays CC: Final patch test reading and interpretation. HPI: Ms. Bennett presents for final patch test reading. Patches removed 2 days ago. Tolerated the patch test process well. No flare of dermatitis. PMH: Unchanged from previous visit ROS: Patient feels generally well. No additional skin complaints. PE: Patient appears generally well. Results from Patch Tests are documented in the photos and in the Results Smartform links below. 48 hour photograph hyperlinks (if submitted by patient or obtained in the office: On patient's phone Photographs from today's visit (96 hours) Hyperlinks to Results Smartform: Initial Test 1st Read 2nd Read Test Date 01/27/2023 01/29/2023 01/31/2023 Test Interval N/A 48HRS 96HRS Test Results # [facility] Allergens 1st Read 2nd Read 1 . Benzocaine 5.0% pet NEG NEG 2 . 2-mercaptobenzothiazole 1.0% pet NEG NEG 3 . Colophonium (rosin) 20.0% pet NEG NEG 4 . 4-phenylenediamine 1.0% pet NEG NEG 5 . Dimethylaminopropylamine (DMAPA) 1.0% aq NEG NEG 6 . Fragrance Mix II 14.0% pet NEG NEG 7 . Lanolin alcohol (Amerchol L101) 50% pet NEG NEG 8 . Carba Mix 3.0% pet NEG NEG 9 . Neomycin sulfate 20.0% pet NEG NEG 10 . Thiuram mix 1.0% pet NEG NEG 11 . Benzalkonium Chloride 0.1% aq NEG NEG 12 . Ethylenediamine Dihydrochloride 1.0 pet NEG NEG 13 . Bisphenol A Epoxy Resin 1.0% pet NEG NEG 14 . Quaternium 15, 2.0% pet NEG NEG 15 . 5-xons-axdbqdjqoyv formaldehyde resin 1.0% pet NEG NEG 16 . Ethylhexylglycerin 5.0% pet NEG NEG 17 . Black rubber mix 0.6% pet NEG NEG 18 . Potassium dichromate 0.25% pet NEG NEG 19 . Balsam of Maldonado (Myroxylon pereirae resin) 25.0% pet NEG NEG 20 . Nickel sulfate hexahydrate 5.0% pet NEG NEG 21 . Diazolidinyl urea (Germall II) 1.0% pet NEG NEG 22 . DMDM hydantoin (Germall 115) 1.0% pet NEG NEG 23 . Imidazolidinyl urea 2.0% pet NEG NEG 24 . Bacitracin 20.0% pet NEG NEG 25 . Mixed dialkyl thioureas 1.0% NEG NEG 26 . Methylchloroisothiazolinone/methyliso thiazolinone 0.02% aq NEG NEG 27 . Paraben mix 12.0% pet NEG NEG 28 . Cinnamic aldehyde 1.0% pet NEG NEG 29 . Fragrance Mix 1, 8.0% pet NEG 1+ 30 . Amidoamine (stearamidopropyl dimethylamine) 0.1% aq NEG NEG 31 . 2-Ozmvk-4-nitropropane-1,3-diol (Bronopol) 0.5% pet NEG NEG 32 . Sesquiterpene lactone mix 0.1% pet NEG NEG 33 . 2-Hydroxethyl methacrylate 2.0% pet NEG NEG 34 . Hydroperoxides of linalool 1.0% pet NEG NEG 35 . Benzophenone-3, 10.0% pet (Oxybenzone or 7-bhudvfu-6-methoxy-benzophenone) NEG NEG 36 . Chloroxylenol (4-Chloro-3,5-xylenol) 1.0% pet NEG NEG 37 . Lauryl glucoside 3.0% pet NEG NEG 38 . Methylisothiazolinone 0.2% aq NEG NEG 39 . Sodium disulfite 1.0% pet NEG NEG 40 . Ethylcyanoacrylate 10.0% pet NEG NEG 41 . Diphenylguanidine 1.0% pet NEG NEG 42 . Cetearyl glucoside 5.0% pet NEG NEG 43 . Iodopropynyl butylcarbamate 0.2% pet NEG NEG 44 . Ethyl acrylate 0.1% pet NEG NEG 45 . Benzophenone-4 (Sulisobenzone) 2.0% pet NEG NEG 46 . Tosylamide formaldehyde resin 10.0% pet NEG NEG 47 . Methyl methacrylate 2.0% pet NEG NEG 48 . Odell (ii) chloride hexahydrate 1.0% pet NEG NEG 49 . Urxlrdmtrv-55-lxcubhad 1.0% pet NEG NEG 50 . Budesonide 0.1% pet NEG NEG 51 . Benzisothiazolinone 0.1% pet NEG NEG 52 . Textile dye mix 6.6% pet NEG NEG 53 . Propolis 10.0% pet NEG NEG 54 . Lidocaine-HCL 15.0% pet NEG NEG 55 . Propylene glycol 100% NEG NEG 56 . Hydroperoxides of limonene 0.3% pet NT NT 57 . Cocamidopropyl betaine 1.0% aq NEG NEG 58 . Formaldehyde 2.0% aq NEG NEG 59 . Oleamidopropyl dimethylamine 0.1% aq NEG NEG 60 . Ammonium persulfate 2.5% pet NEG NEG 61 . Cocamide YAS (coconut diethanolamide) 0.5% pet NEG NEG 62 . Compositae Mix 5.0% pet NEG NEG 63 . Chlorhexidine digluconate 0.5% aq NEG NEG 64 . Tea tree leaf (Melaleuca alternifolia oil) 5.0% pet NEG NEG 65 . Ylang-ylang oil (Cananga odorata flower oil) 2.0% pet NEG NEG 66 . Carvone 5.0% pet NEG NEG 67 . N-Octylisothiazolinone 0.1% pet NEG NEG 68 . Decyl glucoside 5.0% pet NEG NEG 69 . Sodium benzoate 5.0% pet NEG NEG 70 . Peppermint oil (Mentha piperita oil) 2.0% pet NEG NEG 71 . Halina glucoside 5.0% pet NEG NEG NT . Benzalkonium chloride 0.1% pet NT NT 72 . Benzyl alcohol 10.0% sof NEG NEG 73 . Hydroperoxides of linalool 0.5% pet NT NT 74 . Phenoxyethanol 1.0% pet NEG NEG 75 . Sorbitan sesquioleate 20.0% pet NEG NEG 76 . p-toluenediamine sulfate 1.0% pet NEG NEG 77 . Polymyxin B 5.0% pet NEG NEG 78 . Pramoxine 2.0% pet NEG NEG 79 . Isobornyl acrylate 0.1% pet NEG NEG # Shea Allergens 1st Read 2nd Read 80 . Dimethylol dihydroxyethyleneurea (Fix.CPN) 4.5% aq. NEG NEG 81 . Urea fomaldehyde (Kaurit S) 10% pet. NEG NEG 82 P&G 25 Melamine formaldehyde (Kaurit M70) 7% pet. NEG NEG # Shea Allergens 1st Read 2nd Read 83 MCKENNA 4 Disperse orange 3, 1% pet. NEG NEG 84 MCKENNA 6 Disperse blue 3, 1% pet. NEG NEG 85 MCKENNA 7 Disperse red 1, 1% pet. NEG NEG 86 . Disperse blue 106, 1% pet. NT NT 87 . Disperse yellow 9, 1% pet. NEG NEG 88 . Disperse blue 124, 1% pet. NEG NEG 89 . Naphthol as-pet-1% NEG NEG 90 . Metanil jqqgjk-jxo-5% NEG NEG NT . y-teybdrliobugnioi-wew-1% NT NT 91 . Basic red 46-pet-1% NEG NEG 92 . Bear brown r-pet-0.5% NEG NEG Legend Code Meaning NEG Negative 1+, 2+, 3+ Positive ? Doubtful IR Irritant Reaction NT Not Tested Resident: Karen Landeros MD Dermatology PGY-2 Attending: Jessa Smith MD This note is completed at 2:39 PM on 01/31/2023 and reflects the services provided at the time of the appointment. I agree with the Chief Complaint, ROS, and Past Histories independently gathered by the clinical technical support engineer. I spent a total of 31 minutes on the date of the service which included preparing to see the patient, xbco-uv-otps patient care, completing clinical documentation, performing a medically appropriate examination, counseling and educating the patient/family/caregiver, independently interpreting results (not separately reported), and communicating results to the patient/family/caregiver. documented in this encounter [facility] 01-31-2023 Instructions Karen Landeros MD - 01/31/2023 2:24 PM EDT Images from the original note were not included. Thank you for allowing us to perform patch testing for you! It has been a pleasure to meet you. Our entire staff hopes that the information we discovered during your patch testing will help your referring physician or other health care provider to better plan any needed future treatment. We recommend that you make sure you arrange follow-up with your referring provider in the next several months to discuss your results. While you can certainly shower after today's visit, we recommend that you avoid scrubbing the ink off the back for the next several days. In the rare chance that a new reaction occurs (a late reaction), residual ink can help us identify the allergen. If you notice a new small area of rash within the patch testing sites, please take several photos of the area and contact our office for additional instructions. Our telephone number is [phone]. We identified reactions that both appear to be allergies and may be significant. What next? You are provided today with a folder that was personalized for you by our nurses and clinical staff. It will contain: A list of all of the allergens to which we tested you. On the list you will find the chemical name of the allergen, as well as test results for 48 hours (we reviewed your photographs when provided) and 96 hours (today). The following may help you understand the test results: NT = Not tested. This is generally because the allergens are unavailable from our current supplier, or we elected not to test with these specific allergens. ? = equivocal reaction. This is a borderline-positive reaction, showing just the slightest response at the area. Your cobol programmer will decide whether this is relevant for your particular situation. In some instances it may be decided that the reaction is relevant, but it may also be considered irrelevant, based on the experience and judgement of your cobol programmer. 1+, 2+, 3+ = These are increasingly strong, positive reactions. These are often relevant for a patient, but we will discuss each positive finding with you to help establish whether it is relevant. IR = Irritant reaction. With a few exceptions, these reactions are generally not relevant. Your cobol programmer will carefull consider these irritant reactions and discuss with you their relevance. Information regarding each of the positive, relevant reactions. These avoidance sheets briefly explain important information about each allergen, including the kinds of products where it is likely to be found. Information about accessing a list of safe products, personalized for you. We use a system produced by the [place] [employer]. You will be given a set of codes that can be used to access the database on an ongoing basis. A very helpful tool that you can access from the [employer] for your mobile device is the [employer]. Your list can be carried with you while shopping for products that should be safe for you to use. The icon should look like this: The use of the safe product list is extremely important for anyone dealing with an allergic contact dermatitis. While not every safe product will be on the list, those that are on the list should be safe to use. It is important that you choose only the exact product on the list. While one product from a particular company may appear on the safe product list, a similar product from that company that does not appear on the list is likely to be unsafe for you. We recommend that you aggressively use only the safe product list for the next 2-3 months. Avoid contact with any products that are not on your personal safe list. If you are significantly improved by avoiding these products, then it implies that the allergens identified on the testing were relevant and important. documented in this encounter [facility] 01-27-2023 Note HNO ID: [id number] Author: Cristiano Reyes RN Service: ? Author Type: Registered Nurse Type: Progress Notes Filed: 01/27/2023 2:24 PM Note Text: Patient presents today for patch test application. A total of 89 patches applied to patient's upper back. Advised patient to keep back dry until after Friday appointment. Patch test procedure and removal of patches reviewed. Print offs of instruction provided to patient. All questions/concerns addressed. Cristiano Reyes RN [facility] 01-27-2023 History of Present illness Narrative Patient presents today for patch test application. A total of 89 patches applied to patient's upper back. Advised patient to keep back dry until after Friday appointment. Patch test procedure and removal of patches reviewed. Print offs of instruction provided to patient. All questions/concerns addressed. Cristiano Reyes RN documented in this encounter [facility] 01-22-2023 Miscellaneous Notes Physical Therapy referral placed through [facility] Portal on 01/22/23 reference [id number] Alee Calderon documented in this encounter [facility] 01-14-2023 Note HNO ID: [id number] Author: Reba Wadsworth RN Service: ? Author Type: Registered Nurse Type: Progress Notes Filed: 01/16/2023 10:24 AM Note Text: Amoxicillin obtained from Floor Stock Amoxicillin Oral Challenge January 14, 2023 Informed consent for Amoxicillin oral challenge obtained by Karen Rinaldi M.D. 1454 Amoxicillin ([facility] lot [id number], exp. 04/2024) 25 mg/0.5 ml oral suspension po given per Dr. Rinaldi's orders. 1524 Patient without signs of symptoms of allergic reaction. 1525 Amoxicillin ([facility] lot [id number], exp. 04/2024) 225 mg/4.5 ml oral suspension po given per Karen Rinaldi M.D.'s orders. 1555 Pt. without signs or symptoms of allergic reaction. Pt. seen by Kraen Rinaldi M.D. prior to leaving [facility]. Reba Wadsworth RN [facility] 01-14-2023 Note HNO ID: [id number] Author: Karen Rinaldi MD Service: ? Author Type: Physician Type: Progress Notes Filed: 01/16/2023 10:24 AM Note Text: [facility] Allergy AND Immunology Established Visit PATIENT NAME: Nirmala Bennett LV: 12/17/2022 Dx: - Adverse reaction to medications HPI: Nirmala Bennett is a 82 year old female who presents for PCN challenge. The details of her reaction to amoxicillin is very vague. Amoxicillin: pruritus in arm and face, doesn't remember last use She is in good state of health today. No rashes. She returns today for PCN oral challenge. Successful completed skin prick testing 11/12/22. Challenge was delayed, while she underwent keyana challenge. CURRENT OUTPATIENT MEDICATIONS: Current Outpatient Medications Medication Sig Dispense Refill NITROFURANTOIN MONOHYD/M-CRYST ORAL Take by mouth. hydrocortisone (ANUSOL-HC) 2.5 % rectal cream by RECTAL route twice daily. 28 g 1 levothyroxine (SYNTHROID) 50 mcg tablet TAKE ONE TABLET EVERY DAY 90 tablet 3 amLODIPine (NORVASC) 10 mg tablet TAKE ONE TABLET BY MOUTH ONCE DAILY 90 tablet 3 ELIQUIS 5 mg tab(s) TAKE ONE TABLET TWICE DAILY 60 tablet 11 fluticasone (FLONASE) 50 mcg/actuation nasal spray Use 2 Sprays in each nostril twice daily. 16 mL 3 famotidine (PEPCID) 20 mg tablet TAKE ONE TABLET EVERY DAY 90 tablet 3 folic acid 1 mg tablet TAKE ONE TABLET EVERY DAY 90 tablet 3 glycerin ADULT suppository 1 Suppository by RECTAL route as needed. 30 Suppository 2 FEROSUL 325 mg (65 mg iron) tablet TAKE ONE TABLET EVERY MORNING 90 tablet 3 guaiFENesin (MUCINEX) 600 mg 12 hr tablet Take 1 tablet by mouth twice daily. 40 tablet 2 ibuprofen (ADVIL LIQUI-GEL ORAL) Take by mouth. hydroxychloroquine (PLAQUENIL) 200 mg tablet Take 1 tablet by mouth once daily. 30 tablet 5 CHOLECALCIFEROL, VITAMIN D3, ORAL Take 2,000 Units by mouth once daily. Current Facility-Administered Medications Medication Dose Route Frequency Provider Last Rate Last Admin cyanocobalamin 1,000 mcg injection 1,000 mcg INTRAMUSCULAR q 4 WEEKS Jose Armando Marquez MD 1,000 mcg at 12/30/22 1055 REVIEW OF SYSTEMS: Other ROS reviewed and negative, except as noted in HPI. PHYSICAL EXAM: BP 143/69 Pulse 78 Temp (Src) 97.3 (Temporal) Resp 16 Ht 5' 3 (1.60m) Wt 168 lb (76.2kg) SpO2 96% BMI 29.77 kg/(m2). General appearance: Well appearing, alert, in no acute distress, well-hydrated, well nourished. HENT: External ears normal, canals clear, TM's normal Eyes: no scleral icterus, PERRLA, EOMS, no conjunctivitis Nose/Sinuses: Nares normal. Mucosa normal. No drainage or sinus tenderness. Oropharynx: Lips, mucosa, and tongue normal, teeth and gums normal, oropharynx normal Respiratory: Lungs clear to auscultation. No wheezing, rhonchi, rales Cardiovascular: RRR without murmur, gallop, or rubs. No ectopy Gastroenterology: normal appearing abdomen on inspection Musculoskeletal: Normal gait, no pedal edema Skin: Negative for lesions, rash, and itching. Psychiatric: Alert and oriented x 3. Calm affect. DATA: Diagnostic tests reviewed for today's visit were personally reviewed by me: No new labs CBC Latest Ref Rng AND Units 02/25/2021 12/25/2022 12/26/2022 WBC 3.70 - 11.00 k/uL 7.14 6.22 6.00 RBC 3.90 - 5.20 m/uL 4.37 4.60 4.52 HGB 11.7 - 14.7 g/dL - - - HEMOGLOBIN 11.5 - 15.5 g/dL 13.3 13.7 13.1 HEMATOCRIT 36.0 - 46.0 % 38.8 42.0 40.2 MCV 80.0 - 100.0 fL 88.8 91.3 88.9 MCH 26.0 - 34.0 pg 30.4 29.8 29.0 MCHC 30.5 - 36.0 g/dL 34.3 32.6 32.6 RDW 11.8 - 14.5 % - - - RDW-CV 11.5 - 15.0 % 12.6 12.6 12.7 PLATELETS 150 - 400 k/uL 178 149(L) 148(L) MPV 9.0 - 12.7 fL 10.1 10.4 10.7 BASO% % - 0.3 - ABS NEUT (ANC) 1.45 - 7.50 k/uL - 4.17 - ABS LYMPH 1.00 - 4.00 k/uL - 1.12 - ABS MONO <0.87 k/uL - 0.85 - ABS EOSIN <0.46 k/uL - 0.05 - ABS BASO <0.11 k/uL - <0.03 - CMP Latest Ref Rng AND Units 12/25/2022 12/26/2022 12/30/2022 SODIUM 136 - 144 mmol/L 140 139 140 POTASSIUM 3.7 - 5.1 mmol/L 3.6 3.1(L) 3.6(L) CHLORIDE 97 - 105 mmol/L 105 101 103 CO2 22 - 30 mmol/L 27 24 26 GLUCOSE 74 - 99 mg/dL 88 92 91 BUN 7 - 21 mg/dL 16 9 15 CREATININE 0.58 - 0.96 mg/dL 0.67 0.52(L) 0.68 EGFR >=60 mL/min/1.73m? 88 94 88 EGFR-ALL OTHER RACES - - - - EGFR- - - - - PROTEIN, TOTAL 6.4 - 8.2 g/dL - - - ALBUMIN 3.4 - 5.0 g/dL - - - CALCIUM, TOTAL 8.5 - 10.2 mg/dL 9.5 9.1 9.9 BILIRUBIN, TOTAL 0.2 - 1.0 mg/dL - - - AST 15 - 46 U/L - - - ALT 7 - 38 U/L - - - ALKALINE PHOSPHATASE 46 - 116 U/L - - - Patient consented, and agreed to PCN challenge Completed PCN SPT/ID on 11/12/2022 2 step graded dose oral challenge Step 1: 25mg wait 30 min Step 2: 225mg wait 31 min Assessment/Recommendations Nirmala Bennett is a 82 year old female with Hx of hypothyroidism presenting for PCN challenge. She has previously successfully underwent PCN skin testing (10/2022) which was negativ (more content not included)... [facility] 01-14-2023 History of Present illness Narrative Amoxicillin obtained from Floor [facility] Amoxicillin Oral Challenge January 14, 2023 Informed consent for Amoxicillin oral challenge obtained by Karen Rinaldi M.D. 1454 Amoxicillin ([facility] lot [id number], exp. 04/2024) 25 mg/0.5 ml oral suspension po given per Dr. Rinaldi's orders. 1524 Patient without signs of symptoms of allergic reaction. 1525 Amoxicillin ([facility] lot [id number], exp. 04/2024) 225 mg/4.5 ml oral suspension po given per Karen Rinaldi M.D.'s orders. 1555 Pt. without signs or symptoms of allergic reaction. Pt. seen by Karen Rinaldi M.D. prior to leaving 0. Reba Wadsworth RN [facility] Allergy & Immunology Established Visit PATIENT NAME: Nirmala Bennett LV: 12/17/2022 Dx: - Adverse reaction to medications HPI: Nirmala Bennett is a 82 year old female who presents for PCN challenge. The details of her reaction to amoxicillin is very vague. Amoxicillin: pruritus in arm and face, doesn't remember last use She is in good state of health today. No rashes. She returns today for PCN oral challenge. Successful completed skin prick testing 11/12/22. Challenge was delayed, while she underwent keyana challenge. CURRENT OUTPATIENT MEDICATIONS: Current Outpatient Medications Medication Sig Dispense Refill NITROFURANTOIN MONOHYD/M-CRYST ORAL Take by mouth. hydrocortisone (ANUSOL-HC) 2.5 % rectal cream by RECTAL route twice daily. 28 g 1 levothyroxine (SYNTHROID) 50 mcg tablet TAKE ONE TABLET EVERY DAY 90 tablet 3 amLODIPine (NORVASC) 10 mg tablet TAKE ONE TABLET BY MOUTH ONCE DAILY 90 tablet 3 ELIQUIS 5 mg tab(s) TAKE ONE TABLET TWICE DAILY 60 tablet 11 fluticasone (FLONASE) 50 mcg/actuation nasal spray Use 2 Sprays in each nostril twice daily. 16 mL 3 famotidine (PEPCID) 20 mg tablet TAKE ONE TABLET EVERY DAY 90 tablet 3 folic acid 1 mg tablet TAKE ONE TABLET EVERY DAY 90 tablet 3 glycerin ADULT suppository 1 Suppository by RECTAL route as needed. 30 Suppository 2 FEROSUL 325 mg (65 mg iron) tablet TAKE ONE TABLET EVERY MORNING 90 tablet 3 guaiFENesin (MUCINEX) 600 mg 12 hr tablet Take 1 tablet by mouth twice daily. 40 tablet 2 ibuprofen (ADVIL LIQUI-GEL ORAL) Take by mouth. hydroxychloroquine (PLAQUENIL) 200 mg tablet Take 1 tablet by mouth once daily. 30 tablet 5 CHOLECALCIFEROL, VITAMIN D3, ORAL Take 2,000 Units by mouth once daily. Current Facility-Administered Medications Medication Dose Route Frequency Provider Last Rate Last Admin cyanocobalamin 1,000 mcg injection 1,000 mcg INTRAMUSCULAR q 4 WEEKS Jose Armando Marquez MD 1,000 mcg at 12/30/22 1055 REVIEW OF SYSTEMS: Other ROS reviewed and negative, except as noted in HPI. PHYSICAL EXAM: BP 143/69 Pulse 78 Temp (Src) 97.3 (Temporal) Resp 16 Ht 5' 3 (1.60m) Wt 168 lb (76.2kg) SpO2 96% BMI 29.77 kg/(m^2). General appearance: Well appearing, alert, in no acute distress, well-hydrated, well nourished. HENT: External ears normal, canals clear, TM's normal Eyes: no scleral icterus, PERRLA, EOMS, no conjunctivitis Nose/Sinuses: Nares normal. Mucosa normal. No drainage or sinus tenderness. Oropharynx: Lips, mucosa, and tongue normal, teeth and gums normal, oropharynx normal Respiratory: Lungs clear to auscultation. No wheezing, rhonchi, rales Cardiovascular: RRR without murmur, gallop, or rubs. No ectopy Gastroenterology: normal appearing abdomen on inspection Musculoskeletal: Normal gait, no pedal edema Skin: Negative for lesions, rash, and itching. Psychiatric: Alert and oriented x 3. Calm affect. DATA: Diagnostic tests reviewed for today's visit were personally reviewed by me: No new labs CBC Latest Ref Rng & Units 02/25/2021 12/25/2022 12/26/2022 WBC 3.70 - 11.00 k/uL 7.14 6.22 6.00 RBC 3.90 - 5.20 m/uL 4.37 4.60 4.52 HGB 11.7 - 14.7 g/dL - - - HEMOGLOBIN 11.5 - 15.5 g/dL 13.3 13.7 13.1 HEMATOCRIT 36.0 - 46.0 % 38.8 42.0 40.2 MCV 80.0 - 100.0 fL 88.8 91.3 88.9 MCH 26.0 - 34.0 pg 30.4 29.8 29.0 MCHC 30.5 - 36.0 g/dL 34.3 32.6 32.6 RDW 11.8 - 14.5 % - - - RDW-CV 11.5 - 15.0 % 12.6 12.6 12.7 PLATELETS 150 - 400 k/uL 178 149(L) 148(L) MPV 9.0 - 12.7 fL 10.1 10.4 10.7 BASO% % - 0.3 - ABS NEUT (ANC) 1.45 - 7.50 k/uL - 4.17 - ABS LYMPH 1.00 - 4.00 k/uL - 1.12 - ABS MONO <0.87 k/uL - 0.85 - ABS EOSIN <0.46 k/uL - 0.05 - ABS BASO <0.11 k/uL - <0.03 - CMP Latest Ref Rng & Units 12/25/2022 12/26/2022 12/30/2022 SODIUM 136 - 144 mmol/L 140 139 140 POTASSIUM 3.7 - 5.1 mmol/L 3.6 3.1(L) 3.6(L) CHLORIDE 97 - 105 mmol/L 105 101 103 CO2 22 - 30 mmol/L 27 24 26 GLUCOSE 74 - 99 mg/dL 88 92 91 BUN 7 - 21 mg/dL 16 9 15 CREATININE 0.58 - 0.96 mg/dL 0.67 0.52(L) 0.68 EGFR >=60 mL/min/1.73m 88 94 88 EGFR-ALL OTHER RACES - - - - EGFR- - - - - PROTEIN, TOTAL 6.4 - 8.2 g/dL - - - ALBUMIN 3.4 - 5.0 g/dL - - - CALCIUM, TOTAL 8.5 - 10.2 mg/dL 9.5 9.1 9.9 BILIRUBIN, TOTAL 0.2 - 1.0 mg/dL - - - AST 15 - 46 U/L - - - ALT 7 - 38 U/L - - - ALKALINE PHOSPHATASE 46 - 116 U/L - - - Patient consented, and agreed to PCN challenge Completed PCN SPT/ID on 11/12/2022 2 step graded dose oral challenge Step 1: 25mg wait 30 min Step 2: 225mg wait 31 min Assessment/Recommendations Nirmala Bennett is a 82 year old female with Hx of hypothyroidism presenting for PCN challenge. She has previously successfully underwent PCN skin testing (10/2022) which was negative for immediate hypersensitivity. She then underwent successful challenge to fexofenadine challenge (12/17). Today, she successfully underwent PCN 2 step graded dose challenge. Patient without evidence of PCN allergy. Skin test negative and tolerated an oral challenge without symptoms. May use beta lactam antibiotics in the future. Penicillin testing is only indicative of an IgE mediated reaction. The patient is still at risk for non-IgE mediated reactions such as TEN, Montoya-Neri syndrome, serum sickness similar to the general population. Plan: - Penicillin removed from allergy list - Counseled to call office for any delayed reaction including but not limited to rash, angioedema, shortness of breath, wheezing, GI upset No validated testing for sulfa, doxycycline, clindamycin, or bactrim. Continue to avoid, and choose medical alternatives. If no alternative, would need to weigh risk/benefit of challenge in that scenario. She has tolerated nitrofurantoin since last visit. Medical Decision Making: Problems: Moderate: 1+ chronic illnesses with change Data: Unique test(s) ordered: 1 Risk: Low: Low risk from testing/treatment Medical Decision Making Level: 3 - Low RTC PRN Karen Rinaldi MD MPH documented in this encounter [facility] 12-30-2022 History of Present illness Narrative HPI: Nirmala Bennett is a 82 year old female who presents with complaint of Transition Of Care ([facility] 12/25/2022-12/26/2022 Fall). Pt doing ok. Had fall. Is healing. Was mechanical. In ER had Xray findings suggesting volvulos. However was secondary to her anatomy from prior surgery. Bowels are fine at present. Had low potasium so will check. Otherwise regular appointment. Getting allergy tested for fabrics at main campus. REVIEW OF SYSTEMS PAIN ASSESSMENT: Negative for pain, history of chronic pain, or current treatment for a chronic pain condition. GENERAL: No weight loss, malaise or fevers HEENT: Negative for frequent or significant headaches, No changes in hearing or vision, no nose bleeds or other nasal problems NECK: Negative for lumps, goiter, pain and significant neck swelling RESPIRATORY: Negative for cough, hemoptysis, wheezing or shortness of breath CARDIOVASCULAR: Negative for chest pain, leg swelling or palpitations GI: No nausea, vomiting, or diarrhea : No history of dysuria, frequency or incontinence ROUTE SPECIALIST: Negative for abnormal vaginal bleeding, abnormal vaginal discharge MUSCULOSKELETAL: Negative for joint pain or swelling, back pain or muscle pain SKIN: Negative for lesions, rash, and itching PSYCH: Negative for sleep disturbance, mood disorder and recent psychosocial stressors HEMATOLOGY/LYMPHOLOGY: Negative for prolonged bleeding, bruising easily or swollen nodes ENDOCRINE: Negative for cold or heat intolerance, polyuria, polydipsia and goiter NEURO: No history of headaches, syncope, paralysis, seizures or tremors ALLERGIES Allergen Reactions Amoxcillin [Amoxici* Rash Claritin [Loratadin* Swelling Patient tolerated fexofenadine challenge 12/17/2022. Doxycycline Rash Prilosec [Omeprazol* Hives Bactrim [Sulfametho* Itching Ciprofloxacin Itching Clarithromycin Rash Other reaction(s): Other (See Comments), swells Swelling Clindamycin Itching Prednisone Itching Sulfa (Sulfonamide * Itching Current Outpatient Medications Medication Sig lidocaine (SALONPAS) 4 % patch Apply 1 Patch as directed once daily for 5 days. Remove patch after 12 hours NITROFURANTOIN MONOHYD/M-CRYST ORAL Take by mouth. hydrocortisone (ANUSOL-HC) 2.5 % rectal cream by RECTAL route twice daily. levothyroxine (SYNTHROID) 50 mcg tablet TAKE ONE TABLET EVERY DAY amLODIPine (NORVASC) 10 mg tablet TAKE ONE TABLET BY MOUTH ONCE DAILY ELIQUIS 5 mg tab(s) TAKE ONE TABLET TWICE DAILY fluticasone (FLONASE) 50 mcg/actuation nasal spray Use 2 Sprays in each nostril twice daily. famotidine (PEPCID) 20 mg tablet TAKE ONE TABLET EVERY DAY folic acid 1 mg tablet TAKE ONE TABLET EVERY DAY glycerin ADULT suppository 1 Suppository by RECTAL route as needed. FEROSUL 325 mg (65 mg iron) tablet TAKE ONE TABLET EVERY MORNING guaiFENesin (MUCINEX) 600 mg 12 hr tablet Take 1 tablet by mouth twice daily. ibuprofen (ADVIL LIQUI-GEL ORAL) Take by mouth. hydroxychloroquine (PLAQUENIL) 200 mg tablet Take 1 tablet by mouth once daily. CHOLECALCIFEROL, VITAMIN D3, ORAL Take 2,000 Units by mouth once daily. 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; was on coumadin for years Hypertension Hypothyroidism Lupus (HCC) Rheumatoid arthritis(714.0) Sjogren's disease (HCC) TIA (transient ischemic attack) Vitamin D deficiency PAST SURGICAL HISTORY Procedure Laterality Date CATARACT EXTRACTION HX Right 12/02/2016 COLECTOMY TOTAL, POUCH PAST SURGICAL HISTORY OF Cosmetic surgery RHINOPLASTY TOE SURGERY HX Right 08/16/15 3,4, and 5 Hammertoe correction glb TONSILLECTOMY HX TOTAL ABDOMINAL HYSTERECT W/WO RMVL TUBE OVARY FAMILY HISTORY Problem Relation Age of Onset Ischemic Heart Disease Father Hypertension Father Hypertension Mother Cancer Mother Social History Tobacco Use Smoking status: Former Types: Cigarettes Quit date: 06/11/2002 Years since quittin.5 Smokeless tobacco: Never Vaping Use Vaping Use: Never used Substance Use Topics Alcohol use: Yes Alcohol/week: 5.0 standard drinks Types: 2 Glasses of Wine (5oz) per week Drug use: No PHYSICAL EXAMINATION: BP 136/79 Pulse 79 Resp 12 Ht 5' 3 (1.60m) Wt 169 lb 12.8 oz (77.0kg) BMI 30.09 kg/(m^2). General appearance: Well appearing, alert, in no acute distress, well-hydrated, well nourished. Head: Normocephalic, no masses, lesions, tenderness or abnormalities Eyes: Anicteric sclera. Pupils are equally round and reactive to light. Extraocular movements are intact. Ears: External ears normal, canals clear, TM's normal Nose/Sinuses: Nares normal, septum midline, mucosa normal, no drainage or sinus tenderness Oropharynx: Lips, mucosa, and tongue normal, teeth and gums normal, oropharynx normal Neck: Supple, no adenopathy; thyroid symmetric, normal size, no bruits Lungs: Lungs clear to auscultation. No wheezing, rhonchi, rales Heart: RRR without murmur, gallop, or rubs. No ectopy Abdomen: Normal abdominal exam, Abdomen soft, non-tender. Bowel sounds normal. No masses, organomegaly Extremities: No deformities, edema, skin discoloration, clubbing or cyanosis. Good capillary refill. Skin: Skin color, texture, turgor normal, no suspicious rashes or lesions Back: Normal exam Neuro: Gait normal. Reflexes normal and symmetric. Sensation grossly intact. ASSESSMENT/PLAN: 1. Hypokalemia - ICD9: 276.8, ICD10: E87.6 - BASIC METABOLIC PNL Jose Armando Marquez MD . documented in this encounter [facility] 12-30-2022 Nurse Note Patient has been identified by name and date of : Yes Nirmala is here for an injection of Vitamin B12 Dose: 1000 mcg Route: Intramuscular Given without incident. Site: left deltoid Community Resource Officer: [employer]. Lot #: [id number] [facility] #: [id number] Expiration Date: 07/24 Dr. marquez present in clinic at time of injection. The date due for the next injection is 28 days. Gustabo Yap MA documented in this encounter [facility] 12-27-2022 History of Present illness Narrative TRANSITION CARE MANAGEMENT (TCM) INITIAL CONTACT Senior Quality Assurance Engineer Outreach Provider Action/FYI: Initial contact with patient post discharge, spoke to patient. Patient identified by name and . TRANSITION CARE MANAGEMENT INITIAL OUTREACH DOCUMENTATION: Date of Outreach: 12/27/2022 Outreach Attempt 1: Contact Made Date of Discharge 12/26/2022 Some recent data might be hidden SUMMARY: -Pt discharged from [facility] on 12/26/22. -Admitted for: Fecal Impaction Do you have a hospital follow up appointment with your PCP? Appointment on with . MEDICATIONS: Many patients have questions or concerns about their medications once they are home. Were you prescribed any new medications? Yes Were you told to hold any medications? No Were any of your medications discontinued? No Do you have any questions about getting or taking your medications? No Your discharge instructions/After visit Summary (AVS) are important in guiding you through the recovery process. Is there anything I might help you understand? No Do you have all the necessary equipment and supplies at home? Yes Medical records from recent hospitalization: Epic documented in this encounter [facility] 12-25-2022 History of Past i llness Narrative Problem Noted Date Resolved Date Fecal impaction of colon 12/25/2022 06/ 023 documented as of this encounter (statuses as of 12/27/2022) [facility] History of Past illness Narrative* Problem Noted Date Resolved Date Fecal impaction of colon 12/25/2022 06/ 023 documented as of this encounter (statuses as of 12/30/2022) [facility] History of Past illness Narrative* Problem Noted Date Diagnosed Date Resolved Date Fecal impaction of colon 12/25/2022 documented as of this encounter (statuses as of 01/16/2023) [facility] History of Past illness Narrative* Problem Noted Date Diagnosed Date Resolved Date Fecal impaction of colon 12/25/2022 documented as of this encounter (statuses as of 01/23/2023) [address]28-2023 History of Past illness Narrative* Problem Noted Date Diagnosed Date Resolved Date Fecal impaction of colon 12/25/2022 documented as of this encounter (statuses as of 01/28/2023) [facility] History of Past illness Narrative* Problem Noted Date Diagnosed Date Resolved Date Fecal impaction of colon 12/25/2022 documented as of this encounter (statuses as of 01/31/2023) [facility] History of Past illness Narrative* Problem Noted Date Diagnosed Date Resolved Date Fecal impaction of colon 12/25/2022 documented as of this encounter (statuses as of 02/14/2023) [facility] History of Past illness Narrative* Problem Noted Date Diagnosed Date Resolved Date Fecal impaction of colon 12/25/2022 documented as of this encounter (statuses as of 02/19/2023) [address]28-2023 History of Past illness Narrative* Problem Noted Date Diagnosed Date Resolved Date Fecal impaction of colon 12/25/2022 documented as of this encounter (statuses as of 04/07/2023) [facility] History of Past illness Narrative* Problem Noted Date Diagnosed Date Resolved Date Fecal impaction of colon 12/25/2022 documented as of this encounter (statuses as of 04/30/2023) [address]28-2023 History of Past illness Narrative* Problem Noted Date Diagnosed Date Resolved Date Fecal impaction of colon 12/25/2022 documented as of this encounter (statuses as of 05/27/2023) [address]28-2023 History of Past illness Narrative* Problem Noted Date Diagnosed Date Resolved Date Fecal impaction of colon 12/25/2022 documented as of this encounter (statuses as of 07/31/2023) [address]28-2023 History of Past illness Narrative* Problem Noted Date Diagnosed Date Resolved Date Fecal impaction of colon 12/25/2022 documented as of this encounter (statuses as of 08/19/2023) [address]28-2023 History of Past illness Narrative* Problem Noted Date Diagnosed Date Resolved Date Fecal impaction of colon 12/25/2022 documented as of this encounter (statuses as of 08/20/2023) [address]28-2023 History of Past illness Narrative* Problem Noted Date Diagnosed Date Resolved Date Fecal impaction of colon 12/25/2022 documented as of this encounter (statuses as of 09/15/2023) [facility] History of Past illness Narrative* Problem Noted Date Diagnosed Date Resolved Date Fecal impaction of colon 12/25/2022 documented as of this encounter (statuses as of 09/17/2023) [address]-2023 History of Past illness Narrative* Problem Noted Date Diagnosed Date Resolved Date Fecal impaction of colon 12/25/2022 documented as of this encounter (statuses as of 09/18/2023) [address]-2023 History of Past illness Narrative* Problem Noted Date Diagnosed Date Resolved Date Fecal impaction of colon 12/25/2022 documented as of this encounter (statuses as of 09/19/2023) [address]-2023 History of Past illness Narrative* Problem Noted Date Diagnosed Date Resolved Date Fecal impaction of colon 12/25/2022 documented as of this encounter (statuses as of 09/20/2023) [address]-2023 History of Past illness Narrative* Problem Noted Date Diagnosed Date Resolved Date Fecal impaction of colon 12/25/2022 documented as of this encounter (statuses as of 09/23/2023) [facility] History of Past illness Narrative* Problem Noted Date Diagnosed Date Resolved Date Fecal impaction of colon 12/25/2022 documented as of this encounter (statuses as of 10/03/2023) [facility] History of Past illness Narrative* Problem Noted Date Diagnosed Date Resolved Date Fecal impaction of colon 12/25/2022 documented as of this encounter (statuses as of 10/08/2023) [facility] History of Past illness Narrative* Problem Noted Date Diagnosed Date Resolved Date Fecal impaction of colon 12/25/2022 documented as of this encounter (statuses as of 10/08/2023) [facility] History of Past illness Narrative* Problem Noted Date Diagnosed Date Resolved Date Fecal impaction of colon 12/25/2022 documented as of this encounter (statuses as of 10/14/2023) [facility]06-20-2023 NoteHNO ID: [id number] Author: Franca Gomez RN Service: ? Author Type: ? Type: Progress Notes Filed: 12/18/2022 10:49 AM Note Text: Keyana Graded Dose Challenge (Keyana obtained from [employer]) 12:53 PM Vital signs: 36.4 T 72 16 147/66 95% O2 Saturation 1:25 PM Informed Consent obtained per Dr. Karen Rinaldi. 1:38 PM Keyana (lot [id number], exp 08/28/2023) 60 mg 1/2 tablet (30 mg) po given per Dr. Rinaldi's orders. 1:58 PM Pt. without signs or symptoms of allergic reaction. Keyana (lot [id number], exp 08/28/2023) 60 mg po given per Dr. Rinaldi's orders. 2:17 PM Vital signs: 69 20 138/65 95% Oxygen saturation. 2:18 PM Pt. without signs or symptoms of allergic reaction. Keyana (lot [id number]. exp 06/27/2023) 180 mg 1/2 tablet (90 mg) po given per Dr. Rinaldi's orders. 3:10 PM Pt. without signs or symptoms of allergic reaction. Pt. seen per Dr. Karen Rinaldi prior to leaving [facility]. Franca Gomez [facility] NoteHNO ID: [id number] Author: Karen Rinaldi MD Service: ? Author Type: Physician Type: Progress Notes Filed: 12/18/2022 10:49 AM Note Text: [facility] Allergy AND Immunology Established Visit PATIENT NAME: Nirmala Bennett LV: 11/12/2022 Dx: - Adverse reaction to medications HPI: Nirmala Bennett is a 82 year old female who presents for follow-up. Her reaction to Claritin has included itching, on her face, and swelling of bottom lip only. Was not life threatening, did not cause trouble breathing. This happened within minutes of taking the medication. She is in good state of health today. No rhinorrhea, scratching throat, has some itching on her face. No rashes. She does remember going to emergency room for adverse reaction to benadryl. She took macrobid for UTI - once daily, tolerating it. Removed macrobid from her allergy profile today. CURRENT OUTPATIENT MEDICATIONS: Current Outpatient Medications Medication Sig Dispense Refill NITROFURANTOIN MONOHYD/M-CRYST ORAL Take by mouth. hydrocortisone (ANUSOL-HC) 2.5 % rectal cream by RECTAL route twice daily. 28 g 1 levothyroxine (SYNTHROID) 50 mcg tablet TAKE ONE TABLET EVERY DAY 90 tablet 3 amLODIPine (NORVASC) 10 mg tablet TAKE ONE TABLET BY MOUTH ONCE DAILY 90 tablet 3 ELIQUIS 5 mg tab(s) TAKE ONE TABLET TWICE DAILY 60 tablet 11 fluticasone (FLONASE) 50 mcg/actuation nasal spray Use 2 Sprays in each nostril twice daily. 16 mL 3 famotidine (PEPCID) 20 mg tablet TAKE ONE TABLET EVERY DAY 90 tablet 3 folic acid 1 mg tablet TAKE ONE TABLET EVERY DAY 90 tablet 3 glycerin ADULT suppository 1 Suppository by RECTAL route as needed. 30 Suppository 2 FEROSUL 325 mg (65 mg iron) tablet TAKE ONE TABLET EVERY MORNING 90 tablet 3 guaiFENesin (MUCINEX) 600 mg 12 hr tablet Take 1 tablet by mouth twice daily. 40 tablet 2 ibuprofen (ADVIL LIQUI-GEL ORAL) Take by mouth. hydroxychloroquine (PLAQUENIL) 200 mg tablet Take 1 tablet by mouth once daily. 30 tablet 5 CHOLECALCIFEROL, VITAMIN D3, ORAL Take 2,000 Units by mouth once daily. Current Facility-Administered Medications Medication Dose Route Frequency Provider Last Rate Last Admin cyanocobalamin 1,000 mcg injection 1,000 mcg INTRAMUSCULAR q 4 WEEKS Jose Armando Marquez MD 1,000 mcg at 11/20/22 1452 REVIEW OF SYSTEMS: Other ROS reviewed and negative, except as noted in HPI. PHYSICAL EXAM: BP 147/66 Pulse 72 Temp (Src) 97.6 (Temporal) Resp 16 Wt 168 lb 3.2 oz (76.3kg) SpO2 95% General appearance: Well appearing, alert, in no acute distress, well-hydrated, well nourished. HENT: External ears normal, canals clear, TM's normal Eyes: no scleral icterus, PERRLA, EOMS, no conjunctivitis Nose/Sinuses: Nares normal. Mucosa normal. No drainage or sinus tenderness. Oropharynx: Lips, mucosa, and tongue normal, teeth and gums normal, oropharynx normal Respiratory: Lungs clear to auscultation. No wheezing, rhonchi, rales Cardiovascular: RRR without murmur, gallop, or rubs. No ectopy Gastroenterology: normal appearing abdomen on inspection Musculoskeletal: Normal gait, no pedal edema Skin: Negative for lesions, rash, and itching. Psychiatric: Alert and oriented x 3. Calm affect. DATA: Diagnostic tests reviewed for today's visit were personally reviewed by me: No new labs CBC Latest Ref Rng AND Units 08/09/2015 12/19/2018 02/25/2021 WBC 3.70 - 11.00 k/uL 7.6 8.9 7.14 RBC 3.90 - 5.20 m/uL 4.85 4.12 4.37 HGB 11.7 - 14.7 g/dL 14.5 12.1 - HEMOGLOBIN 11.5 - 15.5 g/dL - - 13.3 HEMATOCRIT 36.0 - 46.0 % 43.9(H) 36.6 38.8 MCV 80.0 - 100.0 fL 90.5 88.8 88.8 MCH 26.0 - 34.0 pg 29.9 29.4 30.4 MCHC 30.5 - 36.0 g/dL 33.0 33.1 34.3 RDW 11.8 - 14.5 % 12.4 13.0 - RDW-CV 11.5 - 15.0 % - - 12.6 PLATELETS 150 - 400 k/uL 165 205 178 MPV 9.0 - 12.7 fL 10.7 9.9 10.1 CMP Latest Ref Rng AND Units 01/03/2022 07/15/2022 07/15/2022 SODIUM 136 - 144 mmol/L 141 142 142 POTASSIUM 3.7 - 5.1 mmol/L 3.5 3.8 3.9 CHLORIDE 97 - 105 mmol/L 107 106 105 CO2 22 - 30 mmol/L 29 29 24 GLUCOSE 74 - 99 mg/dL 89 80 92 BUN 7 - 21 mg/dL 20 21 19 CREATININE 0.58 - 0.96 mg/dL - 0.66 0.61 EGFR >=60 mL/min/1.73m? - 89 91 EGFR-ALL OTHER RACES - - - - EGFR- - - - - PROTEIN, TOTAL 6.4 - 8.2 g/dL - - - ALBUMIN 3.4 - 5.0 g/dL - - - CALCIUM, TOTAL 8.5 - 10.2 mg/dL 9.0 8.8 9.6 BILIRUBIN, TOTAL 0.2 - 1.0 mg/dL - - - AST 15 - 46 U/L - - - ALT 7 - 38 U/L - 12 15 ALKALINE PHOSPHATASE 46 - 116 U/L - - - Patient consented and agreed to fexofenadine challenge. 30mg wait 20 minutes 60mg wait 20 minutes 90mg wait 40 minutes Assessment/Recommendations Nirmala Bennett is a 82 year old female with Hx of hypothyroidism presenting for consultation of drug allergy. She has previously successfully underwent PCN skin testing (10/2022) which was negative for immediate hypersensitivity. Full clearance of her allergy to penicillin would require a gr (more content not included)...[facility]06-08-2023 Miscellaneous Notes* Telephone Encounter - Alee Calderon - 12/05/2022 11:24 AM EDT General Surgery referral placed through [facility] Portal on 12/05/22 reference [id number] Alee Calderon [facility] Miscellaneous Notes* Telephone Encounter - Gustabo Yap MA - 12/05/2022 8:51 AM EDT Discussed with pt * Telephone Encounter - Jose Armando Marquez MD - 12/05/2022 7:21 AM EDT Called in macrobid. Consulted general surgery to evaluate. * Telephone Encounter - Gustabo Yap MA - 12/05/2022 6:59 AM EDT Pt left message with 2 concerns. First she feels like she has a Uti, frequency, pressure, odor Second, The hemorrhoid issue is not getting any better, the cream does help but she has an area that hurts,lee, and itches all at the same time. Worse when she is sitting [facility] Miscellaneous Notes* Telephone Encounter - Jose Armando Marquez MD - 11/26/2022 12:22 PM EDT Ok, called in anusol. * Telephone Encounter - Gustabo Yap MA - 11/26/2022 11:39 AM EDT Pt struggling with hemorrhoids, otc not helping much, can you send a cream [facility] NoteHNO ID: [id number] Author: Lenora Salas RN Service: ? Author Type: Registered Nurse Type: Progress Notes Filed: 11/14/2022 12:47 PM Note Text: ANTIBIOTIC PERCUTANEOUS AND INTRADERMAL SKIN TESTING/ Mean Wheal AND Flare Diameter (mm) Patient has been identified by name and date of : Yes. Skin test applied by : Lenora Salas RN Interpreted By: * Clinical significant reactions are regarded as a wheal diameter greater than or equal to 3 mm with a flare diameter greater or equal to 6mm. Time Prick test applied: 1430 Time Intradermal test applied: 1455 Time Prick test read: 1445 Time Intradermal test read: 1510 ALLERGENS CONTROL Normal Saline P: W = 0 mm F = 0 mm ID:W = 0 mm F = 0 mm PENICILLIN GK 10,000 UNITS/ML Lot [id number] Exp 11/15/22 P: W = 0 mm F = 0 mm ID: W = 0 mm F = 0 mm PREPEN -(benzylpenicilloyl polylysine) full strength Lot [id number] Exp 01/20 P: W = 0 mm F = 0 mm ID: W = 0 mm F = 0 mm HISTAMINE- positive control (Histamine base 6mg/ml)for Prick and 0.1 mg/ml for intradermal P: W = 5 mm F = 15 mm ID:W = 11 mm F = 35 mm Hydrocortisone 2.5 % cream applied to positive skin test reactions per provider's order. Patient seen by prior to leaving [facility]. Lenora Salas [facility]NM[facility]05[facility]23 NoteHNO ID: [id number] Author: Karen Rinaldi MD Service: ? Author Type: Physician Type: Progress Notes Filed: 11/14/2022 12:47 PM Note Text: [facility] ALLERGY AND IMMUNOLOGY CONSULT Patient Name: Nirmala Bennett PRIMARY CARE PHYSICIAN: Jose Armando Marquez MD REASON FOR CONSULT: Drug allergy REQUESTING PHYSICIAN: Bhanu Mays MD dermatology My final recommendations will be communicated to the requesting health care provider by way of the shared medical record for internal providers or letter via the [employer] for external providers. CHIEF COMPLAINT: Adverse reaction to medications HISTORY OF PRESENT ILLNESS: Nirmala Bennett is a 82 year old female with a history of sulfa allergy, contact dermatitis, allergic rhinitis, who presents with concern for drug allergy: History of adverse drug reaction: Nirmala Bennett reports history of adverse reaction to amoxicillin, claritin, doxycycline, prilosec, bactrim, cipro clinda, and prednisone Whenever the patient takes antibiotics, she has a generalized skin reaction. She also experiences swelling of the face whenever she uses an antihistamine. Amoxicillin: pruritus in arm and face, doesn't remember last use Claritin: pruritus and bottom lip swelling, did not try other antihistamines, has had reactions with benadryl before too Doxycyline: blisters throughout all limbs and trunk, bright red skin peeling at the feet Bactrim: pruritus and bottom lip swelling, Cipro: pruritus and bottom lip swelling, Clinda: pruritus and bottom lip swelling, Prednisone: Unclear but remember she had pruritus, did not try other steroids She cannot recall the exact dates of most of her exposures, as they are historical. Further details re: doxycycline: Age at time of reaction: 81yo, 07/2021 Description of reaction: feeling spacey Blistering/sloughing: Yes, blisters throughout the all limbs and trunk, bright red skin peeling at the feet Treatment required: No Emergency treatment: No Hx of allergic rhinitis, No history of asthma, atopic dermatitis. No antihistamine use as far as she can remember. She denies being told she has chronic urticaria. Amoxcillin [amoxicillin] Not Specified Allergy Rash Claritin [loratadine] Not Specified Side Effect/intolerance Swelling Doxycycline Not Specified Side Effect/intolerance Rash Prilosec [omeprazole] Not Specified Allergy Hives Bactrim [sulfamethoxazole-trimethoprim] Low Allergy Itching Ciprofloxacin Low Allergy Itching Clindamycin Low Allergy Itching Prednisone Seeing derm for dermatitis, ?contact allergy to formaldehyde. Undergoing patch testing. Exposed at work. Environmental history: Pets: none Mite Proof Covers: Yes Bedrm Carpet [id number]-[id number]: Yes A/C: Central Humidifier: No Hobbies: n/a Work: chemicals from clothes or pursuing : No Hx of rhinitis: Yes Hx of asthma: No Hx of eczema: No Hx of drug allergy: Yes Hx of food allergies: No Hx of systemic rxn to stinging insects: No Hx of recurrent infections: No PAST MEDICAL HISTORY Diagnosis Date Allergic rhinitis CVA (cerebral vascular accident) (HCC) Right 1996 DVT (deep venous thrombosis) ([facility]) 3 clots in left leg; was on coumadin for years Hypertension Hypothyroidism Lupus (HCC) Rheumatoid arthritis(714.0) Sjogren's disease (HCC) TIA (transient ischemic attack) Vitamin D deficiency ACTIVE PROBLEM LIST Chronic Urticaria Allergic Rhinitis Adverse Reaction to Sulfa Antibiotic Hypertension Hypothyroidism Cva (Cerebral Vascular Accident) (Hcc) Sjogren's Disease (Hcc) Chronic Pansinusitis Breast Cancer Screening Acute Deep Vein Thrombosis (Dvt) of Proximal Vein of Left Lower Extremity ([facility]) Acute Gastritis Without Hemorrhage Localized Edema Pre-Op Evaluation PAST SURGICAL HISTORY Procedure Laterality Date CATARACT EXTRACTION HX Right 12/02/2016 COLECTOMY TOTAL, POUCH PAST SURGICAL HISTORY OF Cosmetic surgery RHINOPLASTY TOE SURGERY HX Right 08/16/15 3,4, and 5 Hammertoe correction glb TONSILLECTOMY HX TOTAL ABDOMINAL HYSTERECT W/WO RMVL TUBE OVARY FAMILY HISTORY Problem Relation Age of Onset Ischemic Heart Disease Father Hypertension Father Hypertension Mother Cancer Mother Social History Tobacco Use Smoking status: Former Types: Cigarettes Quit date: 06/11/2002 Years since quittin.4 Smokeless tobacco: Never Vaping Use Vaping Use: Never used Substance Use Topics Alcohol use: Yes Alcohol/week: 5.0 standard drinks Types: 2 Glasses of Wine (5oz) per week Drug use: No ALLERGIES: ALLERGIES Allergen Reactions Amoxcillin [Amoxici* Rash Claritin [Loratadin* Swelling Doxycycline Rash Prilosec [Omeprazol* Hives Bactrim [Sulfametho* Itching Ciprofloxacin Itching Clindamycin Itching Prednisone Itching CURRENT OUTPATIENT MEDICATIONS: levothyroxine (SYNTHRO (more content not included)...[facility] 11-11-2022 NoteHNO ID: [id number] Author: Jessa Smith MD Service: ? Author Type: Physician Type: Progress Notes Filed: 11/19/2022 9:16 PM Note Text: Department of Dermatology Contact Dermatitis and Patch Testing 11/11/[address] Mays for an opinion regarding patch testing. My final recommendations will be communicated back to the requesting physician by way of shared medical record or letter via [place] mail The patient consented top participate in this shared medical appointment. Assessment/Plan Problem List Items Addressed This Visit None Visit Diagnoses Contact dermatitis, unspecified contact dermatitis type, unspecified trigger - Primary Discussion: For the past 5 years, the patient has been experiencing a rash on her arms and hands. Patient works in the [employer] department at [employer] and is exposed to formaldehyde in the clothes and packaging. She has only experienced a rash to her arms and hands. Whenever the patient takes antibiotics, she has a generalized skin reaction. She also experiences swelling of the face whenever she uses an antihistamine. Plan: Patch testing with SST (Standard Series Tray), Fabric Finish Tray, and Textile Tray Patient Instructions Patient Instructions We are looking forward to assisting you with patch testing. During your visit, we discussed many important aspects of the patch testing. The potential benefits of patch testing, including the identification of possible contributing factors to the your dermatologic complaints. This may help us to provide you with information about how to avoid certain causes of your skin condition and recommend safe products for you. The potential moderate, but rare, risks of testing, which include: severe inflammation at the patch test sites pigmentary changes at the patch test sites (most often temporary) the possibility that a strong test reaction could flare your underlying skin condition a very rare, strong reaction will make it difficult or impossible to accurately interpret your response (occasionally, further testing may be required in these situations at a later date) the extremely rare possibility (estimated at 1 in 5,000) that testing may actually sensitize you (induce an allergy) to a substance to which you are tested. the extremely rare risk of anaphylaxis (a severe immediate allergic reaction -- we minimize your risk of this complication by limiting the patch testing only to certain types of rashes and by a careful history prior to testing) We spoke about the possibility that testing may be negative (no positive reactions) or non-relevant (the reactions that occur are not related to your underlying skin problem). We discussed that this may still be very valuable information to the provider who referred you to us for testing. You should avoid oral (by mouth) or injectable steroids and other immune suppressants until the final reading is completed, unless previously discussed with the patch test team. Topical steroids can continue to be used on other parts of the body, but the back or other areas discussed at the time of the visit should be avoided. Antihistamines by mouth may be continued, as they are acceptable for use during patch testing. You must avoid all sources of ultraviolet exposure to the back (or other test sites) starting today and lasting until at least 14 days after the patch testing is complete. (Shirt/blouse must cover the back when outdoors and testing must be scheduled to avoid conflicts with any vacations where sun exposure is expected.) Additionally, it is our belief that long-term ultraviolet exposure that causes a deep/persistent saenz, whether artificial or natural, significantly increases the risks of falsely negative results. Depending upon your insurance, [facility] may submit a prior authorization request on your behalf to your insurance company. You may also choose to contact your insurance company to understand any deductibles or [id number] expenses that may apply to your particular situation. In general, once the patch testing process is complete, you will follow-up with your referring provider for ongoing care. Information about your patch testing results will be forwarded to the individual who referred you to us. As a teaching hospital, you will be cared for by a team which includes nurses, dermatology residents, other [id number], and other healthcare trainees. Please refer to the separate handout provided by our patch testing staff for additional information about the process. For questions or concerns regarding your patch testing, call [phone] (the direct line to our patch testing office) OR You may also send a theScore message (please type ATTN: Patch testing team near the top of the message). Follow-up as noted below or as needed. (more content not included)... [facility]05-01-2023 Miscellaneous Notes* Telephone Encounter - Gustabo Yap MA - 10/28/2022 11:19 AM EDT Last ov 07/17/2022 documented in this encounterC[facility]04-20-2023 NoteHNO ID: [id number] Author: Bhanu Mays MD Service: ? Author Type: Physician Type: Progress Notes Filed: 11/11/2022 2:18 PM Note Text: NEW PATIENT CHIEF COMPLAINT: Rash HISTORY OF PRESENT ILLNESS: Nirmala Bennett is a 81 year old female here for evaluation of rash. Consulted by Jose Armando Marquez MD Pt states she has an allergic reaction when she takes any antibiotic. Generalized itching, redness, splotchy. Patient states she gets spacey. No elevations or bumps on the skin when she is getting these reactions. Most recently took doxycycline 100mg capsules for a sinus infection in July. Interested in patch testing, patient states she works at [employer] and is contact with multiple fabrics, wonders if the reaction could be related to that. Patient diagnosed with lupus 40+ years ago, patient states got a second opinion and was diagnosed with Sjogrens instead of lupus and is still currently taking Plaquenil 200mg daily. Patient states she has never had any rashes related to lupus, but also has never had a biopsy to confirm Sjogrens, denies dry mouth, dry eyes, etc. 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 Past Medical History PAST MEDICAL HISTORY Diagnosis Date Allergic rhinitis CVA (cerebral vascular accident) ([facility]) Right 1996 DVT (deep venous thrombosis) ([facility]) 3 clots in left leg; was on coumadin for years Hypertension Hypothyroidism Lupus (HCC) Rheumatoid arthritis(714.0) Sjogren's disease (HCC) TIA (transient ischemic attack) Vitamin D deficiency REVIEW OF SYSTEMS: Skin as per HPI Medications Current Outpatient Medications Medication Sig ELIQUIS 5 mg tab(s) TAKE ONE TABLET TWICE DAILY fluticasone (FLONASE) 50 mcg/actuation nasal spray Use 2 Sprays in each nostril twice daily. famotidine (PEPCID) 20 mg tablet TAKE ONE TABLET EVERY DAY levothyroxine (SYNTHROID) 50 mcg tablet TAKE ONE TABLET EVERY DAY folic acid 1 mg tablet TAKE ONE TABLET EVERY DAY glycerin ADULT suppository 1 Suppository by RECTAL route as needed. FEROSUL 325 mg (65 mg iron) tablet TAKE ONE TABLET EVERY MORNING amLODIPine (NORVASC) 10 mg tablet Take 1 tablet by mouth once daily. guaiFENesin (MUCINEX) 600 mg 12 hr tablet Take 1 tablet by mouth twice daily. ibuprofen (ADVIL LIQUI-GEL ORAL) Take by mouth. hydroxychloroquine (PLAQUENIL) 200 mg tablet Take 1 tablet by mouth once daily. CHOLECALCIFEROL, VITAMIN D3, ORAL Take 2,000 Units by mouth once daily. Current Facility-Administered Medications Medication Dose Route Frequency cyanocobalamin 1,000 mcg injection 1,000 mcg INTRAMUSCULAR q 4 WEEKS PHYSICAL EXAM: General: awake, alert, no acute distress Neuropsych: appropriate mood and affect Skin: Skin exam was performed today including the following: head and face. Pertinent findings include: -Pt has no rash available for exam today ASSESSMENT AND PLAN: Rash and nonspecific skin eruption -patient states she gets a rash when she takes antibiotics; nothing on exam today -also states she gets a rash with formaldehyde exposure --will refer to patch testing -discussed importance of avoidance of antibiotics to which you had a past reaction to and those of similar class/related medications -will also refer to allergy/immunology for further antibiotic evaluation/assessment and inquire if there is any testing that can be done to determine what antibiotics can be used for future. -If you get a rash in the future let us know so we can try to determine what type of medication reaction it is. -warning signs to watch out for - watch for blistering/peeling of skin, pain and sores in mouth/eyes/genital areas, painful skin, facial swelling, lymph node swelling, fevers, generalized rash, lip/tongue swelling, difficulty swallowing/breathing- instructed to go to ED if these occur -will forward to PCP upon completion of note Return to Dermatology clinic PRN or sooner, if something concerning arises. Sanaz Delaney MD, MS Department of Dermatology, PGY2 Attestation: I agree with the Chief Complaint, ROS, and Past Histories independently gathered by the clinical technical support engineer, and the remaining scribed note accurately describes my personal service to the patient. I saw and evaluated Nirmala Bennett, as well as de (more content not included)...[facility]04-20-2023 Instructions* Patient Instructions* Bhanu Mays MD - 10/17/2022 2:14 PM EDT -will refer to patch testing -discussed importance of avoidance of antibiotics to which you had a past reaction to and those of similar class/related medications -will also refer to allergy/immunology for further antibiotic evaluation/assessment and inquire if there is any testing that can be done to determine what antibiotics can be used for future. -If you get a rash in the future let us know so we can try to determine what type of medication reaction it is. -warning signs to watch out for - watch for blistering/peeling of skin, pain and sores in mouth/eyes/genital areas, painful skin, facial swelling, lymph node swelling, fevers, generalized rash, lip/tongue swelling, difficulty swallowing/breathing- instructed to go to ED if these occur documented in this encounterC[facility]04-20-2023 History of Present illness Narrative* Bhanu Mays MD - 10/17/2022 1:40 PM EDT NEW PATIENT CHIEF COMPLAINT: Rash HISTORY OF PRESENT ILLNESS: Nirmala Bennett is a 81 year old female here for evaluation of rash. Consulted by Jose Armando Marquez MD Pt states she has an allergic reaction when she takes any antibiotic. Generalized itching, redness,splotchy. Patient states she gets spacey. No elevations or bumps on the skin when she is getting these reactions. Most recently took doxycycline 100mg capsules for a sinus infection in July. Interested in patch testing, patient states she works at [employer] and is contact with multiple fabrics, wonders if the reaction could be related to that. Patient diagnosed with lupus 40+ years ago, patient states got a second opinion and was diagnosed with Sjogrens instead of lupus and is still currently taking Plaquenil 200mg daily. Patient states she has never had any rashes related to lupus, but also has never had a biopsy to confirm Sjogrens, denies dry mouth, dry eyes, etc. 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 Past Medical History PAST MEDICAL HISTORY Diagnosis Date Allergic rhinitis CVA (cerebral vascular accident) ([facility]) Right 1996 DVT (deep venous thrombosis) ([facility]) 3 clots in left leg; was on coumadin for years Hypertension Hypothyroidism Lupus ([facility]) Rheumatoid arthritis(714.0) Sjogren's disease ([facility]) TIA (transient ischemic attack) Vitamin D deficiency REVIEW OF SYSTEMS: Skin as per HPI Medications Current Outpatient Medications Medication Sig ELIQUIS 5 mg tab(s) TAKE ONE TABLET TWICE DAILY fluticasone (FLONASE) 50 mcg/actuation nasal spray Use 2 Sprays in each nostril twice daily. famotidine (PEPCID) 20 mg tablet TAKE ONE TABLET EVERY DAY levothyroxine (SYNTHROID) 50 mcg tablet TAKE ONE TABLET EVERY DAY folic acid 1 mg tablet TAKE ONE TABLET EVERY DAY glycerin ADULT suppository 1 Suppository by RECTAL route as needed. FEROSUL 325 mg (65 mg iron) tablet TAKE ONE TABLET EVERY MORNING amLODIPine (NORVASC) 10 mg tablet Take 1 tablet by mouth once daily. guaiFENesin (MUCINEX) 600 mg 12 hr tablet Take 1 tablet by mouth twice daily. ibuprofen (ADVIL LIQUI-GEL ORAL) Take by mouth. hydroxychloroquine (PLAQUENIL) 200 mg tablet Take 1 tablet by mouth once daily. CHOLECALCIFEROL, VITAMIN D3, ORAL Take 2,000 Units by mouth once daily. Current Facility-Administered Medications Medication Dose Route Frequency cyanocobalamin 1,000 mcg injection 1,000 mcg INTRAMUSCULAR q 4 WEEKS PHYSICAL EXAM: General: awake, alert, no acute distress Neuropsych: appropriate mood and affect Skin: Skin exam was performed today including the following: head and face. Pertinent findings include: -Pt has no rash available for exam today ASSESSMENT & PLAN: Rash and nonspecific skin eruption -patient states she gets a rash when she takes antibiotics; nothing on exam today -also states she gets a rash with formaldehyde exposure --will refer to patch testing -discussed importance of avoidance of antibiotics to which you had a past reaction to and those of similar class/related medications -will also refer to allergy/immunology for further antibiotic evaluation/assessment and inquire if there is any testing that can be done to determine what antibiotics can be used for future. -If you get a rash in the future let us know so we can try to determine what type of medication reaction it is. -warning signs to watch out for - watch for blistering/peeling of skin, pain and sores in mouth/eyes/genital areas, painful skin, facial swelling, lymph node swelling, fevers, generalized rash, lip/tongue swelling, difficulty swallowing/breathing- instructed to go to ED if these occur -will forward to PCP upon completion of note Return to Dermatology clinic PRN or sooner, if something concerning arises. Sanaz Delaney MD, MS Department of Dermatology, PGY2 Attestation: I agree with the Chief Complaint, ROS, and Past Histories independently gathered by the clinical technical support engineer, and the remaining scribed note accurately describes my personal service to the patient. I saw and evaluated Nirmala Bennett, as well as developed and discussed the assessment and plan with the Resident. I have reviewed the Resident's note and agree with the history and physical examination as described, as well as the assessment and plan of care. The resident's note was annotated by me as needed to reflect my direct input. There were no procedures performed during this patient's visit. Bhanu Mays MD documented in this encounterC[facility]03-01-2023 Miscellaneous Notes* Telephone Encounter - Gustabo Yap MA - 08/28/2022 12:20 PM EST Last ov 08/27/2022 with Daksha documented in this encounterCleveland Clinic [facility]02-28-2023 Instructions* Patient Instructions* Daksha Ellis PA-C - 08/27/2022 2:25 PM EST ANGIOEDEMA: Your exam shows you have angioedema. This condition is related to hives (they often appear together), and it is quite common. Angioedema occurs most often on the face, causing unusual, painless swelling of the eyelids or lips. Other symptoms of angioedema include hoarseness, difficulty swallowing, and stomach cramps. Itching may also be present. Possible causes of angioedema include: Allergic reactions to drugs, pollens, foods, or insect stings. Infections (Strep, mononucleosis, hepatitis). Environmental factors (cold exposure, vigorous exercise). Emotional distress. The treatment of angioedema may include adrenalin (epinephrine) injections to reduce swelling and antihistamine drugs. More severe cases may require the use of cortisone-like drugs. Please avoid any substance which you think may have caused this reaction. Do not take aspirin, narcotic medicine, or alcohol because these have been shown to make angioedema worse. Please call your doctor if your condition is not improved within 3 days. Call or go to the emergency department right away if you have trouble breathing or swallowing, swelling to the tongue, fainting, or unusual pain. documented in this encounterC[facility]02-28-2023 History of Present illness Narrative* Daksha Ellis PA-C - 08/27/2022 2:10 PM EST Images from the original note were not included. [facility] [place] [address] Date of Evaluation: 08/27/2022 Patient Name: Nirmala Bennett : 1940 Chief Complaint: Patient presents with: Allergic Reaction: Pt states, allergic reaction to doxycycline states Rash all over body and lip swollen, leg swollen started medication Friday evening Nursing Intake: There are no exam notes on file for this visit. Subjective HPI Ms. Bennett is a 81 year old female who presents with widespread rash from Doxycycline. She was prescribed Doxy last week for sinus infection and then started deeloping a rash and lower lip swelling after one dose. Seen in urgent care on 08/25 and told to take Pepcid daily and also hydrocortisone cream for rash/itching. Taking Pepcid once daily. Can't take prednisone or any other antihistamines dueto swelling. She has red, itchy rash on chest, upper arms, and on legs from the knees down. She also states she has burning on the bottoms of her fee. Her lower lip is still a little swollen but she denies any throat swelling or difficulty swallowing. She does not feel SOB or have any chest tightness. Review of Systems Constitutional: Negative for chills, fatigue and fever. HENT: Positive for facial swelling. Negative for trouble swallowing. Respiratory: Negative for cough and shortness of breath. Cardiovascular: Negative for chest pain and palpitations. Gastrointestinal: Negative for diarrhea, nausea and vomiting. Musculoskeletal: Negative for back pain and myalgias. Skin: Positive for color change and rash. Itching Allergic/Immunologic: Positive for immunocompromised state. Neurological: Negative for dizziness, weakness and headaches. Psychiatric/Behavioral: Negative for sleep disturbance. PAST MEDICAL HISTORY Diagnosis Date Allergic rhinitis CVA (cerebral vascular accident) ([facility]) Right 1996 DVT (deep venous thrombosis) ([facility]) 3 clots in left leg; was on coumadin for years Hypertension Hypothyroidism Lupus (HCC) Rheumatoid arthritis(714.0) Sjogren's disease ([facility]) TIA (transient ischemic attack) Vitamin D deficiency PAST SURGICAL HISTORY Procedure Laterality Date CATARACT EXTRACTION HX Right 12/02/2016 COLECTOMY TOTAL, POUCH PAST SURGICAL HISTORY OF Cosmetic surgery RHINOPLASTY TOE SURGERY HX Right 08/16/15 3,4, and 5 Hammertoe correction glb TONSILLECTOMY HX TOTAL ABDOMINAL HYSTERECT W/WO RMVL TUBE OVARY FAMILY HISTORY Problem Relation Age of Onset Ischemic Heart Disease Father Hypertension Father Hypertension Mother Cancer Mother Social History Tobacco Use Smoking status: Former Types: Cigarettes Quit date: 06/11/2002 Years since quittin.2 Smokeless tobacco: Never Vaping Use Vaping Use: Never used Substance Use Topics Alcohol use: Yes Alcohol/week: 5.0 standard drinks Types: 2 Glasses of Wine (5oz) per week Drug use: No Current Outpatient Medications Medication Sig Dispense Refill doxycycline monohydrate (MONODOX) 100 mg capsule Take 1 capsule by mouth twice daily for 7 days. 14capsule 0 fluticasone (FLONASE) 50 mcg/actuation nasal spray Use 2 Sprays in each nostril twice daily. 16 mL 3 famotidine (PEPCID) 20 mg tablet TAKE ONE TABLET EVERY DAY 90 tablet 3 levothyroxine (SYNTHROID) 50 mcg tablet TAKE ONE TABLET EVERY DAY 90 tablet 0 folic acid 1 mg tablet TAKE ONE TABLET EVERY DAY 90 tablet 3 glycerin ADULT suppository 1 Suppository by RECTAL route as needed. 30 Suppository 2 FEROSUL 325 mg (65 mg iron) tablet TAKE ONE TABLET EVERY MORNING 90 tablet 3 amLODIPine (NORVASC) 10 mg tablet Take 1 tablet by mouth once daily. 90 tablet 3 ELIQUIS 5 mg tab(s) TAKE ONE TABLET TWICE DAILY 60 tablet 11 guaiFENesin (MUCINEX) 600 mg 12 hr tablet Take 1 tablet by mouth twice daily. 40 tablet 2 ibuprofen (ADVIL LIQUI-GEL ORAL) Take by mouth. hydroxychloroquine (PLAQUENIL) 200 mg tablet Take 1 tablet by mouth once daily. 30 tablet 5 CHOLECALCIFEROL, VITAMIN D3, ORAL Take 2,000 Units by mouth once daily. Current Facility-Administered Medications Medication Dose Route Frequency Provider Last Rate Last Admin cyanocobalamin 1,000 mcg injection 1,000 mcg INTRAMUSCULAR q 4 WEEKS Jose Armando Marquez MD 1,000 mcg at 08/07/22 1120 I have confirmed and edited as necessary the chief complaint, medications, past medical, family andsocial histories obtained by others. Objective BP 118/64 Pulse 79 Resp 12 Ht 5' 3.5 (1.61m) Wt 171 lb 9.6 oz (77.8kg) SpO2 97% BMI 29.92 kg/(m^2). Physical Exam Vitals and nursing note reviewed. Constitutional: General: She is not in acute distress. Appearance: She is well-developed. HENT: Head: Normocephalic and atraumatic. Mouth/Throat: Mouth: Mucous membranes are moist. Angioedema present. Pharynx: Oropharynx is clear. Eyes: Conjunctiva/sclera: Conjunctivae normal. Pupils: Pupils are equal, round, and reactive to light. Cardiovascular: Rate and Rhythm: Normal rate and regular rhythm. Pulmonary: Effort: Pulmonary effort is normal. No respiratory distress. Breath sounds: Normal breath sounds. Skin: General: Skin is warm and dry. Findings: Erythema and rash present. Rash is macular. ASSESSMENT/PLAN: 1. Drug-induced skin rash - ICD9: 693.0, ICD10: L27.0 (primary diagnosis) Increase Pepcid 20mg to BID. Doxycycline added to drug allergy list. DO NOT TAKE. 2. Itching - ICD9: 698.9, ICD10: L29.9 Cannot prescribe atarax due to high risk interaction with plaquenil. 3. Angioedema, subsequent encounter - ICD9: V58.89, 995.1, ICD10: T78.3XXD If any worsening facial swelling, needs to go to ER immediately. Daksha Ellis PA-C Return if symptoms worsen or fail to improve. Discussed the above with the patient using shared decision making. The patient is in agreement with the diagnostic and treatment plans. documented in this encounterCleveland [facility]02-28-2023 Miscellaneous Notes* Telephone Encounter - Maureen Corrales MA - 08/27/2022 11:08 AM EST Pt is scheduled with daksha at 2pm * Telephone Encounter - Gustabo Yap MA - 08/27/2022 10:30 AM EST Pt having allergic reaction to doxycyline, left message advising pt to make appt arabella with Daksha documented in this encounterCleveland Clinic [facility]02-26-2023 History of Present illness Narrative* Lina Chavez APRN - [place] - 08/25/2022 11:15 AM EST Images from the original note were not included. Urgent Care Encounter [facility] Patient: Nirmala Bennett : 1940 Date of Evaluation: 08/25/2022 Urgent Care Provider: LAUREN Kessler CNP Chief Complaint Chief Complaint Patient presents with Allergic Reaction Patient states she is having an allergic reaction to Doxycyline, states she started medication on Friday for sinus infection. Red spots all over body and upper lip swelling. CURYUNG Nirmala Bennett is a 81 y.o. female who presents to the urgent care with c/o rash all over her body, especially the right lower extremity, along with slight upper lip swelling x2 days after startingdoxycycline on Friday. This is a new problem. Pertinent positive include allergic reaction, rash Pertinent negatives include fever chills nausea vomiting or diarrhea. Patient also denies any change in lotions soaps detergents or medications. PMH: Allergic rhinitis, DVTs, hypertension Allergies: Cipro, clarithromycin, clindamycin, levofloxacin, loratadine, omeprazole, prednisone, sulfa ROS: Review of Systems Constitutional: Negative for chills and fever. HENT: Negative for congestion, ear pain and sore throat. Eyes: Negative for pain, discharge and redness. Respiratory: Negative for cough, chest tightness and shortness of breath. Cardiovascular: Negative for chest pain and palpitations. Gastrointestinal: Negative for abdominal pain, constipation, diarrhea, nausea and vomiting. Endocrine: Negative for cold intolerance and heat intolerance. Genitourinary: Negative for dysuria, flank pain, frequency and urgency. Musculoskeletal: Negative for arthralgias, back pain and myalgias. Skin: Positive for rash. Negative for wound. Allergic/Immunologic: Negative for environmental allergies and food allergies. Neurological: Negative for dizziness and headaches. Hematological: Negative for adenopathy. Psychiatric/Behavioral: Negative for agitation, behavioral problems and confusion. Past History Past Medical History: Diagnosis Date Allergic rhinitis Cerebral artery occlusion with cerebral infarction (CMS/HCC) DVT, lower extremity (CMS/HCC) Hypertension Hypothyroidism Lupus (CMS/HCC) Sjogren's disease (CMS/HCC) Stroke (cerebrum) (CMS/HCC) Past Surgical History: Procedure Laterality Date COLON SURGERY megacolon TOE SURGERY Left 09/2002 TOTAL ABDOMINAL HYSTERECTOMY Social History Socioeconomic History Marital status: Single Tobacco Use Smoking status: Former Types: Cigarettes Start date: 02/15/1999 Smokeless tobacco: Never Substance and Sexual Activity Alcohol use: Yes Alcohol/week: 2.0 standard drinks Drug use: Never Medications/Allergies Previous Medications AMLODIPINE (NORVASC) 10 MG TABLET Take 10 mg by mouth daily. CHOLECALCIFEROL (VITAMIN D-3) 25 MCG (1000 UT) CAPSULE Take 2,000 Units by mouth. CYANOCOBALAMIN (VITAMIN B-12) 1000 MCG/ML INJECTION Inject 1,000 mcg into the shoulder, thigh, or buttocks every 28 (twenty-eight) days. DOXYCYCLINE (MONODOX) 100 MG CAPSULE TAKE ONE CAPSULE TWICE DAILY FOR 7 DAYS ELIQUIS 5 MG TABLET Take 5 mg by mouth 2 times daily. FAMOTIDINE (PEPCID) 20 MG TABLET Take 20 mg by mouth daily. FEROSUL 325 (65 FE) MG TABLET Take 1 tablet by mouth every morning. FLUTICASONE (FLONASE) 50 MCG/ACT NASAL SPRAY 2 sprays in the morning and 2 sprays in the evening. FOLIC ACID (FOLVITE) 1 MG TABLET Every 24 hours. HYDROCHLOROTHIAZIDE (MICROZIDE) 12.5 MG CAPSULE Take 12.5 mg by mouth daily. HYDROXYCHLOROQUINE (PLAQUENIL) 200 MG TABLET Every 24 hours. LEVOTHYROXINE (SYNTHROID, LEVOXYL) 50 MCG TABLET Take 1 tablet by mouth daily. Allergies Allergen Reactions Ciprofloxacin Itching Clarithromycin Other reaction(s): Other (See Comments), swells Swelling Clindamycin Itching Levofloxacin Swelling Other reaction(s): swells Loratadine Swelling Omeprazole Hives Other reaction(s): Other (See Comments), rash Prednisone Itching Sulfa Antibiotics Itching Sulfamethoxazole-Trimethoprim Itching Other reaction(s): swells Physical Exam Vitals: 08/25/22 1141 BP: (!) 142/76 Pulse: 73 Resp: 18 Temp: 36 C (96.8 F) SpO2: 99% Physical Exam Vitals and nursing note reviewed. Constitutional: Appearance: Normal appearance. HENT: Head: Normocephalic. Right Ear: Tympanic membrane and external ear normal. There is no impacted cerumen. Left Ear: Tympanic membrane and external ear normal. There is no impacted cerumen. Nose: Nose normal. No congestion or rhinorrhea. Mouth/Throat: Mouth: Mucous membranes are moist. Pharynx: No oropharyngeal exudate or posterior oropharyngeal erythema. Eyes: General: Right eye: No discharge. Left eye: No discharge. Pupils: Pupils are equal, round, and reactive to light. Cardiovascular: Rate and Rhythm: Normal rate and regular rhythm. Pulses: Normal pulses. Heart sounds: Normal heart sounds. Pulmonary: Effort: Pulmonary effort is normal. Breath sounds: Normal breath sounds. No wheezing or rhonchi. Chest: Chest wall: No tenderness. Musculoskeletal: General: No swelling or tenderness. Normal range of motion. Cervical back: Normal range of motion. No tenderness. Skin: General: Skin is warm. Capillary Refill: Capillary refill takes less than 2 seconds. Findings: Erythema and rash present. Neurological: General: No focal deficit present. Mental Status: She is alert and oriented to person, place, and time. Psychiatric: Mood and Affect: Mood normal. Behavior: Behavior normal. Diagnostics Labs: Results for orders placed or performed in visit on 10[facility]28/[facility] RESPIRATORY PAN[facility], MOLECULAR, WITH COVID-19 Result Value Ref Range [employer] RESPIRATORY PANEL MOLECULAR, WITH COVID (A) POSITIVE: SARS-CoV-2 DETECTED. _ Expected Result: Not Detected The [employer] Upper Respiratory Pathogens PCR Panel can detect the following targets: SARS-CoV-2, Adenovirus, Coronavirus 229E, Coronavirus HKU1, Coronavirus NL63, Coronavirus OC43, Human Metapneumovirus, Human Rhinovirus/Enterovirus, Influenza A, Influenza B, Parainfluenza Virus 1, Parainfluenza Virus 2, Parainfluenza Virus 3, Parainfluenza Virus 4, Respiratory Syncytial Virus, Bordetella pertussis, Bordetella parapertussis, Chlamydia pneumoniae, Mycoplasma pneumoniae. Method: Real-time PCR. Radiographs: Procedures: Course and MDM In brief, Nirmala Bennett is a 81 y.o. female who presented to the urgent care with c/o rash all over her body, especially the right lower extremity, along with slight upper lip swelling x2 days after starting doxycycline on Friday. Due to patient's allergies, doxycycline is recommended to be stopped. Patient to take prescribed Pepcid daily as well as hydrocortisone cream. Based on evidence from the [id number] along with findings from my physical examination, and my review of systems, it is my opinion that the symptoms affecting the patient's wellbeing is Nirmala was seen today for allergic reaction. Diagnoses and all orders for this visit: Allergic reaction, initial encounter (Primary) Rash Patient is recommended to take medications that have been prescribed as directed. Patient is to continue with [id number] (OTC) medications as needed for symptom relief included, but not specifically limited to medications such as Tylenol, Motrin, Clarain/Zyrtec, or Mucinex for associated symptom management. Patient was educated on the symptoms affecting the patient's health at today's visit. Patient is advised to follow up with primary care physician (PCP) if symptoms linger or worsen. Final Impression 1. Allergic reaction, initial encounter 2. Rash Patient's wellbeing is stable at this time. Patient is agreeable with plan and is cooperative with discharge at this time. Patient has been given information on their currently diagnosed illness fromthis visit as well as any other pertinent information based on their visit at this time. Pt has been educated on medications pertinent to this visit. (Please note that portions of this note may have been completed with a voice recognition program. Efforts were made to edit the dictations but occasionally words aremis-transcribed.) documented in this [facility]02-24-2023 Miscellaneous Notes* Telephone Encounter - Gustabo Yap MA - 08/23/2022 2:26 PM EST Left message for pt * Telephone Encounter - Jose Armando Marquez MD - 08/23/2022 2:19 PM EST Ok, called in doxycycline. * Telephone Encounter - Gustabo Yap MA - 08/23/2022 2:17 PM EST Pt requesting treatment for sinus infection documented in this encounterC[facility]23 Miscellaneous Notes* Telephone Encounter - Gustabo Yap MA - 08/21/2022 10:25 AM EST Last ov 07/17/2022 Please fill for Smo documented in this encounterCleveland [facility]02-15-2023 Miscellaneous Notes* Telephone Encounter - Selena Weathers LPN - 08/14/2022 3:51 PM EST Pharmacy requesting the following refill Refill(s) Requested: Requested Prescriptions Pending Prescriptions Disp Refills famotidine (PEPCID) 20 mg tablet [Pharmacy Med Name: famotidine 20 mg tablet] 90 tablet 3 Sig: TAKE ONE TABLET EVERY DAY ALLERGIES Allergen Reactions Claritin [Loratadin* Swelling Prilosec [Omeprazol* Hives Bactrim [Sulfametho* Itching Ciprofloxacin Itching Clindamycin Itching Prednisone Itching (home) [phone] (cell) Last Office Visit Date: 07/17/2022 Last [facility] [place] [facility] Visit: Visit date not found Future Appointment: 01/22/2023 The patients preferred pharmacy has been captured for this encounter? yes Request is for script(s) to be escript to pharmacy. Selena Weathers LPN documented in this encounterC[facility]02-09-2023 Miscellaneous Notes* Telephone Encounter - Jose Armando Marquez MD - 08/08/2022 11:32 AM EST Ok, filed * Telephone Encounter - Gustabo Yap MA - 08/08/2022 11:21 AM EST Please reorder, pt was unable to void yesterday and the orders auto canceled documented in this encounterC[facility]02-07-2023 Miscellaneous Notes* Telephone Encounter - Gustabo Yap MA - 08/06/2022 11:05 AM EST Pt aware Urine only tomorrow, labs in December * Telephone Encounter - Jose Armando Maruqez MD - 08/06/2022 10:18 AM EST Ok, ordered. * Telephone Encounter - Gustabo Yap MA - 08/06/2022 9:50 AM EST Pt requesting a Ua to be done tomorrow documented in this encounterC[facility]02-01-2023 Miscellaneous Notes* Telephone Encounter - Gustabo Yap MA - 07/31/2022 9:29 AM EST Discussed with pt, she is feeling slightly better this morning. Has eaten toast and tea and kept itin. Will call Friday if not improved more * Telephone Encounter - Jose Armando Marquez MD - 07/30/2022 3:22 PM EST Would use otc imodium. Call if continues. May need stool studies if continues. * Telephone Encounter - Gustabo Yap MA - 07/30/2022 2:41 PM EST Middle of the night Friday morning pt started with explosive diarrhea, vomiting and nausea Was scheduled to come in today and see Daksha, had to cancel. Diarrhea on the way out the door. Pt requesting something to slow this down documented in this encounterCleveland [facility]01-18-2023 History of Present illness Narrative* Jose Armando Marquez MD - 07/17/2022 12:11 PM EST HPI: Nirmala Bennett is a 81 year old female who presents with complaint of F/U 6 Month (Review Labs). Pt doing well. 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 Back is better with PT. No cardiac complaints. Reviewed labs, is having some urinary symptoms. Will try macrobid and repeat in 2 weeks. Otherwise checkagain in 6 months. REVIEW OF SYSTEMS PAIN ASSESSMENT: Negative for pain, history of chronic pain, or current treatment for a chronic pain condition. GENERAL: No weight loss, malaise or fevers HEENT: Negative for frequent or significant headaches, No changes in hearing or vision, no nose bleeds or other nasal problems NECK: Negative for lumps, goiter, pain and significant neck swelling RESPIRATORY: Negative for cough, hemoptysis, wheezing or shortness of breath CARDIOVASCULAR: Negative for chest pain, leg swelling or palpitations GI: No nausea, vomiting, or diarrhea : see hpi ROUTE SPECIALIST: Negative for abnormal vaginal bleeding, abnormal vaginal discharge MUSCULOSKELETAL: Negative for joint pain or swelling, back pain or muscle pain SKIN: Negative for lesions, rash, and itching PSYCH: Negative for sleep disturbance, mood disorder and recent psychosocial stressors HEMATOLOGY/LYMPHOLOGY: Negative for prolonged bleeding, bruising easily or swollen nodes ENDOCRINE: Negative for cold or heat intolerance, polyuria, polydipsia and goiter NEURO: No history of headaches, syncope, paralysis, seizures or tremors ALLERGIES Allergen Reactions Claritin [Loratadin* Swelling Prilosec [Omeprazol* Hives Bactrim [Sulfametho* Itching Ciprofloxacin Itching Clindamycin Itching Prednisone Itching Current Outpatient Medications Medication Sig levothyroxine (SYNTHROID) 50 mcg tablet TAKE ONE TABLET EVERY DAY fluticasone (FLONASE) 50 mcg/actuation nasal spray Use 2 Sprays in each nostril twice daily. folic acid 1 mg tablet TAKE ONE TABLET EVERY DAY glycerin ADULT suppository 1 Suppository by RECTAL route as needed. FEROSUL 325 mg (65 mg iron) tablet TAKE ONE TABLET EVERY MORNING amLODIPine (NORVASC) 10 mg tablet Take 1 tablet by mouth once daily. ELIQUIS 5 mg tab(s) TAKE ONE TABLET TWICE DAILY famotidine (PEPCID) 20 mg tablet TAKE ONE TABLET BY MOUTH ONCE DAILY guaiFENesin (MUCINEX) 600 mg 12 hr tablet Take 1 tablet by mouth twice daily. ibuprofen (ADVIL LIQUI-GEL ORAL) Take by mouth. hydroxychloroquine (PLAQUENIL) 200 mg tablet Take 1 tablet by mouth once daily. CHOLECALCIFEROL, VITAMIN D3, ORAL Take 2,000 Units by mouth once daily. nitrofurantoin monohydrate and macrocrystal (MACROBID) 100 mg capsule Take 1 capsule by mouth twicedaily for 7 days. 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; was on coumadin for years Hypertension Hypothyroidism Lupus (HCC) Rheumatoid arthritis(714.0) Sjogren's disease (HCC) TIA (transient ischemic attack) Vitamin D deficiency PAST SURGICAL HISTORY Procedure Laterality Date CATARACT EXTRACTION HX Right 12/02/2016 COLECTOMY TOTAL, POUCH PAST SURGICAL HISTORY OF Cosmetic surgery RHINOPLASTY TOE SURGERY HX Right 08/16/15 3,4, and 5 Hammertoe correction glb TONSILLECTOMY HX TOTAL ABDOMINAL HYSTERECT W/WO RMVL TUBE OVARY FAMILY HISTORY Problem Relation Age of Onset Ischemic Heart Disease Father Hypertension Father Hypertension Mother Cancer Mother Social History Tobacco Use Smoking status: Former Types: Cigarettes Quit date: 06/11/2002 Years since quittin.1 Smokeless tobacco: Never Vaping Use Vaping Use: Never used Substance Use Topics Alcohol use: Yes Alcohol/week: 5.0 standard drinks Types: 2 Glasses of Wine (5oz) per week Drug use: No PHYSICAL EXAMINATION: BP 148/87 Pulse 73 Resp 12 Ht 5' 3.5 (1.61m) Wt 171 lb 3.2 oz (77.7kg) SpO2 97% BMI 29.85 kg/(m^2). General appearance: Well appearing, alert, in no acute distress, well-hydrated, well nourished. Head: Normocephalic, no masses, lesions, tenderness or abnormalities Eyes: Anicteric sclera. Pupils are equally round and reactive to light. Extraocular movements are intact. Ears: External ears normal, canals clear, TM's normal Nose/Sinuses: Nares normal, septum midline, mucosa normal, no drainage or sinus tenderness Oropharynx: Lips, mucosa, and tongue normal, teeth and gums normal, oropharynx normal Neck: Supple, no adenopathy; thyroid symmetric, normal size, no bruits Lungs: few dry crackles in bases. Heart: RRR without murmur, gallop, or rubs. No ectopy Abdomen: Normal abdominal exam, Abdomen soft, non-tender. Bowel sounds normal. No masses, organomegaly Extremities: No deformities, edema, skin discoloration, clubbing or cyanosis. Good capillary refill. Skin: Skin color, texture, turgor normal, no suspicious rashes or lesions Back: Normal exam Neuro: Gait normal. Reflexes normal and symmetric. Sensation grossly intact. ASSESSMENT/PLAN: 1. Preventative health care - ICD9: V70.0, ICD10: Z00.00 (primary diagnosis) - Counseled on healthy diet and regular exercise - Calcium intake with supplements or by diet of 1000 mg/day for under 50, 1200- 1500 mg/day for 50+ - ALT/SGPT - BASIC METABOLIC PNL - CBC + DIFF - TSH BLD - URINALYSIS, WITH MICROSCOPIC 2. Fatigue, unspecified type - ICD9: 780.79, ICD10: R53.83 - CBC + DIFF - URINALYSIS, WITH MICROSCOPIC 3. Hypothyroidism, unspecified type - ICD9: 244.9, ICD10: E03.9 - Instructed patient on importance of taking on an empty stomach either first thing in the morning or at bedtime. Stable - Continue current medications - TSH BLD 4. Borderline hypercholesterolemia - ICD9: 272.0, ICD10: E78.00 - ALT/SGPT - LIPID PANEL BASIC 5. Primary hypertension - ICD9: 401.9, ICD10: I10 - good control - Recommended regular aerobic exercise. - Recommend home blood pressure monitoring, to bring results in on next visit - Goal of BP <130/80 - BASIC METABOLIC PNL 6. Acute cystitis without hematuria - ICD9: 595.0, ICD10: N30.00 - URINALYSIS WITH MICROSCOPIC, REFLEX CULTURE Jose Armando Marquez MD documented in this encounterC[facility]01-04-2023 Nurse Note* Joann Vega MA - 07/03/2022 3:05 PM EST Nirmala Bennett is here for an injection of Vitamin B12 Patient verified by name and date of . Allergies reviewed and updated: Yes Medication Details: Dose: 1ML Route: Intramuscular Site: left deltoid Community Resource Officer: [employer]. [facility]: [id number] Lot #: [id number] Expiration Date: 10/2023 Dr. Marquez present in clinic at time of injection. Patient tolerated well. Joann Vega MA documented in this encounterCleveland [facility]12-01-2022 Miscellaneous Notes* Telephone Encounter - Roopa Claros - 05/30/2022 2:05 PM EST Pt Notified of message below. Roopa Claros * Telephone Encounter - Jose Armando Marquez MD - 05/30/2022 11:37 AM EST Ok, called in macrobid * Telephone Encounter - Roopa Claros - 05/30/2022 10:46 AM EST Pt called in with sx of urinary frequency, discomfort and dysuria. Pt states she is miserable and was hoping an antibiotic could be sent in. Please advise,Thanks Roopa Claros documented in this encounterC[facility]11-28-2022 Miscellaneous Notes* Telephone Encounter - Roopa Claros - 05/27/2022 9:21 AM EST Order faxed Roopa Claros * Telephone Encounter - Jose Armando Marquez MD - 05/22/2022 1:08 PM EST Ok, filed * Telephone Encounter - Roopaelsy Claros - 05/22/2022 10:46 AM EST Pt states she needs a new order for PT for her back pain- she did some therapy today for her back and finished with her neck but need it for her back as well. Please ad dx code and sign order below if you agree, pt would like it sent to [facility] in [facility] documented in this encounterC[facility]11-16-2022 Miscellaneous Notes* Telephone Encounter - Alee Calderon - 05/15/2022 10:00 AM EST Physical Therapy referral placed through [facility] Portal on 05/15/22 reference [id number]. Alee Calderon documented in this encounterCleveland Clinic [facility]11-14-2022 Miscellaneous Notes* Telephone Encounter - Gustabo Yap MA - 05/13/2022 7:16 AM EST done * Telephone Encounter - Jose Armando Marquez MD - 05/10/2022 1:50 PM EST Ok, filed * Telephone Encounter - Gustabo Yap MA - 05/10/2022 1:35 PM EST Pt needs a new order for physical therapy faxed to the [facility] in [place] Fax # [phone] M54.2 neck pain documented in this encounterCleveland Clinic [facility]10-19-2022 Miscellaneous Notes* Telephone Encounter - Gustabo Yap MA - 04/17/2022 10:39 AM EDT Last ov 01/09/2022 Please fill for smo documented in this encounterCleveland Clinic [facility]09-30-2022 Miscellaneous Notes* Telephone Encounter - Doug Jo Ma - 03/29/2022 10:25 AM EDT Pharmacy called requesting the following refill Refill(s) Requested: Requested Prescriptions Pending Prescriptions Disp Refills fluticasone (FLONASE) 50 mcg/actuation nasal spray [Pharmacy Med Name: fluticasone propionate 50 mcg/actuation nasal spray,suspension] 16 mL 3 Sig: Use 2 Sprays in each nostril twice daily. ALLERGIES Allergen Reactions Claritin [Loratadin* Swelling Prilosec [Omeprazol* Hives Bactrim [Sulfametho* Itching Ciprofloxacin Itching Clindamycin Itching Prednisone Itching (home) [phone] (cell) Last Office Visit Date: 01/09/2022 Last [facility] [place] [facility] Visit: Visit date not found Future Appointment: 07/17/2022 The patients preferred pharmacy has been captured for this encounter? yes Request is for script(s) to be escript to pharmacy. Doug Jo Ma documented in this encounterCleveland Clinic [facility]08-31-2022 Nurse Note* Gustabo Yap MA - 02/27/2022 1:49 PM EDT Patient has been identified by name and date of : Yes Nirmala is here for an injection of Vitamin B12 Dose: 1000mcg Route: Intramuscular Given without incident. Site: left deltoid Community Resource Officer: [employer]. Lot #: [id number] [facility] #: [id number] Expiration Date: 03/22 Dr. marquez present in clinic at time of injection. The date due for the next injection is 28. Gustabo Yap MA documented in this encounterCleveland Clinic [facility]08-23-2022 Miscellaneous Notes* Telephone Encounter - Jose Armando Marquez MD - 02/19/2022 3:10 PM EDT Ok, called in * Telephone Encounter - Gustabo Yap MA - 02/19/2022 2:37 PM EDT I think that is what she wants, send this script, I think Medicare will cover with a script * Telephone Encounter - Jose Armando Marquez MD - 02/19/2022 1:38 PM EDT Those are otc. Like glycerin suppositories. * Telephone Encounter - Gustabo Yap MA - 02/19/2022 1:15 PM EDT Pt requesting suppositories for constipation. documented in this encounterCleveland Clinic [facility]08-23-2022 Miscellaneous Notes* Telephone Encounter - Gustabo Yap MA - 02/19/2022 1:14 PM EDT Last ov 01/09/2022 documented in this encounterCleveland Clinic [facility]07-13-2022 History of Present illness Narrative* Jose Armando Marquez MD - 01/09/2022 12:27 PM EDT HPI: Nirmala Bennett is a 81 year old female who presents with complaint of F/U 6 Month (Review Labs). Pt doing well. Keeps busy working at [employer]. Reviewed labs which were good. Has class reunion comingup ([place]). Check again in 6 months. REVIEW OF SYSTEMS PAIN ASSESSMENT: Negative for pain, history of chronic pain, or current treatment for a chronic pain condition. GENERAL: No weight loss, malaise or fevers HEENT: Negative for frequent or significant headaches, No changes in hearing or vision, no nose bleeds or other nasal problems NECK: Negative for lumps, goiter, pain and significant neck swelling RESPIRATORY: Negative for cough, hemoptysis, wheezing or shortness of breath CARDIOVASCULAR: Negative for chest pain, leg swelling or palpitations GI: No nausea, vomiting, or diarrhea : No history of dysuria, frequency or incontinence ROUTE SPECIALIST: Negative for abnormal vaginal bleeding, abnormal vaginal discharge MUSCULOSKELETAL: Negative for joint pain or swelling, back pain or muscle pain SKIN: Negative for lesions, rash, and itching PSYCH: Negative for sleep disturbance, mood disorder and recent psychosocial stressors HEMATOLOGY/LYMPHOLOGY: Negative for prolonged bleeding, bruising easily or swollen nodes ENDOCRINE: Negative for cold or heat intolerance, polyuria, polydipsia and goiter NEURO: No history of headaches, syncope, paralysis, seizures or tremors ALLERGIES Allergen Reactions Claritin [Loratadin* Swelling Prilosec [Omeprazol* Hives Bactrim [Sulfametho* Itching Ciprofloxacin Itching Clindamycin Itching Prednisone Itching Current Outpatient Medications Medication Sig FEROSUL 325 mg (65 mg iron) tablet TAKE ONE TABLET EVERY MORNING fluticasone (FLONASE) 50 mcg/actuation nasal spray Use 2 Sprays in each nostril twice daily. amLODIPine (NORVASC) 10 mg tablet Take 1 tablet by mouth once daily. ELIQUIS 5 mg tab(s) TAKE ONE TABLET TWICE DAILY famotidine (PEPCID) 20 mg tablet TAKE ONE TABLET BY MOUTH ONCE DAILY levothyroxine (SYNTHROID) 50 mcg tablet Take 1 tablet by mouth once daily. folic acid 1 mg tablet TAKE ONE TABLET BY MOUTH ONCE DAILY guaiFENesin (MUCINEX) 600 mg 12 hr tablet Take 1 tablet by mouth twice daily. ibuprofen (ADVIL LIQUI-GEL ORAL) Take by mouth. hydroxychloroquine (PLAQUENIL) 200 mg tablet Take 1 tablet by mouth once daily. CHOLECALCIFEROL, VITAMIN D3, ORAL Take 2,000 Units by mouth once daily. Current Facility-Administered Medications Medication Dose Route Frequency cyanocobalamin 1,000 mcg injection 1,000 mcg INTRAMUSCULAR q 4 WEEKS PAST MEDICAL HISTORY Diagnosis Date Allergic rhinitis CVA (cerebral vascular accident) ([facility]) Right 1996 DVT (deep venous thrombosis) ([facility]) 3 clots in left leg; was on coumadin for years Hypertension Hypothyroidism Lupus (HCC) Rheumatoid arthritis(714.0) Sjogren's disease (HCC) TIA (transient ischemic attack) Vitamin D deficiency PAST SURGICAL HISTORY Procedure Laterality Date CATARACT EXTRACTION HX Right 12/02/2016 COLECTOMY TOTAL, POUCH PAST SURGICAL HISTORY OF Cosmetic surgery RHINOPLASTY TOE SURGERY HX Right 08/16/15 3,4, and 5 Hammertoe correction glb TONSILLECTOMY HX TOTAL ABDOMINAL HYSTERECT W/WO RMVL TUBE OVARY FAMILY HISTORY Problem Relation Age of Onset Ischemic Heart Disease Father Hypertension Father Hypertension Mother Cancer Mother Social History Tobacco Use Smoking status: Former Smoker Quit date: 06/11/2002 Years since quittin.5 Smokeless tobacco: Never Used Vaping Use Vaping Use: Never used Substance Use Topics Alcohol use: Yes Alcohol/week: 5.0 standard drinks Types: 2 Glasses of Wine (5oz) per week Drug use: No PHYSICAL EXAMINATION: BP 149/82 Pulse 71 Resp 12 Ht 5' 3.5 (1.61m) Wt 172 lb 9.6 oz (78.3kg) SpO2 100% BMI 30.09 kg/(m^2). General appearance: Well appearing, alert, in no acute distress, well-hydrated, well nourished. Head: Normocephalic, no masses, lesions, tenderness or abnormalities Eyes: Anicteric sclera. Pupils are equally round and reactive to light. Extraocular movements are intact. Ears: External ears normal, canals clear, TM's normal Nose/Sinuses: Nares normal, septum midline, mucosa normal, no drainage or sinus tenderness Oropharynx: Lips, mucosa, and tongue normal, teeth and gums normal, oropharynx normal Neck: Supple, no adenopathy; thyroid symmetric, normal size, no bruits Lungs: Lungs clear to auscultation. No wheezing, rhonchi, rales Heart: RRR without murmur, gallop, or rubs. No ectopy Abdomen: Normal abdominal exam, Abdomen soft, non-tender. Bowel sounds normal. No masses, organomegaly Extremities: No deformities, edema, skin discoloration, clubbing or cyanosis. Good capillary refill. Skin: Skin color, texture, turgor normal, no suspicious rashes or lesions Back: Normal exam Neuro: Gait normal. Reflexes normal and symmetric. Sensation grossly intact. ASSESSMENT/PLAN: 1. Hypercholesterolemia - ICD9: 272.0, ICD10: E78.00 (primary diagnosis) - ALT/SGPT - LIPID PANEL BASIC 2. Primary hypertension - ICD9: 401.9, ICD10: I10 - good control - Recommended regular aerobic exercise. - Recommend home blood pressure monitoring, to bring results in on next visit - Goal of BP <130/80 - BASIC METABOLIC PNL Jose Armando Marquez MD documented in this encounterC[facility] Miscellaneous Notes* Telephone Encounter - Gustabo Yap MA - 01/04/2022 9:35 AM EDT Last ov 11/06/2021 documented in this encounterC[facility]06-22-2022 Nurse Note* Gustabo Yap MA - 12/19/2021 1:49 PM EDT Patient has been identified by name and date of : Yes Nirmala is here for an injection of Vitamin B12 Dose: 1000mcg Route: Intramuscular Given without incident. Site: left deltoid Community Resource Officer: [employer] Lot #: [id number] [facility] #: [id number] Expiration Date: 03/22 Dr. marquez present in clinic at time of injection. The date due for the next injection is . Gustabo Yap MA documented in this encounterCleveland [facility]05-26-2022 Miscellaneous Notes* Telephone Encounter - Jose Armando Marquez MD - 11/22/2021 10:17 AM EDT Ok, discussed situation with him * Telephone Encounter - Joann Vega MA - 11/22/2021 10:[address] Bose's office left a message saying that Dr. Bose would like to speak to you in regards to pt. His cell phone number is [phone]. He said that calling him after hours is fine if needed. Joann Vega MA documented in this encounterCleveland Clinic [facility]05-23-2022 Miscellaneous Notes* Telephone Encounter - Jose Armando Marquez MD - 11/19/2021 11:04 AM EDT Left phone message. Has possible UTI so called in [email or web address]. documented in this encounterC[facility]05-10-2022 Miscellaneous Notes* Telephone Encounter - Michelle Duran - 11/06/2021 2:26 PM EDT DERMATOLOGY REFERRAL PLACED IN [facility] PORTAL CONFIRMATION# [id number] Michelle Duran documented in this encounterCleveland Clinic [facility]05-10-2022 History of Present illness Narrative* Jose Armando Marquez MD - 11/06/2021 9:32 AM EDT HPI: Nirmala Bennett is a 81 year old female who presents with complaint of Medical Clearance and Hives(allergic reaction, lip swelling). Pt had covid earlier this month and has been having hives in different locations and lip swelling that has improved. Have stopped all new medications. Is gradually improving. 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 Has eyelid surgery scheduled. Is clear for that surgery. Can hold eliquis 3 daysprior to surgery. REVIEW OF SYSTEMS PAIN ASSESSMENT: Negative for pain, history of chronic pain, or current treatment for a chronic pain condition. GENERAL: No weight loss, malaise or fevers HEENT: Negative for frequent or significant headaches, No changes in hearing or vision, no nose bleeds or other nasal problems NECK: Negative for lumps, goiter, pain and significant neck swelling RESPIRATORY: Negative for cough, hemoptysis, wheezing or shortness of breath CARDIOVASCULAR: Negative for chest pain, leg swelling or palpitations GI: No nausea, vomiting, or diarrhea : No history of dysuria, frequency or incontinence ROUTE SPECIALIST: Negative for abnormal vaginal bleeding, abnormal vaginal discharge MUSCULOSKELETAL: Negative for joint pain or swelling, back pain or muscle pain SKIN: Negative for lesions, rash, and itching PSYCH: Negative for sleep disturbance, mood disorder and recent psychosocial stressors HEMATOLOGY/LYMPHOLOGY: Negative for prolonged bleeding, bruising easily or swollen nodes ENDOCRINE: Negative for cold or heat intolerance, polyuria, polydipsia and goiter NEURO: No history of headaches, syncope, paralysis, seizures or tremors ALLERGIES Allergen Reactions Claritin [Loratadin* Swelling Prilosec [Omeprazol* Hives Bactrim [Sulfametho* Itching Ciprofloxacin Itching Clindamycin Itching Prednisone Itching Current Outpatient Medications Medication Sig fluticasone (FLONASE) 50 mcg/actuation nasal spray Use 2 Sprays in each nostril twice daily. amLODIPine (NORVASC) 10 mg tablet Take 1 tablet by mouth once daily. ELIQUIS 5 mg tab(s) TAKE ONE TABLET TWICE DAILY famotidine (PEPCID) 20 mg tablet TAKE ONE TABLET BY MOUTH ONCE DAILY levothyroxine (SYNTHROID) 50 mcg tablet Take 1 tablet by mouth once daily. folic acid 1 mg tablet TAKE ONE TABLET BY MOUTH ONCE DAILY FEROSUL 325 mg (65 mg iron) tablet TAKE ONE TABLET EVERY MORNING guaiFENesin (MUCINEX) 600 mg 12 hr tablet Take 1 tablet by mouth twice daily. ibuprofen (ADVIL LIQUI-GEL ORAL) Take by mouth. hydroxychloroquine (PLAQUENIL) 200 mg tablet Take 1 tablet by mouth once daily. CHOLECALCIFEROL, VITAMIN D3, ORAL Take 2,000 Units by mouth once daily. 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; was on coumadin for years Hypertension Hypothyroidism Lupus (HCC) Rheumatoid arthritis(714.0) Sjogren's disease (HCC) TIA (transient ischemic attack) Vitamin D deficiency PAST SURGICAL HISTORY Procedure Laterality Date CATARACT EXTRACTION HX Right 12/02/2016 COLECTOMY TOTAL, POUCH PAST SURGICAL HISTORY OF Cosmetic surgery RHINOPLASTY TOE SURGERY HX Right 08/16/15 3,4, and 5 Hammertoe correction glb TONSILLECTOMY HX TOTAL ABDOMINAL HYSTERECT W/WO RMVL TUBE OVARY FAMILY HISTORY Problem Relation Age of Onset Ischemic Heart Disease Father Hypertension Father Hypertension Mother Cancer Mother Social History Tobacco Use Smoking status: Former Smoker Quit date: 06/11/2002 Years since quittin.4 Smokeless tobacco: Never Used Vaping Use Vaping Use: Never used Substance Use Topics Alcohol use: Yes Alcohol/week: 5.0 standard drinks Types: 2 Glasses of Wine (5oz) per week Drug use: No PHYSICAL EXAMINATION: BP 157/80 Pulse 72 Temp 97.8 Resp 12 Ht 5' 3.5 (1.61m) Wt 166 lb 12.8 oz (75.7kg) HuP066% BMI 29.08 kg/(m^2). General appearance: Well appearing, alert, in no acute distress, well-hydrated, well nourished. Head: Normocephalic, no masses, lesions, tenderness or abnormalities Eyes: Anicteric sclera. Pupils are equally round and reactive to light. Extraocular movements are intact. Ears: External ears normal, canals clear, TM's normal Nose/Sinuses: Nares normal, septum midline, mucosa normal, no drainage or sinus tenderness Oropharynx: Lips, mucosa, and tongue normal, teeth and gums normal, oropharynx normal Neck: Supple, no adenopathy; thyroid symmetric, normal size, no bruits Lungs: Lungs clear to auscultation. No wheezing, rhonchi, rales Heart: RRR without murmur, gallop, or rubs. No ectopy Abdomen: Normal abdominal exam, Abdomen soft, non-tender. Bowel sounds normal. No masses, organomegaly Extremities: No deformities, edema, skin discoloration, clubbing or cyanosis. Good capillary refill. Skin: Skin color, texture, turgor normal, no suspicious rashes or lesions Back: Normal exam Neuro: Gait normal. Reflexes normal and symmetric. Sensation grossly intact. ASSESSMENT/PLAN: 1. Allergic reaction, subsequent encounter - ICD9: V58.89, 995.3, ICD10: T78.40XD (primary diagnosis) - CONSULT TO DERMATOLOGY 2. Pre-op evaluation - ICD9: V72.84, ICD10: Z01.818 Jose Armando Marquez MD documented in this encounterC[facility]05-06-2022 Miscellaneous Notes* Telephone Encounter - Jose Armando Marquez MD - 11/02/2021 9:17 AM EDT Called in umang cartagena * Telephone Encounter - Gustabo Yap MA - 11/02/2021 8:38 AM EDT Slightly less itchy today. Slightly less irritation Coughing more, Can we send a syrup? * Telephone Encounter - Jose Armando Marquez MD - 11/01/2021 3:38 PM EDT Ok stop medications and let us know if worsens, er if severe * Telephone Encounter - Gustabo Yap MA - 11/01/2021 3:19 PM EDT Pt cannot take the benadryl, It causes swelling. * Telephone Encounter - Jose Armando Marquez MD - 11/01/2021 3:16 PM EDT Ok, stop meds. Use benadry otc prn, er if becomes severe * Telephone Encounter - Gustabo Yap MA - 11/01/2021 3:10 PM EDT Pt left a message stating that she is having an allergic reaction to one or both of the medicationsprescribed. She has hives, lower lip swelling, itchy ears, itchy limbs. Is asking for treatment for this new issue documented in this encounterC[facility]05-02-2022 Miscellaneous Notes* Telephone Encounter - Jose Armando Marquez MD - 10/29/2021 10:35 AM EDT Ok, discussed with pt. Symptoms started 5 days ago. Continued cough/congestion. No fever. Is takingrest of week off. Called in doxycycline and prednisone. * Telephone Encounter - Gustabo Yap MA - 10/29/2021 10:21 AM EDT Pt left message Started feeling sick last . Worked Friday and Friday, felt worse. Friday went to a stat care and tested positive for Covid. Counting forward from they told her if she feels better today would end quarantine and shecould return to work. She does not feel any better and is asking for guidance. documented in this encounterC[facility]04-27-2022 Nurse Note* Gustabo Yap MA - 10/24/2021 1:37 PM EDT Patient has been identified by name and date of : Yes Nirmala is here for an injection of Vitamin B12 Dose: 1000mcg Route: Intramuscular Given without incident. Site: left deltoid Community Resource Officer: [employer] Lot #: [id number] [facility] #: [id number] Expiration Date: 03/22 Dr. marquez present in clinic at time of injection. The date due for the next injection is . Gustabo Yap MA documented in this [facility]04-20-2022 Miscellaneous Notes* Telephone Encounter - Gustabo Yap MA - 10/17/2021 11:11 AM EDT Last ov 10/04/2021 with Debi documented in this [facility]04-14-2022 Miscellaneous Notes* Telephone Encounter - Gustabo Yap MA - 10/11/2021 11:28 AM EDT Left detailed message for pt * Telephone Encounter - Jose Armando Marquez MD - 10/11/2021 10:58 AM EDT Increase norvasc to 10 mg daily * Telephone Encounter - Gustabo Yap MA - 10/11/2021 10:43 AM EDT Pt saw Toby on 10/04/21 for edema and her bp was 172/92 She came in today for a nv and her bp was 154/90 She is scheduled on 11/06/21 for medical clearance for cosmetic eye surgery. Do you want to make any changes now? documented in this [facility]04-07-2022 Instructions* Patient Instructions* Shoshana Jara MD - 10/04/2021 8:29 AM EDT ASSESSMENT/PLAN: 1. Bilateral leg edema - ICD9: 782.3, ICD10: R60.0 (primary diagnosis) Mostly on her thighs - not prominent today Advised low salt diet 2. Primary hypertension - ICD9: 401.9, ICD10: I10 - suboptimal control - Continue current medication(s) - Recommended regular aerobic exercise. - Recommend home blood pressure monitoring, to bring results in on next visit - Goal of BP <130/80 Continue Amlodipine 5 mg daily Try - HYDROCHLOROTHIAZIDE 12.5 MG CAPSULE daily BP check in 1 week Last 3 Encounter BP Readings: Date: BP: 10/04/2021 172/92 07/11/2021 124/68 02/25/2021 139/84 3. Chronic pansinusitis - ICD9: 473.8, ICD10: J32.4 Stop augmentin due to intolerance - AZITHROMYCIN 250 MG TABLET 4. Chest tightness - ICD9: 786.59, ICD10: R07.89 Chest pain of unclear etiology, patient with significant risk factor(s) of Hypertension - Electrocardiogram: An ECG today showed normal sinus rhythm at 74 BPM, NM interval 158 ms, normal QRS, normal ST-T, QT 366 ms - ECG B/O W INTERP (MED OFFICE) 5. Acute deep vein thrombosis (DVT) of proximal vein of left lower extremity (HCC) - ICD9: 453.41, ICD10: I82.4Y2 On Eliquis 6. Constipation, unspecified constipation type - ICD9: 564.00, ICD10: K59.00 TAKE DAILY PROBIOTIC TONIGHT ONLY USE SUPPOSITORY AFTER BM RESTART MIRALAX - CAN BACK OFF NEEDED = Fri DRINK MORE WATER - NO MORE SNAPPLE OR ICED TEA OK FOR COFFEE Shoshana Jraa MD EDEMA CAUSES AND TREATMENTS CAUSES OF LEG SWELLING HOW TO REDUCE LEG SWELLING Sitting with your legs hanging down Elevate your toes above your nose! Sit in a recliner with your legs up Standing for long periods of time Wear compression stockings as ordered by your Doctor: Apply them first things in the morning and remove them at bedtime Eating foods high in salt Avoid canned foods, look for low sodium or no salt added foods Medical conditions that cause you to retain fluid: Congestive heart failure, Venous Stasis Take medications as ordered. Take diuretics (water pills) early in the day Sleeping in a chair with you legs hanging down Place a pillow or several phone books between the mattress and box spring of your bed. Sleep in a hospital bed or electric adjustable bed documented in this encounterC[facility]04-07-2022 History of Present illness Narrative* Shoshana Jara MD - 10/04/2021 8:09 AM EDT This note was created using [employer]. Subjective Nirmala Bennett is a 80 year old female. Nirmala Bennett is a 80 year old female who presents for Sinus Problem (Has taken 1 course of abx,started 2nd course of abx yesterday.), Leg Edema (Bilateral leg edema. 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), and Medication Problem (Abx makes her spacey, constipated and a heaviness in her chest) Last 2 Encounter Wt Readings: Date: Wt: 10/04/2021 77.2 kg (170 lb 3.2 oz) 07/11/2021 78.5 kg (173 lb) Last 3 Encounter BP Readings: Date: BP: 10/04/2021 172/92 07/11/2021 124/68 02/25/2021 139/84 No results found for: HBA1C Had a sinus infection 10/01/2021 augmentin 08/30/2021 augmentin WHENEVER SHE TAKES ANTIBIOTICS - SHE FEELS SPACEY SO SHE ONLY TOOK A HALF TAB AND NEVER FINISHED BEC SHE GOT BETTER BUT DOES NOT THINK SHE EVER GOT OVER IT THEN IT SLOWLY GOT WORSE AGAIN SO ANTIBIOTIC SENT Friday - TOOK Friday NIGHT AT 7 PM WITH FOOD THEN YESTERDAY 7AM AND 7PM WITH FOOD DID NOT TAKE IT THIS MORNING THEN NOTED HEAVINESS IN CHEST, DROWSINESS AND SPACEY LEG SWELLING STARTED LAST WEEK BOTH LEGS MAIN SYMPTOMS ARE POSTNASAL DRIP AND CONGESTION UNABLE TO TAKE ANY ALLERGY MEDS COZ THEY ALL CAUSE SWELLING ALREADY ON FLONASE Please take a probiotic or yogurt while on antibiotics. Risk of antibiotics discussed with patient including C. Diff. Patient verbalized understanding. ALREADY ON ELIQUIS 12/04/2018 1. Positive for acute DVT 2. Positive for age indeterminate below knee DVT 3. Positive for chronic DVT 4. 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 Negative for chills and fever. HENT: Positive for congestion, postnasal drip, rhinorrhea and sinus pressure. Negative for trouble swallowing. Eyes: Negative for visual disturbance. Respiratory: Negative for cough, chest tightness and shortness of breath. Cardiovascular: Positive for leg swelling (thigh swelling). Gastrointestinal: Positive for constipation. Negative for abdominal pain, blood in stool, diarrhea,nausea and vomiting. Endocrine: Negative for polyphagia and polyuria. Genitourinary: Negative for difficulty urinating and hematuria. Musculoskeletal: Positive for arthralgias and myalgias. Skin: Negative for rash. Neurological: Negative for dizziness, seizures, syncope and headaches. Hematological: Does not bruise/bleed easily. Psychiatric/Behavioral: Negative for dysphoric mood. The patient is nervous/anxious. Component Latest Ref Rng & Units 02/25/2021 Protein, Total 6.4 - 8.2 g/dL 7.3 Albumin 3.4 - 5.0 g/dL 3.5 Calcium 8.5 - 10.1 mg/dL 9.2 Bilirubin, Total 0.2 - 1.0 mg/dL 0.4 Alkaline Phosphatase 46 - 116 U/L 98 AST 15 - 46 U/L 23 ALT 12 - 78 U/L 23 Glucose 70 - 99 mg/dL 101 (H) BUN 7 - 18 mg/dL 20 (H) Creatinine 0.51 - 0.95 mg/dL 0.56 Sodium 136 - 145 mmol/L 141 Potassium 3.5 - 5.1 mmol/L 3.1 (L) Chloride 98 - 107 mmol/L 105 CO2 21 - 32 mmol/L 25 Anion Gap 8 - 16 mmol/L 11 eGFR- >60 eGFR-All Other Races >60 WBC 3.70 - 11.00 k/uL 7.14 RBC 3.90 - 5.20 m/uL 4.37 Hemoglobin 11.5 - 15.5 g/dL 13.3 Hematocrit 36.0 - 46.0 % 38.8 MCV 80.0 - 100.0 fL 88.8 MCH 26.0 - 34.0 pg 30.4 MCHC 30.5 - 36.0 g/dL 34.3 RDW-CV 11.5 - 15.0 % 12.6 Platelet Count 150 - 400 k/uL 178 MPV 9.0 - 12.7 fL 10.1 Troponin I <0.040 ng/mL 0.000 Discussed patient's labs in detail. All questions answered. Objective BP 172/92 Pulse 75 Ht 161.3 cm (5' 3.5) Wt 77.2 kg (170 lb 3.2 oz) SpO2 97% BMI 29.68 kg/m Physical Exam Constitutional: Appearance: Normal appearance. HENT: Head: Normocephalic and atraumatic. Right Ear: Tympanic membrane normal. Left Ear: Tympanic membrane normal. Eyes: Conjunctiva/sclera: Conjunctivae normal. Cardiovascular: Rate and Rhythm: Normal rate and regular rhythm. Heart sounds: Normal heart sounds. Pulmonary: Effort: Pulmonary effort is normal. Breath sounds: Normal breath sounds. Abdominal: Palpations: Abdomen is soft. Tenderness: There is no abdominal tenderness. Musculoskeletal: Cervical back: Normal range of motion and neck supple. Right lower leg: No edema. Left lower leg: No edema. Skin: Findings: No rash. Neurological: General: No focal deficit present. Mental Status: She is alert and oriented to person, place, and time. Cranial Nerves: No cranial nerve deficit. Psychiatric: Mood and Affect: Mood normal. Behavior: Behavior normal. Thought Content: Thought content normal. Judgment: Judgment normal. Assessment and Plan ASSESSMENT/PLAN: 1. Bilateral leg edema - ICD9: 782.3, ICD10: R60.0 (primary diagnosis) Mostly on her thighs - not prominent today Advised low salt diet 2. Primary hypertension - ICD9: 401.9, ICD10: I10 - suboptimal control - Continue current medication(s) - Recommended regular aerobic exercise. - Recommend home blood pressure monitoring, to bring results in on next visit - Goal of BP <130/80 Continue Amlodipine 5 mg daily Try - HYDROCHLOROTHIAZIDE 12.5 MG CAPSULE daily BP check in 1 week Last 3 Encounter BP Readings: Date: BP: 10/04/2021 172/92 07/11/2021 124/68 02/25/2021 139/84 3. Chronic pansinusitis - ICD9: 473.8, ICD10: J32.4 Stop augmentin due to intolerance - AZITHROMYCIN 250 MG TABLET 4. Chest tightness - ICD9: 786.59, ICD10: R07.89 Chest pain of unclear etiology, patient with significant risk factor(s) of Hypertension - Electrocardiogram: An ECG today showed normal sinus rhythm at 74 BPM, NM interval 158 ms, normal QRS, normal ST-T, QT 366 ms - ECG B/O W INTERP (MED OFFICE) 5. Acute deep vein thrombosis (DVT) of proximal vein of left lower extremity (HCC) - ICD9: 453.41, ICD10: I82.4Y2 On Eliquis 6. Constipation, unspecified constipation type - ICD9: 564.00, ICD10: K59.00 TAKE DAILY PROBIOTIC TONIGHT ONLY USE SUPPOSITORY AFTER BM RESTART MIRALAX - CAN BACK OFF NEEDED = Fri DRINK MORE WATER - NO MORE SNAPPLE OR ICED TEA OK FOR COFFEE Shoshana Jara MD documented in this encounterC[facility]04-05-2022 Miscellaneous Notes* Telephone Encounter - Gustabo Yap MA - 10/02/2021 8:08 AM EDT Discussed with patient, She might need a work note, * Telephone Encounter - Jose Armando Marquez MD - 10/01/2021 4:10 PM EDT Called in augmentin. * Telephone Encounter - Gustabo Yap MA - 10/01/2021 3:23 PM EDT ----- Message from Destiny Geiger sent at 10/01/2021 3:16 PM EDT ----- Regarding: Medicine/ Jose Armando Marquez/ ear pain-sinus infection Subject Line Format: Medicine / [Provider Name] / [Issue] Patient has been identified by name and Date of (Y/N): y Patient: Nirmala Bennett Date of : 1940 Provider for this encounter: Jose Armando Marquez MD Reason for the call/escalation: Patient called in stating that she has a bad sinus infection and ear pain and was wondering if Alma can call something in for her. She does not feel she can wait until her appointment. Was Patient Referred to [facility]/Seek Emergency Treatment (Y/N): n/a Did Patient Agree (Y/N): n/a Was An Attempt Made To Transfer The Patient To The Office (Y/N): n/a Were You Able To Reach Someone At The Office (Y/N): n/a If Yes - Patient Was Transferred To (Caregivers Name): n/a If No - Which [facility] Leadership [employer] Artist Did You Speak With Regarding This Patient: n/a Was an appointment scheduled (Y/N): 10/04 Reason patient was requesting visit (RFV/signs and symptoms/diagnosis) : n/a Person calling if other than patient: Patient Return call to if other than patient: Patient Best contact number: [phone] Thank you, Destiny Geiger October 01, 2021 3:16 PM documented in this encounterC[facility] HospitalEvaluation note* Diagnosis Bilateral leg edema- Primary Edema Primary hypertension Unspecified essential hypertension Chronic pansinusitis Other chronic sinusitis Chest tightness Other chest pain Acute deep vein thrombosis (DVT) of proximal vein of left lower extremity (HCC) Constipation, unspecified constipation type [facility] Primary hypertension- Primary Unspecified essential hypertension [facility] Diagnosis B12 deficiency- Primary Other B-complex deficiencies [facility] Diagnosis Allergic reaction, subsequent encounter- Primary Pre-op evaluation Preoperative examination, unspecified [facility] Diagnosis B12 deficiency- Primary Other B-complex deficiencies [facility] Diagnosis Hypercholesterolemia- Primary Pure hypercholesterolemia Primary hypertension Unspecified essential hypertension [facility] Diagnosis B12 deficiency- Primary Other B-complex deficiencies [facility] Diagnosis B12 deficiency- Primary Other B-complex deficiencies [facility] Diagnosis Neck pain- Primary Cervicalgia [facility] Diagnosis Need for influenza vaccination- Primary Need for prophylactic vaccination and inoculation against influenza documented [facility] encounter [facility]* Diagnosis Acute right-sided low back pain with sciatica, sciatica laterality unspecified- Primary documented [facility]* Diagnosis B12 deficiency- Primary Other B-complex deficiencies [facility]* Diagnosis Preventative health care- Primary Routine general medical examination at a health care facility Fatigue, unspecified type Hypothyroidism, unspecified type Borderline hypercholesterolemia Primary hypertension Unspecified essential hypertension Acute cystitis without hematuria Acute cystitis Sjoegren syndrome (HCC) Sicca syndrome documented [facility] this encounter [facility]* Diagnosis Urinary tract infection without hematuria, site unspecified- Primary [facility]* Diagnosis Urinary tract infection without hematuria, site unspecified- Primary [facility]* Diagnosis Drug-induced skin rash- Primary Toxic erythema Itching Unspecified pruritic disorder Angioedema, subsequent encounter [facility] [facility] Diagnosis B12 deficiency- Primary Other B-complex deficiencies [facility] Diagnosis Rash and nonspecific skin eruption- Primary Rash and other nonspecific skin eruption [facility] Diagnosis Grade II hemorrhoids- Primary Unspecified hemorrhoids with other complication [facility] Diagnosis Hypokalemia- Primary Hypopotassemia Acute deep vein thrombosis (DVT) of proximal vein of left lower extremity (HCC) Platelets decreased (HCC) Thrombocytopenia, unspecified [facility] Diagnosis Adverse effect of penicillin, subsequent encounter- Primary [facility] Diagnosis Contact dermatitis and other eczema, due to unspecified cause- Primary [facility] Diagnosis Allergic contact dermatitis due to fragrance- Primary [facility] Diagnosis B12 deficiency- Primary Other B-complex deficiencies [facility] Diagnosis Acute non-recurrent sinusitis, unspecified location- Primary [facility] Diagnosis Dermatitis- Primary Contact dermatitis and other eczema, due to unspecified cause [facility] Diagnosis B12 deficiency- Primary Other B-complex deficiencies [facility]* Diagnosis Acute right-sided low back pain with sciatica, sciatica laterality unspecified- Primary Shoulder pain, unspecified chronicity, unspecified laterality Acute cystitis without hematuria Acute cystitis Preventative health care Routine general medical examination at a health care facility Fatigue, unspecified type Borderline hypercholesterolemia Primary hypertension Unspecified essential hypertension Acute deep vein thrombosis (DVT) of proximal vein of left lower extremity (HCC) Platelets decreased (HCC) Thrombocytopenia, unspecified [facility] Diagnosis Shoulder pain, unspecified chronicity, unspecified laterality- Primary [facility]* Diagnosis B12 deficiency- Primary Other B-complex deficiencies [facility] Diagnosis History of DVT (deep vein thrombosis)- Primary Personal history of venous thrombosis and embolism Patient noncompliant with anticoagulant medication Acute non-recurrent pansinusitis Left ear pain Otalgia, unspecified [facility] Diagnosis History of DVT (deep vein thrombosis) Personal history of venous thrombosis and embolism Patient noncompliant with anticoagulant medication [facility] Diagnosis Decreased hearing of both ears- Primary [facility] Diagnosis Fatigue, unspecified type- Primary Acute deep vein thrombosis (DVT) of proximal vein of left lower extremity (HCC) Platelets decreased (HCC) Thrombocytopenia, unspecified [facility] Diagnosis Tinnitus, bilateral- Primary Unspecified tinnitus Sensorineural hearing loss (SNHL) of both ears [facility] Diagnosis B12 deficiency- Primary Other B-complex deficiencies [facility]* Diagnosis Acute cystitis without hematuria- Primary Acute cystitis [facility] Diagnosis 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 hearing loss, asymmetrical [facility] Diagnosis Noise-induced hearing loss, unspecified laterality- Primary Screening for depression Encounter for screening examination for other mental health and behavioral disorders Urinary tract infection without hematuria, site unspecified [facility] Diagnosis B12 deficiency- Primary Other B-complex deficiencies [facility]* Diagnosis B12 deficiency- Primary Other B-complex deficiencies documented in this encounter [facility] note* Diagnosis Other iron deficiency anemia- Primary documented in this encounter [facility] note* Diagnosis Allergic reaction, initial encounter- Primary Rash Rash and other nonspecific skin eruption documented in this encounter [facility] note* Diagnosis Other iron deficiency anemia- Primary documented in this encounter [facility] note* Diagnosis Bronchitis Bronchitis, not specified as acute or chronic Chest heaviness Other chest pain Shortness of breath on exertion Shortness of breath documented in this encounter [facility] note* Diagnosis Bronchitis- Primary Bronchitis, not specified as acute or chronic Chest heaviness Other chest pain Shortness of breath on exertion Shortness of breath Bronchitis Bronchitis, not specified as acute or chronic Chest heaviness Other chest pain Shortness of breath on exertion Shortness of breath documented in this encounter [facility] note* Diagnosis Bronchitis- Primary Bronchitis, not specified as acute or chronic documented in this encounter [facility] note* Diagnosis B12 deficiency- Primary Other B-complex deficiencies documented in this encounter [facility] note* Diagnosis Acute cystitis without hematuria- Primary Acute cystitis Acute right-sided low back pain with sciatica, sciatica laterality unspecified Preventative health care Routine general medical examination at a health care facility Borderline hypercholesterolemia Fatigue, unspecified type documented in this encounter [facility] note* Diagnosis B12 deficiency- Primary Other B-complex deficiencies documented in this encounter [facility] note* Diagnosis B12 deficiency- Primary Other B-complex deficiencies documented in this encounter [facility] note* Diagnosis Subacute cough- Primary Cough documented in this encounter [facility] note* Diagnosis B12 deficiency- Primary Other B-complex deficiencies documented in this encounter [facility] note* Diagnosis Acute cystitis without hematuria- Primary Acute cystitis Borderline hypercholesterolemia Primary hypertension Unspecified essential hypertension Other iron deficiency anemia documented in this encounter [facility] note* Diagnosis B12 deficiency- Primary Other B-complex deficiencies documented in this encounter [facility] note* Diagnosis Acute cystitis without hematuria- Primary Acute cystitis [facility] Attachments The following attachments cannot be sent through Care Everywhere. * Drug Allergy (Macanese) * Skin Rash Discharge Instructions (Mac[place]) [facility] Diagnostic Procedure Only (Urgent) - Closed Specialty Diagnoses / Procedures Referred By Contac t Referred To Contact US IMAGING Diagnoses History of DVT (deep vein thrombosis) Patient noncompliant with anticoagulant medication Procedures US DVT LOWER LEFT DUP-SCAN XTR VEINS UNILATERAL/LIMITED STUDY Bella Cazares APRN.CNP [address] [place] [address] [place] [address] Referral ID Status Reason Start Date Expiration Date V isits Requested Visits Authorized [id number] Closed Auto-Generate d Referral 09/19/2023 10/18/2024 1 1 [facility] for referral (narrative)* Diagnostic Procedure Only (Urgent) - Closed Specialty Diagnoses / Procedures Referred By Contac t Referred To Contact US IMAGING Diagnoses History of DVT (deep vein thrombosis) Patient noncompliant with anticoagulant medication Procedures US DVT LOWER LEFT DUP-SCAN XTR VEINS UNILATERAL/LIMITED STUDY Bella Cazares APRN.UNIFORMER [address] [facility] [address] [place] [address] Referral ID Status Reason Start Date Expiration Date V isits Requested Visits Authorized [id number] Closed Auto-Generate d Referral 09/19/2023 10/18/2024 1 1 [facility] for visit Narrative* Diagnostic Procedure Only (Urgent) - Closed Specialty Diagnoses / Procedures Referred By Contac t Referred To Contact US IMAGING Diagnoses History of DVT (deep vein thrombosis) Patient noncompliant with anticoagulant medication Procedures US DVT LOWER LEFT DUP-SCAN XTR VEINS UNILATERAL/LIMITED STUDY Bella Cazares APRN.UNIFORMER [address] [place] [address] [place] [address] Referral ID Status Reason Start Date Expiration Date V isits Requested Visits Authorized [id number] Closed Auto-Generate d Referral 09/19/2023 10/18/2024 1 1 [facility] Summary Purpose Family History No Family History Records FoundNo Family History Records FoundNo Family History Records FoundNo Family History Records FoundNo Family History Records FoundNo Family History Records FoundNo Family History Records Found Advance Directives No Advanced Directives Records FoundDocuments on File Type Date Recorded Patient Business Relations Manager Expl anation Advance Directives and Living Will Power of Floor Sweeper Documents on File Type Date Recorded Patient Business Relations Manager Expl anation Advance Directive(s) 12/19/2018 4:43 PM Documents on File Type Date Recorded Patient Business Relations Manager Expl anation ACP-Advance Directive ACP-Power of Floor Sweeper Documents on File Type Date Recorded Patient Business Relations Manager Expl anation Advance Directive(s) 02/25/2021 9:20 AM Advance Directive(s) 12/19/2018 4:43 PM Documents on File Type Date Recorded Patient Business Relations Manager Expl anation Advance Directive(s) 02/25/2021 9:20 AM Advance Directive(s) 12/19/2018 4:43 PM History of Present Illness * Jose Armando Marquez - 02/17/2020 11:22 AM EDT HPI: Nirmala Bennett is a 79 year old female who presents with complaint of Ankle Pain (left ankle swelling). Pt with strained back, is seeing chiropractor. 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 Elevation and support stockings. Is on chronic eliquis. Some GERD, trial pepcid as had rash to prilosec. Gaviscon if unable to get. Keep regular appointment. REVIEW OF SYSTEMS PAIN ASSESSMENT: Negative for pain, history of chronic pain, or current treatment for a chronic pain condition. GENERAL: No weight loss, malaise or fevers HEENT: Negative for frequent or significant headaches, No changes in hearing or vision, no nose bleeds or other nasal problems NECK: Negative for lumps, goiter, pain and significant neck swelling RESPIRATORY: Negative for cough, hemoptysis, wheezing or shortness of breath CARDIOVASCULAR: Negative for chest pain, leg swelling or palpitations GI: No nausea, vomiting, or diarrhea : No history of dysuria, frequency or incontinence ROUTE SPECIALIST: Negative for abnormal vaginal bleeding, abnormal vaginal discharge MUSCULOSKELETAL: Negative for joint pain or swelling, back pain or muscle pain SKIN: Negative for lesions, rash, and itching PSYCH: Negative for sleep disturbance, mood disorder and recent psychosocial stressors HEMATOLOGY/LYMPHOLOGY: Negative for prolonged bleeding, bruising easily or swollen nodes ENDOCRINE: Negative for cold or heat intolerance, polyuria, polydipsia and goiter NEURO: No history of headaches, syncope, paralysis, seizures or tremors ALLERGIES Allergen Reactions Prilosec [Omeprazol* Hives Bactrim [Sulfametho* Itching Ciprofloxacin Itching Clindamycin Itching Prednisone Itching Current Outpatient Medications Medication Sig famotidine (PEPCID) 20 mg tablet Take 1 tablet by mouth once daily. apixaban (ELIQUIS) 5 mg tab(s) Take 1 tablet by mouth twice daily. levothyroxine (SYNTHROID) 50 mcg tablet TAKE ONE TABLET EVERY DAY amLODIPine (NORVASC) 5 mg tablet TAKE ONE TABLET EVERY DAY fluticasone (FLONASE) 50 mcg/actuation nasal spray Use 2 Sprays in each nostril twice daily. folic acid 1 mg tablet TAKE ONE TABLET EVERY DAY guaiFENesin (MUCINEX) 600 mg 12 hr tablet Take 1 tablet by mouth twice daily. ibuprofen (ADVIL LIQUI-GEL ORAL) Take by mouth. hydroxychloroquine (PLAQUENIL) 200 mg tablet Take 1 tablet by mouth once daily. CHOLECALCIFEROL, VITAMIN D3, ORAL Take 2,000 Units by mouth once daily. 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; was on coumadin for years Hypertension Hypothyroidism Lupus (HCC) Rheumatoid arthritis(714.0) Sjogren's disease (HCC) TIA (transient ischemic attack) Vitamin D deficiency PAST SURGICAL HISTORY Procedure Laterality Date CATARACT EXTRACTION HX Right 12/02/2016 COLECTOMY TOTAL, POUCH PAST SURGICAL HISTORY OF Cosmetic surgery RHINOPLASTY TOE SURGERY HX Right 08/16/15 3,4, and 5 Hammertoe correction glb TONSILLECTOMY HX TOTAL ABDOM HYSTERECTOMY FAMILY HISTORY Problem Relation Age of Onset Ischemic Heart Disease Father Hypertension Father Hypertension Mother Cancer Mother Social History Tobacco Use Smoking status: Former Smoker Quit date: 06/11/2002 Years since quittin.6 Smokeless tobacco: Never Used Substance Use Topics Alcohol use: Yes Alcohol/week: 5.0 standard drinks Types: 2 Glasses of Wine (5oz) per week Drug use: No PHYSICAL EXAMINATION: BP 130/84 Pulse 80 Temp 98 Resp 16 Ht 5' 0 (1.52m) Wt 167 lb 12.8 oz (76.1kg) SpO2 97% BMI 32.77 kg/(m^2). General appearance: Well appearing, alert, in no acute distress, well-hydrated, well nourished. Head: Normocephalic, no masses, lesions, tenderness or abnormalities Eyes: Anicteric sclera. Pupils are equally round and reactive to light. Extraocular movements are intact. Ears: External ears normal, canals clear, TM's normal Nose/Sinuses: Nares normal, septum midline, mucosa normal, no drainage or sinus tenderness Oropharynx: Lips, mucosa, and tongue normal, teeth and gums normal, oropharynx normal Neck: Supple, no adenopathy; thyroid symmetric, normal size, no bruits Lungs: Lungs clear to auscultation. No wheezing, rhonchi, rales Heart: RRR without murmur, gallop, or rubs. No ectopy Abdomen: Normal abdominal exam, Abdomen soft, non-tender. Bowel sounds normal. No masses, organomegaly Extremities: No deformities, edema, skin discoloration, clubbing or cyanosis. Good capillary refill. Skin: Skin color, texture, turgor normal, no suspicious rashes or lesions Back: Normal exam Neuro: Gait normal. Reflexes normal and symmetric. Sensation grossly intact. ASSESSMENT/PLAN: 1. Localized edema - ICD9: 782.3, ICD10: R60.0 Jose Armando Marquez MD documented in this encounter* Joann Vega (Rosalba) - 04/20/2020 12:52 PM EDT Nirmala is here for an injection of Vitamin B12 Dose: 1ML Route: Intramuscular Site: right deltoid Community Resource Officer: [employer] [facility]#: [id number] Lot #: [id number] Expiration Date: 02/[address] Marquez present in clinic at time of injection. ROSALBA [place]in * Joann Vega) - 04/20/2020 12:52 PM EDT Influenza Vaccine Documentation: Patient is identified by name and date of : Yes Patient is older than 6 months of age: Yes Patient denies a severe allergy to any vaccine component or to a previous dose of influenza vaccine: Yes FOR EGG ALLERGY CONCERNS, REFER TO PROVIDER. Patient is ? No (ACIP recommends that women who will be during the influenza season should be vaccinated. Vaccinations can occur in any trimester) Denies allergy to gelatin, formaldehyde, thimerosol :Yes Patient is afebrile and not moderately or severely ill: Yes Does the patient have a history of Guillain [place] Syndrome (a severe paralytic illness): No Denies bone marrow transplant prior 6 months or solid organ transplant prior 3 months: Yes Denies a history of fainting after a prior injection or medical procedure? Yes If patient has fainted in the past, the CDC recommends sitting or lying down for 15 minutes after the vaccination. VIS sheet provided: Yes See Immunization Form in [facility] for details of immunizations administered today. If patient reports dizziness, vision changes or ringing in the ears post vaccination please have patient sit or lie down for 15 minutes. Patient tolerated the vaccine well. ROSALBA Med[place]in documented in this encounter* Gustabo Yap) - 05/23/2020 10:05 AM EST Patient has been identified by name and date of : Yes Nirmala is here for an injection of Vitamin B12 Dose: 1000mcg Route: Intramuscular Given without incident. Site: left deltoid Community Resource Officer: [employer] Lot #: [id number] [facility] #: [id number] Expiration Date: 01/2021 Dr. marquez present in clinic at time of injection. The date due for the next injection is . OTTO Guy documented in this encounter* Jose Armando Marquez - 05/31/2020 1:50 PM EST HPI: Nirmala Bennett is a 79 year old female who presents with complaint of F/U 6 Month. Pt working hard putting in 12 hour days at [employer]. Had apparently successful retinal procedure. Is seeing dieticanand losing weight. Check again in 6 months, labs prior. REVIEW OF SYSTEMS PAIN ASSESSMENT: Negative for pain, history of chronic pain, or current treatment for a chronic pain condition. GENERAL: No weight loss, malaise or fevers HEENT: Negative for frequent or significant headaches, No changes in hearing or vision, no nose bleeds or other nasal problems NECK: Negative for lumps, goiter, pain and significant neck swelling RESPIRATORY: Negative for cough, hemoptysis, wheezing or shortness of breath CARDIOVASCULAR: Negative for chest pain, leg swelling or palpitations GI: No nausea, vomiting, or diarrhea : No history of dysuria, frequency or incontinence ROUTE SPECIALIST: Negative for abnormal vaginal bleeding, abnormal vaginal discharge MUSCULOSKELETAL: Negative for joint pain or swelling, back pain or muscle pain SKIN: Negative for lesions, rash, and itching PSYCH: Negative for sleep disturbance, mood disorder and recent psychosocial stressors HEMATOLOGY/LYMPHOLOGY: Negative for prolonged bleeding, bruising easily or swollen nodes ENDOCRINE: Negative for cold or heat intolerance, polyuria, polydipsia and goiter NEURO: No history of headaches, syncope, paralysis, seizures or tremors ALLERGIES Allergen Reactions Prilosec [Omeprazol* Hives Bactrim [Sulfametho* Itching Ciprofloxacin Itching Clindamycin Itching Prednisone Itching Current Outpatient Medications Medication Sig apixaban (ELIQUIS) 5 mg tab(s) Take 1 tablet by mouth twice daily. fluticasone (FLONASE) 50 mcg/actuation nasal spray Use 2 Sprays in each nostril twice daily. folic acid 1 mg tablet TAKE ONE TABLET EVERY DAY famotidine (PEPCID) 20 mg tablet Take 1 tablet by mouth once daily. levothyroxine (SYNTHROID) 50 mcg tablet TAKE ONE TABLET EVERY DAY amLODIPine (NORVASC) 5 mg tablet TAKE ONE TABLET EVERY DAY guaiFENesin (MUCINEX) 600 mg 12 hr tablet Take 1 tablet by mouth twice daily. ibuprofen (ADVIL LIQUI-GEL ORAL) Take by mouth. hydroxychloroquine (PLAQUENIL) 200 mg tablet Take 1 tablet by mouth once daily. CHOLECALCIFEROL, VITAMIN D3, ORAL Take 2,000 Units by mouth once daily. Current Facility-Administered Medications Medication Dose Route Frequency cyanocobalamin 1,000 mcg injection 1,000 mcg INTRAMUSCULAR q 4 WEEKS PAST MEDICAL HISTORY Diagnosis Date Allergic rhinitis CVA (cerebral vascular accident) (HCC) Right 1996 DVT (deep venous thrombosis) (HCC) 3 clots in left leg; was on coumadin for years Hypertension Hypothyroidism Lupus (HCC) Rheumatoid arthritis(714.0) Sjogren's disease (HCC) TIA (transient ischemic attack) Vitamin D deficiency PAST SURGICAL HISTORY Procedure Laterality Date CATARACT EXTRACTION HX Right 12/02/2016 COLECTOMY TOTAL, POUCH PAST SURGICAL HISTORY OF Cosmetic surgery RHINOPLASTY TOE SURGERY HX Right 08/16/15 3,4, and 5 Hammertoe correction glb TONSILLECTOMY HX TOTAL ABDOM HYSTERECTOMY FAMILY HISTORY Problem Relation Age of Onset Ischemic Heart Disease Father Hypertension Father Hypertension Mother Cancer Mother Social History Tobacco Use Smoking status: Former Smoker Quit date: 06/11/2002 Years since quittin.9 Smokeless tobacco: Never Used Substance Use Topics Alcohol use: Yes Alcohol/week: 5.0 standard drinks Types: 2 Glasses of Wine (5oz) per week Drug use: No PHYSICAL EXAMINATION: BP 130/86 Pulse 71 Temp 97.5 Resp 12 Ht 5' 3 (1.60m) Wt 158 lb 3.2 oz (71.8kg) SpO2 98% BMI 28.03 kg/(m^2). General appearance: Well appearing, alert, in no acute distress, well-hydrated, well nourished. Head: Normocephalic, no masses, lesions, tenderness or abnormalities Eyes: Anicteric sclera. Pupils are equally round and reactive to light. Extraocular movements are intact. Ears: External ears normal, canals clear, TM's normal Nose/Sinuses: Nares normal, septum midline, mucosa normal, no drainage or sinus tenderness Oropharynx: Lips, mucosa, and tongue normal, teeth and gums normal, oropharynx normal Neck: Supple, no adenopathy; thyroid symmetric, normal size, no bruits Lungs: Lungs clear to auscultation. No wheezing, rhonchi, rales Heart: RRR without murmur, gallop, or rubs. No ectopy Abdomen: Normal abdominal exam, Abdomen soft, non-tender. Bowel sounds normal. No masses, organomegaly Extremities: No deformities, edema, skin discoloration, clubbing or cyanosis. Good capillary refill. Skin: Skin color, texture, turgor normal, no suspicious rashes or lesions Back: Normal exam Neuro: Gait normal. Reflexes normal and symmetric. Sensation grossly intact. ASSESSMENT/PLAN: 1. Essential hypertension - ICD9: 401.9, ICD10: I10 (primary diagnosis) - good control - Recommended regular aerobic exercise. - Recommend home blood pressure monitoring, to bring results in on next visit - Goal of BP <130/80 - BASIC METABOLIC PNL 2. Acquired hypothyroidism - ICD9: 244.9, ICD10: E03.9 - Instructed patient on importance of taking on an empty stomach either first thing in the morning or at bedtime. Stable - Continue current medications - TSH BLD 3. Borderline hypercholesterolemia - ICD9: 272.0, ICD10: E78.00 - good control - Check fasting lipid panel and ALT. - ALT/SGPT - LIPID PANEL BASIC 4. Fatigue, unspecified type - ICD9: 780.79, ICD10: R53.83 - CBC + DIFF Jose Armando Marquez MD documented in this encounter* Gustabo Yap (Deisyyasmin) - 08/02/2020 1:40 PM EST Patient has been identified by name and date of : Yes Nirmala is here for an injection of Vitamin B12 Dose: 1000mcg Route: Intramuscular Given without incident. Site: left deltoid Community Resource Officer: [employer] Lot #: [id number] [facility] #: [id number] Expiration Date: 11/18 Dr. marquez present in clinic at time of injection. The date due for the next injection is . OTTO Guy documented in this encounter Assessments Diagnosis Localized edema Edema Diagnosis Need for vaccination- Primary Need for prophylactic vaccination and inoculation against unspecified single disease B12 deficiency Other B-complex deficiencies Diagnosis Vitamin B 12 deficiency- Primary Other B-complex deficiencies Diagnosis Essential hypertension- Primary Unspecified essential hypertension Acquired hypothyroidism Unspecified hypothyroidism Borderline hypercholesterolemia Fatigue, unspecified type Diagnosis Vitamin B 12 deficiency- Primary Other B-complex deficiencies Medications Administered Section Active Administered Medications - up to 3 most recent administrations Medication Order MAR Action Action Date Dose Rate Site cyanocobalamin 1,000 mcg injection 1,000 mcg, INTRAMUSCULAR, EVERY 4 WEEKS, 12 doses, First dose on Fri04/20/20 at 1300, Last dose on Fri02/22/21 at 1300 Given 04/20/2020 12:51 PM EDT 1,000 mcg Deltoid, Right Active Administered Medications - up to 3 most recent administrations Medication Order MAR Action Action Date Dose Rate Site cyanocobalamin 1,000 mcg injection 1,000 mcg, INTRAMUSCULAR, EVERY 4 WEEKS, 12 doses, First dose on Fri04/20/20 at 1300, Last dose on Fri02/22/21 at 1300 Given 05/23/2020 10:04 AM EST 1,000 mcg Deltoid, Left Given 04/20/2020 12:51 PM EDT 1,000 mcg D eltoid, Right Active Administered Medications - up to 3 most recent administrations Medication Order MAR Action Action Date Dose Rate Site cyanocobalamin 1,000 mcg injection 1,000 mcg, INTRAMUSCULAR, EVERY 4 WEEKS, 12 doses, First dose on Fri04/20/20 at 1300, Last dose on Fri02/22/21 at 1300 Given 06/28/2020 3:05 PM EST 1,000 mcg Deltoid, Left Given 05/23/2020 10:04 AM EST 1,000 mcg D eltoid, Left Given 04/20/2020 12:51 PM EDT 1,000 mcg D eltoid, Right Active Administered Medications - up to 3 most recent administrations Medication Order MAR Action Action Date Dose Rate Site cyanocobalamin 1,000 mcg injection 1,000 mcg, INTRAMUSCULAR, EVERY 4 WEEKS, 12 doses, First dose on Fri04/20/20 at 1300, Last dose on Fri02/22/21 at 1300 Given 08/02/2020 1:39 PM EST 1,000 mcg Deltoid, Left Given 06/28/2020 3:05 PM EST 1,000 mcg De ltoid, Left Given 05/23/2020 10:04 AM EST 1,000 mcg D eltoid, Left Active Administered Medications - up to 3 most recent administrations Medication Order MAR Action Action Date Dose Rate Site cyanocobalamin 1,000 mcg injection 1,000 mcg, INTRAMUSCULAR, EVERY 4 WEEKS, 12 doses, First dose on Fri04/26/21 at 0700, Last dose on Fri02/28/22 at 0700 Given 10/24/2021 1:36 PM EDT 1,000 mcg Deltoid, Left Given 09/12/2021 3:05 PM EDT 1,000 mcg De ltoid, Left Given 08/08/2021 1:19 PM EST 1,000 mcg De ltoid, Left Active Administered Medications - up to 3 most recent administrations Medication Order MAR Action Action Date Dose Rate Site cyanocobalamin 1,000 mcg injection 1,000 mcg, INTRAMUSCULAR, EVERY 4 WEEKS, 12 doses, First dose on Fri04/26/21 at 0700, Last dose on Fri02/28/22 at 0700 Given 12/19/2021 1:48 PM EDT 1,000 mcg Deltoid, Left Given 10/24/2021 1:36 PM EDT 1,000 mcg De ltoid, Left Given 09/12/2021 3:05 PM EDT 1,000 mcg De ltoid, Left Active Administered Medications - up to 3 most recent administrations Medication Order MAR Action Action Date Dose Rate Site cyanocobalamin 1,000 mcg injection 1,000 mcg, INTRAMUSCULAR, EVERY 4 WEEKS, 12 doses, First dose on Fri04/26/21 at 0700, Last dose on Fri02/28/22 at 0700 Given 02/27/2022 1:49 PM EDT 1,000 mcg Deltoid, Left Given 12/19/2021 1:48 PM EDT 1,000 mcg De ltoid, Left Given 10/24/2021 1:36 PM EDT 1,000 mcg De ltoid, Left Active Administered Medications - up to 3 most recent administrations Medication Order MAR Action Action Date Dose Rate Site cyanocobalamin 1,000 mcg injection 1,000 mcg, INTRAMUSCULAR, EVERY 4 WEEKS, 12 doses, First dose on Fri05/09/22 at 0700, Last dose on Fri03/13/23 at 0700 Given 05/08/2022 3:15 PM EST 1,000 mcg Deltoid, Left Active Administered Medications - up to 3 most recent administrations Medication Order MAR Action Action Date Dose Rate Site cyanocobalamin 1,000 mcg injection 1,000 mcg, INTRAMUSCULAR, EVERY 4 WEEKS, 12 doses, First dose on Fri05/09/22 at 0700, Last dose on Fri03/13/23 at 0700 Given 07/03/2022 3:03 PM EST 1,000 mcg Deltoid, Left Given 05/08/2022 3:15 PM EST 1,000 mcg De ltoid, Left Active Administered Medications - up to 3 most recent administrations Medication Order MAR Action Action Date Dose Rate Site cyanocobalamin 1,000 mcg injection 1,000 mcg, INTRAMUSCULAR, EVERY 4 WEEKS, 12 doses, First dose on Fri05/09/22 at 0700, Last dose on Fri03/13/23 at 0700 Given 09/11/2022 1:25 PM EDT 1,000 mcg Deltoid, Left Given 08/07/2022 11:20 AM EST 1,000 mcg D eltoid, Left Given 07/03/2022 3:03 PM EST 1,000 mcg De ltoid, Left Active Administered Medications - up to 3 most recent administrations Medication Order MAR Action Action Date Dose Rate Site cyanocobalamin 1,000 mcg injection 1,000 mcg, INTRAMUSCULAR, EVERY 4 WEEKS, 12 doses, First dose on Fri05/09/22 at 0700, Last dose on Fri03/13/23 at 0700 Given 12/30/2022 10:55 AM EDT 1,000 mcg Deltoid, Left Given 11/20/2022 2:52 PM EDT 1,000 mcg De ltoid, Left Given 10/23/2022 3:15 PM EDT 1,000 mcg De ltoid, Left Inactive Administered Medications - up to 3 most recent administrations Medication Order MAR Action Action Date Dose Rate Site amoxicillin 250 mg oral liquid (AMOXIL) 250 mg, ORAL, ONCE (UP TO 30 DAYS AMB), 1 dose, On Fri01/14/23 at 1500, SHAKE WELL. REFRIGERATE., Please document the antimicrobial indication: Empiric Given 01/14/2023 2:59 PM EDT 250 mg Active Administered Medications - up to 3 most recent administrations Medication Order MAR Action Action Date Dose Rate Site cyanocobalamin 1,000 mcg injection 1,000 mcg, INTRAMUSCULAR, EVERY 4 WEEKS, 12 doses, First dose on Fri05/09/22 at 0700, Last dose on Fri03/13/23 at 0700 Given 02/19/2023 1:07 PM EDT 1,000 mcg Deltoid, Left Given 12/30/2022 10:55 AM EDT 1,000 mcg D eltoid, Left Given 11/20/2022 2:52 PM EDT 1,000 mcg De ltoid, Left Reason for Referral Specialty Diagnoses / Procedures Referred By Contac t Referred To Contact Dermatology Diagnoses Allergic reaction, subsequent encounter Procedures CONSULT TO DERMATOLOGY OFFICE/OUTPATIENT [facility] 60-74 MINUTES Jose Armando Marquez MD [address] [address] Referral ID Status Reason Start Date Expiration Date Visits Requested Visits Authorized [id number] Pending Review PCP Requested Referral 11/06/2021 02/04/2022 1 1 Specialty Diagnoses / Procedures Referred By Contac t Referred To Contact Diagnoses Neck pain Procedures CONSULT TO PHYSICAL THERAPY (AG) Jose Armando Marquez MD [address] [address] Referral ID Status Reason Start Date Expiration Date Visits Requested Visits Authorized [id number] Ref Not Required PCP Requested Referral 2 08/08/2022 1 1 Specialty Diagnoses / Procedures Referred By Contac t Referred To Contact Diagnoses Acute right-sided low back pain with sciatica, sciatica laterality unspecified Procedures CONSULT TO PHYSICAL THERAPY ([place]) [place] [address] [place] [address] Referral ID Status Reason Start Date Expiration Date Visits Requested Visits Authorized [id number] Ref Not Required PCP Requested Referral 2 08/20/2022 1 1 Specialty Diagnoses / Procedures Referred By Contac t Referred To Contact Allergy Diagnoses Rash and nonspecific skin eruption Procedures CONSULT TO ALLERGY/IMMUNOLOGY OFFICE/OUTPATIENT [facility] 60-74 MINUTES Bhanu Mays MD [address] [place] [address] Referral ID Status Reason Start Date Expiration Date Visits Requested Visits Authorized [id number] Pending Review PCP Requested Referral 10/17/2022 10/17/2023 1 1 Specialty Diagnoses / Procedures Referred By Contac t Referred To Contact General Surgery Diagnoses Grade II hemorrhoids Procedures CONSULT TO GENERAL SURGERY OFFICE/OUTPATIENT [facility] 60-74 MINUTES Jose Armando Marquez MD [address] [address] Referral ID Status Reason Start Date Expiration Date Visits Requested Visits Authorized [id number] Pending Review PCP Requested Referral 12/05/2022 12/05/2023 1 1 Specialty Diagnoses / Procedures Referred By Contac t Referred To Contact [facility] Diagnoses Shoulder pain, unspecified chronicity, unspecified laterality Procedures CONSULT TO PHYSICAL THERAPY PHYSICAL THERAPY EVALUATION HIGH COMPLEX 45 [place] [address] [place] [address] [facility] [address] [address] Referral ID Status Reason Start Date Expiration Date Visits Requested Visits Authorized [id number] Pending Review Auto-Generat ed Referral 08/19/2023 08/18/2024 1 1 Specialty Diagnoses / Procedures Referred By Contac t Referred To Contact [facility] Diagnoses Acute right-sided low back pain with sciatica, sciatica laterality unspecified Procedures CONSULT TO PHYSICAL THERAPY PHYSICAL THERAPY EVALUATION HIGH COMPLEX 45 MINS Jose Armando Marquez MD [address] [address] [facility] [address] [address] Referral ID Status Reason Start Date Expiration Date Visits Requested Visits Authorized [id number] Pending Review Auto-Generat ed Referral 08/19/2023 08/18/2024 1 1 Specialty Diagnoses / Procedures Referred By Contac t Referred To Contact Ent - Otolaryngology Diagnoses Decreased hearing of both ears Procedures CONSULT TO ENT Jose Armando Marquez MD [address] [address] Referral ID Status Reason Start Date Expiration Date Visits Requested Visits Authorized [id number] Ref Not Required PCP Requested Referral 10/02/2023 10/01/2024 1 1 Specialty Diagnoses / Procedures Referred By Contac t Referred To Contact Procedures HEARING TEST/AUDIOGRAM COMPRE AUDIOMETRY THRESHOLD EVAL Mandi Cheung PA-C [address] [place] [address] [facility] [address] [place] [address] Referral ID Status Reason Start Date Expiration Date Visits Requested Visits Authorized [id number] Pending Review Auto-Generat ed Referral 10/28/2023 10/28/2024 1 1 Specialty Diagnoses / Procedures Referred By Contac t Referred To Contact Ent - Otolaryngology Diagnoses Noise-induced hearing loss, unspecified laterality Procedures CONSULT TO ENT Jose Armando Marquez MD [address] [address] Referral ID Status Reason Start Date Expiration Date Visits Requested Visits Authorized [id number] Ref Not Required PCP Requested Referral 02/17/2024 02/16/2025 1 1 Additional Source Comments INFORMATION SOURCE (unrecogn ized section and content) DATE CREATED AUTHOR 04/07/2019 [facility] DATE CREATED AUTHOR AUTHOR'S ORGANIZ ATION 07/25/2019 [facility] DATE CREATED AUTHOR AUTHOR'S ORGANIZ ATION 11/12/2019 [facility] DATE CREATED AUTHOR AUTHOR'S ORGANIZ ATION 12/09/2019 [facility] DATE CREATED AUTHOR AUTHOR'S ORGANIZ ATION 08/25/[address] [facility] DATE CREATED AUTHOR AUTHOR'S ORGANIZ ATION 05/04/2023 [facility] DATE CREATED AUTHOR AUTHOR'S ORGANIZ ATION 05/13/2025 [facility] Source Comments (unrecognize d section and content) In the event this informatio n is protected by the Federal Confidentiality of Alcohol and Drug Abuse Patient Records regulations: The Federal rules restrict any use of the information to criminally investigate or prosecute any alcohol or drug abuse patient.[facility] the event this information is protected by the Federal Confidentiality of Alcohol and Drug Abuse Patient Records regulations: The Federal rules restrict any use of the information to criminally investigate or prosecute any alcohol or drug abuse patient.[facility] the event this information is protected by the Federal Confidentiality of Alcohol and Drug Abuse Patient Records regulations: The Federal rules restrict any use of the information to criminally investigate or prosecute any alcohol or drug abuse patient.[facility] the event this information is protected by the Federal Confidentiality of Alcohol and Drug Abuse Patient Records regulations: The Federal rules restrict any use of the information to criminally investigate or prosecute any alcohol or drug abuse patient.[facility] the event this information is protected by the Federal Confidentiality of Alcohol and Drug Abuse Patient Records regulations: The Federal rules restrict any use of the information to criminally investigate or prosecute any alcohol or drug abuse patient.[facility] the event this information is protected by the Federal Confidentiality of Alcohol and Drug Abuse Patient Records regulations: The Federal rules restrict any use of the information to criminally investigate or prosecute any alcohol or drug abuse patient.[facility] the event this information is protected by the Federal Confidentiality of Alcohol and Drug Abuse Patient Records regulations: The Federal rules restrict any use of the information to criminally investigate or prosecute any alcohol or drug abuse patient.[facility] the event this information is protected by the Federal Confidentiality of Alcohol and Drug Abuse Patient Records regulations: The Federal rules restrict any use of the information to criminally investigate or prosecute any alcohol or drug abuse patient.[facility] the event this information is protected by the Federal Confidentiality of Alcohol and Drug Abuse Patient Records regulations: The Federal rules restrict any use of the information to criminally investigate or prosecute any alcohol or drug abuse patient.[facility] Hospital[facility] the event this information is protected by the Federal Confidentiality of Alcohol and Drug Abuse Patient Records regulations: The Federal rules restrict any use of the information to criminally investigate or prosecute any alcohol or drug abuse patient.[facility] Hospital[facility] the event this information is protected by the Federal Confidentiality of Alcohol and Drug Abuse Patient Records regulations: The Federal rules restrict any use of the information to criminally investigate or prosecute any alcohol or drug abuse patient.[facility] HospitalIn the event this information is protected by the Federal Confidentiality of Alcohol and Drug Abuse Patient Records regulations: The Federal rules restrict any use of the information to criminally investigate or prosecute any alcohol or drug abuse patient.[facility] Hospital[facility] the event this information is protected by the Federal Confidentiality of Alcohol and Drug Abuse Patient Records regulations: The Federal rules restrict any use of the information to criminally investigate or prosecute any alcohol or drug abuse patient.[facility] Hospital[facility] the event this information is protected by the Federal Confidentiality of Alcohol and Drug Abuse Patient Records regulations: The Federal rules restrict any use of the information to criminally investigate or prosecute any alcohol or drug abuse patient.[facility] HospitalIn the event this information is protected by the Federal Confidentiality of Alcohol and Drug Abuse Patient Records regulations: The Federal rules restrict any use of the information to criminally investigate or prosecute any alcohol or drug abuse patient.[facility] HospitalIn the event this information is protected by the Federal Confidentiality of Alcohol and Drug Abuse Patient Records regulations: The Federal rules restrict any use of the information to criminally investigate or prosecute any alcohol or drug abuse patient.[facility] HospitalIn the event this information is protected by the Federal Confidentiality of Alcohol and Drug Abuse Patient Records regulations: The Federal rules restrict any use of the information to criminally investigate or prosecute any alcohol or drug abuse patient.[facility] HospitalIn the event this information is protected by the Federal Confidentiality of Alcohol and Drug Abuse Patient Records regulations: The Federal rules restrict any use of the information to criminally investigate or prosecute any alcohol or drug abuse patient.[facility] HospitalIn the event this information is protected by the Federal Confidentiality of Alcohol and Drug Abuse Patient Records regulations: The Federal rules restrict any use of the information to criminally investigate or prosecute any alcohol or drug abuse patient.[facility] HospitalIn the event this information is protected by the Federal Confidentiality of Alcohol and Drug Abuse Patient Records regulations: The Federal rules restrict any use of the information to criminally investigate or prosecute any alcohol or drug abuse patient.[facility] HospitalIn the event this information is protected by the Federal Confidentiality of Alcohol and Drug Abuse Patient Records regulations: The Federal rules restrict any use of the information to criminally investigate or prosecute any alcohol or drug abuse patient.[facility] HospitalIn the event this information is protected by the Federal Confidentiality of Alcohol and Drug Abuse Patient Records regulations: The Federal rules restrict any use of the information to criminally investigate or prosecute any alcohol or drug abuse patient.[facility] HospitalIn the event this information is protected by the Federal Confidentiality of Alcohol and Drug Abuse Patient Records regulations: The Federal rules restrict any use of the information to criminally investigate or prosecute any alcohol or drug abuse patient.[facility] HospitalIn the event this information is protected by the Federal Confidentiality of Alcohol and Drug Abuse Patient Records regulations: The Federal rules restrict any use of the information to criminally investigate or prosecute any alcohol or drug abuse patient.[facility] HospitalIn the event this information is protected by the Federal Confidentiality of Alcohol and Drug Abuse Patient Records regulations: The Federal rules restrict any use of the information to criminally investigate or prosecute any alcohol or drug abuse patient.[facility] HospitalIn the event this information is protected by the Federal Confidentiality of Alcohol and Drug Abuse Patient Records regulations: The Federal rules restrict any use of the information to criminally investigate or prosecute any alcohol or drug abuse patient.[facility] HospitalIn the event this information is protected by the Federal Confidentiality of Alcohol and Drug Abuse Patient Records regulations: The Federal rules restrict any use of the information to criminally investigate or prosecute any alcohol or drug abuse patient.[facility] HospitalIn the event this information is protected by the Federal Confidentiality of Alcohol and Drug Abuse Patient Records regulations: The Federal rules restrict any use of the information to criminally investigate or prosecute any alcohol or drug abuse patient.[facility] the event this information is protected by the Federal Confidentiality of Alcohol and Drug Abuse Patient Records regulations: The Federal rules restrict any use of the information to criminally investigate or prosecute any alcohol or drug abuse patient.[facility] HospitalIn the event this information is protected by the Federal Confidentiality of Alcohol and Drug Abuse Patient Records regulations: The Federal rules restrict any use of the information to criminally investigate or prosecute any alcohol or drug abuse patient.[facility] HospitalIn the event this information is protected by the Federal Confidentiality of Alcohol and Drug Abuse Patient Records regulations: The Federal rules restrict any use of the information to criminally investigate or prosecute any alcohol or drug abuse patient.[facility] HospitalIn the event this information is protected by the Federal Confidentiality of Alcohol and Drug Abuse Patient Records regulations: The Federal rules restrict any use of the information to criminally investigate or prosecute any alcohol or drug abuse patient.[facility] HospitalIn the event this information is protected by the Federal Confidentiality of Alcohol and Drug Abuse Patient Records regulations: The Federal rules restrict any use of the information to criminally investigate or prosecute any alcohol or drug abuse patient.[facility] HospitalIn the event this information is protected by the Federal Confidentiality of Alcohol and Drug Abuse Patient Records regulations: The Federal rules restrict any use of the information to criminally investigate or prosecute any alcohol or drug abuse patient.[facility] HospitalIn the event this information is protected by the Federal Confidentiality of Alcohol and Drug Abuse Patient Records regulations: The Federal rules restrict any use of the information to criminally investigate or prosecute any alcohol or drug abuse patient.[facility] HospitalIn the event this information is protected by the Federal Confidentiality of Alcohol and Drug Abuse Patient Records regulations: The Federal rules restrict any use of the information to criminally investigate or prosecute any alcohol or drug abuse patient.[facility] HospitalIn the event this information is protected by the Federal Confidentiality of Alcohol and Drug Abuse Patient Records regulations: The Federal rules restrict any use of the information to criminally investigate or prosecute any alcohol or drug abuse patient.[facility] HospitalIn the event this information is protected by the Federal Confidentiality of Alcohol and Drug Abuse Patient Records regulations: The Federal rules restrict any use of the information to criminally investigate or prosecute any alcohol or drug abuse patient.[facility] HospitalIn the event this information is protected by the Federal Confidentiality of Alcohol and Drug Abuse Patient Records regulations: The Federal rules restrict any use of the information to criminally investigate or prosecute any alcohol or drug abuse patient.[facility] HospitalIn the event this information is protected by the Federal Confidentiality of Alcohol and Drug Abuse Patient Records regulations: The Federal rules restrict any use of the information to criminally investigate or prosecute any alcohol or drug abuse patient.[facility] HospitalIn the event this information is protected by the Federal Confidentiality of Alcohol and Drug Abuse Patient Records regulations: The Federal rules restrict any use of the information to criminally investigate or prosecute any alcohol or drug abuse patient.[facility] HospitalIn the event this information is protected by the Federal Confidentiality of Alcohol and Drug Abuse Patient Records regulations: The Federal rules restrict any use of the information to criminally investigate or prosecute any alcohol or drug abuse patient.[facility] HospitalIn the event this information is protected by the Federal Confidentiality of Alcohol and Drug Abuse Patient Records regulations: The Federal rules restrict any use of the information to criminally investigate or prosecute any alcohol or drug abuse patient.[facility] HospitalIn the event this information is protected by the Federal Confidentiality of Alcohol and Drug Abuse Patient Records regulations: The Federal rules restrict any use of the information to criminally investigate or prosecute any alcohol or drug abuse patient.[facility] HospitalIn the event this information is protected by the Federal Confidentiality of Alcohol and Drug Abuse Patient Records regulations: The Federal rules restrict any use of the information to criminally investigate or prosecute any alcohol or drug abuse patient.[facility] HospitalIn the event this information is protected by the Federal Confidentiality of Alcohol and Drug Abuse Patient Records regulations: The Federal rules restrict any use of the information to criminally investigate or prosecute any alcohol or drug abuse patient.[facility] HospitalIn the event this information is protected by the Federal Confidentiality of Alcohol and Drug Abuse Patient Records regulations: The Federal rules restrict any use of the information to criminally investigate or prosecute any alcohol or drug abuse patient.[facility] HospitalIn the event this information is protected by the Federal Confidentiality of Alcohol and Drug Abuse Patient Records regulations: The Federal rules restrict any use of the information to criminally investigate or prosecute any alcohol or drug abuse patient.[facility] HospitalIn the event this information is protected by the Federal Confidentiality of Alcohol and Drug Abuse Patient Records regulations: The Federal rules restrict any use of the information to criminally investigate or prosecute any alcohol or drug abuse patient.[facility] HospitalIn the event this information is protected by the Federal Confidentiality of Alcohol and Drug Abuse Patient Records regulations: The Federal rules restrict any use of the information to criminally investigate or prosecute any alcohol or drug abuse patient.[facility] HospitalIn the event this information is protected by the Federal Confidentiality of Alcohol and Drug Abuse Patient Records regulations: The Federal rules restrict any use of the information to criminally investigate or prosecute any alcohol or drug abuse patient.[facility] HospitalIn the event this information is protected by the Federal Confidentiality of Alcohol and Drug Abuse Patient Records regulations: The Federal rules restrict any use of the information to criminally investigate or prosecute any alcohol or drug abuse patient.[facility] HospitalIn the event this information is protected by the Federal Confidentiality of Alcohol and Drug Abuse Patient Records regulations: The Federal rules restrict any use of the information to criminally investigate or prosecute any alcohol or drug abuse patient.[facility] HospitalIn the event this information is protected by the Federal Confidentiality of Alcohol and Drug Abuse Patient Records regulations: The Federal rules restrict any use of the information to criminally investigate or prosecute any alcohol or drug abuse patient.[facility] HospitalIn the event this information is protected by the Federal Confidentiality of Alcohol and Drug Abuse Patient Records regulations: The Federal rules restrict any use of the information to criminally investigate or prosecute any alcohol or drug abuse patient.[facility] HospitalIn the event this information is protected by the Federal Confidentiality of Alcohol and Drug Abuse Patient Records regulations: The Federal rules restrict any use of the information to criminally investigate or prosecute any alcohol or drug abuse patient.[facility] HospitalIn the event this information is protected by the Federal Confidentiality of Alcohol and Drug Abuse Patient Records regulations: The Federal rules restrict any use of the information to criminally investigate or prosecute any alcohol or drug abuse patient.[facility] HospitalIn the event this information is protected by the Federal Confidentiality of Alcohol and Drug Abuse Patient Records regulations: The Federal rules restrict any use of the information to criminally investigate or prosecute any alcohol or drug abuse patient.[facility] HospitalIn the event this information is protected by the Federal Confidentiality of Alcohol and Drug Abuse Patient Records regulations: The Federal rules restrict any use of the information to criminally investigate or prosecute any alcohol or drug abuse patient.[facility] HospitalIn the event this information is protected by the Federal Confidentiality of Alcohol and Drug Abuse Patient Records regulations: The Federal rules restrict any use of the information to criminally investigate or prosecute any alcohol or drug abuse patient.[facility] HospitalIn the event this information is protected by the Federal Confidentiality of Alcohol and Drug Abuse Patient Records regulations: The Federal rules restrict any use of the information to criminally investigate or prosecute any alcohol or drug abuse patient.[facility] HospitalIn the event this information is protected by the Federal Confidentiality of Alcohol and Drug Abuse Patient Records regulations: The Federal rules restrict any use of the information to criminally investigate or prosecute any alcohol or drug abuse patient.[facility] HospitalIn the event this information is protected by the Federal Confidentiality of Alcohol and Drug Abuse Patient Records regulations: The Federal rules restrict any use of the information to criminally investigate or prosecute any alcohol or drug abuse patient.[facility] HospitalIn the event this information is protected by the Federal Confidentiality of Alcohol and Drug Abuse Patient Records regulations: The Federal rules restrict any use of the information to criminally investigate or prosecute any alcohol or drug abuse patient.[facility] HospitalIn the event this information is protected by the Federal Confidentiality of Alcohol and Drug Abuse Patient Records regulations: The Federal rules restrict any use of the information to criminally investigate or prosecute any alcohol or drug abuse patient.[facility] HospitalIn the event this information is protected by the Federal Confidentiality of Alcohol and Drug Abuse Patient Records regulations: The Federal rules restrict any use of the information to criminally investigate or prosecute any alcohol or drug abuse patient.[facility] HospitalIn the event this information is protected by the Federal Confidentiality of Alcohol and Drug Abuse Patient Records regulations: The Federal rules restrict any use of the information to criminally investigate or prosecute any alcohol or drug abuse patient.[facility] HospitalIn the event this information is protected by the Federal Confidentiality of Alcohol and Drug Abuse Patient Records regulations: The Federal rules restrict any use of the information to criminally investigate or prosecute any alcohol or drug abuse patient.[facility] HospitalIn the event this information is protected by the Federal Confidentiality of Alcohol and Drug Abuse Patient Records regulations: The Federal rules restrict any use of the information to criminally investigate or prosecute any alcohol or drug abuse patient.[facility] HospitalIn the event this information is protected by the Federal Confidentiality of Alcohol and Drug Abuse Patient Records regulations: The Federal rules restrict any use of the information to criminally investigate or prosecute any alcohol or drug abuse patient.[facility] HospitalIn the event this information is protected by the Federal Confidentiality of Alcohol and Drug Abuse Patient Records regulations: The Federal rules restrict any use of the information to criminally investigate or prosecute any alcohol or drug abuse patient.[facility] HospitalIn the event this information is protected by the Federal Confidentiality of Alcohol and Drug Abuse Patient Records regulations: The Federal rules restrict any use of the information to criminally investigate or prosecute any alcohol or drug abuse patient.[facility] HospitalIn the event this information is protected by the Federal Confidentiality of Alcohol and Drug Abuse Patient Records regulations: The Federal rules restrict any use of the information to criminally investigate or prosecute any alcohol or drug abuse patient.[facility] HospitalIn the event this information is protected by the Federal Confidentiality of Alcohol and Drug Abuse Patient Records regulations: The Federal rules restrict any use of the information to criminally investigate or prosecute any alcohol or drug abuse patient.[facility] HospitalIn the event this information is protected by the Federal Confidentiality of Alcohol and Drug Abuse Patient Records regulations: The Federal rules restrict any use of the information to criminally investigate or prosecute any alcohol or drug abuse patient.[facility] HospitalIn the event this information is protected by the Federal Confidentiality of Alcohol and Drug Abuse Patient Records regulations: The Federal rules restrict any use of the information to criminally investigate or prosecute any alcohol or drug abuse patient.[facility] HospitalIn the event this information is protected by the Federal Confidentiality of Alcohol and Drug Abuse Patient Records regulations: The Federal rules restrict any use of the information to criminally investigate or prosecute any alcohol or drug abuse patient.[facility] HospitalIn the event this information is protected by the Federal Confidentiality of Alcohol and Drug Abuse Patient Records regulations: The Federal rules restrict any use of the information to criminally investigate or prosecute any alcohol or drug abuse patient.[facility] the event this information is protected by the Federal Confidentiality of Alcohol and Drug Abuse Patient Records regulations: The Federal rules restrict any use of the information to criminally investigate or prosecute any alcohol or drug abuse patient.[facility] HospitalIn the event this information is protected by the Federal Confidentiality of Alcohol and Drug Abuse Patient Records regulations: The Federal rules restrict any use of the information to criminally investigate or prosecute any alcohol or drug abuse patient.[facility] HospitalIn the event this information is protected by the Federal Confidentiality of Alcohol and Drug Abuse Patient Records regulations: The Federal rules restrict any use of the information to criminally investigate or prosecute any alcohol or drug abuse patient.[facility] HospitalIn the event this information is protected by the Federal Confidentiality of Alcohol and Drug Abuse Patient Records regulations: The Federal rules restrict any use of the information to criminally investigate or prosecute any alcohol or drug abuse patient.[facility] HospitalIn the event this information is protected by the Federal Confidentiality of Alcohol and Drug Abuse Patient Records regulations: The Federal rules restrict any use of the information to criminally investigate or prosecute any alcohol or drug abuse patient.[facility] HospitalIn the event this information is protected by the Federal Confidentiality of Alcohol and Drug Abuse Patient Records regulations: The Federal rules restrict any use of the information to criminally investigate or prosecute any alcohol or drug abuse patient.[facility] HospitalIn the event this information is protected by the Federal Confidentiality of Alcohol and Drug Abuse Patient Records regulations: The Federal rules restrict any use of the information to criminally investigate or prosecute any alcohol or drug abuse patient.[facility] HospitalIn the event this information is protected by the Federal Confidentiality of Alcohol and Drug Abuse Patient Records regulations: The Federal rules restrict any use of the information to criminally investigate or prosecute any alcohol or drug abuse patient.[facility] HospitalIn the event this information is protected by the Federal Confidentiality of Alcohol and Drug Abuse Patient Records regulations: The Federal rules restrict any use of the information to criminally investigate or prosecute any alcohol or drug abuse patient.[facility] HospitalIn the event this information is protected by the Federal Confidentiality of Alcohol and Drug Abuse Patient Records regulations: The Federal rules restrict any use of the information to criminally investigate or prosecute any alcohol or drug abuse patient.[facility] HospitalIn the event this information is protected by the Federal Confidentiality of Alcohol and Drug Abuse Patient Records regulations: The Federal rules restrict any use of the information to criminally investigate or prosecute any alcohol or drug abuse patient.[facility] HospitalIn the event this information is protected by the Federal Confidentiality of Alcohol and Drug Abuse Patient Records regulations: The Federal rules restrict any use of the information to criminally investigate or prosecute any alcohol or drug abuse patient.[facility] HospitalIn the event this information is protected by the Federal Confidentiality of Alcohol and Drug Abuse Patient Records regulations: The Federal rules restrict any use of the information to criminally investigate or prosecute any alcohol or drug abuse patient.[facility] HospitalIn the event this information is protected by the Federal Confidentiality of Alcohol and Drug Abuse Patient Records regulations: The Federal rules restrict any use of the information to criminally investigate or prosecute any alcohol or drug abuse patient.[facility] HospitalIn the event this information is protected by the Federal Confidentiality of Alcohol and Drug Abuse Patient Records regulations: The Federal rules restrict any use of the information to criminally investigate or prosecute any alcohol or drug abuse patient.[facility] HospitalIn the event this information is protected by the Federal Confidentiality of Alcohol and Drug Abuse Patient Records regulations: The Federal rules restrict any use of the information to criminally investigate or prosecute any alcohol or drug abuse patient.[facility] HospitalIn the event this information is protected by the Federal Confidentiality of Alcohol and Drug Abuse Patient Records regulations: The Federal rules restrict any use of the information to criminally investigate or prosecute any alcohol or drug abuse patient.[facility] HospitalIn the event this information is protected by the Federal Confidentiality of Alcohol and Drug Abuse Patient Records regulations: The Federal rules restrict any use of the information to criminally investigate or prosecute any alcohol or drug abuse patient.[facility] HospitalIn the event this information is protected by the Federal Confidentiality of Alcohol and Drug Abuse Patient Records regulations: The Federal rules restrict any use of the information to criminally investigate or prosecute any alcohol or drug abuse patient.[facility] HospitalIn the event this information is protected by the Federal Confidentiality of Alcohol and Drug Abuse Patient Records regulations: The Federal rules restrict any use of the information to criminally investigate or prosecute any alcohol or drug abuse patient.[facility] HospitalIn the event this information is protected by the Federal Confidentiality of Alcohol and Drug Abuse Patient Records regulations: The Federal rules restrict any use of the information to criminally investigate or prosecute any alcohol or drug abuse patient.[facility] HospitalIn the event this information is protected by the Federal Confidentiality of Alcohol and Drug Abuse Patient Records regulations: The Federal rules restrict any use of the information to criminally investigate or prosecute any alcohol or drug abuse patient.[facility] HospitalIn the event this information is protected by the Federal Confidentiality of Alcohol and Drug Abuse Patient Records regulations: The Federal rules restrict any use of the information to criminally investigate or prosecute any alcohol or drug abuse patient.[facility] HospitalIn the event this information is protected by the Federal Confidentiality of Alcohol and Drug Abuse Patient Records regulations: The Federal rules restrict any use of the information to criminally investigate or prosecute any alcohol or drug abuse patient.[facility] HospitalIn the event this information is protected by the Federal Confidentiality of Alcohol and Drug Abuse Patient Records regulations: The Federal rules restrict any use of the information to criminally investigate or prosecute any alcohol or drug abuse patient.[facility] HospitalIn the event this information is protected by the Federal Confidentiality of Alcohol and Drug Abuse Patient Records regulations: The Federal rules restrict any use of the information to criminally investigate or prosecute any alcohol or drug abuse patient.[facility] HospitalIn the event this information is protected by the Federal Confidentiality of Alcohol and Drug Abuse Patient Records regulations: The Federal rules restrict any use of the information to criminally investigate or prosecute any alcohol or drug abuse patient.[facility] HospitalIn the event this information is protected by the Federal Confidentiality of Alcohol and Drug Abuse Patient Records regulations: The Federal rules restrict any use of the information to criminally investigate or prosecute any alcohol or drug abuse patient.[facility] HospitalIn the event this information is protected by the Federal Confidentiality of Alcohol and Drug Abuse Patient Records regulations: The Federal rules restrict any use of the information to criminally investigate or prosecute any alcohol or drug abuse patient.[facility] HospitalIn the event this information is protected by the Federal Confidentiality of Alcohol and Drug Abuse Patient Records regulations: The Federal rules restrict any use of the information to criminally investigate or prosecute any alcohol or drug abuse patient.[facility] HospitalIn the event this information is protected by the Federal Confidentiality of Alcohol and Drug Abuse Patient Records regulations: The Federal rules restrict any use of the information to criminally investigate or prosecute any alcohol or drug abuse patient.[facility] HospitalIn the event this information is protected by the Federal Confidentiality of Alcohol and Drug Abuse Patient Records regulations: The Federal rules restrict any use of the information to criminally investigate or prosecute any alcohol or drug abuse patient.[facility] HospitalIn the event this information is protected by the Federal Confidentiality of Alcohol and Drug Abuse Patient Records regulations: The Federal rules restrict any use of the information to criminally investigate or prosecute any alcohol or drug abuse patient.[facility] HospitalIn the event this information is protected by the Federal Confidentiality of Alcohol and Drug Abuse Patient Records regulations: The Federal rules restrict any use of the information to criminally investigate or prosecute any alcohol or drug abuse patient.[facility] HospitalIn the event this information is protected by the Federal Confidentiality of Alcohol and Drug Abuse Patient Records regulations: The Federal rules restrict any use of the information to criminally investigate or prosecute any alcohol or drug abuse patient.[facility] HospitalIn the event this information is protected by the Federal Confidentiality of Alcohol and Drug Abuse Patient Records regulations: The Federal rules restrict any use of the information to criminally investigate or prosecute any alcohol or drug abuse patient.[facility] HospitalIn the event this information is protected by the Federal Confidentiality of Alcohol and Drug Abuse Patient Records regulations: The Federal rules restrict any use of the information to criminally investigate or prosecute any alcohol or drug abuse patient.[facility] HospitalIn the event this information is protected by the Federal Confidentiality of Alcohol and Drug Abuse Patient Records regulations: The Federal rules restrict any use of the information to criminally investigate or prosecute any alcohol or drug abuse patient.[facility] HospitalIn the event this information is protected by the Federal Confidentiality of Alcohol and Drug Abuse Patient Records regulations: The Federal rules restrict any use of the information to criminally investigate or prosecute any alcohol or drug abuse patient.[facility] HospitalIn the event this information is protected by the Federal Confidentiality of Alcohol and Drug Abuse Patient Records regulations: The Federal rules restrict any use of the information to criminally investigate or prosecute any alcohol or drug abuse patient.[facility] HospitalIn the event this information is protected by the Federal Confidentiality of Alcohol and Drug Abuse Patient Records regulations: The Federal rules restrict any use of the information to criminally investigate or prosecute any alcohol or drug abuse patient.[facility] HospitalIn the event this information is protected by the Federal Confidentiality of Alcohol and Drug Abuse Patient Records regulations: The Federal rules restrict any use of the information to criminally investigate or prosecute any alcohol or drug abuse patient.[facility] HospitalIn the event this information is protected by the Federal Confidentiality of Alcohol and Drug Abuse Patient Records regulations: The Federal rules restrict any use of the information to criminally investigate or prosecute any alcohol or drug abuse patient.[facility] HospitalIn the event this information is protected by the Federal Confidentiality of Alcohol and Drug Abuse Patient Records regulations: The Federal rules restrict any use of the information to criminally investigate or prosecute any alcohol or drug abuse patient.[facility] HospitalIn the event this information is protected by the Federal Confidentiality of Alcohol and Drug Abuse Patient Records regulations: The Federal rules restrict any use of the information to criminally investigate or prosecute any alcohol or drug abuse patient.[facility] HospitalIn the event this information is protected by the Federal Confidentiality of Alcohol and Drug Abuse Patient Records regulations: The Federal rules restrict any use of the information to criminally investigate or prosecute any alcohol or drug abuse patient.[facility] HospitalIn the event this information is protected by the Federal Confidentiality of Alcohol and Drug Abuse Patient Records regulations: The Federal rules restrict any use of the information to criminally investigate or prosecute any alcohol or drug abuse patient.[facility] HospitalIn the event this information is protected by the Federal Confidentiality of Alcohol and Drug Abuse Patient Records regulations: The Federal rules restrict any use of the information to criminally investigate or prosecute any alcohol or drug abuse patient.[facility] HospitalIn the event this information is protected by the Federal Confidentiality of Alcohol and Drug Abuse Patient Records regulations: The Federal rules restrict any use of the information to criminally investigate or prosecute any alcohol or drug abuse patient.[facility] HospitalIn the event this information is protected by the Federal Confidentiality of Alcohol and Drug Abuse Patient Records regulations: The Federal rules restrict any use of the information to criminally investigate or prosecute any alcohol or drug abuse patient.[facility] the event this information is protected by the Federal Confidentiality of Alcohol and Drug Abuse Patient Records regulations: The Federal rules restrict any use of the information to criminally investigate or prosecute any alcohol or drug abuse patient.[facility] HospitalIn the event this information is protected by the Federal Confidentiality of Alcohol and Drug Abuse Patient Records regulations: The Federal rules restrict any use of the information to criminally investigate or prosecute any alcohol or drug abuse patient.[facility] the event this information is protected by the Federal Confidentiality of Alcohol and Drug Abuse Patient Records regulations: The Federal rules restrict any use of the information to criminally investigate or prosecute any alcohol or drug abuse patient.[facility] the event this information is protected by the Federal Confidentiality of Alcohol and Drug Abuse Patient Records regulations: The Federal rules restrict any use of the information to criminally investigate or prosecute any alcohol or drug abuse patient.[facility] Reason for Visit (unrecogniz ed section and content) Reason Onset Date Comments Medication Problem 02/16/2020 Reason Comments Ankle Pain left ankle swelling Status Reason Specialty Diagnoses / Procedures Referred By Contact Referred To Contact Closed OON/Self Pay Override INTERNAL MEDICINE Diagnoses L ankle swelling Procedures L ankle swelling Jose Armando Marquez [address] [place] [address] [place] [address] Reason Onset Date Comments Medication Request 02/29/2020 Reason Comments Refill Request Reason Comments Medication Request Reason Comments Imm/Inj Flu shot and B12 Reason Onset Date Comments Refill Request 05/23/2020 Reason Comments F/U 6 Month Status Reason Specialty Diagnoses / Procedures Referred By Contact Referred To Contact Closed Financial Clearance Not Required INTERNAL MEDICINE Diagnoses 6 MONTHS Procedures ROUTINE Jose Armando Marquez [address] [place] [address] [place] [address] Reason Comments B-12 Injection Reason Comments Patient Question Reason Comments Sinus Problem Has taken 1 course o f abx, started 2nd course of abx yesterday. Leg Edema Bilateral leg edema. 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 Medication Problem Abx makes her spacey , constipated and a heaviness in her chest Reason Comments Hypertension Monitoring Nurse Visit Bloo d Pressure Check Reason Comments Covid Follow Up Reason Comments Allergic Reaction Reason Comments Medical Clearance Hives allergic reaction, l ip swelling Reason Comments Referral Information DERMATOLOGY Reason Comments Patient Update Reason Comments Results Reason Comments F/U 6 Month Review Labs Reason Comments Constipation Reason Comments Orders Physical Therapy Reason Comments Consult Physical Therapy Reason Onset Date Comments Immunizations 05/15/2022 Flu vaccination Reason Comments Orders PT for back Reason Comments UTI Reason Comments Imm/Inj B12 Reason Comments Patient Update Nausea, vomiting, di arrhea Reason Comments Orders Reason Comments Appointment Allergic Reaction Reason Comments Allergic Reaction Pt states, allergic reaction to doxycycline states Rash all over body and lip swollen, leg swollen started medication Friday evening Reason Comments Derm Problem Reason Comments Patient Update Reason Comments Consult General Surgery Reason Onset Date Comments Transition Of Care 12/27/2022 [facility] 12/25/22- 12/26/22 Fecal Impaction Reason Comments Transition Of Care [facility] 12/25/2022-2022 Fall Reason Comments Allergy Testing Reason Comments Patch Testing (allergy) Reason Comments Established Patient Friday she woke up a nd her Head was stiff, she went to her chiropractor and he worked on her neck.(Helped a little) Stiffness and pain from top of head down into neck area. Has some nasal drainage and spitting up Phlegm. States she is limited to what ABX she can get. Amox 250mg every day is all she can handle, she states per her patch allergy testing! Would like referral to ENT as well. Reason Comments Dermatitis Reason Comments B12 Injection Reason Comments F/U 6 Month Review Labs Reason Comments Consult Physical Therapy Reason Comments Same Day Appointment Discuss possible si nus infection, cough,left ear pain, and headache (going on for 10 days) Reason Comments Referral Request ENT Reason Comments Consult Ent (faxed) Reason Onset Date Comments Refill Request 10/13/2023 Reason Comments Follow Up Reason Comments Ringing In Ear(s) Left ear. Ear Pain On/off left ear pain Hearing Loss Decreased in left ea r. Reason Comments Uti - Re-occurring Reason Comments Hearing Loss Reason Comments B-12 Injection Nurse Visit B-12 Reason Comments F/U 6 Month Review Labs, some si nus congestion Reason Comments Consult ENT Specialty Diagnoses / Procedures Referred By Srinivasa t Referred To Contact RADIO CT SCAN [facility] BATH Diagnoses Tinnitus, left ear Attention to IAC'S ORDER WILL BE FAXED Tinnitus, left ear [H93.12] Order Scanned Procedures CT ORBIT SELLA/POST FOSSA/EAR W/O CONTRAST MATRL CT WO OLIVERIO [address] Corwin Baez MD [address] [facility] [address] [place] [address] [facility] [address] [place] [address] Referral ID Status Reason Start Date Expiration Date Visits Re quested Visits Authorized [id number] Closed 04/21/2024 06/20/2024 1 1 Reason Comments Allergic Reaction Patient states she i s having an allergic reaction to Doxycyline, states she started medication on Friday for sinus infection. Red spots all over body and upper lip swelling. Reason Comments Cough Reason Comments Bronchitis Follow up, off work a full week, wants to go back to work Friday wants to be cleared to go back to work Reason Onset Date Comments Refill Request 07/28/2024 Reason Comments F/U 6 Month Review labs Reason Comments Viral Syndrome Reason Comments B12 Injection B-12 injection Reason Comments Multiple Concerns Left leg swelling, d ormant dvtPressure in chest, comes and goesBoth upper arms acheSinus pressure, drainage, no sense of taste Reason Comments Patient Question Prednisone, can she decrease amount or stop taking? Reason Comments F/U 6 Month Review labs Telephone Encounter - Gustabo Yapyasmin) - 02/16/2020 1:27 PM EDTTelephone Encounter - Jose Armando Marquez - 02/16/2020 11:59 AM EDT Miscellaneous Notes (unrecog nized section and content) Pt called back letting us know that she now has an appointment with Bella tomorrow and will discuss at that time Try pepcid Pt left a message citing a reaction to the prilosec that we ordered to replace the Zantac that is no longer on the market. She did not give any details to what the reaction is. She is asking for something else that is not as strong Please advise documented in this encounter lvm for pt Diflucan interacts with plaquinil. Would use otc monistat Pt called stated she has had a yeast infection for past 3 days, and is getting worse. Pt states she is doing ok on the new allergy med, not itching but has developed a yeast infection. [facility] Please advise documented in this encounter Ok, called in Pt called left vm, stating she has a sinus infection, congested, runny nose. Pt is requesting a low dose of amoxicillin sent in to [facility] Please advise documented in this encounter DO NOT CANCEL SCRIPT AT [facility]. PT WANTS TO TRY THE MAIL AWAY AND COMPARE PRICES. documented in this encounter DO NOT CANCEL THE OTHER ORDER, SHE IS OUT OF [place] WAITING ON THE MAIL AWAY. PLEASE SEND SOME TO [facility] documented in this encounter Pharmacy faxed requesting the following refill Refill(s) Requested: Pending Prescriptions Disp Refills LEVOTHYROXINE 50 MCG TABLET 90 tablet 3 Sig: TAKE ONE TABLET EVERY DAY ARIADNE: Yes ALLERGIES Allergen Reactions Prilosec [Omeprazol* Hives Bactrim [Sulfametho* Itching Ciprofloxacin Itching Clindamycin Itching Prednisone Itching (home) [phone] (cell) Last Visit date: 05/31/2020 Future appointment: 12/06/2020 The patients preferred pharmacy has been captured for this encounter? yes Request is for script(s) to be escript to pharmacy. Roopa Claros CMA documented in this encounter Ok, called in Pt came in for a B-12 shot, Mentions that she is having a lot of sinus issues and requested another script of Amoxicillin. Please advise documented in this encounter Last ov 02/17/2020 documented in this encounter Gustabo Yap) - 06/28/2020 3:06 PM EST Nursing Notes (unrecognized section and content) Patient has been identified by name and date of : Yes Nirmala is here for an injection of Vitamin B12 Dose: 1000mcg Route: Intramuscular Given without incident. Site: left deltoid Community Resource Officer: [employer]. Lot #: [id number] [facility] #: [id number] Expiration Date: 02/2021 Dr. marquez present in clinic at time of injection. The date due for the next injection is . OTTO Guy documented in this encounter Care Teams (unrecognized sec tion and content) Mac Artist Relationship Specialty Start Date End Date Jose Armando Marquez MD [address] [address] PCP - General 10/27/15 Mac Artist Relationship Specialty Start Date End Date Jose Armando Marquez MD [address] [address] PCP - General 10/27/15 Mac Artist Relationship Specialty Start Date End Date Jose Armando Marquez MD [address] [address] PCP - General 10/27/15 Mac Artist Relationship Specialty Start Date End Date Jose Armando Marquez MD [address] [address] PCP - General 10/27/15 Mac Artist Relationship Specialty Start Date End Date Jose Armando Marquez MD [address] [address] PCP - General 10/27/15 Mac Artist Relationship Specialty Start Date End Date Jose Armando Marquez MD [address] [address] PCP - General 10/27/15 Mac Artist Relationship Specialty Start Date End Date Jose Armando Marquez MD [address] [address] PCP - General 10/27/15 Mac Artist Relationship Specialty Start Date End Date Jose Armando Marquez MD [address] [address] PCP - General 10/27/15 Mac Artist Relationship Specialty Start Date End Date Jose Armando Marquez MD [address] [address] PCP - General 10/27/15 Mac Artist Relationship Specialty Start Date End Date Jose Armando Marquez MD [address] [address] PCP - General 10/27/15 Mac Artist Relationship Specialty Start Date End Date Jose Armando Marquez MD [address] [address] PCP - General 10/27/15 Mac Artist Relationship Specialty Start Date End Date Jose Armando Marquez MD [address] [address] PCP - General 10/27/15 Mac Artist Relationship Specialty Start Date End Date Jose Armando Marquez MD [address] [address] PCP - General 10/27/15 Mac Artist Relationship Specialty Start Date End Date Jose Armando Marquez MD [address] [address] PCP - General 10/27/15 Mac Artist Relationship Specialty Start Date End Date Jose Armando Marquez MD [address] [address] PCP - General 10/27/15 Mac Artist Relationship Specialty Start Date End Date Jose Armando Marquez MD [address] [address] PCP - General 10/27/15 Mac Artist Relationship Specialty Start Date End Date Jose Armando Marquez MD [address] [address] PCP - General 10/27/15 Mac Artist Relationship Specialty Start Date End Date Jose Armando Marquez MD [address] [address] PCP - General 10/27/15 Mac Artist Relationship Specialty Start Date End Date Jose Armando Marquez MD [address] [address] PCP - General 10/27/15 Mac Artist Relationship Specialty Start Date End Date Jose Armando Marquez MD [address] [address] PCP - General 10/27/15 Mac Artist Relationship Specialty Start Date End Date Jose Armando Marquez MD [address] [address] PCP - General 10/27/15 Mac Artist Relationship Specialty Start Date End Date Jose Armando Marquez MD [address] [address] PCP - General 10/27/15 Mac Artist Relationship Specialty Start Date End Date Jose Armando Marquez MD [address] [address] PCP - General 10/27/15 Mac Artist Relationship Specialty Start Date End Date Jose Armando Marquez MD [address] [address] PCP - General 10/27/15 Mac Artist Relationship Specialty Start Date End Date Jose Armando Marquez MD [address] [address] PCP - General 10/27/15 Mac Artist Relationship Specialty Start Date End Date Jose Armando Marquez MD [address] [address] PCP - General 10/27/15 Mac Artist Relationship Specialty Start Date End Date Jose Armando Marquez MD [address] [facility] [address] [place] [address] PCP - General 10/27/15 Mac Artist Relationship Specialty Start Date End Date Jose Armando Marquez MD [address] [facility] [address] [place] [address] PCP - General 10/27/15 Mac Artist Relationship Specialty Start Date End Date Jose Armando Marquez MD [address] [facility] [address] [place] [address] PCP - General 10/27/15 Mac Artist Relationship Specialty Start Date End Date Jose Armando Marquez MD [address] [place] [address] PCP - General 10/27/15 Mac Artist Relationship Specialty Start Date End Date Jose Armando Marquez MD [address] [place] [address] PCP - General 10/27/15 Mac Artist Relationship Specialty Start Date End Date Jose Armando Marquez MD [address] [place] [address] PCP - General 10/27/15 Mac Artist Relationship Specialty Start Date End Date Jose Armando Marquez MD [address] [place] [address] PCP - General 10/27/15 Mac Artist Relationship Specialty Start Date End Date Jose Armando Marquez MD [address] [place] [address] PCP - General 10/27/15 Mac Artist Relationship Specialty Start Date End Date Jose Armando Marquez MD [address] [facility] [address] [place] [address] PCP - General 10/27/15 Mac Artist Relationship Specialty Start Date End Date Jose Armando Marquez MD [address] [facility] [address] [place] [address] PCP - General 10/27/15 Mac Artist Relationship Specialty Start Date End Date Jose Armando Marquez MD [address] [address] PCP - General 10/27/15 Mac Artist Relationship Specialty Start Date End Date Jose Armando Marquez MD [address] [address] PCP - General 10/27/15 Mac Artist Relationship Specialty Start Date End Date Jose Armando Marquez MD [address] [address] PCP - General 10/27/15 Mac Artist Relationship Specialty Start Date End Date Jose Armando Marquez MD [address] [address] PCP - General 10/27/15 Mac Artist Relationship Specialty Start Date End Date Jose Armando Marquez MD [address] [address] PCP - General 10/27/15 Mac Artist Relationship Specialty Start Date End Date Jose Armando Marquez MD [address] [facility] [address] [place] [address] PCP - General 10/27/15 Mac Artist Relationship Specialty Start Date End Date Jose Armando Marquez MD [address] [place] [address] PCP - General 10/27/15 Mac Artist Relationship Specialty Start Date End Date Jose Armando Marquez MD [address] [place] [address] PCP - General 10/27/15 Mac Artist Relationship Specialty Start Date End Date Jose Armando Marquez MD [address] [place] [address] PCP - General 12/07/14 Mac Artist Relationship Specialty Start Date End Date Jose Armando Marquez MD [address] [place] [address] PCP - General 10/27/15 Mac Artist Relationship Specialty Start Date End Date Jose Armando Marquez MD [address] [place] [address] PCP - General 10/27/15 Mac Artist Relationship Specialty Start Date End Date Jose Armando Marquez MD [address] [place] [address] PCP - General 10/27/15 Mac Artist Relationship Specialty Start Date End Date Jose Armando Marquez MD [address] [address] PCP - General 10/27/15 Mac Artist Relationship Specialty Start Date End Date Jose Armando Marquez MD [address] [address] PCP - General 10/27/15 Active Administered Medications - up to 3 most recent administrations Administered Medications (un recognized section and content) Medication Order MAR Action Action Date Dose Rate Site cyanocobalamin 1,000 mcg injection 1,000 mcg, INTRAMUSCULAR, EVERY 4 WEEKS, 12 doses, First dose on Fri06/11/23 at 1030, Last dose on Fri04/14/24 at 1030 Given 07/31/2023 12:33 PM EST 1,000 mcg Deltoid, Left Given 06/11/2023 10:05 AM EST 1,000 mcg D eltoid, Left Active Administered Medications - up to 3 most recent administrations Medication Order MAR Action Action Date Dose Rate Site cyanocobalamin 1,000 mcg injection 1,000 mcg, INTRAMUSCULAR, EVERY 4 WEEKS, 12 doses, First dose on Fri06/11/23 at 1030, Last dose on Fri04/14/24 at 1030 Given 09/17/2023 4:01 PM EDT 1,000 mcg Deltoid, Left Given 07/31/2023 12:33 PM EST 1,000 mcg D eltoid, Left Given 06/11/2023 10:05 AM EST 1,000 mcg D eltoid, Left FOR RECORDS PERTAINING TO PATIENTS WHO ARE OR HAVE BEEN ENROLLED IN A CHEMICAL DEPENDENCY/SUBSTANCEABUSE PROGRAM, SOME INFORMATION MAY BE OMITTED. This clinical summary was aggregated from multiple sources. Caution should be exercised in using it in the provision of clinical care. This summary normalizes information from multiple sources, and as a consequence, information in this document may materially change the coding, format and clinical context of patient data. In addition, data may be omitted in some cases. CLINICAL DECISIONS SHOULD BE BASED ON THE PRIMARY CLINICAL RECORDS. [facility] [employer] [facility]. provides no warranty or guarantee of the accuracy or completeness of information in this document.
[2025-05-28 02:03] VITALS: BP 142/64; PULSE 88; RESP 18; TEMP 36.6; O2SAT 95
[2025-05-28 02:07] VITALS: BMI 28.5
--- NOTE | 2025-05-28 02:33 | HP.PCM.HOS_ITS ---
[facility] - General General Date of Admission: 05/28/25 Date of Service: 05/28/25 Chief Complaint: Severe back pain and difficulty ambulating HPI Narrative JELANI PEREZ, is a 84 F who presents severe lower back pain radiating to the left lower extremity causing inability to stand up or walk after a fall 84-year-old female with medical history significant for recurrent DVT on Eliquis, chronic lower back pain and spinal stenosis, hypertension and mild lupus on Plaquenil who had fallen several days ago and went to another ED where she had multiple images which showed no acute problem and was sent home with a left wrist splint because of a sprain. Later on after 1 to 2 days she developed severe lower back pain which is different from her chronic back pain, she went to her outpatient physical therapy but the pain persisted. At home, patient was on her recliner, she was unable to get up and she slid down and had someone to help her stand up and then she came to the ED. Patient lives at home with family members who help her and support her with daily activities. Because of all her family numbers were out and she was alone and she felt afraid of going back home from the ED because no one would be able to help her get up, ambulate and perform her daily activities. Patient also states that she has not been able to eat or drink properly because of nobody around to help her get food or water and she feels dehydrated. She denies focal weakness or numbness, loss of bladder or bowel control or saddle anesthesia In our ED, CT lumbosacral spine showed multilevel degenerative disc disease with severe canal stenosis at L4-L5 and L2?L3. Patient was unable to move left lower extremity because of severe pain but not from weakness. UA was done and was positive for ketones and esterase but urine was dark and appeared concentrated. She had history of UTIs but now she denies any symptoms of infection. No fever and no leukocytosis. Main reason for admission (observation) is pain control and PT evaluation for rehab placement ON LICENSE OF [facility] Medical History (Updated 05/28/25 @ 02:[address] Sierra Booth MD) HTN (hypertension) Deep vein blood clot of left lower extremity Stroke Home Medications ?Medication ?Instructions ?Recorded ?Last Taken ?Type amlodipine 10 mg tablet 10 mg PO DAILY 05/28/25 Unkn own History apixaban 5 mg tablet (Eliquis) 5 mg PO BID 05/28/25 Un known History estradiol 0.01% (0.1 mg/gram) 1 vaginal 05/28/25 Unkno wn History vaginal cream famotidine 40 mg tablet 40 mg PO DAILY 05/28/25 Unkn own History fluticasone propionate 50 2 spray intranasal BID 05/28 Unknown History mcg/actuation nasal spray,suspension folic acid 1 mg tablet 1 mg PO DAILY 05/28/25 Unkno wn History hydroxychloroquine 200 mg tablet 200 mg PO DAILY 05/28 Unknown History levothyroxine 50 mcg tablet 50 mcg PO DAILY 05/28/25 U nknown History oxycodone 5 mg tablet 2.5 mg PO Q8H PRN PRN pain 1 07/28/24 Unknown History Allergy/AdvReac Type Severity Reaction Status Date / Time Sulfa (Sulfonamide Allergy Mild Other Verified 05/27/25 21:27 Antibiotics) Family History no significant family his Surgical History Hx of cholecystectomy Hx of hysterectomy Social History Smoking Status: Former smoker ROS Constitutional Constitutional: Denies fever(s) or poor appetite ENT HEENT: Reports none Cardiovascular Cardiovascular: Denies chest pain or dyspnea Respiratory/Chest Respiratory/Chest: Denies cough or wheezing Gastrointestinal Gastrointestinal: Denies abdominal pain or change in bowel habits Genitourinary Genitourinary: Denies change in urinary stream or dysuria Musculoskeletal Musculoskeletal: Reports arthralgias and back pain; Denies myalgias Integumentary Integumentary: Reports none Neurologic Neurologic: Denies abnormal speech, dizziness, focal weakness, loss of vision or numbness Hematologic/Lymphatic Hematologic/Lymphatic: Reports none Vital Signs Vital Signs Vital Signs: 05/27/25 21:24 05/27/25 21:24 05/27/25 21:31 Temperature 98.4 F Temperature Source Oral Pulse Rate 84 Respiratory Rate 16 Respiratory Effort Normal Normal Respiratory Depth Normal Respiratory Pattern Normal Normal Blood Pressure 151/69 H Blood Pressure Mean 96 Blood Pressure Source Blood Pressure Position Blood Pressure Location Pulse Ox 97 Oxygen Delivery Method Room Air Room Air 05/27/25 23:17 05/28/25 00:40 05/28/25 00:40 Temperature 98.4 F 98.4 F Temperature Source Oral Pulse Rate 80 83 82 Respiratory Rate 18 14 16 Respiratory Effort Respiratory Depth Respiratory Pattern Blood Pressure 134/62 H 144/68 H 144/68 H Blood Pressure Mean 86 93 93 Blood Pressure Source Blood Pressure Position Blood Pressure Location Pulse Ox 95 97 97 Oxygen Delivery Method Room Air Room Air 05/28/25 02:03 Temperature 98 F Temperature Source Oral Pulse Rate 88 Respiratory Rate 18 Respiratory Effort Respiratory Depth Respiratory Pattern Blood Pressure 142/64 H Blood Pressure Mean 90 Blood Pressure Source Monitor Blood Pressure Position Semi-Fowlers Blood Pressure Location Right Arm Pulse Ox 95 Oxygen Delivery Method Room Air Weight Weight: 73.2 kg Body Mass Index (BMI) 28.5 Physical Exam Const alert and oriented x3 HEENT normocephalic and head/scalp atraumatic Eyes EOMs intact bilaterally; Negative for no scleral icterus Neck supple Resp normal respiratory effort and clear to auscultation bilaterally Cardio regular rate and regular rhythm; Negative for no murmurs GI normal to inspection, nondistended, normoactive bowel sounds; Negative for non- tender no CVA tenderness Extremity no joint enlargement and no pedal edema Extremity Narrative: Patient could not raise or bend left knee because severe pain from lower back, otherwise muscle tone is normal Skin no rashes or lesions noted Neuro oriented x3 and moves all extremities Motor Exam: strength 5/5 throughout Results Lab / Micro Data 05/27/25 22:07 05/27/25 22:07 Labs: Laboratory Results - last 24 hr 05/27/25 22:07: WBC 10.9, RBC 4.32, Hgb 13.0, Hct 38.5, MCV 89.1, MCH 30.1, MCHC 33.8, RDW Std Deviation 42.5, RDW Coeff of Ethan 12.9, Plt Count 153, MPV 10.5, Immature Gran % (Auto) 0.500, Neut % (Auto) 71.6 H, Lymph % (Auto) 7.8 L, [place] % (Auto) 19.7 H, Eos % (Auto) 0.2, Baso % (Auto) 0.2, Absolute Neuts (auto) 7.8 H, Absolute Lymphs (auto) 0.85, Nucleated RBC % 0, Differential Comment SCANNED, Sodium 135, Potassium 3.4, Chloride 98, Carbon Dioxide 22.4, Anion Gap 15, BUN 28 H, Creatinine 0.74, Estim Creat Clear Calc 52.31, Est GFR (MDRD) Non-Af 81, B UN/Creatinine Ratio 37.2 H, Glucose 103 H, Calcium 9.4 05/27/25 23:38: Urine Color Yellow, Urine Clarity Sl. Cloudy, Urine pH 5.0, Ur Specific [place] 1.020, Urine Protein 30 H, Urine Glucose (UA) Normal, Urine Ketones 50 H, Urine Occult Blood 25 H, Urine Nitrite Negative, Urine Bilirubin 1 H, Urine Urobilinogen 1 H, Ur Leukocyte Esterase 500 H, Urine RBC 50-100 SEEN, Ur Squamous Epith Cells 5-10 SEEN, Urine Bacteria 2+, Hyaline Casts 0-5 SEEN, Urine Mucus 2+ Imaging Radiology Impression Lumbar Spine CT 05/27/25 21:51 IMPRESSION: Multilevel degenerate changes of the lumbar spine predominantly for severe canal stenosis at L4-L5 and L2-L3. Please see disc levels for further details. No acute injury to the lumbar spine. Reading Location: [facility] Assessment & Plan Assessment/Plan (1) Left lumbosacral radiculopathy: (2) Severe back pain: (3) Ambulatory dysfunction: (4) HTN (hypertension): QUALIFIERS: Hypertension type: primary hypertension Qualified Code(s): I10 - Essential (primary) hypertension (5) History of recurrent deep vein thrombosis: PLAN: Plan 84-year-old female comes in after a fall, she developed severe lower back pain radiating to left lower extremity restricting her ability to get up or walk. Workup showed no acute pathology but chronic changes. Patient could not go home for safety reasons. She is placed under observation for pain control and PT OT Back pain and radiculopathy: Severe and debilitating, patient cannot move her left thigh because of severe pain in the back and left thigh. Severe lumbar stenosis and disc herniation at multiple levels No neurologic emergencies: No new weakness, numbness or loss of sphincter control Patient need family support for daily activities. She was alone during the holiday Place in observation for pain control and PT OT evaluation. Adding gabapentin Hypertension: Continue amlodipine Recurrent DVTs in the left leg: Currently both lower extremities appear similar, no signs of DVT Continue Eliquis History of lupus: She states it is mild, on Plaquenil Charges/Coding Visit Charges OBSV E&M: 18523 Observ/hosp same date L3
[2025-05-28] MEDS: 0.9% Saline Lock 10 ML Syringe IV ×2 (02:52→22:04)
[2025-05-28 04:12] LABS: Red Blood Cells-Urine 0-5 SEEN /hpf (0-5)
[2025-05-28] MEDS: Fluticasone 0.05% 1 SPRAY NASAL.SRY 2 SPRAY NASAL ×2 (08:23→21:58)
[2025-05-28] MEDS: APIXABAN 5 MG TABLET PO ×2 (08:25→21:59)
[2025-05-28 08:37] VITALS: BP 131/64; PULSE 81; RESP 16; TEMP 36.8; O2SAT 94
--- NOTE | 2025-05-28 10:13 | PCM.PN.HOSP ---
Reason for Visit Chief Complaint: Severe back pain and difficulty ambulating Subjective Subjective Patient is an 84-year-old female who had fallen 5 days prior to her admission presented to the emergency department with intractable low back pain with radiation down her left leg Objective Data Objective Data Vital Signs: Vital Signs Temp Pulse Resp BP Pulse Ox O2 Del Method 98.3 F 81 16 131/64 H 94 Room Air 05/28/25 08:37 05/28/25 08:37 05/28/25 08:37 05/28/25 08:37 05/28/25 08:37 05/28/25 08:37 Oxygen Delivery Method Room Air Weight: 73.2 kg Body Mass Index (BMI) 28.5 Intake & Output: Intake and Output for Last 24 Hours 05/26/25 05/27/25 05/28/25 23:59 23:59 23:59 Intake Total 1050 / 1050 Output Total 200 / 200 Balance 850 / 850 Lab / Micro Data 05/27/25 22:07 05/27/25 22:07 Labs: Laboratory Results - last 24 hr 05/27/25 22:07: WBC 10.9, RBC 4.32, Hgb 13.0, Hct 38.5, MCV 89.1, MCH 30.1, MCHC 33.8, RDW Std Deviation 42.5, RDW Coeff of Ethan 12.9, Plt Count 153, MPV 10.5, Immature Gran % (Auto) 0.500, Neut % (Auto) 71.6 H, Lymph % (Auto) 7.8 L, [place] % (Auto) 19.7 H, Eos % (Auto) 0.2, Baso % (Auto) 0.2, Absolute Neuts (auto) 7.8 H, Absolute Lymphs (auto) 0.85, Nucleated RBC % 0, Differential Comment SCANNED, Sodium 135, Potassium 3.4, Chloride 98, Carbon Dioxide 22.4, Anion Gap 15, BUN 28 H, Creatinine 0.74, Estim Creat Clear Calc 52.31, Est GFR (MDRD) Non-Af 81, BUN/Creatinine Ratio 37.2 H, Glucose 103 H, Calcium 9.4 05/27/25 23:38: Urine Color Yellow, Urine Clarity Sl. Cloudy, Urine pH 5.0, Ur Specific [place] 1.020, Urine Protein 30 H, Urine Glucose (UA) Normal, Urine Ketones 50 H, Urine Occult Blood 25 H, Urine Nitrite Negative, Urine Bilirubin 1 H, Urine Urobilinogen 1 H, Ur Leukocyte Esterase 500 H, Urine RBC 0-5 SEEN, Urine WBC 50-100 SEEN, Ur Squamous Epith Cells 5-10 SEEN, Urine Bacteria 2+, Hyaline Casts 0-5 SEEN, Urine Mucus 2+ Radiography Diagnostic Testing: Radiology Impression Lumbar Spine CT 05/27/25 21:51 IMPRESSION: Multilevel degenerate changes of the lumbar spine predominantly for severe canal stenosis at L4-L5 and L2-L3. Please see disc levels for further details. No acute injury to the lumbar spine. Reading Location: [facility] Physical Exam Narrative GENERAL: cooperative HEENT: Atraumatic; normocephalic EYES; Anicteric, Normal Conjunctiva NECK; supple, normal thyroid, RESPIRATORY: Diminished to auscultation CARDIOVASCULAR: Regular S1 S2, GI: soft, normoactive bowel sounds, : No Renal angle tenderness; EXTREMITIES: No edema, no clubbing, MUSCULOSKELETAL: Right wrist in the splint NEURO: Awake; no lateralizing signs. SKIN: No Rash PSYCH; Flat affect Assessment & Plan Assessment/Plan (1) Left lumbosacral radiculopathy: (2) Severe back pain: (3) Ambulatory dysfunction: (4) HTN (hypertension): QUALIFIERS: Hypertension type: primary hypertension Qualified Code(s): I10 - Essential (primary) hypertension (5) History of recurrent deep vein thrombosis: PLAN: Plan Patient is an 84-year-old female who had fallen 5 days prior to her admission presented to the emergency department with intractable low back pain with radiation down her left leg 1. Intractable back pain ? Secondary to recent fall with subsequent radiculopathy. 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 No acute injury to the lumbar spine reported. Patient admitted to regular nursing floor for symptom management with pain meds as well as muscle relaxant and requested for PT OT as tolerated 2. Right hand and wrist contusion ? Secondary to patient recent fall managed with immobilization and pain meds 3. Acute cystitis ? Present on admission started on ceftriaxone urine culture sent 4. Hypertension ? Blood pressure controlled, home medications (amlodipine) continued with dose adjustment as needed 5. Hypothyroidism ? Patient is on levothyroxine home dose continued 6. History of lupus ? Patient is on hydroxychloroquine did continue 7. 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 Patient is on apixaban continued 8. DVT prophylaxis ? Patient already on apixaban Time spent in the patient's overall evaluation,decision-making process, review of diagnostic data, adjustment of management, discussion with other providers, nursing nursing and ancillary staff involved in patient's care documentation, 40 Minutes Charges/Coding Visit Charges Inpatient E&M: 57924 Subs Hosp L2
[2025-05-28 11:46] VITALS: BP 104/64; PULSE 82; RESP 16; TEMP 36.4; O2SAT 96
--- NOTE | 2025-05-28 12:30 | CASEMGMT ---
RN ZEINAB Face to Face with patient for initial transition planning/care coordination assessment. RN CM introduced self and role at [facility]. Patient lying in bed, alert and oriented. Patient willing to participate in assessment and is able to answer all questions appropriately. Care providers, pharmacy, and demographics verified. Strata: 1 PCP: [place] Specialists: none Preferred Pharmacy: [facility] Insurance: [employer] Prescription Benefit: yes Living Will/HPOA: none LNOK: daughter Living Arrangements: Patient lives alone in a single story home with 4-6 steps and railing to enter the home. Patient was independent prior to hospitalization. Transportation: self, friends DME/HHC: Patient has shower chair, raised toilet, grab bars, walker at home. No previous HHC or SNF Patient wishes to discharge to SNF for additional therapy. A list of SNF providers including quality and resource use data and consistent with the patient's preferred geographic region, medical needs, and insurance network was created in [employer] Guide. Patient states she prefers TCU. Patient states she has no further needs or concerns at this time. CM to send referral to TCU. CM to follow for discharge planning needs that may arise. Disposition Plan: TCU pending acceptance and precert Desi SHER, RN, CM
--- NOTE | 2025-05-28 14:47 | CASEMGMT ---
Social Work Referral made to TCU via email, LUZ/ZEINAB to follow up Friday. DOMINGUEZ Jones
[2025-05-28 15:22] VITALS: BP 109/57; PULSE 79; RESP 16; TEMP 36.4; O2SAT 95
--- NOTE | 2025-05-28 15:53 | CASEMGMT ---
ROBYN CM in to complete [employer] Form with patient. RN ZEINAB explained [employer] Form to patient, patient voiced understandings. Patient signed [employer] Form and filed in chart. Patient provided with copy of signed [employer] form. Patient had no further questions or concerns.
[2025-05-28 21:30] VITALS: BP 128/64; PULSE 80; RESP 16; TEMP 36.8; O2SAT 94
[2025-05-28] MEDS: Senna/Docusate Sodium 1 Tablet 2 TABLET PO (22:05)
[2025-05-28] MEDS: 0.9% Normal Saline (250mL Bag) 250 ML 15 ML IV (22:12)
[2025-05-29 03:31] VITALS: BP 129/64; PULSE 62; RESP 18; TEMP 36.6; O2SAT 96
[2025-05-29 05:10] LABS: Hematocrit 34.0 % (37-47); Hemoglobin 10.8 g/dL (12.0-15.0); Immature Granulocytes Count 0.040 X10^3/uL (0.0-0.0); Mean Corp Hgb Conc 31.8 g/dL (32-36); Mean Corpuscular Volume 91.9 fL (81-99); Mean Platelet Vol. 11.9 fl (6.2-12.0); NRBC Flagged by Analyzer 0 % (0-5); Platelet Count 146 K/mm3 (150-450); RBC Distribution Width CV 13.0 % (11.6-14.6); RBC Distribution Width SD 44.0 fl (35.1-43.9); Red Blood Count 3.70 M/mm3 (4.2-5.4); White Blood Count 7.2 K/mm3 (4.4-11.0)
[2025-05-29 05:32] LABS: Anion Gap 11 (5-15); BUN 28 mg/dL (4-19); BUN/Creat Ratio 41.3 RATIO (10-20); Calcium,Total 8.9 mg/dL (7.6-11.0); Carbon Dioxide 23.5 mmol/L (21.0-32.0); Chloride 102 mmol/L (98-108); Estimated Creatinine Clearance 50.79 ml/min (50-250); Glucose 99 mg/dL (70-99); Magnesium 2.0 mg/dL (1.5-2.2); Potassium 3.4 mmol/L (3.3-5.1)
--- NOTE | 2025-05-29 07:27 | PN.HOSP_ITS ---
Reason for Visit Chief Complaint: Severe back pain and difficulty ambulating Subjective Subjective Patient seen, urine cultures pending. Still complains of pain and rest and back. Objective Data Objective Data Vital Signs: Vital Signs Temp Pulse Resp BP Pulse Ox O2 Del Method 98 F 62 18 129/64 H 96 Room Air 05/29/25 03:31 05/29/25 03:31 05/29/25 03:31 05/29/25 03:31 05/29/25 03:31 05/29/25 03:31 Oxygen Delivery Method Room Air Weight: 73.2 kg Body Mass Index (BMI) 28.5 Intake & Output: Intake and Output for Last 24 Hours 05/27/25 05/28/25 05/29/25 23:59 23:59 23:59 Intake Total 1700 / 1980 280 / 280 Output Total 200 / 400 200 / 200 Balance 1500 / 1580 80 / 80 Lab / Micro Data 05/29/25 03:27 05/29/25 03:27 Labs: Laboratory Results - last 24 hr 05/29/25 03:27: WBC 7.2, RBC 3.70 L, Hgb 10.8 L, Hct 34.0 L, MCV 91.9, MCH 29.2, MCHC 31.8 L D, RDW Std Deviation 44.0 H, RDW Coeff of Ethan 13.0, Plt Count 146 L, MPV 11.9, Immature Gran % (Auto) 0.600, Neut % (Auto) 59.4, Lymph % (Auto) 18.6 L, [place] % (Auto) 19.9 H, Eos % (Auto) 1.1, Baso % (Auto) 0.4, Absolute Neuts (auto) 4.3, Absolute Lymphs (auto) 1.34, Nucleated RBC % 0, Sodium 136, Potassium 3.4, Chloride 102, Carbon Dioxide 23.5, Anion Gap 11, BUN 28 H, C reatinine 0.68 L, Estim Creat Clear Calc 50.79, Est GFR (MDRD) Non-Af 87, B UN/Creatinine Ratio 41.3 H, Glucose 99, Calcium 8.9, Phosphorus 3.0, Magnesium 2.0 Physical Exam Narrative GENERAL: cooperative HEENT: Atraumatic; normocephalic EYES; Anicteric, Normal Conjunctiva NECK; supple, normal thyroid, RESPIRATORY: Diminished to auscultation CARDIOVASCULAR: Regular S1 S2, GI: soft, normoactive bowel sounds, : No Renal angle tenderness; EXTREMITIES: No edema, no clubbing, MUSCULOSKELETAL: Right wrist in the splint NEURO: Awake; no lateralizing signs. SKIN: No Rash PSYCH; Flat affect Assessment & Plan Assessment/Plan (1) Left lumbosacral radiculopathy: (2) Severe back pain: (3) Ambulatory dysfunction: (4) HTN (hypertension): QUALIFIERS: Hypertension type: primary hypertension Qualified Code(s): I10 - Essential (primary) hypertension (5) History of recurrent deep vein thrombosis: PLAN: Plan Patient is an 84-year-old female who had fallen 5 days prior to her admission presented to the emergency department with intractable low back pain with radiation down her left leg 1. Intractable back pain ? Secondary to recent fall with subsequent radiculopathy. 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 No acute injury to the lumbar spine reported. Patient admitted to regular nursing floor for symptom management with pain meds as well as muscle relaxant and requested for PT OT as tolerated ? 05/29/2025; adjusted patient pain meds the day prior. Patient did receive some relief. 2. Right hand and wrist contusion ? Secondary to patient recent fall managed with immobilization and pain meds 3. Acute cystitis ? Present on admission started on ceftriaxone urine culture sent ? 05/29/2025; cultures were sent yesterday results pending 4. Hypertension ? Blood pressure controlled, home medications (amlodipine) continued with dose adjustment as needed 5. Hypothyroidism ? Patient is on levothyroxine home dose continued 6. History of lupus ? Patient is on hydroxychloroquine did continue 7. 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 Patient is on apixaban continued 8. DVT prophylaxis ? Patient already on apixaban Time spent in the patient's overall evaluation,decision-making process, review of diagnostic data, adjustment of management, discussion with other providers, nursing nursing and ancillary staff involved in patient's care documentation, 38 Minutes Charges/Coding Visit Charges Inpatient E&M: 27215 Subs Hosp L2
[2025-05-29] MEDS: APIXABAN 5 MG TABLET PO ×2 (08:46→21:38)
[2025-05-29] MEDS: Fluticasone 0.05% 1 SPRAY NASAL.SRY 2 SPRAY NASAL ×2 (08:46→21:37)
[2025-05-29] MEDS: Senna/Docusate Sodium 1 Tablet 2 TABLET PO (09:05)
[2025-05-29 09:25] VITALS: BP 133/65; PULSE 72; RESP 16; TEMP 36.9; O2SAT 95
[2025-05-29 15:49] VITALS: BP 117/55; PULSE 72; RESP 16; TEMP 36.9; O2SAT 97
[2025-05-29 20:38] VITALS: BP 149/69; PULSE 79; RESP 18; TEMP 36.8; O2SAT 98
[2025-05-29] MEDS: 0.9% Saline Lock 10 ML Syringe IV (21:39)
[2025-05-30 04:39] VITALS: BP 153/73; PULSE 77; RESP 15; TEMP 36.6; O2SAT 97
[2025-05-30 07:12] LABS: Hematocrit 37.5 % (37-47); Hemoglobin 12.2 g/dL (12.0-15.0); Immature Granulocytes Count 0.020 X10^3/uL (0.0-0.0); Mean Corp Hgb Conc 32.5 g/dL (32-36); Mean Corpuscular Volume 90.8 fL (81-99); Mean Platelet Vol. 10.3 fl (6.2-12.0); NRBC Flagged by Analyzer 0 % (0-5); Platelet Count 192 K/mm3 (150-450); RBC Distribution Width CV 12.8 % (11.6-14.6); RBC Distribution Width SD 42.7 fl (35.1-43.9); Red Blood Count 4.13 M/mm3 (4.2-5.4); White Blood Count 7.3 K/mm3 (4.4-11.0)
--- NOTE | 2025-05-30 07:26 | PCM.PN.HOSP ---
Reason for Visit Chief Complaint: Severe back pain and difficulty ambulating Subjective Subjective Patient seen pain continues to improve. Urine culture still pending Objective Data Objective Data Vital Signs: Vital Signs Temp Pulse Resp BP Pulse Ox O2 Del Method 97.9 F 77 15 153/73 H 97 Room Air 05/30/25 04:39 05/30/25 04:39 05/30/25 04:39 05/30/25 04:39 05/30/25 04:39 05/30/25 04:39 Oxygen Delivery Method Room Air Weight: 73.2 kg Body Mass Index (BMI) 28.5 Intake & Output: Intake and Output for Last 24 Hours 05/28/25 05/29/25 05/30/25 23:59 23:59 23:59 Intake Total 1700 / 1980 987 / 1272 485 / 485 Output Total 200 / 400 700 / 700 Balance 1500 / 1580 287 / 572 485 / 485 Lab / Micro Data 05/30/25 06:54 05/30/25 06:54 Labs: Laboratory Results - last 24 hr 05/30/25 06:54: WBC 7.3, RBC 4.13 L, Hgb 12.2, Hct 37.5, MCV 90.8, MCH 29.5, MCHC 32.5, RDW Std Deviation 42.7, RDW Coeff of Ethan 12.8, Plt Count 192, MPV 10.3, Immature Gran % (Auto) 0.300, Neut % (Auto) 69.3, Lymph % (Auto) 13.9 L, [place] % (Auto) 13.9 H, Eos % (Auto) 2.2, Baso % (Auto) 0.4, Absolute Neuts (auto) 5.0, Absolute Lymphs (auto) 1.01, Nucleated RBC % 0 Physical Exam Narrative GENERAL: cooperative HEENT: Atraumatic; normocephalic EYES; Anicteric, Normal Conjunctiva NECK; supple, normal thyroid, RESPIRATORY: Diminished to auscultation CARDIOVASCULAR: Regular S1 S2, GI: soft, normoactive bowel sounds, : No Renal angle tenderness; EXTREMITIES: No edema, no clubbing, MUSCULOSKELETAL: Right wrist in the splint NEURO: Awake; no lateralizing signs. SKIN: No Rash PSYCH; Flat affect Assessment & Plan Assessment/Plan (1) Left lumbosacral radiculopathy: (2) Severe back pain: (3) Ambulatory dysfunction: (4) HTN (hypertension): QUALIFIERS: Hypertension type: primary hypertension Qualified Code(s): I10 - Essential (primary) hypertension (5) History of recurrent deep vein thrombosis: PLAN: Plan Patient is an 84-year-old female who had fallen 5 days prior to her admission presented to the emergency department with intractable low back pain with radiation down her left leg 1. Intractable back pain ? Secondary to recent fall with subsequent radiculopathy. 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 No acute injury to the lumbar spine reported. Patient admitted to regular nursing floor for symptom management with pain meds as well as muscle relaxant and requested for PT OT as tolerated ? 05/29/2025; adjusted patient pain meds the day prior. Patient did receive some relief. ? 05/30/2025; patient pain continues to improve awaiting placement in a longterm facility 2. Right hand and wrist contusion ? Secondary to patient recent fall managed with immobilization and pain meds 3. Acute cystitis ? Present on admission started on ceftriaxone urine culture sent ? 05/29/2025; cultures were sent yesterday results pending ? 05/30/2025; urine culture still pending 4. Hypertension ? Blood pressure controlled, home medications (amlodipine) continued with dose adjustment as needed 5. Hypothyroidism ? Patient is on levothyroxine home dose continued 6. History of lupus ? Patient is on hydroxychloroquine did continue 7. 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 Patient is on apixaban continued 8. DVT prophylaxis ? Patient already on apixaban Time spent in the patient's overall evaluation,decision-making process, review of diagnostic data, adjustment of management, discussion with other providers, nursing nursing and ancillary staff involved in patient's care documentation, 35 Minutes Charges/Coding Visit Charges Inpatient E&M: 76876 Subs Hosp L2
[2025-05-30 07:46] LABS: Anion Gap 12 (5-15); BUN 15 mg/dL (4-19); BUN/Creat Ratio 31.9 RATIO (10-20); Calcium,Total 9.1 mg/dL (7.6-11.0); Carbon Dioxide 24.5 mmol/L (21.0-32.0); Chloride 103 mmol/L (98-108); Estimated Creatinine Clearance 50.79 ml/min (50-250); Glucose 103 mg/dL (70-99); Potassium 3.5 mmol/L (3.3-5.1)
[2025-05-30 09:18] VITALS: BP 122/66; PULSE 72; RESP 16; TEMP 36.8; O2SAT 96
[2025-05-30] MEDS: Fluticasone 0.05% 1 SPRAY NASAL.SRY 2 SPRAY NASAL ×2 (09:22→21:20)
[2025-05-30] MEDS: APIXABAN 5 MG TABLET PO ×2 (09:22→21:21)
[2025-05-30] MEDS: Senna/Docusate Sodium 1 Tablet 2 TABLET PO ×2 (09:31→21:23)
--- NOTE | 2025-05-30 12:36 | CASEMGMT ---
Addendum entered by Luz Marina Caballero 05/30/25 13:00: Pt accepted to [facility] TCU and precert will be started. Original Note: ROBYN ARRIOLA reviewed therapy sessions this date. ROBYN ARRIOLA into pt room, pt states she would like to proceed with [facility] as she does not feel that she is at her baseline functional status. Updated TCU admissions.
[2025-05-30 15:18] VITALS: BP 126/74; PULSE 77; RESP 16; TEMP 36.6; O2SAT 97
[2025-05-30 22:00] VITALS: BP 131/62; PULSE 80; RESP 16; TEMP 36.6; O2SAT 96
[2025-05-31] MEDS: Phenylephrine 0.25%/Cocoa Btr 1 Rectal Supp 1 SUPP RC (01:44)
[2025-05-31] MEDS: MELATONIN 3 MG TABLET PO (01:49)
[2025-05-31 02:00] VITALS: BP 142/69; PULSE 70; RESP 18; TEMP 36.6; O2SAT 97
[2025-05-31 06:30] LABS: Hematocrit 36.5 % (37-47); Hemoglobin 12.0 g/dL (12.0-15.0); Immature Granulocytes Count 0.020 X10^3/uL (0.0-0.0); Mean Corp Hgb Conc 32.9 g/dL (32-36); Mean Corpuscular Volume 90.6 fL (81-99); Mean Platelet Vol. 10.3 fl (6.2-12.0); NRBC Flagged by Analyzer 0 % (0-5); Platelet Count 202 K/mm3 (150-450); RBC Distribution Width CV 12.8 % (11.6-14.6); RBC Distribution Width SD 42.5 fl (35.1-43.9); Red Blood Count 4.03 M/mm3 (4.2-5.4); White Blood Count 6.8 K/mm3 (4.4-11.0)
[2025-05-31 07:10] LABS: Anion Gap 13 (5-15); BUN 12 mg/dL (4-19); BUN/Creat Ratio 24.1 RATIO (10-20); Calcium,Total 9.2 mg/dL (7.6-11.0); Carbon Dioxide 23.2 mmol/L (21.0-32.0); Chloride 104 mmol/L (98-108); Estimated Creatinine Clearance 50.79 ml/min (50-250); Glucose 102 mg/dL (70-99); Potassium 3.7 mmol/L (3.3-5.1)
--- NOTE | 2025-05-31 08:31 | PCM.PN.HOSP ---
Reason for Visit Chief Complaint: Severe back pain and difficulty ambulating Subjective Subjective Patient seen, plan is for patient to be discharged home with home health Objective Data Objective Data Vital Signs: Vital Signs Temp Pulse Resp BP Pulse Ox O2 Del Method 97.8 F 70 18 142/69 H 97 Room Air 05/31/25 02:00 05/31/25 02:00 05/31/25 02:00 05/31/25 02:00 05/31/25 02:00 05/31/25 02:00 Oxygen Delivery Method Room Air Weight: 73.2 kg Body Mass Index (BMI) 28.5 Intake & Output: Intake and Output for Last 24 Hours 05/29/25 05/30/25 05/31/25 23:59 23:59 23:59 Intake Total 987 / 1272 845 / 845 Output Total 700 / 700 Balance 287 / 572 845 / 845 Lab / Micro Data 05/31/25 06:05 05/31/25 06:05 Labs: Laboratory Results - last 24 hr 05/31/25 06:05: WBC 6.8, RBC 4.03 L, Hgb 12.0, Hct 36.5 L, MCV 90.6, MCH 29.8, MCHC 32.9, RDW Std Deviation 42.5, RDW Coeff of Ethan 12.8, Plt Count 202, MPV 10.3, Immature Gran % (Auto) 0.300, Neut % (Auto) 65.0, Lymph % (Auto) 17.1 L, [place] % (Auto) 13.5 H, Eos % (Auto) 3.5, Baso % (Auto) 0.6, Absolute Neuts (auto) 4.4, Absolute Lymphs (auto) 1.17, Nucleated RBC % 0, Sodium 141, Potassium 3.7, Chloride 104, Carbon Dioxide 23.2, Anion Gap 13, BUN 12, Creatinine 0.49 L, Estim Creat Clear Calc 50.79, Est GFR (MDRD) Non-Af 94, BUN/Creatinine Ratio 24.1 H, Glucose 102 H, Calcium 9.2 Micro: Microbiology 05/27/25 10:56 Urine, Clean Catch Urine Culture - Final Gram negative elizabeth Presumptive E. coli Physical Exam Narrative GENERAL: cooperative HEENT: Atraumatic; normocephalic EYES; Anicteric, Normal Conjunctiva NECK; supple, normal thyroid, RESPIRATORY: Diminished to auscultation CARDIOVASCULAR: Regular S1 S2, GI: soft, normoactive bowel sounds, : No Renal angle tenderness; EXTREMITIES: No edema, no clubbing, MUSCULOSKELETAL: Right wrist in the splint NEURO: Awake; no lateralizing signs. SKIN: No Rash PSYCH; Flat affect Assessment & Plan Assessment/Plan (1) Left lumbosacral radiculopathy: (2) Severe back pain: (3) Ambulatory dysfunction: (4) HTN (hypertension): QUALIFIERS: Hypertension type: primary hypertension Qualified Code(s): I10 - Essential (primary) hypertension (5) History of recurrent deep vein thrombosis: PLAN: Plan Patient is an 84-year-old female who had fallen 5 days prior to her admission presented to the emergency department with intractable low back pain with radiation down her left leg 1. Intractable back pain ? Secondary to recent fall with subsequent radiculopathy. 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 No acute injury to the lumbar spine reported. Patient admitted to regular nursing floor for symptom management with pain meds as well as muscle relaxant and requested for PT OT as tolerated ? 05/29/2025; adjusted patient pain meds the day prior. Patient did receive some relief. ? 05/30/2025; patient pain continues to improve awaiting placement in a alf facility ? 05/31/2025; patient to be discharged home with home health instead of SNF after being denied by her insurance 2. Right hand and wrist contusion ? Secondary to patient recent fall managed with immobilization and pain meds 3. Acute cystitis ? Present on admission started on ceftriaxone urine culture sent ? 05/29/2025; cultures were sent yesterday results pending ? 05/30/2025; urine culture still pending 4. Hypertension ? Blood pressure controlled, home medications (amlodipine) continued with dose adjustment as needed 5. Hypothyroidism ? Patient is on levothyroxine home dose continued 6. History of lupus ? Patient is on hydroxychloroquine did continue 7. 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 Patient is on apixaban continued 8. DVT prophylaxis ? Patient already on apixaban Time spent in the patient's overall evaluation,decision-making process, review of diagnostic data, adjustment of management, discussion with other providers, nursing nursing and ancillary staff involved in patient's care documentation, 35 Minutes
[2025-05-31 09:15] VITALS: BP 126/86; PULSE 86; RESP 16; TEMP 36.3; O2SAT 95
[2025-05-31] MEDS: APIXABAN 5 MG TABLET PO ×2 (09:16→21:56)
[2025-05-31] MEDS: Senna/Docusate Sodium 1 Tablet 2 TABLET PO (09:16)
--- NOTE | 2025-05-31 09:16 | CASEMGMT ---
Addendum entered by Luz Marina Caballero 05/31/25 17:04: Case # for appeal is [id number]. Addendum entered by Luz Marina Caballero 05/31/25 16:48: Provided pt with Detailed Notice of Discharge, pt declined to sign form. Gave pt copy of form and filed in pt chart. Addendum entered by Luz Marina Caballero 05/31/25 16:34: Per hospitalist, pt does not require any oral atb upon dc. Addendum entered by Luz Marina Caballero 05/31/25 14:43: Updated hospitalist on pt decision to appeal. Addendum entered by Luz Marina Caballero 05/31/25 14:42: 1342- Spoke with MUSIC TEACHER who states she did work with pt. She states pt is still not agreeable to dc. ROBYN ARRIOLA into pt room, spoke with pt cousin and pt. They would like some time to decide if pt is going to appeal, go home with [facility] or go home to cousin's home. ROBYN ARRIOLA to check back. 1422- ROBYN ARRIOLA into pt room, pt states they are appealing with the insurance. Spoke with manager ship, pt will also need to appeal the hospital dc. ROBYN ARRIOLA explained to pt and cousin and showed the phone number to call to appeal the hospital dc. Pt is aware that she will be given a case # and ROBYN ARRIOLA will request this. Pt is aware that if the hospital dc appeal is resulted prior to the insurance appeal for SNF loc, pt may need to dc home and wait for the insurance decision. Pt states she just wants two more days of therapy and if she appeals she will get this. Pt and cousin request coffee, ROBYN ARRIOLA provided at this time. Addendum entered by Luz Marina Caballero 05/31/25 12:44: Hospitalist met with pt and cousin and reports that pt would like a private pay list for facilities as well as therapy to work with pt this date. ROBYN ARRIOLA into pt room, pt states she would like a list of [facility] pricing. Pt states she cannot go home as she is using a walker. Pt aware that using a walker does not qualify for SNF level of care. Provided pt with private pay pricing. Spoke with physical therapy who will see pt. Addendum entered by Luz Marina Caballero 05/31/25 12:02: Pt cousin, Donna, is present and requesting to speak to hospitalist. Updated hospitalist at this time. Addendum entered by Luz Marina Caballero 05/31/25 09:57: Provided pt with number to appeal the decision. Pt states her cousin will be coming in and she would like the physician to speak with the two of them. Updated hospitalist. Addendum entered by Luz Marina Caballero 05/31/25 09:50: ROBYN ARRIOLA into pt room, provided pt with a list of C options. Pt has her family member on the phone and asked this ROBYN ARRIOLA to speak with her. Spoke with family member, Donna. She requests an appeal be made. ROBYN ARRIOLA to obtain information for pt and family member. Original Note: Pt denied SNF level of care, updated hospitalist, no peer to peer to be completed. ROBYN ARRIOLA into pt room with hospitalist who explained to pt the situation. Pt agreeable to [facility] services. Requested list be created by dc administrative support assistant. Pt denies any need for any home delivered meals information but feels that this is putting a lot on her family to assist her. Pt reports private pay is not an option for her.
[2025-05-31] MEDS: Fluticasone 0.05% 1 SPRAY NASAL.SRY 2 SPRAY NASAL ×2 (09:17→21:56)
--- NOTE | 2025-05-31 09:23 | CASEMGMT ---
Discharge Planning A list of?HH providers including quality and resource use data and consistent with the patient's preferred geographic region, medical needs, and insurance network was created in [facility] [facility].? This list was provided to the RN ZEINAB. Edith Rocha, Discharge Planning Asst.
--- NOTE | 2025-05-31 09:24 | DS.PCM_ITS ---
Providers Date of Admission: 05/28/25 Date of Discharge: 05/31/25 Primary Care Physician: Dr. Herbie Marquez MD Reason For Visit: AMBULATORY DYSFUNCTION, SEVERE BACK PAIN Diagnosis Discharge Diagnosis (1) Left lumbosacral radiculopathy: Status: Acute Code(s): M54.17 - Radiculopathy, lumbosacral region (2) Severe back pain: Status: Acute Code(s): M54.9 - Dorsalgia, unspecified (3) Ambulatory dysfunction: Status: Acute Code(s): R26.2 - Difficulty in walking, not elsewhere classified (4) HTN (hypertension): Status: Chronic Code(s): I10 - Essential (primary) hypertension Qualifiers: Hypertension type: primary hypertension Qualified Code(s): I10 - Essential (primary) hypertension (5) History of recurrent deep vein thrombosis: Status: Acute Code(s): Z86.718 - Personal history of other venous thrombosis and embolism Plan Patient is an 84-year-old female who had fallen 5 days prior to her admission presented to the emergency department with intractable low back pain with radiation down her left leg 1. Intractable back pain ? Secondary to recent fall with subsequent radiculopathy. 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 No acute injury to the lumbar spine reported. Patient admitted to regular nursing floor for symptom management with pain meds as well as muscle relaxant and requested for PT OT as tolerated ? 05/29/2025; adjusted patient pain meds the day prior. Patient did receive some relief. ? 05/30/2025; patient pain continues to improve awaiting placement in a alf facility ? 05/31/2025; patient to be discharged home with home health instead of SNF after being denied by her insurance 2. Right hand and wrist contusion ? Secondary to patient recent fall managed with immobilization and pain meds 3. Acute cystitis ? Present on admission started on ceftriaxone urine culture sent ? 05/29/2025; cultures were sent yesterday results pending ? 05/30/2025; urine culture still pending 4. Hypertension ? Blood pressure controlled, home medications (amlodipine) continued with dose adjustment as needed 5. Hypothyroidism ? Patient is on levothyroxine home dose continued 6. History of lupus ? Patient is on hydroxychloroquine did continue 7. 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 Patient is on apixaban continued 8. DVT prophylaxis ? Patient already on apixaban Time spent in the patient's overall evaluation,decision-making process, review of diagnostic data, adjustment of management, discussion with other providers, nursing nursing and ancillary staff involved in patient's care documentation, 35 Minutes Medications at Discharge Home Medications amlodipine 10 mg tablet 10 mg PO DAILY 05/28/25 apixaban 5 mg tablet (Eliquis) 5 mg PO BID 05/28/25 estradiol 0.01% (0.1 mg/gram) vaginal cream 1 vaginal 05/28/25 famotidine 40 mg tablet 40 mg PO DAILY 05/28/25 fluticasone propionate 50 mcg/actuation nasal spray,suspension 2 spray intranasal BID 05/28/25 folic acid 1 mg tablet 1 mg PO DAILY 05/28/25 hydroxychloroquine 200 mg tablet 200 mg PO DAILY 05/28/25 levothyroxine 50 mcg tablet 50 mcg PO DAILY 05/28/25 oxycodone 5 mg tablet 2.5 mg PO Q8H PRN PRN pain 05/28/25 acetaminophen 500 mg tablet 1,000 mg (2 x 500 mg) PO Q8 #30 tabs 05/31/25 gabapentin 100 mg capsule 100 mg PO TIDCM #30 caps 05/31/25 sennosides 8.6 mg-docusate sodium 50 mg tablet (Stimulant Laxative Plus) 2 tab PO BID #60 tabs 05/31/25 Physical Exam Narrative GENERAL: cooperative HEENT: Atraumatic; normocephalic EYES; Anicteric, Normal Conjunctiva NECK; supple, normal thyroid, RESPIRATORY: Diminished to auscultation CARDIOVASCULAR: Regular S1 S2, GI: soft, normoactive bowel sounds, : No Renal angle tenderness; EXTREMITIES: No edema, no clubbing, MUSCULOSKELETAL: Right wrist in the splint NEURO: Awake; no lateralizing signs. SKIN: No Rash PSYCH; Flat affect Weight / BMI Weight Weight: 73.2 kg Body Mass Index (BMI) 28.5 ABG / Lab / Microbiology Data 05/31/25 06:05 05/31/25 06:05 Laboratory: Laboratory Results - last 24 hr 05/31/25 06:05: WBC 6.8, RBC 4.03 L, Hgb 12.0, Hct 36.5 L, MCV 90.6, MCH 29.8, MCHC 32.9, RDW Std Deviation 42.5, RDW Coeff of Ethan 12.8, Plt Count 202, MPV 10.3, Immature Gran % (Auto) 0.300, Neut % (Auto) 65.0, Lymph % (Auto) 17.1 L, M luis % (Auto) 13.5 H, Eos % (Auto) 3.5, Baso % (Auto) 0.6, Absolute Neuts (auto) 4.4, Absolute Lymphs (auto) 1.17, Nucleated RBC % 0, Sodium 141, Potassium 3.7, Chloride 104, Carbon Dioxide 23.2, Anion Gap 13, BUN 12, Creatinine 0.49 L, Estim Creat Clear Calc 50.79, Est GFR (MDRD) Non-Af 94, BUN/Creatinine Ratio 24.1 H, Glucose 102 H, Calcium 9.2 Microbiology: Microbiology 05/27/25 10:56 Urine, Clean Catch Urine Culture - Final Gram negative elizabeth Presumptive E. coli D/C Instructions Discharge Activity: Return to Normal Activity Call your doctor if you observe: Fever of 101 or Higher, Shortness of breath, Fainting spells and Chest pain DC O2, CPAP, BIPAP Needs Home O2 Discharge instructions: No Meaningful Use Info Meaningful Use Meaningful Use Diagnoses (Choose all that apply): None applicable Discharge Plan Admission Admit Date/Time: 05/28/25 16:24 Attending Provider: Chetan Hampton Primary Care Provider: Herbie Marquez Consulting Providers: Sierra Booth Discharge Orders/Prescriptions Prescriptions: New acetaminophen 500 mg Tablet 1,000 mg PO Q8 Qty: 30 0RF sennosides-docusate sodium [Stimulant Laxative Plus] 8.6-50 mg Tablet 2 tab PO BID Qty: 60 0RF gabapentin 100 mg Capsule 100 mg PO TIDCM Qty: 30 0RF Continued famotidine 40 mg tablet 40 mg PO DAILY amlodipine 10 mg tablet 10 mg PO DAILY folic acid 1 mg tablet 1 mg PO DAILY hydroxychloroquine 200 mg tablet 200 mg PO DAILY estradiol 0.01 % (0.1 mg/gram) cream 1 vaginal fluticasone propionate 50 mcg/actuation spray,suspension 2 spray INTRANASAL BID oxycodone 5 mg tablet 2.5 mg PO Q8H PRN PRN (Reason: pain) Eliquis 5 mg tablet 5 mg PO BID levothyroxine 50 mcg tablet 50 mcg PO DAILY Referrals / Follow Up: Herbie Marquez MD [Primary Care Provider, Medical] - Within 1 Week Disposition Disposition (needs filled in before D/C Order can be placed): Home Health Service Charges/Coding Visit Charges Inpatient E&M: 46551 Disch Hosp >30min
--- NOTE | 2025-05-31 11:28 | PHA.DC.MC.R ---
Pharmacy [facility] Counseling Pharmacy Service has performed discharge medication reconciliation and counseling for this patient. 1. ACETAMINOPHEN 1000MG PO Q8 2. GABAPENTIN 100MG PO TIDCM 3. SENNA/DOCUSATE 2T PO BID The patient's discharge medication list was reviewed for discrepancies and discrepancies were resolved. The patient was counseled on the following discharge medications and changes in medications for homegoing were reviewed. The Reason for Use, instructions for use, and potential side effects were reviewed for all new medications. The patient's questions regarding all of their medications were answered. The patient was able to verbally demonstrate an understanding of their discharge medications. Medications at Discharge Home Medications amlodipine 10 mg tablet 10 mg PO DAILY 05/28/25 apixaban 5 mg tablet (Eliquis) 5 mg PO BID 05/28/25 estradiol 0.01% (0.1 mg/gram) vaginal cream 1 vaginal 05/28/25 famotidine 40 mg tablet 40 mg PO DAILY 05/28/25 fluticasone propionate 50 mcg/actuation nasal spray,suspension 2 spray intranasal BID 05/28/25 folic acid 1 mg tablet 1 mg PO DAILY 05/28/25 hydroxychloroquine 200 mg tablet 200 mg PO DAILY 05/28/25 levothyroxine 50 mcg tablet 50 mcg PO DAILY 05/28/25 oxycodone 5 mg tablet 2.5 mg PO Q8H PRN PRN pain 05/28/25 acetaminophen 500 mg tablet 1,000 mg (2 x 500 mg) PO Q8 #30 tabs 05/31/25 gabapentin 100 mg capsule 100 mg PO TIDCM #30 caps 05/31/25 sennosides 8.6 mg-docusate sodium 50 mg tablet (Stimulant Laxative Plus) 2 tab PO BID #60 tabs 05/31/25
[2025-05-31 19:37] VITALS: BP 128/68; PULSE 74; RESP 16; TEMP 36.6; O2SAT 98
[2025-05-31 21:35] VITALS: BP 143/78; PULSE 77; RESP 18; TEMP 36.4; O2SAT 96
[2025-06-01 03:56] VITALS: BP 157/80; PULSE 75; RESP 18; TEMP 36.6; O2SAT 97
--- NOTE | 2025-06-01 06:02 | PN.HOSP_ITS ---
Reason for Visit Chief Complaint: Severe back pain and difficulty ambulating Subjective Subjective Plan was for patient to be discharged home with home health the day prior after she was denied insurance approval for intermediate facility she however appealed the decision necessitating the cancellation of her discharge Objective Data Objective Data Vital Signs: Vital Signs Temp Pulse Resp BP Pulse Ox O2 Del Method 97.8 F 75 18 157/80 H 97 Room Air 06/01/25 03:56 06/01/25 03:56 06/01/25 03:56 06/01/25 03:56 06/01/25 03:56 06/01/25 03:56 Oxygen Delivery Method Room Air Weight: 73.2 kg Body Mass Index (BMI) 28.5 Intake & Output: Intake and Output for Last 24 Hours 05/30/25 05/31/25 06/01/25 23:59 23:59 23:59 Intake Total 845 / 845 1100 / 1100 Balance 845 / 845 1100 / 1100 Lab / Micro Data 05/31/25 06:05 05/31/25 06:05 Labs: Laboratory Results - last 24 hr 05/31/25 06:05: WBC 6.8, RBC 4.03 L, Hgb 12.0, Hct 36.5 L, MCV 90.6, MCH 29.8, MCHC 32.9, RDW Std Deviation 42.5, RDW Coeff of Ethan 12.8, Plt Count 202, MPV 10.3, Immature Gran % (Auto) 0.300, Neut % (Auto) 65.0, Lymph % (Auto) 17.1 L, M luis % (Auto) 13.5 H, Eos % (Auto) 3.5, Baso % (Auto) 0.6, Absolute Neuts (auto) 4.4, Absolute Lymphs (auto) 1.17, Nucleated RBC % 0, Sodium 141, Potassium 3.7, Chloride 104, Carbon Dioxide 23.2, Anion Gap 13, BUN 12, Creatinine 0.49 L, Estim Creat Clear Calc 50.79, Est GFR (MDRD) Non-Af 94, BUN/Creatinine Ratio 24.1 H, Glucose 102 H, Calcium 9.2 Micro: Microbiology 05/27/25 10:56 Urine, Clean Catch Urine Culture - Final Gram negative elizabeth Presumptive E. coli Physical Exam Narrative GENERAL: cooperative HEENT: Atraumatic; normocephalic EYES; Anicteric, Normal Conjunctiva NECK; supple, normal thyroid, RESPIRATORY: Diminished to auscultation CARDIOVASCULAR: Regular S1 S2, GI: soft, normoactive bowel sounds, : No Renal angle tenderness; EXTREMITIES: No edema, no clubbing, MUSCULOSKELETAL: Right wrist in the splint NEURO: Awake; no lateralizing signs. SKIN: No Rash PSYCH; Flat affect Assessment & Plan Assessment/Plan (1) Left lumbosacral radiculopathy: (2) Severe back pain: (3) Ambulatory dysfunction: (4) HTN (hypertension): QUALIFIERS: Hypertension type: primary hypertension Qualified Code(s): I10 - Essential (primary) hypertension (5) History of recurrent deep vein thrombosis: PLAN: Plan Patient is an 84-year-old female who had fallen 5 days prior to her admission presented to the emergency department with intractable low back pain with radiation down her left leg 1. Intractable back pain ? Secondary to recent fall with subsequent radiculopathy. 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 No acute injury to the lumbar spine reported. Patient admitted to regular nursing floor for symptom management with pain meds as well as muscle relaxant and requested for PT OT as tolerated ? 05/29/2025; adjusted patient pain meds the day prior. Patient did receive some relief. ? 05/30/2025; patient pain continues to improve awaiting placement in a intermediate facility ? 05/31/2025; patient to be discharged home with home health instead of SNF after being denied by her insurance ? 06/01/2025; discharge home with home health was discontinued the day prior after patient elected to appeal against her denial to stay by her insurance company. Seen this a.m. patient still complains of hip pain. Plan is to continue PT OT as tolerated pending insurance approval 2. Right hand and wrist contusion ? Secondary to patient recent fall managed with immobilization and pain meds 3. Acute cystitis ? Present on admission started on ceftriaxone urine culture sent ? 05/29/2025; cultures were sent yesterday results pending ? 05/30/2025; urine culture still pending 4. Hypertension ? Blood pressure controlled, home medications (amlodipine) continued with dose adjustment as needed 5. Hypothyroidism ? Patient is on levothyroxine home dose continued 6. History of lupus ? Patient is on hydroxychloroquine did continue 7. 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 Patient is on apixaban continued 8. DVT prophylaxis ? Patient already on apixaban Time spent in the patient's overall evaluation,decision-making process, review of diagnostic data, adjustment of management, discussion with other providers, nursing nursing and ancillary staff involved in patient's care documentation, 35 Minutes Charges/Coding Visit Charges Inpatient E&M: 77024 Subs Hosp L2
[2025-06-01 08:56] VITALS: BP 138/83; PULSE 75; RESP 16; TEMP 36.9; O2SAT 95
[2025-06-01] MEDS: Fluticasone 0.05% 1 SPRAY NASAL.SRY 2 SPRAY NASAL ×2 (08:57→23:26)
[2025-06-01] MEDS: APIXABAN 5 MG TABLET PO ×2 (08:57→23:25)
[2025-06-01] MEDS: Senna/Docusate Sodium 1 Tablet 2 TABLET PO (08:59)
[2025-06-01 12:50] VITALS: BP 120/62; PULSE 72; RESP 16; TEMP 36.5; O2SAT 97
--- NOTE | 2025-06-01 14:22 | CASEMGMT ---
RN CM made aware that [facility] sided that pt does not meet medical necessity for continued inpatient hospitalization. Provided pt with HINN 12, pt signed, copy provided and filed in pt chart. Pt states she will not leave before noon tomorrow. Pt states she will borrow a walker. She provided [facility] choices: 1. [facility] 2. [facility] 3. [facility]. TC to [facility] at [facility], referral made. Updated hospitalist on decision.
[2025-06-01 18:05] VITALS: BP 134/59; PULSE 80; RESP 17; TEMP 36.5; O2SAT 96
[2025-06-01 23:22] VITALS: BP 142/68; PULSE 73; RESP 18; TEMP 36.4; O2SAT 93
[2025-06-01] MEDS: 0.9% Saline Lock 10 ML Syringe IV (23:26)
[2025-06-02 01:34] VITALS: BP 141/74; PULSE 73; RESP 18; TEMP 36.3; O2SAT 95
[2025-06-02 05:37] VITALS: BP 151/87; PULSE 72; RESP 16; TEMP 36.3; O2SAT 96
--- NOTE | 2025-06-02 08:50 | CASEMGMT ---
Addendum entered by Luz Marina Caballero 06/02/25 10:16: Received tc back from [facility], they are able to accept pt for SOC tomorrow. RN CM into pt room, pt and cousin aware. Pt ready for dc. Original Note: TC to [facility] at [facility] to check on decision to accept pt for services.
[2025-06-02 09:06] VITALS: BP 151/80; PULSE 85; RESP 16; TEMP 36.4; O2SAT 95
== END 2025-06-02 10:30 | disposition home health service (06) | DRG 552 ==
LOC: ED 05-28 00:43 → MS3 05-28 01:43
PROVIDERS: Admitting Provider Internal Medicine; Emergency Provider Emergency Medicine; PCP Internal Medicine; Visit Provider Internal Medicine
DX: M48.061 Spinal stenosis, lumbar region without neurogenic claudication (principal); N30.00 Acute cystitis without hematuria; E03.9 Hypothyroidism, unspecified; I10 Essential (primary) hypertension; S60.211A Contusion of right wrist, initial encounter; L93.2 Other local lupus erythematosus; S60.221A Contusion of right hand, initial encounter; W19.XXXA Unspecified fall, initial encounter; M54.17 Radiculopathy, lumbosacral region; Z87.891 Personal history of nicotine dependence; Z79.01 Long term (current) use of anticoagulants; Z86.718 Personal history of other venous thrombosis and embolism; Z79.899 Other long term (current) drug therapy
CPT/HCPCS: 36415; 72131; 80048; 81001; 83735; 84100; 85025; 87086; 87088; 97110; 97116; 97162; 97165; 97530; 97535; 99285; A4216; J2405